=== PATIENT | female | born 1960 | race Caucasian/White ===

== ENCOUNTER 2016-04-10 07:15 | Day surgery (SDC) | payer MEDICARE, OTHER ==
[2016-04-05 15:45] VITALS: BMI 38.0
[~2016-04-10 07:15] MED LIST: LACTATED RINGERS 1,000 ML IV SCH; LIDOCAINE 1% 20 ML VIAL (10MG/ML) FOR IV START INTRADERMA PRN
[2016-04-10 07:53] VITALS: TEMP 98
[2016-04-10 08:00] LABS: Glucose,Whole Blood 153 mg/dL (75-99)
[2016-04-10] MEDS ORDERED: PROPOFOL 10 MG/ML 20 ML VIAL IV ONE (08:00)
--- NOTE | 2016-04-10 08:26 | P.PCN ---
Date of Procedure: 04/10/16 Procedure(s) Performed: BRIEF HISTORY: Patient is a 55-year-old pleasant white female, scheduled for an elective colonoscopy as a part of evaluation of iron deficiency anemia. She denies any GI symptoms. PROCEDURE PERFORMED: Colonoscopy. PREOPERATIVE DIAGNOSIS: Iron deficiency anemia. IV sedation per Anesthesia. PROCEDURE: After informed consent was obtained, the patient, was brought into the endoscopy unit. IV conscious sedation was administered by Anesthesia under continuous monitoring. Digital rectal examination was normal. Initially the Olympus CF-160 flexible video colonoscope was then inserted in the rectum, gradually advanced into the cecum without any difficulty. Careful examination was performed as the scope was gradually being withdrawn. Ileocecal valve and the appendiceal orifice were visualized and appeared normal. Prep was excellent. Mucosa of the cecum, ascending colon, transverse colon, descending colon, sigmoid colon, and rectum appeared normal. Retroflexion was performed in the rectum and no lesions were seen. The patient tolerated the procedure well. IMPRESSION: Normal-appearing colon from rectum to cecum with no evidence of colorectal neoplasia. RECOMMENDATIONS: Findings of this examination were discussed with the patient as well as her family. She was advised to have a repeat screening colonoscopy in 10 years.
[2016-04-10 08:34] VITALS: RESP 18
[2016-04-10 08:46] VITALS: BP 107/59; PULSE 79
[2016-04-10] MEDS ORDERED: fentaNYL (PF) 50 MCG/ML 2 ML AMP ONE (09:14)
[2016-04-10] MEDS ORDERED: MIDAZOLAM 2 MG/2 ML VIAL ONE (09:14)
== END 2016-04-10 08:58 | disposition home or self-care (01) ==
LOC: ORWHC2ENDO 07:15
PROVIDERS: ATTEND Internal Medicine Gastroenterology
DX: D50.9 Iron deficiency anemia, unspecified (principal); G47.33 Obstructive sleep apnea (adult) (pediatric); Z99.81 Dependence on supplemental oxygen; J44.9 Chronic obstructive pulmonary disease, unspecified; K21.9 Gastro-esophageal reflux disease without esophagitis; Z88.1 Allergy status to other antibiotic agents; Z88.0 Allergy status to penicillin; Z88.2 Allergy status to sulfonamides; Z79.84 Long term (current) use of oral hypoglycemic drugs; Z79.899 Other long term (current) drug therapy
CPT/HCPCS: 45378; J2704; 99153

== ENCOUNTER 2016-12-12 15:49 | Emergency (ER) | payer MEDICARE, OTHER ==
[2016-12-12] MEDS ORDERED: HYDROmorphone 0.5 MG/0.5 ML SYRINGE IVP STA (16:31)
[2016-12-12] MEDS ORDERED: ONDANSETRON 4 MG/2 ML VIAL IVP STA (16:31)
--- NOTE | 2016-12-12 17:22 | ED ---
Female Urogenital HPI - General Chief complaint: Vaginal Bleeding Stated complaint: vaginal blood clots Time Seen by Provider: 12/12/16 16:12 Source: patient, RN notes reviewed Mode of arrival: ambulatory Limitations: no limitations - History of Present Illness Initial comments: This a 56-year-old female presents emergency department tingling vaginal bleeding. Patient states she had sexual intercourse for the first time in 15 years 3 hours prior arrival states that she started having bleeding. Patient states that she has bled through 2 depends. Patient states that she has had a history of cervical cancer and currently sees Dr. Rasmussen. Patient states she try to go there prior to coming here but states that the doctor was not in. Patient states she felt lightheaded. Denies chest pain, shortness breath. She states she has had some abdominal cramping. - Related Data Home Medications Medication Instructions Recorded Confirmed Atorvastatin [Lipitor] 40 mg PO DAILY 01/02/15 12/12/16 Beclomethasone Dipropionate [Qvar 1 - 2 puff INHALATION RT-BID PRN 01/02/1502/16 40 mcg/puff] Carbidopa-Levodopa 25-250 mg 1 tab PO TID 01/02/15 12/12/16 [Sinemet 25-250] Ezetimibe [Zetia] 10 mg PO DAILY 01/02/15 12/12/16 Ipratropium Flushing [Atrovent Hfa] 1 puff INHALATION RT-QID PRN 01/02/15 Levalbuterol Hfa Inhaler [Xopenex 1 puff INHALATION RT-TID PRN 01/02/15 12/12/16 Hfa Inhaler] Metoprolol Tartrate [Lopressor] 25 mg PO BID 01/02/15 12/12/16 Nitroglycerin Sl Tabs [Nitrostat] 0.4 mg SUBLINGUAL Q5M PRN 01/02/15 12/12/16 Pramipexole [Mirapex] 1 mg PO TID 01/02/15 12/12/16 Ranitidine HCl [Zantac] 150 mg PO BID 01/02/15 12/12/16 metFORMIN HCL [Glucophage] 1,000 mg PO BID 01/02/15 12/12/16 Multivitamins, Thera [Multivitamin] 1 tab PO DAILY 04/05/16 12/12/16 Aspirin 325 mg PO DAILY 12/12/16 12/12/16 Vortioxetine Hydrobromide 10 mg PO DAILY 12/12/16 12/12/16 [Trintellix] levETIRAcetam [Keppra] 250 mg PO DAILY 12/12/16 12/12/16 Allergies Allergy/AdvReac Type Severity Reaction Status Date / Time amoxicillin Allergy SOB- RED Verified 12/12/16 16:54 BLOTCHY SKIN capsaicin Allergy SOB- RED Verified 12/12/16 16:54 BLOTCHY SKIN cephalexin monohydrate Allergy SOB- RED Verified 12/12/16 16:54 [From Keflex] BLOTCHY SKIN Cephalosporins Allergy SOB-RED Verified 12/12/16 16:54 BLOTCHY SKIN clindamycin Allergy SOB-RED Verified 12/12/16 16:54 BLOTCHY SKIN fluticasone propionate Allergy SOB- RED Verified 12/12/16 16:54 [From Flonase] BLOTCHY SKIN Penicillins Allergy SOB- RED Verified 12/12/16 16:54 BLOTCHY SKIN Sulfa (Sulfonamide Allergy SOB- RED Verified 12/12/16 16:54 Antibiotics) BLOTCHY SKIN BROWN DYES Allergy SOB- RED Uncoded 12/12/16 16:03 BLOTCHY SKIN Review of Systems ROS Statement: Those systems with pertinent positive or pertinent negative responses have been documented in the HPI. ROS Other: All systems not noted in ROS Statement are negative. Past Medical History Past Medical History: Coronary Artery Disease (CAD), Cancer, COPD, Diabetes Mellitus, Eye Disorder, Fibromyalgia, GERD/Reflux, Hyperlipidemia, Myocardial Infarction ([place]), Osteoarthritis (OA), Sleep Apnea/CPAP/BIPAP Additional Past Medical History / Comment(s): HX OF ACUTE MYELOID LEUKEMIA, [place] X2, INCISIONAL HERNIA, OSTEOPOROSIS IN HER BACK, NEUROPATHY GURDEEP LEGS, ANEMIA, VULVAR CANCER, ANEMIA, RLS,DIVERTICULITIS,WEAKENING IN ABDOMINAL WALL, HX RAPID HEART RATE, HX SHINGLES X2 Last Myocardial Infarction Date:: 2000 History of Any Multi-Drug Resistant Organisms: MRSA Date of last positivie culture/infection: 2001 MDRO Source:: PORT IN CHEST Past Surgical History: Bowel Resection, Section, Heart Catheterization With Stent, Hernia Repair, Orthopedic Surgery Additional Past Surgical History / Comment(s): LEFT OVARY REMOVED, DEVIATED SEPTUM REPAIR, LEFT EAR SURGERY, RIGHT WRIST PLATE AND PINS, RIGHT FOREHEAD CYST REMOVED Past Anesthesia/Blood Transfusion Reactions: Blood Transfusion Reaction Additional Past Anesthesia/Blood Transfusion Reaction / Comment(s): 2001 Date of Last Stent Placement:: 2000 Past Psychological History: Depression Smoking Status: Current every day smoker Past Alcohol Use History: None Reported Past Drug Use History: None Reported - Past Family History Mother Additional Family Medical History / Comment(s): @ AGE 53 WITH ANEURYSM Father Family Medical History: Myocardial Infarction ([place]) Additional Family Medical History / Comment(s): HAD CABG- COMMITTED SUICIDE A YEAR AFTER - PT'S GRANDFATHER(P) ALSO COMMITED SUICIDE Brother(s) Additional Family Medical History / Comment(s): COMMITTED SUICIDE General Exam Limitations: no limitations General appearance: alert, in no apparent distress Head exam: Present: atraumatic, normocephalic, normal inspection Respiratory exam: Present: normal lung sounds bilaterally. Absent: respiratory distress, wheezes, rales, rhonchi, stridor Cardiovascular Exam: Present: regular rate, normal rhythm, normal heart sounds. Absent: systolic murmur, diastolic murmur, rubs, gallop, clicks GI/Abdominal exam: Present: soft, normal bowel sounds. Absent: distended, tenderness, guarding, rebound, rigid External exam: Present: normal external exam, other (Exam performed with Ana María RN) Speculum exam: Present: vaginal bleeding (Multiple clots noted), laceration ( There is a laceration inferior and to the right of the cervix with no active bleeding) Course Vital Signs 12/12/16 12/12/16 16:00 17:11 Temperature 98.8 F Pulse Rate 103 H 85 Respiratory 16 18 Rate Blood Pressure 121/75 96/50 O2 Sat by Pulse 99 95 Oximetry Medical Decision Making - Medical Decision Making 56-year-old female presented emergency department for vaginal bleeding after intercourse. Patient does have a vaginal laceration with no active bleeding. Dr. Mariscal discuss case with Dr. Bains on-call LINUX SYSTEM ENGINEER who recommends no treatment with no active bleeding. Patient was monitored for over an hour no recurrence of bleeding. Patient be discharged return parameters were discussed. Disposition Clinical Impression: Vaginal laceration Disposition: HOME SELF-CARE Condition: Stable Additional Instructions: Please return to the Emergency Department if symptoms worsen or any other concerns. Referrals: Aron Jeffrey Jr, [Primary Care Provider] - 1-2 days Time of Disposition: 17:23
[2016-12-12 17:31] LABS: Basophils % (A) 0 %; CH 33.1; CHCM 31.8; Eosinophils # (A) 0.1 k/uL (0-0.7); Eosinophils % (A) 1 %; HCT 40.6 % (34.0-46.0); HDW 2.86; HGB 14.1 gm/dL (11.4-16.0); Hypochromasia Slight; Luc # (Auto) 0.14; Luc % (Auto) 2; Lymphocytes # (A) 2.1 k/uL (1.0-4.8); Lymphocytes % (A) 22 %; MCH 36.2 pg (25.0-35.0); MCHC 34.7 g/dL (31.0-37.0); MCV 104.5 fL (80.0-100.0); Macrocytosis Slight; Mean Platelet Volume 7.8; Monocytes # (A) 0.4 k/uL (0-1.0); Monocytes % (A) 4 %; Neutrophils # (A) 6.8 k/uL (1.3-7.7); Neutrophils % (A) 71 %; RBC 3.88 m/uL (3.80-5.40); RDW 14.3 % (11.5-15.5); WBC 9.5 k/uL (3.8-10.6); WBC (Perox) 9.25
[2016-12-12 17:33] LABS: Anion Gap 11 mmol/L; Blood Urea Nitrogen 17 mg/dL (7-17); Calcium 9.3 mg/dL (8.4-10.2); Carbon Dioxide 27 mmol/L (22-30); Chloride 101 mmol/L (98-107); Glucose 77 mg/dL (74-99); Non-African American GFR(MDRD) >60 (>60 ml/min/1.73 sqM); Potassium 4.3 mmol/L (3.5-5.1); Sodium 139 mmol/L (137-145)
[2016-12-12 18:23] VITALS: BP 109/55; PULSE 76; RESP 15; TEMP 98.1
== END 2016-12-12 18:28 | disposition home or self-care (01) ==
LOC: EC 15:49
DX: S31.41XA Laceration without foreign body of vagina and vulva, initial encounter (principal); I25.10 Atherosclerotic heart disease of native coronary artery without angina pectoris; E11.9 Type 2 diabetes mellitus without complications; E78.5 Hyperlipidemia, unspecified; I25.2 Old myocardial infarction; G47.30 Sleep apnea, unspecified; Z99.89 Dependence on other enabling machines and devices; F32.9 Major depressive disorder, single episode, unspecified; Z85.41 Personal history of malignant neoplasm of cervix uteri; Z86.14 Personal history of Methicillin resistant Staphylococcus aureus infection; Z95.5 Presence of coronary angioplasty implant and graft; Z98.890 Other specified postprocedural states; Z90.721 Acquired absence of ovaries, unilateral; Z79.84 Long term (current) use of oral hypoglycemic drugs; Z79.82 Long term (current) use of aspirin; Z79.899 Other long term (current) drug therapy; Z88.0 Allergy status to penicillin; Z88.1 Allergy status to other antibiotic agents; Z88.2 Allergy status to sulfonamides; Z91.018 Allergy to other foods; Z91.048 Other nonmedicinal substance allergy status
CPT/HCPCS: 99284 ×2; 96374 ×2; 96375 ×2; 36415; 86900; 86901; 80048; 85025; 86850; J2405; J1170

== ENCOUNTER 2017-04-17 07:33 | Day surgery (SDC) | payer MEDICARE, OTHER ==
[2017-04-15 11:24] VITALS: BMI 37.2
[~2017-04-17 07:33] MED LIST changes: +DEXAMETHASONE SOD PHOSPHATE 10 MG/ML 1 ML VIAL IV ONE; +DEXAMETHASONE SOD PHOSPHATE 4 MG/ML 1 ML VIAL IV ONE; +HYDROmorphone 0.5 MG/0.5 ML SYRINGE IVP PRN; -LACTATED RINGERS 1,000 ML IV SCH; +MIDAZOLAM 2 MG/2 ML VIAL IV PRN; +ONDANSETRON 4 MG/2 ML VIAL IVP ONE; +SCOPOLAMINE 1.5MG/72HR PATCH TRANSDERM ONE
[2017-04-17 08:09] LABS: Glucose,Whole Blood 131 mg/dL (75-99)
[2017-04-17] MEDS: LACTATED RINGERS 1,000 ML IV SCH ×2 (08:12→09:22)
[2017-04-17] MEDS ORDERED: FAMOTIDINE 20 MG/2 ML VIAL IVP ONE (08:13)
[2017-04-17] MEDS ORDERED: SUCCINYLCHOLINE CHLORIDE VIAL 200 MG/10 ML VIAL IV ONE (09:24)
[2017-04-17] MEDS ORDERED: LIDOCAINE 1% INJ 10MG/ML (20 ML MDV) ONE (09:24)
[2017-04-17] MEDS ORDERED: MIDAZOLAM 2 MG/2 ML VIAL ONE (09:24)
[2017-04-17] MEDS ORDERED: PROPOFOL 10 MG/ML 20 ML VIAL IV ONE (09:24)
[2017-04-17] MEDS ORDERED: fentaNYL (PF) 50 MCG/ML 2 ML AMP ONE (09:24)
[2017-04-17] MEDS ORDERED: OFLOXACIN 0.3% OPHTH DROPS 5 ML BOTTLE BOTH EARS ONE (09:43)
[2017-04-17] MEDS ORDERED: OXYMETAZOLINE 0.05% NASL SPRAY 1 SPRAY BOTTLE MISCELLANE ONE (09:43)
[2017-04-17] MEDS ORDERED: GELATIN SPONGE,ABSORB (SMALL) 1 EACH SPONGE MISCELLANE ONE (09:44)
[2017-04-17 10:19] VITALS: TEMP 96.9
--- NOTE | 2017-04-17 10:19 | P.OP ---
Date of Procedure: 04/17/17 Preoperative Diagnosis: Eustachian tube dysfunction Chronic otitis media with effusion bilaterally with conductive hearing loss Retained right tympanostomy tube Right tympanic membrane perforation post tube removal, right Postoperative Diagnosis: same Procedure(s) Performed: Right tympanostomy with removal of retained tube and drumhead cholesteatoma Right tympanoplasty with lysis of middle ear adhesions Bilateral direct microscopic tympanostomy tube placement Anesthesia: ASHWINIA Surgeon: Slava Acevdeo Estimated Blood Loss (ml): 10 Pathology: none sent Condition: stable Disposition: PACU Indications for Procedure: This patient is a 56-year-old white female who presented to the office today with her pain pressure bloody otorrhea from the right side hearing loss etc. patient has had a persistent and long-standing problem with her ears. She had a tube placed 10 years ago which has been retained. 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 The left ear suffered from eustachian tube dysfunction and a middle ear effusion and she had a conductive hearing loss bilaterally. After long discussion she wished to proceed forward with removal of that long-standing right tympanostomy tube with repair of that right eardrum removal of the drumhead cholesteatoma and tympanostomy tube placement for ventilation. All risks, benefits, and alternative therapies were discussed. Risks of bleeding, infection, hearing loss, change in taste, facial paralysis etc. etc. was discussed. Consent was obtained and all questions were answered. Operative Findings: Patient had a drumhead cholesteatoma with erosion of the eardrum around the retained tubes that was present for 10 years. Patient had bilateral mucosal disease bilaterally with right middle ear adhesions. Description of Procedure: Patient was taken to the operative room and placed in the supine position. A general inhalation anesthetic was administered to the patient by mask and subsequently intubated with a cuffed endotracheal tube by the department of anesthesia with a functioning IV line in place. Patient was monitored throughout the entire case by the department of anesthesia. The right ear was visualized with a Zeiss microscope with a variable focal length and magnification. We identified a retained tube and remove that tube with a house pick and alligator forceps. There was a drumhead cholesteatoma that was removed with a house pick and an alligator forceps and there was a resultant tympanic membrane perforation present. Went to see a large amount of adhesions in the middle ear space along with mucosal disease on the right side. The drumhead was prepped with a house pick and freshened. We utilized Afrin nasal spray for control of hemostasis. A tympanomeatal flap was developed in the 12 and 6 oclock position with a round knife and gemic. Multiple middle ear adhesions were lysed with use of a house pack. The flap was elevated, gelfoam was placed into the middle ear and a biodesign graft was placed as an underlay graft and the flap was placed back in position. A tympanostomy incision was made inferiorly and a tube was placed utilizing an ultraseal tube. The eardrum was in position the graft was placed as an underlay graft. Tube was in place and the ear canal was filled with Gelfoam dipped in ofloxacin. A Shaka pack was placed. To summarize, the right tube was removed the middle ear was explored and adhesions were lysed. Tube was placed we utilized a bio design graft for the tympanoplasty. Gelfoam was placed in a Shaka pack was placed to secure the packing on the right side. Attention was paid to the left ear which was also visualized with a high- powered microscope. Tympanostomy incision was made inferiorly and fluid was suctioned. An ultraseal tube was placed and the patient tolerated this well. Follow-up will be in the office in 1 week. Patient is to contact me if any problems should arise.
[2017-04-17 10:51] LABS: Glucose,Whole Blood 105 mg/dL (75-99)
[2017-04-17 11:26] VITALS: BP 130/70; PULSE 84; RESP 20
[2017-04-17] MEDS ORDERED: IBUPROFEN 200 MG TAB PO ONE (11:46)
== END 2017-04-17 12:03 | disposition home or self-care (01) ==
LOC: OR 07:33
PROVIDERS: ATTEND Otolaryngology
DX: H65.493 Other chronic nonsuppurative otitis media, bilateral (principal); H72.91 Unspecified perforation of tympanic membrane, right ear; H90.0 Conductive hearing loss, bilateral; H71.91 Unspecified cholesteatoma, right ear; H69.82 Other specified disorders of Eustachian tube, left ear; H71.11 Cholesteatoma of tympanum, right ear; M19.90 Unspecified osteoarthritis, unspecified site; E11.40 Type 2 diabetes mellitus with diabetic neuropathy, unspecified; I10 Essential (primary) hypertension; I25.2 Old myocardial infarction; F17.200 Nicotine dependence, unspecified, uncomplicated; G40.909 Epilepsy, unspecified, not intractable, without status epilepticus; F32.9 Major depressive disorder, single episode, unspecified; K21.9 Gastro-esophageal reflux disease without esophagitis; J44.9 Chronic obstructive pulmonary disease, unspecified; M79.7 Fibromyalgia; F41.9 Anxiety disorder, unspecified; G20 Parkinson's disease; Z79.82 Long term (current) use of aspirin; Z79.899 Other long term (current) drug therapy; Z88.0 Allergy status to penicillin; Z88.1 Allergy status to other antibiotic agents; Z88.2 Allergy status to sulfonamides; Z88.8 Allergy status to other drugs, medicaments and biological substances; Z91.09 Other allergy status, other than to drugs and biological substances; Z90.49 Acquired absence of other specified parts of digestive tract; Z79.4 Long term (current) use of insulin; Z95.5 Presence of coronary angioplasty implant and graft; Z85.6 Personal history of leukemia; Z79.51 Long term (current) use of inhaled steroids; Z82.49 Family history of ischemic heart disease and other diseases of the circulatory system
CPT/HCPCS: 69631; 69436; C1763; J2250; J0330; J2405; J2001; J3010; J2704; J1170

== ENCOUNTER → 2017-04-28 | Outpatient (CLI) | payer MEDICARE, OTHER ==
--- NOTE | 2017-04-28 15:47 | MR ---
EXAMINATION TYPE: MR brain wo/w con DATE OF EXAM: 04/28/2017 COMPARISON: Correlation CT head 02/10/2015 HISTORY: 56-year-old female myoclonic jerking. TECHNIQUE: Multiplanar, multisequence images of the brain and brainstem were acquired before and aft er administration of 11 mL IV Gadavist. Diffusion weighted imaging is performed. FINDINGS: No evidence for acute infarction, hemorrhage, mass, mass effect, midline shift, herniation, effacemen t of basal cisterns, or extra-axial fluid collection. The ventricles and sulci are age-appropriate. Major intracranial flow voids are intact. 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 T2/FLAIR weighted sequences show mild scattered white matter change in the subcortical and deep white matter of both cerebral hemispheres, numbering approximately 10 on each side. There is more confluen t moderate patchy increased signal in the paramedian becca. No tried and appearance to this increased signal and no enhancement identified. Midline structures demonstrate normal morphology. The craniocervical junction is normal. Post contrast images demonstrate no evidence of pathologic enhancement. Dural venous sinuses are pat ent. Mild mucosal thickening ethmoid air cells. Previous scleral banding right globe. IMPRESSION: 1. No acute intracranial abnormality seen. 2. Mild burden of T2 bright white matter change in the cerebral hemispheres. This is nonspecific but likely relates to changes of chronic small vessel ischemic disease. 3. More moderate patchy white matter signal changes in the becca. Suspect chronic white matter infarct s relating to the basilar perforators. Other causes of demyelination including MS and previous episod e of osmotic demyelination are also possible but considered less likely. Clinically correlate. 4. 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 Recommend MRA [place] t o further evaluate.
== END | disposition home or self-care (01) ==
LOC: RADMRIMAIN 13:37
PROVIDERS: ATTEND Psychiatry & Neurology Neurology
DX: R90.82 White matter disease, unspecified (principal); G25.3 Myoclonus; Z13.89 Encounter for screening for other disorder
CPT/HCPCS: 82565; 70553; 36415; A9581

== ENCOUNTER → 2017-05-01 | Outpatient (CLI) | payer MEDICARE, OTHER ==
--- NOTE | 2017-05-04 08:10 | MR ---
EXAMINATION TYPE: MR angio head wo con DATE OF EXAM: 05/01/2017 COMPARISON: 04/22/1617 HISTORY: F/U to [facility] MRI 04-28-17 EXAMINATION TYPE: MR angio head wo con DATE OF EXAM: 05/01/2017 COMPARISON: 04/28/2017 HISTORY: F/U to [facility] MRI 04-28-17 TECHNIQUE: Time of flight images focusing on the [place] were performed without contrast.. 2-D and 3-D postprocessing imaging is performed. 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 T here is no evidence of focal stenosis of the visualized intracranial vasculature. No other abnormal o utpouchings are seen to suggest a second intracranial aneurysm. No abnormal arterial malformations ar e appreciated. 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
== END | disposition home or self-care (01) ==
LOC: RADMRIMAIN 16:06
PROVIDERS: ATTEND Psychiatry & Neurology Neurology
DX: I67.1 Cerebral aneurysm, nonruptured (principal)
CPT/HCPCS: 70544

== ENCOUNTER 2017-07-06 23:52 | Emergency (ER) | payer MEDICARE, OTHER ==
[2017-07-06 23:56] VITALS: TEMP 98
[2017-07-07] MEDS ORDERED: KETOROLAC 30 MG/ML 1 ML VIAL IVP STA (00:37)
[2017-07-07 00:39] LABS: Basophils % (A) 0 %; Eosinophils # (A) 0.1 k/uL (0-0.7); Eosinophils % (A) 2 %; HCT 39.5 % (34.0-46.0); HGB 12.3 gm/dL (11.4-16.0); Hypochromasia Moderate; Lymphocytes # (A) 2.2 k/uL (1.0-4.8); Lymphocytes % (A) 32 %; MCH 30.3 pg (25.0-35.0); MCHC 31.1 g/dL (31.0-37.0); MCV 97.6 fL (80.0-100.0); Mean Platelet Volume 9.5; Monocytes # (A) 0.3 k/uL (0-1.0); Monocytes % (A) 4 %; Neutrophils % (A) 60 %; Platelet Count 165 k/uL (150-450); RBC 4.05 m/uL (3.80-5.40); RDW 15.5 % (11.5-15.5); WBC 6.7 k/uL (3.8-10.6)
--- NOTE | 2017-07-07 00:39 | ED ---
General Adult HPI - General Chief complaint: Chest Pain Stated complaint: Chest Pain, leg swelling Time Seen by Provider: 07/07/17 00:02 Source: patient Mode of arrival: ambulatory Limitations: no limitations - History of Present Illness Initial comments: This patient is a 57-year-old woman who presents to be evaluated for a constellation of symptoms. She states that she has noted over the past 3 days that she seems to be retaining fluid. She started with swelling of the feet and ankles bilaterally which progressed up her legs and also affecting her lower abdomen. Again this is been getting progressively worse over the past 3 days. She also has been having a cough which she states is chronic though seems to be more pronounced over the past few days. Additionally patient has been having some mild shortness of breath and chest tightness across her chest for the past day to 2. Onset/Timin -: days(s) Location: chest, back, left, right, lower extremity Radiation: non-radiation Quality: burning Consistency: constant Improves with: none Worsens with: none Associated Symptoms: cough - Related Data Home Medications Medication Instructions Recorded Confirmed Atorvastatin [Lipitor] 40 mg PO DAILY 01/02/15 04/17/17 Carbidopa-Levodopa 25-250 mg 1 tab PO TID 01/02/15 04/17/17 [Sinemet 25-250] Ezetimibe [Zetia] 10 mg PO DAILY 01/02/15 04/17/17 Ipratropium [place] [Atrovent Hfa] 1 puff INHALATION RT-QID PRN 01/02/15 Nitroglycerin Sl Tabs [Nitrostat] 0.4 mg SUBLINGUAL Q5M PRN 01/02/15 04/17/17 Pramipexole [Mirapex] 1 mg PO TID 01/02/15 04/17/17 Ranitidine HCl [Zantac] 150 mg PO BID 01/02/15 04/17/17 metFORMIN HCL [Glucophage] 1,000 mg PO BID 01/02/15 04/17/17 Aspirin 325 mg PO DAILY 12/12/16 04/17/17 Vortioxetine Hydrobromide 10 mg PO DAILY 12/12/16 04/17/17 [Trintellix] levETIRAcetam [Keppra] 250 mg PO DAILY 12/12/16 04/17/17 Furosemide [Lasix] 20 mg PO BID 04/15/17 04/17/17 Previous Rx's Medication Instructions Recorded Azithromycin [Zithromax Z-pack] 0 mg PO DIRECTED #6 tab 04/17/17 Ibuprofen [Motrin] 600 mg PO Q6HR PRN #30 tab 04/17/17 Ibuprofen [Motrin] 600 mg PO Q6HR PRN #60 tab 04/17/17 Ofloxacin 0.3% Ophth Soln [Ocuflox 5 - 7 drops BOTH EARS BID #10 04/17/17 Ophth Soln] bottle Allergies Allergy/AdvReac Type Severity Reaction Status Date / Time amoxicillin Allergy SOB- RED Verified 07/06/17 23:56 BLOTCHY SKIN capsaicin Allergy SOB- RED Verified 07/06/17 23:56 [place]OT[place]Y SK[place] cephalexin monohydrate Allergy SOB- RED Verified 07/06/17 23:56 [From Keflex] BLOTCHY SKIN Cephalosporins Allergy SOB-RED Verified 07/06/17 23:56 BLOT[place]Y SKIN ciprofloxacin Allergy Unknown Verified 07/06/17 23:56 clindamycin Allergy SOB-RED Verified 07/06/17 23:56 BLOT[place] SK[place] fluticasone propionate Allergy SOB- RED Verified 07/06/17 23:56 [From Flonase] BLOTCHY SKIN Penicillins Allergy SOB- RED Verified 07/06/17 23:56 BLOTCHY SKIN Sulfa (Sulfonamide Allergy SOB- RED Verified 07/06/17 23:56 Antibiotics) BLOTCHY SKIN BROWN DYES Allergy SOB- RED Uncoded 07/06/17 23:56 BLOTCHY SKIN Review of Systems ROS Statement: Those systems with pertinent positive or pertinent negative responses have been documented in the HPI. ROS Other: All systems not noted in ROS Statement are negative. Constitutional: Denies: fever, chills, weakness Respiratory: Reports: cough. Denies: wheezes, hemoptysis Cardiovascular: Reports: chest pain, dyspnea on exertion, orthopnea, edema. Denies: palpitations, syncope Gastrointestinal: Denies: abdominal pain, nausea, vomiting, diarrhea, constipation Genitourinary: Denies: dysuria, hematuria Musculoskeletal: Denies: back pain Skin: Denies: rash Neurological: Denies: headache, weakness, numbness Past Medical History Past Medical History: Coronary Artery Disease (CAD), Cancer, COPD, Diabetes Mellitus, Eye Disorder, Fibromyalgia, GERD/Reflux, Hearing Disorder / Deafness, Hyperlipidemia, [place] Inf[place]ction ([place]), Neurologic Disorder, Osteoarthritis (OA), Sleep Apnea/CPAP/BIPAP Additional Past Medical History / Comment(s): HX OF ACUTE MYELOID LE[place]EMIA[place]2, LARGE ABDOMINAL HERNIA, OSTEOPOROSIS, NEUROPATHY GURDEEP LEGS, ANEMIA, VULVAR CANCER, RLS, HX RAPID HEART RATE, HX SHINGLES X2, hx. detached retina, spinal curvature-can't lay flat on back, tremors, uses BIPAP & O2 @2l @[facility] Last Myocardial Infarction Date:: 2000 History of Any Multi-Drug Resistant Organisms: MRSA Date of last positivie culture/infection: 2001 MDRO Source:: PORT IN CHEST Past Surgical History: Bowel Resection, Section, Heart Catheterization With Stent, Hernia Repair, Orthopedic Surgery Additional Past Surgical History / Comment(s): LEFT OVARY REMOVED, DEVIATED SEPTUM REPAIR, LEFT EAR SURGERY, RIGHT WRIST PLATE AND PINS, RIGHT FOREHEAD CYST REMOVED Past Anesthesia/Blood Transfusion Reactions: Blood Transfusion Reaction, Motion Sickness, Postoperative Nausea & Vomiting (PONV) Additional Past Anesthesia/Blood Transfusion Reaction / Comment(s): 2001-had some kind of transfusion reaction Date of Last Stent Placement:: 2000 Past Psychological History: Depression Smoking Status: Current every day smoker - Past Family History Mother Additional Family Medical History / Comment(s): @ AGE 53 WITH ANEURYSM Father Family Medical History: [place]ocardial Infarction ([place]) Additional Family Medical History / Comment(s): HAD CABG- COMMITTED SUICIDE A YEAR AFTER - PT'S GRANDFATHER(P) ALSO COMMITED SUICIDE Brother(s) Additional Family Medical History / Comment(s): COMMITTED SUICIDE General Exam Limitations: no limitations General appearance: alert, in no apparent distress Head exam: Present: atraumatic, normocephalic Eye exam: Present: normal appearance. Absent: scleral icterus, conjunctival injection ENT exam: Present: normal oropharynx Neck exam: Present: normal inspection Respiratory exam: Present: wheezes. Absent: respiratory distress, rales, rhonchi, stridor, chest wall tenderness, accessory muscle use, decreased breath sounds Cardiovascular Exam: Present: regular rate, normal rhythm, normal heart sounds. Absent: systolic murmur, diastolic murmur, rubs, gallop GI/Abdominal exam: Present: soft, hernia (Patient has large left lower quadrant incisional hernia. This is reducible and is nontender.). Absent: distended, tenderness, guarding, rebound, rigid, mass Extremities exam: Present: normal inspection, normal capillary refill, pedal edema. Absent: calf tenderness Back exam: Present: normal inspection. Absent: CVA tenderness (R), CVA tenderness (L) Neurological exam: Present: alert Skin exam: Present: warm, dry, intact, normal color. Absent: rash Course Vital Signs 07/06/17 07/07/17 07/07/17 23:54 01:19 02:23 Temperature 98.0 F Pulse Rate 103 H 84 84 Respiratory 18 24 22 Rate Blood Pressure 163/62 99/75 125/83 O2 Sat by Pulse 96 96 97 Oximetry EKG Findings - EKG Results: EKG: interpreted by JOANN, sinus rhythm (Rate proximally 97 bpm), normal axis, normal QRS (QRS duration 148 ms, consistent with right bundle-branch block) - Blocks, [place], Hypertrophy, ST Abn: AV and intraventricular conduction: right bundle branch block (fixed/ intermittent, complete/incomplete) Repolarization changes or abnormalities: ST or T wave suggestive of ischemia ( Lateral T inversion) Medical Decision Making - Lab Data Result diagrams: 07/07/17 00:20 07/07/17 00:20 Lab Results 07/07/17 07/07/17 07/07/17 Range/Units 00:20 00:20 00:20 WBC 6.7 (3.8-10.6) k/uL RBC 4.05 (3.80-5.40) m/uL Hgb 12.3 (11.4-16.0) gm/dL Hct 39.5 (34.0-46.0) % MCV 97.6 (80.0-100.0) fL MCH 30.3 (25.0-35.0) pg MCHC 31.1 (31.0-37.0) g/dL RDW 15.5 (11.5-15.5) % Plt Count 165 (150-450) k/uL Neutrophils % 60 % Lymphocytes % 32 % Monocytes % 4 % Eosinophils % 2 % Basophils % 0 % Neutrophils # 4.0 (1.3-7.7) k/uL Lymphocytes # 2.2 (1.0-4.8) k/uL Monocytes # 0.3 (0-1.0) k/uL Eosinophils # 0.1 (0-0.7) k/uL Basophils # 0.0 (0-0.2) k/uL Hypochromasia Moderate PT (9.0-12.0) sec INR (<1.2) APTT (22.0-30.0) sec D-Dimer (<0.60) mg/L FEU Sodium 142 (137-145) mmol/L Potassium 3.8 (3.5-5.1) mmol/L Chloride 102 (98-107) mmol/L Carbon Dioxide 27 (22-30) mmol/L Anion Gap 13 mmol/L BUN 16 (7-17) mg/dL Creatinine 0.80 (0.52-1.04) mg/dL Est GFR (CKD-EPI)AfAm >90 (>60 ml/min/1.73 sqM) Est GFR (CKD-EPI)NonAf 82 (>60 ml/min/1.73 sqM) Glucose 145 H (74-99) mg/dL Calcium 9.0 (8.4-10.2) mg/dL Magnesium 1.9 (1.6-2.3) mg/dL Total Bilirubin 0.4 (0.2-1.3) mg/dL AST 19 (14-36) U/L ALT 21 (9-52) U/L Alkaline Phosphatase 110 (38-126) U/L Total Creatine Kinase 99 (30-135) U/L CK-MB (CK-2) 1.5 (0.0-2.4) ng/mL CK-MB (CK-2) Rel Index 1.5 Troponin I <0.012 (0.000-0.034) ng/mL NT-Pro-B Natriuret Pep pg/mL Total Protein 5.9 L (6.3-8.2) g/dL Albumin 3.7 (3.5-5.0) g/dL 07/07/17 07/07/17 Range/Units 00:40 02:21 WBC (3.8-10.6) k/uL RBC (3.80-5.40) m/uL Hgb (11.4-16.0) gm/dL Hct (34.0-46.0) % MCV (80.0-100.0) fL MCH (25.0-35.0) pg MCHC (31.0-37.0) g/dL RDW (11.5-15.5) % Plt Count (150-450) k/uL Neutrophils % % Lymphocytes % % Monocytes % % Eosinophils % % Basophils % % Neutrophils # (1.3-7.7) k/uL Lymphocytes # (1.0-4.8) k/uL Monocytes # (0-1.0) k/uL Eosinophils # (0-0.7) k/uL Basophils # (0-0.2) k/uL Hypochromasia PT 10.1 (9.0-12.0) sec INR 1.0 (<1.2) APTT 24.8 (22.0-30.0) sec D-Dimer 0.57 (<0.60) mg/L FEU Sodium (137-145) mmol/L Potassium (3.5-5.1) mmol/L Chloride (98-107) mmol/L Carbon Dioxide (22-30) mmol/L Anion Gap mmol/L BUN (7-17) mg/dL Creatinine (0.52-1.04) mg/dL Est GFR (CKD-EPI)AfAm (>60 ml/min/1.73 sqM) Est GFR (CKD-EPI)NonAf (>60 ml/min/1.73 sqM) Glucose (74-99) mg/dL Calcium (8.4-10.2) mg/dL Magnesium (1.6-2.3) mg/dL Total Bilirubin (0.2-1.3) mg/dL AST (14-36) U/L ALT (9-52) U/L Alkaline Phosphatase (38-126) U/L Total Creatine Kinase (30-135) U/L CK-MB (CK-2) (0.0-2.4) ng/mL CK-MB (CK-2) Rel Index Troponin I (0.000-0.034) ng/mL NT-Pro-B Natriuret Pep 2050 pg/mL Total Protein (6.3-8.2) g/dL Albumin (3.5-5.0) g/dL Disposition Clinical Impression: Acute exacerbation of CHF (congestive heart failure) Disposition: HOME SELF-CARE Condition: Fair Instructions: Heart Failure (ED), Leg Edema (ED) Is patient prescribed a controlled substance at d/c from ED?: No Referrals: Britton Liriano MD [Primary Care Provider] - 1-2 days
[2017-07-07 00:47] LABS: ALT 21 U/L (9-52); AST 19 U/L (14-36); Albumin 3.7 g/dL (3.5-5.0); Alkaline Phosphatase 110 U/L (38-126); Anion Gap 13 mmol/L; Blood Urea Nitrogen 16 mg/dL (7-17); Carbon Dioxide 27 mmol/L (22-30); Chloride 102 mmol/L (98-107); Glucose 145 mg/dL (74-99); Magnesium 1.9 mg/dL (1.6-2.3); Potassium 3.8 mmol/L (3.5-5.1); Sodium 142 mmol/L (137-145); Total Bilirubin 0.4 mg/dL (0.2-1.3); Total Protein 5.9 g/dL (6.3-8.2)
--- NOTE | 2017-07-07 00:49 | XR ---
EXAMINATION TYPE: XR chest 1V portable DATE OF EXAM: 07/07/2017 COMPARISON: 02/13/2016 HISTORY: Chest pain TECHNIQUE: Single frontal view of the chest is obtained. FINDINGS: There is no heart failure nor confluent pneumonic infiltrate. Costophrenic angles are myles r. There are chest leads. Bony thorax appears intact. IMPRESSION: No active cardiopulmonary disease. No change.
[2017-07-07 01:17] LABS: Creatine Kinase 99 U/L (30-135)
[2017-07-07 01:27] LABS: D-Dimer 0.57 mg/L FEU (<0.60); Partial Thromboplastin Time 24.8 sec (22.0-30.0); Prothrombin Time 10.1 sec (9.0-12.0)
[2017-07-07 01:29] LABS: Creatine Kinase MB 1.5 ng/mL (0.0-2.4); Troponin I <0.012 ng/mL (0.000-0.034)
[2017-07-07] MEDS ORDERED: FUROSEMIDE 10 MG/ML 4 ML VIAL IV STA (03:27)
[2017-07-07 03:52] VITALS: BP 126/70; PULSE 74; RESP 20
== END 2017-07-07 03:56 | disposition home or self-care (01) ==
LOC: EC 23:52
DX: I50.9 Heart failure, unspecified (principal); I45.10 Unspecified right bundle-branch block; I25.10 Atherosclerotic heart disease of native coronary artery without angina pectoris; M79.7 Fibromyalgia; K21.9 Gastro-esophageal reflux disease without esophagitis; E78.5 Hyperlipidemia, unspecified; E11.40 Type 2 diabetes mellitus with diabetic neuropathy, unspecified; F32.9 Major depressive disorder, single episode, unspecified; F17.200 Nicotine dependence, unspecified, uncomplicated; Z86.14 Personal history of Methicillin resistant Staphylococcus aureus infection; Z95.5 Presence of coronary angioplasty implant and graft; Z88.0 Allergy status to penicillin; Z88.2 Allergy status to sulfonamides; Z88.1 Allergy status to other antibiotic agents; Z88.8 Allergy status to other drugs, medicaments and biological substances; Z91.018 Allergy to other foods; Z91.048 Other nonmedicinal substance allergy status; Z79.82 Long term (current) use of aspirin; Z79.84 Long term (current) use of oral hypoglycemic drugs; Z79.899 Other long term (current) drug therapy
CPT/HCPCS: 99285; 96374; 96375; 36415; 93005; 85379; 83880; 80053; 82550; 82553; 83735; 84484; 85025; 85610; 85730; 71045; J1940; J1885

== ENCOUNTER 2017-07-07 06:55 | Inpatient (IN) | payer MEDICARE, OTHER ==
[2017-07-07] MEDS ORDERED: NITROGLYCERIN OINT 1 INCH/GM PACKET TOPICAL STA (07:29)
[2017-07-07] MEDS ORDERED: ASPIRIN 81 MG PO STA (07:29)
--- NOTE | 2017-07-07 07:37 | ED ---
General Adult HPI - General Chief complaint: Chest Pain Stated complaint: chest tightness Time Seen by Provider: 07/07/17 07:00 Source: patient, RN notes reviewed Mode of arrival: wheelchair Limitations: no limitations - History of Present Illness Initial comments: This is a 57-year-old female with past medical history significant for coronary artery disease with 2 stent placements in the past. Patient also complains of COPD. Patient is a smoker. Patient also states she's had some edema to bilateral legs. She states she short of breath and having some left-sided chest pain that goes to the back and shoulder. Patient states she was here earlier today but left AMA in the middle the night because she thought she could make it to the morning. Patient states when she got home the chest pain got worse so she decided come the emergency department. Patient denies any headache patient denies numbness weakness patient denies lightheadedness dizziness or near syncopal episode. - Related Data Home Medications Medication Instructions Recorded Confirmed Atorvastatin [Lipitor] 40 mg PO DAILY 01/02/15 07/07/17 Carbidopa-Levodopa 25-250 mg 1 tab PO TID 01/02/15 07/07/17 [Sinemet 25-250] Ezetimibe [Zetia] 10 mg PO DAILY 01/02/15 07/07/17 Ipratropium [place] [Atrovent Hfa] 1 puff INHALATION RT-QID PRN 01/02/15 Nitroglycerin Sl Tabs [Nitrostat] 0.4 mg SUBLINGUAL Q5M PRN 01/02/15 07/07/17 Pramipexole [Mirapex] 1 mg PO TID 01/02/15 07/07/17 Ranitidine HCl [Zantac] 150 mg PO BID 01/02/15 07/07/17 metFORMIN HCL [Glucophage] 1,000 mg PO BID 01/02/15 07/07/17 Aspirin 325 mg PO DAILY 12/12/16 07/07/17 Vortioxetine Hydrobromide 10 mg PO DAILY 12/12/16 07/07/17 [Trintellix] levETIRAcetam [Keppra] 250 mg PO DAILY 12/12/16 07/07/17 Furosemide [Lasix] 20 mg PO BID 04/15/17 07/07/17 Acetaminophen Tab [Tylenol Tab] 1,000 mg PO Q6HR PRN 07/07/17 07/07/17 Previous Rx's Medication Instructions Recorded Ibuprofen [Motrin] 600 mg PO Q6HR PRN #30 tab 04/17/17 Allergies Allergy/AdvReac Type Severity Reaction Status Date / Time amoxicillin Allergy SOB- RED Verified 07/07/17 07:27 [place]OT[place]Y SK[place] capsaicin Allergy SOB- RED Verified 07/07/17 07:27 [place]OT[place] SK[place] cephalexin monohydrate Allergy SOB- RED Verified 07/07/17 07:27 [From Keflex] BLOTCHY SK[place] Cephalosporins Allergy SOB-RED Verified 07/07/17 07:27 BLOT[place]Y SK[place] ciprofloxacin Allergy Unknown Verified 07/07/17 07:27 clindamycin Allergy SOB-RED Verified 07/07/17 07:27 BLOT[place] fluticasone propionate Allergy SOB- RED Verified 07/07/17 07:27 [From Flonase] BLOTCHY SK[place] Penicillins Allergy SOB- RED Verified 07/07/17 07:27 BLOT[place] SK[place] Sulfa (Sulfonamide Allergy SOB- RED Verified 07/07/17 07:27 Antibiotics) BLOTCHY SKIN BROWN DYES Allergy SOB- RED Uncoded 07/06/17 23:56 BLOTCHY SKIN Review of Systems ROS Statement: Those systems with pertinent positive or pertinent negative responses have been documented in the HPI. ROS Other: All systems not noted in ROS Statement are negative. Past Medical History Past Medical History: Coronary Artery Disease (CAD), Cancer, COPD, Diabetes Mellitus, Eye Disorder, Fibromyalgia, GERD/Reflux, Hearing Disorder / Deafness, Hyperlipidemia, Myocardial Infarction ([place]), Neurologic Disorder, Osteoarthritis (OA), Sleep Apnea/CPAP/BIPAP Additional Past Medical History / Comment(s): HX OF ACUTE MYELOID LEUKEMIA, [place] X2, LARGE ABDOMINAL HERNIA, OSTEOPOROSIS, NEUROPATHY GURDEEP LEGS, ANEMIA, VULVAR CANCER, RLS, HX RAPID HEART RATE, HX SHINGLES X2, hx. detached retina, spinal curvature-can't lay flat on back, tremors, uses BIPAP & O2 @2l @[facility] Last Myocardial Infarction Date:: 2000 History of Any Multi-Drug Resistant Organisms: MRSA Date of last positivie culture/infection: 2001 MDRO Source:: PORT IN CHEST Past Surgical History: Bowel Resection, Section, Heart Catheterization With Stent, Hernia Repair, Orthopedic Surgery Additional Past Surgical History / Comment(s): LEFT OVARY REMOVED, DEVIATED SEPTUM REPAIR, LEFT EAR SURGERY, RIGHT WRIST PLATE AND PINS, RIGHT FOREHEAD CYST REMOVED Past Anesthesia/Blood Transfusion Reactions: Blood Transfusion Reaction, Motion Sickness, Postoperative Nausea & Vomiting (PONV) Additional Past Anesthesia/Blood Transfusion Reaction / Comment(s): 2001-had some kind of transfusion reaction Date of Last Stent Placement:: 2000 Past Psychological History: Depression Smoking Status: Current every day smoker - Past Family History Mother Additional Family Medical History / Comment(s): @ AGE 53 WITH ANEURYSM Father Family Medical History: Myocardial Infarction ([place]) Additional Family Medical History / Comment(s): HAD CABG- COMMITTED SUICIDE A YEAR AFTER - PT'S GRANDFATHER(P) ALSO COMMITED SUICIDE Brother(s) Additional Family Medical History / Comment(s): COMMITTED SUICIDE General Exam - General Exam Comments Initial Comments: GENERAL: Patient is well-developed and well-nourished. Patient is nontoxic and well- hydrated and is in mild distress. ENT: Neck is soft and supple. No significant lymphadenopathy is noted. Oropharynx is clear. Moist mucous membranes. Neck has full range of motion without eliciting any pain. EYES: The sclera were anicteric and conjunctiva were pink and moist. Extraocular movements were intact and pupils were equal round and reactive to light. Eyelids were unremarkable. PULMONARY: Unlabored respirations. Good breath sounds bilaterally. No audible rales rhonchi or wheezing was noted. CARDIOVASCULAR: There is a regular rate and rhythm without any murmurs gallops or rubs. ABDOMEN: Soft and nontender with normal bowel sounds. No palpable organomegaly was noted. There is no palpable pulsatile mass. SKIN: Skin is clear with no lesions or rashes and otherwise unremarkable. NEUROLOGIC: Patient is alert and oriented x3. Cranial nerves II through XII are grossly intact. Motor and sensory are also intact. Normal speech, volume and content. Symmetrical smile. MUSCULOSKELETAL: Normal extremities with adequate strength and full range of motion. Bilateral edema LYMPHATICS: No significant lymphadenopathy is noted PSYCHIATRIC: Normal psychiatric evaluation. Normal interpersonal interactions appears functionally intact in deals appropriately with others. No signs of depression. Limitations: no limitations Course Vital Signs 07/07/17 07/07/17 07:02 08:05 Temperature 97.4 F L Pulse Rate 95 79 Respiratory 18 22 Rate Blood Pressure 105/55 112/56 O2 Sat by Pulse 90 L 95 Oximetry Medical Decision Making - Medical Decision Making EKG shows sinus rhythm with occasional PVC at 89 bpm TX interval 1:30 QRS on a 52 QT interval 420 QTC is 511. Patient's EKG shows no ST segment elevation or depression patient does have a right bundle nahomi block which is seen on 2 previous EKGs. Reviewed the chest x-ray from earlier today it did not show any acute abnormality. I spoke with Dr. fang he agreed to admit the patient admitted the patient wrote admitting orders. - Lab Data Result diagrams: 07/07/17 07:34 07/07/17 07:34 Lab Results 07/07/17 07/07/17 07/07/17 Range/Units 07:34 07:34 07:34 WBC 5.1 (3.8-10.6) k/uL RBC 3.84 (3.80-5.40) m/uL Hgb 11.7 (11.4-16.0) gm/dL Hct 37.6 (34.0-46.0) % MCV 97.7 (80.0-100.0) fL MCH 30.4 (25.0-35.0) pg MCHC 31.1 (31.0-37.0) g/dL RDW 15.5 (11.5-15.5) % Plt Count 144 L (150-450) k/uL Neutrophils % 59 % Lymphocytes % 33 % Monocytes % 5 % Eosinophils % 2 % Basophils % 0 % Neutrophils # 3.0 (1.3-7.7) k/uL Lymphocytes # 1.7 (1.0-4.8) k/uL Monocytes # 0.2 (0-1.0) k/uL Eosinophils # 0.1 (0-0.7) k/uL Basophils # 0.0 (0-0.2) k/uL Hypochromasia Moderate PT (9.0-12.0) sec INR (<1.2) APTT (22.0-30.0) sec Sodium 142 (137-145) mmol/L Potassium 3.7 (3.5-5.1) mmol/L Chloride 102 (98-107) mmol/L Carbon Dioxide 29 (22-30) mmol/L Anion Gap 11 mmol/L BUN 18 H (7-17) mg/dL Creatinine 0.78 (0.52-1.04) mg/dL Est GFR (CKD-EPI)AfAm >90 (>60 ml/min/1.73 sqM) Est GFR (CKD-EPI)NonAf 84 (>60 ml/min/1.73 sqM) Glucose 177 H (74-99) mg/dL Calcium 8.7 (8.4-10.2) mg/dL Magnesium 1.8 (1.6-2.3) mg/dL Total Bilirubin 0.4 (0.2-1.3) mg/dL AST 22 (14-36) U/L ALT 13 (9-52) U/L Alkaline Phosphatase 93 (38-126) U/L Total Creatine Kinase 90 (30-135) U/L CK-MB (CK-2) 1.7 (0.0-2.4) ng/mL CK-MB (CK-2) Rel Index 1.9 Troponin I <0.012 (0.000-0.034) ng/mL NT-Pro-B Natriuret Pep pg/mL Total Protein 5.6 L (6.3-8.2) g/dL Albumin 3.4 L (3.5-5.0) g/dL 07/07/17 07/07/17 Range/Units 07:34 07:34 WBC (3.8-10.6) k/uL RBC (3.80-5.40) m/uL Hgb (11.4-16.0) gm/dL Hct (34.0-46.0) % MCV (80.0-100.0) fL MCH (25.0-35.0) pg MCHC (31.0-37.0) g/dL RDW (11.5-15.5) % Plt Count (150-450) k/uL Neutrophils % % Lymphocytes % % Monocytes % % Eosinophils % % Basophils % % Neutrophils # (1.3-7.7) k/uL Lymphocytes # (1.0-4.8) k/uL Monocytes # (0-1.0) k/uL Eosinophils # (0-0.7) k/uL Basophils # (0-0.2) k/uL Hypochromasia PT 10.3 (9.0-12.0) sec INR 1.0 (<1.2) APTT 24.7 (22.0-30.0) sec Sodium (137-145) mmol/L Potassium (3.5-5.1) mmol/L Chloride (98-107) mmol/L Carbon Dioxide (22-30) mmol/L Anion Gap mmol/L BUN (7-17) mg/dL Creatinine (0.52-1.04) mg/dL Est GFR (CKD-EPI)AfAm (>60 ml/min/1.73 sqM) Est GFR (CKD-EPI)NonAf (>60 ml/min/1.73 sqM) Glucose (74-99) mg/dL Calcium (8.4-10.2) mg/dL Magnesium (1.6-2.3) mg/dL Total Bilirubin (0.2-1.3) mg/dL AST (14-36) U/L ALT (9-52) U/L Alkaline Phosphatase (38-126) U/L Total Creatine Kinase (30-135) U/L CK-MB (CK-2) (0.0-2.4) ng/mL CK-MB (CK-2) Rel Index Troponin I (0.000-0.034) ng/mL NT-Pro-B Natriuret Pep 1830 pg/mL Total Protein (6.3-8.2) g/dL Albumin (3.5-5.0) g/dL Disposition Clinical Impression: Chest pain, Pedal edema Disposition: ADMITTED IP TO THIS HOSP Referrals: Britton Fang MD [Primary Care Provider] - 1-2 days Time of Disposition: 09:07
[2017-07-07 07:47] LABS: Basophils % (A) 0 %; Eosinophils # (A) 0.1 k/uL (0-0.7); Eosinophils % (A) 2 %; HCT 37.6 % (34.0-46.0); HGB 11.7 gm/dL (11.4-16.0); Hypochromasia Moderate; Lymphocytes # (A) 1.7 k/uL (1.0-4.8); Lymphocytes % (A) 33 %; MCH 30.4 pg (25.0-35.0); MCHC 31.1 g/dL (31.0-37.0); MCV 97.7 fL (80.0-100.0); Mean Platelet Volume 9.9; Monocytes # (A) 0.2 k/uL (0-1.0); Monocytes % (A) 5 %; Neutrophils % (A) 59 %; Platelet Count 144 k/uL (150-450); RBC 3.84 m/uL (3.80-5.40); RDW 15.5 % (11.5-15.5); WBC 5.1 k/uL (3.8-10.6)
[2017-07-07 07:59] LABS: ALT 13 U/L (9-52); AST 22 U/L (14-36); Albumin 3.4 g/dL (3.5-5.0); Alkaline Phosphatase 93 U/L (38-126); Anion Gap 11 mmol/L; Blood Urea Nitrogen 18 mg/dL (7-17); Calcium 8.7 mg/dL (8.4-10.2); Carbon Dioxide 29 mmol/L (22-30); Chloride 102 mmol/L (98-107); Glucose 177 mg/dL (74-99); Magnesium 1.8 mg/dL (1.6-2.3); Potassium 3.7 mmol/L (3.5-5.1); Sodium 142 mmol/L (137-145); Total Bilirubin 0.4 mg/dL (0.2-1.3); Total Protein 5.6 g/dL (6.3-8.2)
[2017-07-07 08:08] LABS: Creatine Kinase 90 U/L (30-135); Partial Thromboplastin Time 24.7 sec (22.0-30.0); Prothrombin Time 10.3 sec (9.0-12.0)
[2017-07-07 08:20] LABS: Creatine Kinase MB 1.7 ng/mL (0.0-2.4); Troponin I <0.012 ng/mL (0.000-0.034)
[2017-07-07] MEDS ORDERED: NITROGLYCERIN SL TABS 0.4 MG TAB SUBLINGUAL PRN ×2 (09:08→10:22)
[2017-07-07] MEDS ORDERED: IPRATROPIUM 0.5 MG/2.5 ML NEBU INHALATION PRN (10:22)
[2017-07-07] MEDS ORDERED: FUROSEMIDE 20 MG TAB PO SCH (10:30)
[2017-07-07] MEDS: ATORVASTATIN 40 MG TAB PO SCH (11:30)
[2017-07-07] MEDS: EZETIMIBE 10 MG TAB PO SCH (11:30)
[2017-07-07] MEDS: FAMOTIDINE 20 MG TAB PO SCH ×2 (11:30→21:22)
[2017-07-07] MEDS: CARBIDOPA-LEVODOPA 25-250 MG 1 EACH TAB PO SCH ×3 (11:30→21:21)
[2017-07-07] MEDS: NITROGLYCERIN OINT 1 INCH/GM PACKET TOPICAL SCH ×2 (11:31→18:31)
[2017-07-07] MEDS: levETIRAcetam 250 MG TAB PO SCH (11:31)
[2017-07-07] MEDS: PRAMIPEXOLE 1 MG TAB PO SCH ×3 (11:31→21:22)
[2017-07-07] MEDS: NON-FORMULARY DRUG (Vortioxetine Hydrobromide [Trintellix] 10 MG) PO SCH (11:31)
[2017-07-07] MEDS: INSULIN ASPART 100 UNIT/ML 1 ML 10 ML VIAL SQ SCH ×3 (12:15→21:15)
[2017-07-07 12:18] LABS: Glucose,Whole Blood 89 mg/dL (75-99)
--- NOTE | 2017-07-07 12:35 | ECHOF ---
Referral Reason:eval LV function, LE edema MEASUREMENTS -------- HEIGHT: 170.2 cm WEIGHT: 122.5 kg BP: RVIDd: 5.1 cm (< 3.3) IVSd: 1.3 cm (0.6 - 1.1) LVIDd: 5.1 cm (3.9 - 5.3) LVPWd: 1.5 cm (0.6 - 1.1) IVSs: 1.4 cm LVIDs: 4.6 cm LVPWs: 1.2 cm LA Diam: 4.3 cm (2.7 - 3.8) Ao Diam: 3.4 cm (2.0 - 3.7) AV Cusp: 2.3 cm (1.5 - 2.6) LA Diam: 5.4 cm (2.7 - 3.8) MV EXCURSION: 19.089 mm (> 18.000) MV EF SLOPE: 92 mm/s (70 - 150) EPSS: 0.4 cm MV E Kevan: 0.57 m/s MV DecT: 189 ms MV A Kevan: 0.67 m/s MV E/A Ratio: 0.86 RAP: 20.00 mmHg RVSP: 73.60 mmHg FINDINGS -------- Sinus rhythm. Morbid Obesity This was a techncally difficult study with suboptimal views, , Lumason utilized for enhancement of images. The left ventricular size is normal. Left ventricular wall thickness is normal. Overall left vent ricular systolic function is mild-moderately impaired with, an EF between 40 - 45 %. Inferior Hypok inesis The right ventricle is severely enlarged. The right ventricular septal wall is flattened in diastol e and systole which is consistent with right ventricular volume and pressure overload. The left atrium is moderately dilated. LA is severely dilated >40 ml/m2 The right atrium is mildly enlarged. 5.0mg OF Lumason UTLIZED: 2 OR MORE WALL SEGMENTS NOT VISUALIZED. The aortic valve is trileaflet, and appears structurally normal. No aortic stenosis or regurgitation. Mild mitral annular calcification present. Mild mitral regurgitation is present. Severe tricuspid regurgitation present. There is severe pulmonary hypertension. The right ventric ular systolic pressure, as measured by Doppler, is 73.60mmHg. There is no pulmonic regurgitation present. The aortic root size is normal. There is no pericardial effusion. CONCLUSIONS -------- 1. Morbid Obesity 2. This was a techncally difficult study with suboptimal views, , Lumason utilized for enhancement of images. 3. The left ventricular size is normal. 4. Left ventricular wall thickness is normal. 5. Overall left ventricular systolic function is mild-moderately impaired with, an EF between 40 - 45 %. 6. Inferior Hypokinesis 7. The right ventricle is severely enlarged. 8. The right ventricular septal wall is flattened in diastole and systole which is consistent with r ight ventricular volume and pressure overload. 9. The left atrium is moderately dilated. 10. LA is severely dilated >40 ml/m2 11. The right atrium is mildly enlarged. 12. 5.0mg OF Lumason UTLIZED: 2 OR MORE WALL SEGMENTS NOT VISUALIZED. 13. The aortic valve is trileaflet, and appears structurally normal. No aortic stenosis or regurgitat ion. 14. Mild mitral annular calcification present. 15. Mild mitral regurgitation is present. 16. Severe tricuspid regurgitation present. 17. There is severe pulmonary hypertension. 18. The right ventricular systolic pressure, as measured by Doppler, is 73.60mmHg. 19. There is no pulmonic regurgitation present. 20. The aortic root size is normal. 21. There is no pericardial effusion. FORENSIC CHEMIST: Barbie Cormier RDCS
[2017-07-07] MEDS ORDERED: ALBUTEROL NEBULIZED 2.5 MG/3 ML INHALATION PRN (13:28)
--- NOTE | 2017-07-07 13:36 | P.CRDCN ---
History of Present Illness Consult date: 07/07/17 History of present illness: Mrs. Cunningham is a pleasant 57-year-old female past medical history significant for coronary artery disease, COPD, diabetes mellitus, gastroesophageal reflux disease, dyslipidemia, obstructive sleep apnea and, history of leukemia, chronic tobacco abuse and morbid obesity. She follows with Dr. Barrios in the office. We have been asked to see her in consultation for chest pain and shortness of breath. She states over the past 3 days she has noticed increased swelling in the lower extremities and exertional shortness of breath. She states she does have intermittent shortness of breath chronically secondary to COPD, but this is different. She is unable to ambulate around her house without getting short of breath. She also starting yesterday has noticed a pain in the chest described as tightness that radiates into her left shoulder. The pain seems to be worse with exertion as well as the breathing. EKG reveals right bundle branch block with T-wave inversions in precordial leads. When compared to EKG from 2015 this was consistent at that time as well. Chest xray from last night negative for an acute cardiopulmonary process. Laboratory data reviewed, hgb 11.7, plt 144, d-dimer 0.57, sodium 142, potassium 3.7, creatinine 0.78, pro-BNP 1830. Current cardiac medications include aspirin 325 mg daily, zeita 10 mg daily, lasix 40 mg BID, atorvastatin 40 mg daily. Most recent echocardiogram performed in the office 2014 reveals decreased systolic function with ejection fraction 40%, hypokinesia of the inferior wall, slightly dilated left atrium, mild MR and moderate TR with a peak of 7 mmHg. Most recent Lexiscan stress test reveals fixed defect in inferolateral and apical segment with evidence of apical hypokinesia suggestive of old CO. Review of Systems At the time of my exam: CONSTITUTIONAL: Denies fever. Denies chills. EYES: Denies blurred vision. Denies vision changes. Denies eye pain. EARS, NOSE, MOUTH & THROAT: Denies headache. Denies sore throat. Denies ear pain. CARDIOVASCULAR: Complains of chest pain. Complains of shortness of breath. Complains of orthopnea. Denies PND. Denies palpitations. RESPIRATORY: Denies cough. GASTROINTESTINAL: Denies abdominal pain. Denies diarrhea. Denies constipation. Denies nausea. Denies vomiting. MUSCULOSKELETAL: Denies myalgias. INTEGUMENTARY: Denies pruitis. Denies rash. NEUROLOGIC: Denies numbness. Denies tingling. Denies weakness. PSYCHIATRIC: Denies anxiety. Denies depression. ENDOCRINE: Denies fatigue. Denies weight change. Denies polydipsia. Denies polyurina. GENITOURINARY: Denies burning, hematuria or urgency with micturation. HEMATOLOGIC: Denies history of anemia. Denies bleeding. 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 Last Myocardial Infarction Date:: 2001 History of Any Multi-Drug Resistant Organisms: MRSA Date of last positivie culture/infection: 2001 MDRO Source:: PORT IN CHEST Past Surgical History: Bowel Resection, Section, Heart Catheterization With Stent, Hernia Repair, Orthopedic Surgery Additional Past Surgical History / Comment(s): 04/2017 Removal R ear tube/ tympanoplasty and bilateral tubes placed, prior ear surgeries, umbilical hernia repair with bowel paris/bowel resections then done along with L ovary removed, PICC lines/now out, mediport-now out (MRSA infection), PCI/stents, R eye surgeries/lens implant/lasered for retinal detachment, EGD, colonoscopies, L breast benign biopsy, D&C, R vulva excision, R wrist ORIF with plate/pins, deviated septal surgery. Past Anesthesia/Blood Transfusion Reactions: Blood Transfusion Reaction, Motion Sickness, Postoperative Nausea & Vomiting (PONV) Additional Past Anesthesia/Blood Transfusion Reaction / Comment(s): 2001-had some kind of transfusion reaction Date of Last Stent Placement:: 2001 Smoking Status: Current every day smoker - Past Family History Mother Additional Family Medical History / Comment(s): @ AGE 53 WITH ANEURYSM Father Family Medical History: Myocardial Infarction ([place]) Additional Family Medical History / Comment(s): HAD CABG- COMMITTED SUICIDE A YEAR AFTER - PT'S GRANDFATHER(P) ALSO COMMITED SUICIDE Brother(s) Family Medical History: Coronary Artery Disease (CAD) Additional Family Medical History / Comment(s): COMMITTED SUICIDE Medications and Allergies Home Medications Medication Instructions Recorded Confirmed Type Atorvastatin [Lipitor] 40 mg PO DAILY 01/02/15 07/07/17 History Carbidopa-Levodopa 25-250 mg 1 tab PO TID 01/02/15 07/07/17 History [Sinemet 25-250 mg] Ezetimibe [Zetia] 10 mg PO DAILY 01/02/15 07/07/17 History Ipratropium [place] [Atrovent Hfa] 1 puff INHALATION RT-QID PRN 01/02/15 History Nitroglycerin Sl Tabs [Nitrostat] 0.4 mg SUBLINGUAL Q5M PRN 01/02/15 07/07/17 History Pramipexole [Mirapex] 1 mg PO TID 01/02/15 07/07/17 History Ranitidine HCl [Zantac] 150 mg PO BID 01/02/15 07/07/17 History metFORMIN HCL [Glucophage] 1,000 mg PO BID 01/02/15 07/07/17 History Aspirin 325 mg PO DAILY 12/12/16 07/07/17 History Vortioxetine Hydrobromide 10 mg PO DAILY 12/12/16 07/07/17 History [Trintellix] levETIRAcetam [Keppra] 250 mg PO DAILY 12/12/16 07/07/17 History Furosemide [Lasix] 20 mg PO BID 04/15/17 07/07/17 History Ibuprofen [Motrin] 600 mg PO Q6HR PRN #30 tab 04/17/17 07/07/17 Rx Acetaminophen Tab [Tylenol] 1,000 mg PO Q6HR PRN 07/07/17 07/07/17 History Nicotine 21Mg/24Hr Patch [Habitrol] 1 patch TRANSDERM DAILY #7 patch 07/08/17 Rx predniSONE See Taper PO DIRECTED #30 tab 07/08/17 Rx Allergies Allergy/AdvReac Type Severity Reaction Status Date / Time amoxicillin Allergy SOB- RED Verified 07/07/17 07:27 BLOTCHY SKIN capsaicin Allergy SOB- RED Verified 07/07/17 07:27 BLOTCHY SKIN cephalexin monohydrate Allergy SOB- RED Verified 07/07/17 07:27 [From Keflex] BLOTCHY SKIN Cephalosporins Allergy SOB-RED Verified 07/07/17 07:27 BLOTCHY SKIN ciprofloxacin Allergy Unknown Verified 07/07/17 07:27 clindamycin Allergy SOB-RED Verified 07/07/17 07:27 BLOT[place]Y SKIN fluticasone propionate Allergy SOB- RED Verified 07/07/17 07:27 [From Flonase] BLOTCHY SKIN Penicillins Allergy SOB- RED Verified 07/07/17 07:27 BLOTCHY SKIN Sulfa (Sulfonamide Allergy SOB- RED Verified 07/07/17 07:27 Antibiotics) BLOTCHY SKIN BROWN DYES Allergy SOB- RED Uncoded 07/06/17 23:56 BLOTCHY SKIN Physical Exam Vitals: Vital Signs Temp Pulse Pulse Resp BP BP Pulse Ox 07/07/17 10:25 97.7 F 88 18 119/65 92 L 07/07/17 09:26 86 18 167/66 96 07/07/17 09:19 85 16 192/99 94 L 07/07/17 08:05 79 22 112/56 95 07/07/17 07:02 97.4 F L 95 18 105/55 90 L Intake and Output 07/06/17 07/07/17 07/07/17 22:59 06:59 14:59 Other: Weight 125.9 kg Blood pressure 119/65 heart rate 88 afebrile maintaining oxygen saturation on room air GENERAL: This is a 57-year-old female in no apparent distress at the time of my examination. HEENT: Head is atraumatic, normocephalic. Pupils are equal, round. Sclerae anicteric. Conjunctivae are clear. Mucous membranes of the mouth are moist. Neck is supple. There is no jugular venous distention. No carotid bruit is heard. LUNGS: Bibasilar rales and expiratory wheezes throughout. No rhonchi. No chest wall tenderness is noted on palpation or with deep breathing. HEART: Regular rate and rhythm with holosystolic murmur, no rubs or gallops. S1 and S2 heard distantly. ABDOMEN: Soft, nontender. Bowel sounds are heard. No organomegaly noted. EXTREMITIES: 2+ pitting bilateral lower extremity ededma. No calf tenderness noted. VASCULAR: Radial and dorsalis pedis pulses palpated, no evidence of clubbing. NEUROLOGIC: Patient is awake, alert and oriented x3. Results 07/07/17 07:34 07/08/17 06:24 Cardiac Enzymes 07/07/17 07/07/17 Range/Units 07:34 07:34 AST 22 (14-36) U/L CK-MB (CK-2) 1.7 (0.0-2.4) ng/mL Troponin I <0.012 (0.000-0.034) ng/mL Coagulation 07/07/17 Range/Units 07:34 PT 10.3 (9.0-12.0) sec APTT 24.7 (22.0-30.0) sec CBC 07/07/17 Range/Units 07:34 WBC 5.1 (3.8-10.6) k/uL RBC 3.84 (3.80-5.40) m/uL Hgb 11.7 (11.4-16.0) gm/dL Hct 37.6 (34.0-46.0) % Plt Count 144 L (150-450) k/uL Comprehensive Metabolic Panel 07/07/17 Range/Units 07:34 Sodium 142 (137-145) mmol/L Potassium 3.7 (3.5-5.1) mmol/L Chloride 102 (98-107) mmol/L Carbon Dioxide 29 (22-30) mmol/L BUN 18 H (7-17) mg/dL Creatinine 0.78 (0.52-1.04) mg/dL Glucose 177 H (74-99) mg/dL Calcium 8.7 (8.4-10.2) mg/dL AST 22 (14-36) U/L ALT 13 (9-52) U/L Alkaline Phosphatase 93 (38-126) U/L Total Protein 5.6 L (6.3-8.2) g/dL Albumin 3.4 L (3.5-5.0) g/dL Current Medications Generic Name Dose Route Start Last Admin Trade Name Freq PRN Reason Stop Dose Admin Acetaminophen 1,000 mg 07/07/17 10:22 Tylenol Tab PO Q6HR PRN Mild Pain Aspirin 325 mg 07/08/17 09:00 Aspirin PO DAILY [facility] Atorvastatin Calcium 40 mg 07/07/17 10:30 07/07/17 11:30 Lipitor PO Not Given DAILY [facility] Carbidopa/Levodopa 1 each 07/07/17 10:30 07/07/17 11:30 Sinemet 25-250 PO Not Given TID [facility] Ezetimibe 10 mg 07/07/17 10:30 07/07/17 11:30 Zetia PO Not Given DAILY [facility] Famotidine 20 mg 07/07/17 10:30 07/07/17 11:30 Pepcid PO Not Given BID [facility] Furosemide 20 mg 07/07/17 10:30 07/07/17 11:30 Lasix PO Not Given BID [facility] Furosemide 40 mg 07/07/17 12:00 Lasix IV Q12HR [facility] Insulin Aspart 0 unit 07/07/17 12:30 Novolog SQ ACHS [facility] Protocol Ipratropium [place] 0.5 mg 07/07/17 10:22 Atrovent Nebulized INHALATION RT-QID PRN Shortness Of Breath Levetiracetam 250 mg 07/07/17 10:30 07/07/17 11:31 Keppra PO Not Given DAILY [facility] Nitroglycerin 1 inch 07/07/17 12:00 07/07/17 11:31 Nitro-Bid Oint TOPICAL Not Given Q6HR [facility] Nitroglycerin 0.4 mg 07/07/17 10:22 Nitrostat SUBLINGUAL Q5M PRN Chest Pain Non-Formulary Medication 10 mg 07/07/17 10:30 07/07/17 11:31 Vortioxetine Hydrobromide [Trintellix] PO Not Given DAILY [facility] Pramipexole Dihydrochloride 1 mg 07/07/17 10:30 07/07/17 11:31 Mirapex PO Not Given TID [facility] Intake and Output 07/06/17 07/07/17 07/07/17 22:59 06:59 14:59 Other: Weight 125.9 kg Patient Weight 07/08/17 06:59 Weight 125.9 kg 07/07/17 07:34 07/07/17 07:34 Assessment and Plan Assessment: ASSESSMENT 1. Acute on chronic systolic heart failure with decreased EF 2. Tricuspid regurgitation 3. History of coronary artery disease, stenting of mid LAD 1998. Most recent catheterization 1999 reveals patent LAD stent and no significant obstructive disease of LAD or circumflex artery. 4. COPD 5. Diabetes mellitus 6. Dyslipidemia 7. Obstructive sleep apnea, uses C-pap at night. 8. Chronic tobacco use 9. Morbid obesity PLAN Add small dose of beta block, lopressor 12.5 mg BID, aldactone 25 mg daily, lisinopril 5 mg daily and change lasix to IV 40 mg BID. Strict intake and output to accurately measure diuresis. Daily weights at the same time daily using the same scale. Follow kidney function and electrolytes in the morning. Continue with aspirin, atorvastatin and zeita. Further recommendations to follow based on clinical course. Thank you kindly for this consultation. Nurse Practitioner note has been reviewed, I agree with a documented findings and plan of care. Patient was seen and examined.
[2017-07-07] MEDS: METOPROLOL TARTRATE 12.5 MG TAB PO SCH ×2 (13:42→21:22)
[2017-07-07] MEDS: LISINOPRIL 5 MG TAB PO SCH (13:42)
[2017-07-07] MEDS: ACETAMINOPHEN TAB 500 MG TAB PO PRN (13:42)
[2017-07-07] MEDS: SPIRONOLACTONE 25 MG TAB PO SCH (13:43)
[2017-07-07] MEDS: methylPREDNISolone SOD SUCCI 125 MG/2 ML VIAL IV SCH ×2 (13:43→18:28)
[2017-07-07] MEDS: NICOTINE 21MG/24HR PATCH TRANSDERM SCH (13:43)
[2017-07-07] MEDS ORDERED: methylPREDNISolone SOD SUCCI 125 MG/2 ML VIAL IV SCH (14:00)
[2017-07-07] MEDS: FUROSEMIDE 10 MG/ML 4 ML VIAL IV SCH ×2 (14:41→21:24)
--- NOTE | 2017-07-07 14:44 | P.HPIM ---
History of Present Illness H&P Date: 07/07/17 Chief Complaint: Chest pain, increased edema to LE 57-year-old female who presented to the emergency room with a chief complaint of chest pain. Patient was in the emergency room last night for increased bilateral lower extremity edema but she left AMA. She presented back to the hospital with left sided chest pain that radiates to the back and the shoulder. She also reports increased edema to her bilateral lower extremities over the past week. She also reports shortness of breath with exertion. The patient has a history of coronary artery disease with previous stent placement x 2, COPD, diabetes, hyperlipidemia, GERD, fibromyalgia, osteoarthritis, and sleep apnea. She wears a CPAP at night. Chest x-ray: Negative for acute process. No heart failure visualized. EKG: Sinus rhythm with PVCs. Rate 89. Laboratory data: WBC 5.1. Hemoglobin 11.7. Platelet count 144. Sodium 142. Potassium 3.7. BUN 18. Creatinine 0.78. Glucose 177. Magnesium 1.8. Troponin negative 1. BNP 1830. The patient was admitted to the hospital under the care of Dr. Jeffrey to the observation unit. Consultations were placed to cardiology. Review of Systems Those systems with pertinent positive or pertinent negative responses have been documented in the HPI Past Medical History Past Medical History: Coronary Artery Disease (CAD), Cancer, COPD, Diabetes Mellitus, Eye Disorder, Fibromyalgia, GERD/Reflux, Hearing Disorder / Deafness, Hyperlipidemia, Myocardial Infarction ([place]), Osteoarthritis (OA), Sleep Apnea/ CPAP/BIPAP Additional Past Medical History / Comment(s): Recent diagnosis of brain aneurysm -sent 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 Last Myocardial Infarction Date:: 2001 History of Any Multi-Drug Resistant Organisms: MRSA Date of last positivie culture/infection: 2001 MDRO Source:: PORT IN CHEST Past Surgical History: Bowel Resection, Section, Heart Catheterization With Stent, Hernia Repair, Orthopedic Surgery Additional Past Surgical History / Comment(s): 04/2017 Removal R ear tube/ tympanoplasty and bilateral tubes placed, prior ear surgeries, umbilical hernia repair with bowel paris/bowel resections then done along with L ovary removed, PICC lines/now out, mediport-now out (MRSA infection), PCI/stents, R eye surgeries/lens implant/lasered for retinal detachment, EGD, colonoscopies, L breast benign biopsy, D&C, R vulva excision, R wrist ORIF with plate/pins, deviated septal surgery. Past Anesthesia/Blood Transfusion Reactions: Blood Transfusion Reaction, Motion Sickness, Postoperative Nausea & Vomiting (PONV) Additional Past Anesthesia/Blood Transfusion Reaction / Comment(s): 2001-had some kind of transfusion reaction Date of Last Stent Placement:: 2001 Smoking Status: Current every day smoker - Past Family History Mother Additional Family Medical History / Comment(s): @ AGE 53 WITH ANEURYSM Father Family Medical History: Myocardial Infarction ([place]) Additional Family Medical History / Comment(s): HAD CABG- COMMITTED SUICIDE A YEAR AFTER - PT'S GRANDFATHER(P) ALSO COMMITED SUICIDE Brother(s) Family Medical History: Coronary Artery Disease (CAD) Additional Family Medical History / Comment(s): COMMITTED SUICIDE Medications and Allergies Home Medications Medication Instructions Recorded Confirmed Type Atorvastatin [Lipitor] 40 mg PO DAILY 01/02/15 07/07/17 History Carbidopa-Levodopa 25-250 mg 1 tab PO TID 01/02/15 07/07/17 History [Sinemet 25-250] Ezetimibe [Zetia] 10 mg PO DAILY 01/02/15 07/07/17 History Ipratropium [place] [Atrovent Hfa] 1 puff INHALATION RT-QID PRN 01/02/15 History Nitroglycerin Sl Tabs [Nitrostat] 0.4 mg SUBLINGUAL Q5M PRN 01/02/15 07/07/17 History Pramipexole [Mirapex] 1 mg PO TID 01/02/15 07/07/17 History Ranitidine HCl [Zantac] 150 mg PO BID 01/02/15 07/07/17 History metFORMIN HCL [Glucophage] 1,000 mg PO BID 01/02/15 07/07/17 History Aspirin 325 mg PO DAILY 12/12/16 07/07/17 History Vortioxetine Hydrobromide 10 mg PO DAILY 12/12/16 07/07/17 History [Trintellix] levETIRAcetam [Keppra] 250 mg PO DAILY 12/12/16 07/07/17 History Furosemide [Lasix] 20 mg PO BID 04/15/17 07/07/17 History Ibuprofen [Motrin] 600 mg PO Q6HR PRN #30 tab 04/17/17 07/07/17 Rx Acetaminophen Tab [Tylenol Tab] 1,000 mg PO Q6HR PRN 07/07/17 07/07/17 History Allergies Allergy/AdvReac Type Severity Reaction Status Date / Time amoxicillin Allergy SOB- RED Verified 07/07/17 07:27 BLOTCHY SKIN capsaicin Allergy SOB- RED Verified 07/07/17 07:27 BLOTCHY SKIN cephalexin monohydrate Allergy SOB- RED Verified 07/07/17 07:27 [From Keflex] BLOTCHY SKIN Cephalosporins Allergy SOB-RED Verified 07/07/17 07:27 BLOTCHY SKIN ciprofloxacin Allergy Unknown Verified 07/07/17 07:27 clindamycin Allergy SOB-RED Verified 07/07/17 07:27 BLOTCHY SKIN fluticasone propionate Allergy SOB- RED Verified 07/07/17 07:27 [From Flonase] BLOTCHY SKIN Penicillins Allergy SOB- RED Verified 07/07/17 07:27 BLOTCHY SKIN Sulfa (Sulfonamide Allergy SOB- RED Verified 07/07/17 07:27 Antibiotics) BLOTCHY SKIN BROWN DYES Allergy SOB- RED Uncoded 07/06/17 23:56 BLOTCHY SKIN Physical Exam Vitals: Vital Signs Temp Pulse Pulse Resp BP BP Pulse Ox 07/07/17 10:25 97.7 F 88 18 119/65 92 L 07/07/17 09:26 86 18 167/66 96 07/07/17 09:19 85 16 192/99 94 L 07/07/17 08:05 79 22 112/56 95 07/07/17 07:02 97.4 F L 95 18 105/55 90 L Intake and Output 07/06/17 07/07/17 07/07/17 22:59 06:59 14:59 Other: Weight 125.9 kg GENERAL: This is a 57-year-old female in no apparent distress at the time of examination. Pleasant and cooperative. HEENT: Head is atraumatic, normocephalic. Pupils are equal, round, and reactive to light. Sclerae anicteric. Conjunctivae are clear. Mucus membranes of the mouth are moist. Neck is supple. RESPIRATORY: Expiratory wheezing noted throughout. No use of accessory muscles. Patient maintaining oxygen saturation greater than 92%. No chest wall tenderness is noted on palpation or with deep breathing. CARDIOVASCULAR: Regular rate and rhythm. S1 and S2 noted. No JVD noted. No S3 or S4 noted. GASTROINTESTINAL: No distention noted. Abdomen soft and round. Normal active bowel sounds auscultated x 4 quadrants. No pain or tenderness noted upon palpation. INTEGUMENTARY: No cyanosis. No jaundice. No rashes noted. No cellulitis noted. EXTREMITIES: 2+ peripheral pulses. 2+ bilateral lower extremity edema. No calf tenderness noted. NEUROLOGIC: Cranial nerves II-XII intact. PSYCHIATRIC: Awake, alert, and oriented X 3. Appropriate affect. Intact judgement and insight. Results CBC & Chem 7: 07/07/17 07:34 07/07/17 07:34 Labs: Abnormal Lab Results - Last 24 Hours (Table) 07/07/17 07/07/17 Range/Units 07:34 07:34 Plt Count 144 L (150-450) k/uL BUN 18 H (7-17) mg/dL Glucose 177 H (74-99) mg/dL Total Protein 5.6 L (6.3-8.2) g/dL Albumin 3.4 L (3.5-5.0) g/dL Thrombosis Risk Factor Assmnt - Choose All That Apply Any of the Below Risk Factors Present?: Yes Each Factor Represents 1 point: Abnormal pulmonary function (COPD), Age 41-60 years, Obesity (BMI >25), Swollen legs (current) Other Risk Factors: Yes Each Risk Factor Represents 2 Points: Malignancy Other congenital or acquired thrombophilia - If yes, enter type in comment: No Thrombosis Risk Factor Assessment Total Risk Factor Score: 6 Thrombosis Risk Factor Assessment Level: High Risk Assessment and Plan Plan: ASSESSMENT: Acute exacerbation of chronic obstructive pulmonary disease Acute exacerbation of systolic congestive heart failure, EF 40-45% Coronary artery disease with previous stent placement 2 Diabetes mellitus, type II with diabetic peripheral neuropathy Hyperlipidemia Severe tricuspid regurgitation Severe pulmonary hypertension Obstructive sleep apnea Fibromyalgia Depression, unspecified Morbid obesity: BMI 43.5 Nicotine dependence, patient is a current cigarette smoker PLAN: Change placement type to inpatient. Admit to general medical floor with telemetry Cardiology on consult. Await further recommendations and input Continue aspirin, lipitor, lisinopril, metoprolol, and aldactone L[place]YD hose to bilateral LE and elevate legs on pillows Change lasix to PO tomorrow morning per Dr. Jeffrey Daily weights/accurate I/O Solumedral 60mg Q6 hours Albuterol neubulizer treatments QID scheduled and PRN Novolog sliding scale ACHS Obtain hemoglobin A1C Encourage smoking cessation Nicotine patch 21mg daily Home meds as appropriate Monitor labs GI prophylaxis: Pepcid 20 mg by mouth twice a day DVT prophylaxis: LLOYD hose to bilateral lower extremities Monitor vital signs and address as appropriate Further recommendations pending patient's course Nurse practitioner note has been reviewed by physician. Signing provider agrees with the documented findings, assessment, and plan of care.
[2017-07-07 15:08] LABS: Creatine Kinase 96 U/L (30-135)
[2017-07-07] MEDS: ALBUTEROL NEBULIZED 2.5 MG/3 ML INHALATION SCH ×2 (15:16→19:04)
[2017-07-07 15:22] LABS: Creatine Kinase MB 1.7 ng/mL (0.0-2.4); Troponin I <0.012 ng/mL (0.000-0.034)
[2017-07-07 17:00] LABS: Hemoglobin A1C 8.2 % (4.0-6.0)
[2017-07-07 17:30] LABS: Glucose,Whole Blood 187 mg/dL (75-99)
[2017-07-07 20:33] LABS: Creatine Kinase 89 U/L (30-135)
[2017-07-07 20:44] LABS: Creatine Kinase MB 1.5 ng/mL (0.0-2.4); Troponin I <0.012 ng/mL (0.000-0.034)
[2017-07-07 20:54] LABS: Glucose,Whole Blood 277 mg/dL (75-99)
[2017-07-08] MEDS: NITROGLYCERIN OINT 1 INCH/GM PACKET TOPICAL SCH ×3 (06:29→13:06)
[2017-07-08] MEDS: methylPREDNISolone SOD SUCCI 125 MG/2 ML VIAL IV SCH ×2 (06:30)
[2017-07-08 07:01] LABS: Glucose,Whole Blood 215 mg/dL (75-99)
[2017-07-08 08:04] LABS: Anion Gap 12 mmol/L; Blood Urea Nitrogen 16 mg/dL (7-17); Carbon Dioxide 31 mmol/L (22-30); Chloride 99 mmol/L (98-107); Cholesterol 89 mg/dL (<200); Glucose 217 mg/dL (74-99); HDL Cholesterol 32 mg/dL (40-60); LDL Cholesterol,Calculated 40 mg/dL (0-99); Potassium 4.2 mmol/L (3.5-5.1); Sodium 142 mmol/L (137-145); Triglycerides 85 mg/dL (<150)
[2017-07-08] MEDS ORDERED: methylPREDNISolone SOD SUCCI 40 MG/ML 1 ML VIAL IV SCH (08:30)
[2017-07-08] MEDS: levETIRAcetam 250 MG TAB PO SCH (08:41)
[2017-07-08] MEDS: CARBIDOPA-LEVODOPA 25-250 MG 1 EACH TAB PO SCH (08:41)
[2017-07-08] MEDS: EZETIMIBE 10 MG TAB PO SCH (08:41)
[2017-07-08] MEDS: METOPROLOL TARTRATE 12.5 MG TAB PO SCH (08:41)
[2017-07-08] MEDS: SPIRONOLACTONE 25 MG TAB PO SCH (08:41)
[2017-07-08] MEDS: ATORVASTATIN 40 MG TAB PO SCH (08:42)
[2017-07-08] MEDS: NICOTINE 21MG/24HR PATCH TRANSDERM SCH (08:42)
[2017-07-08] MEDS: LISINOPRIL 5 MG TAB PO SCH (08:42)
[2017-07-08] MEDS: PRAMIPEXOLE 1 MG TAB PO SCH (08:42)
[2017-07-08] MEDS: FAMOTIDINE 20 MG TAB PO SCH (08:42)
[2017-07-08] MEDS: INSULIN ASPART 100 UNIT/ML 1 ML 10 ML VIAL SQ SCH ×2 (08:43→13:00)
--- NOTE | 2017-07-08 08:54 | P.PN ---
Subjective Progress Note Date: 07/08/17 57-year-old female who presented to the emergency room with a chief complaint of chest pain. Patient was in the emergency room last night for increased bilateral lower extremity edema but she left AMA. She presented back to the hospital with left sided chest pain that radiates to the back and the shoulder. She also reports increased edema to her bilateral lower extremities over the past week. She also reports shortness of breath with exertion. The patient has a history of coronary artery disease with previous stent placement x 2, COPD, diabetes, hyperlipidemia, GERD, fibromyalgia, osteoarthritis, and sleep apnea. She wears a CPAP at night. Chest x-ray: Negative for acute process. No heart failure visualized. EKG: Sinus rhythm with PVCs. Rate 89. Laboratory data: WBC 5.1. Hemoglobin 11.7. Platelet count 144. Sodium 142. Potassium 3.7. BUN 18. Creatinine 0.78. Glucose 177. Magnesium 1.8. Troponin negative 1. BNP 1830. The patient was admitted to the hospital under the care of Dr. Jeffrey to the observation unit. Consultations were placed to cardiology. 07/08/2017 Patient seen and examined at the bedside. Patient states she is feeling much better this morning. She is requesting to be discharged home today. She has been cleared from a cardiology standpoint. Explained to patient she is still on a high dose of IV steroids (60mg Q 6 hours), which we will decrease this morning and re-evaluate her this afternoon. She denies chest pain or pressure. Denies shortness of breath. Denies pain or discomfort. Blood pressure this morning is 115/71. Heart rate 70-90s. She is afebrile. Patient is on room air with oxygen saturations greater than 92%. Objective - Vital Signs Vital signs: Vital Signs Temp 98.0 F 07/08/17 07:20 Pulse 91 07/08/17 07:20 Resp 18 07/08/17 07:20 BP 115/71 07/08/17 07:20 Pulse Ox 92 L 07/08/17 07:20 Intake & Output 07/07/17 07/08/17 07/08/17 18:59 06:59 18:59 Intake Total 350 480 Output Total 1050 1300 Balance -700 -820 Weight 124.908 kg 122.7 kg Intake: Oral 350 480 Output: Urine 1050 1300 Other: # Voids 1 - Exam GENERAL: This is a 57-year-old female in no apparent distress at the time of examination. Pleasant and cooperative. HEENT: Head is atraumatic, normocephalic. Pupils are equal, round, and reactive to light. Sclerae anicteric. Conjunctivae are clear. Mucus membranes of the mouth are moist. Neck is supple. RESPIRATORY: Diminished throughout. No wheezing or rales auscultated. No use of accessory muscles. Patient maintaining oxygen saturation greater than 92%. No chest wall tenderness is noted on palpation or with deep breathing. CARDIOVASCULAR: Regular rate and rhythm. S1 and S2 noted. No JVD noted. No S3 or S4 noted. GASTROINTESTINAL: No distention noted. Abdomen soft and round. Normal active bowel sounds auscultated x 4 quadrants. No pain or tenderness noted upon palpation. INTEGUMENTARY: No cyanosis. No jaundice. No rashes noted. No cellulitis noted. EXTREMITIES: 2+ peripheral pulses. 1+ bilateral lower extremity edema. No calf tenderness noted. NEUROLOGIC: Cranial nerves II-XII intact. PSYCHIATRIC: Awake, alert, and oriented X 3. Appropriate affect. Intact judgement and insight. - Labs CBC & Chem 7: 07/07/17 07:34 07/08/17 06:24 Labs: Abnormal Lab Results - Last 24 Hours (Table) 07/07/17 07/07/17 07/07/17 Range/Units 07:34 17:24 20:48 Carbon Dioxide (22-30) mmol/L Glucose (74-99) mg/dL POC Glucose (mg/dL) 187 H 277 H (75-99) mg/dL Hemoglobin A1c 8.2 H (4.0-6.0) % HDL Cholesterol (40-60) mg/dL 07/08/17 07/08/17 Range/Units 06:24 06:59 Carbon Dioxide 31 H (22-30) mmol/L Glucose 217 H (74-99) mg/dL POC Glucose (mg/dL) 215 H (75-99) mg/dL Hemoglobin A1c (4.0-6.0) % HDL Cholesterol 32 L (40-60) mg/dL Assessment and Plan Plan: ASSESSMENT: Acute exacerbation of chronic obstructive pulmonary disease Acute exacerbation of systolic congestive heart failure, EF 40-45% Coronary artery disease with previous stent placement 2 Diabetes mellitus, type II with diabetic peripheral neuropathy Hyperlipidemia Severe tricuspid regurgitation Severe pulmonary hypertension Obstructive sleep apnea Fibromyalgia Depression, unspecified Morbid obesity: BMI 43.5 Nicotine dependence, patient is a current cigarette smoker PLAN: Decrease Solumedral to 40mg Q8 hours IV. Continue breathing treatments. Patient is extremely anxious to be discharged home. Patient has been cleared for discharge from cardiology standpoint. Will re-evaluate patient this afternoon for possible discharge home this afternoon or tomorrow. Nurse practitioner note has been reviewed by physician. Signing provider agrees with the documented findings, assessment, and plan of care.
[2017-07-08] MEDS ORDERED: FUROSEMIDE 40 MG TAB PO SCH (09:00)
[2017-07-08] MEDS ORDERED: ASPIRIN 325 MG TAB PO SCH (09:00)
[2017-07-08] MEDS: ALBUTEROL NEBULIZED 2.5 MG/3 ML INHALATION SCH ×2 (09:14→12:10)
--- NOTE | 2017-07-08 09:35 | P.PN ---
Subjective Progress Note Date: 07/08/17 Mrs. Cunningham is a pleasant 57-year-old female past medical history significant for coronary artery disease, COPD, diabetes mellitus, gastroesophageal reflux disease, dyslipidemia, obstructive sleep apnea and, history of leukemia, chronic tobacco abuse and morbid obesity. She follows with Dr. Barrios in the office. We have been asked to see her in consultation for chest pain and shortness of breath. She states over the past 3 days she has noticed increased swelling in the lower extremities and exertional shortness of breath. She states she does have intermittent shortness of breath chronically secondary to COPD, but this is different. She is unable to ambulate around her house without getting short of breath. She also starting yesterday has noticed a pain in the chest described as tightness that radiates into her left shoulder. The pain seems to be worse with exertion as well as the breathing. EKG reveals right bundle branch block with T-wave inversions in precordial leads. When compared to EKG from 2014 this was consistent at that time as well. Chest xray from last night negative for an acute cardiopulmonary process. Laboratory data reviewed, hgb 11.7, plt 144, d-dimer 0.57, sodium 142, potassium 3.7, creatinine 0.78, pro-BNP 1830. Current cardiac medications include aspirin 325 mg daily, zeita 10 mg daily, lasix 40 mg BID, atorvastatin 40 mg daily. Most recent echocardiogram performed in the office 2014 reveals decreased systolic function with ejection fraction 40%, hypokinesia of the inferior wall, slightly dilated left atrium, mild MR and moderate TR with a peak of 7 mmHg. Most recent Lexiscan stress test reveals fixed defect in inferolateral and apical segment with evidence of apical hypokinesia suggestive of old MO. 07/08/2017 Mrs. Cunningham is seen and examined today on observation unit. She is diuresing well with 1520 cc negative fluid balance in the previous 24 hours. Weight is down 2 kg. Sodium 142, potassium 4.2, creatinine 0.68. Blood pressure 115/71 heart rate 91, maintaining oxygen saturation on room air. She has been transitioned to oral diuretics per primary. She feels as if her breathing is improving. She denies symptoms of chest pain, palpitations, dizziness, nausea, vomiting or diaphoresis. Bilateral lower extremity edema is improving but still evident. Objective - Vital Signs Vital signs: Vital Signs Temp 98.0 F 07/08/17 07:20 Pulse 92 07/08/17 09:14 Resp 18 07/08/17 07:20 BP 115/71 07/08/17 07:20 Pulse Ox 92 L 07/08/17 07:20 Intake & Output 07/07/17 07/08/17 07/08/17 18:59 06:59 18:59 Intake Total 350 480 Output Total 1050 1300 600 Balance -700 -820 -600 Weight 124.908 kg 122.7 kg Intake: Oral 350 480 Output: Urine 1050 1300 600 Other: Voiding Method Toilet # Voids 1 - Exam Blood pressure 150/71 heart rate 91 afebrile beginning oxygen saturation on room air GENERAL: Well-appearing, well-nourished and in no acute distress. Morbidly obese. NECK: Supple without JVD or thyromegaly. LUNGS: Breath sounds clear to auscultation bilaterally. Respiration equal and unlabored. No wheezes, rales or rhonchi. Diminished bilaterally. HEART: Regular rate and rhythm with holosystolic murmur, no rubs or gallops. S1 and S2 heard distantly. EXTREMITIES: Normal range of motion, 1+ pitting b/l lower extremity edema. No clubbing or cyanosis. Peripheral pulses intact. - Labs CBC & Chem 7: 07/07/17 07:34 07/08/17 06:24 Labs: Abnormal Lab Results - Last 24 Hours (Table) 07/07/17 07/07/17 07/07/17 Range/Units 07:34 17:24 20:48 Carbon Dioxide (22-30) mmol/L Glucose (74-99) mg/dL POC Glucose (mg/dL) 187 H 277 H (75-99) mg/dL Hemoglobin A1c 8.2 H (4.0-6.0) % HDL Cholesterol (40-60) mg/dL 07/08/17 07/08/17 Range/Units 06:24 06:59 Carbon Dioxide 31 H (22-30) mmol/L Glucose 217 H (74-99) mg/dL POC Glucose (mg/dL) 215 H (75-99) mg/dL Hemoglobin A1c (4.0-6.0) % HDL Cholesterol 32 L (40-60) mg/dL Assessment and Plan Assessment: ASSESSMENT 1. Acute on chronic systolic heart failure with decreased EF 2. Tricuspid regurgitation 3. History of coronary artery disease, stenting of mid LAD 1998. Most recent catheterization 1999 reveals patent LAD stent and no significant obstructive disease of LAD or circumflex artery. 4. COPD 5. Diabetes mellitus 6. Dyslipidemia 7. Obstructive sleep apnea, uses C-pap at night. 8. Chronic tobacco use 9. Morbid obesity PLAN Agree with transition to oral diuretics. Continue with lopressor, aldactone, lisinopril, aspirin, atorvastatin and zetia as was previously ordered. Follow up with Dr. Barrios in 2-3 weeks. Nurse Practitioner note has been reviewed, I agree with a documented findings and plan of care. Patient was seen and examined.
[2017-07-08] MEDS: metFORMIN 500 MG TAB PO SCH (10:08)
[2017-07-08 10:54] VITALS: BP 124/71; RESP 20; TEMP 97.7
[2017-07-08 12:12] LABS: Glucose,Whole Blood 325 mg/dL (75-99)
[2017-07-08 12:22] VITALS: PULSE 92
[2017-07-08] MEDS: ACETAMINOPHEN TAB 500 MG TAB PO PRN (12:33)
[2017-07-08] MEDS ORDERED: INSULIN ASPART 100 UNIT/ML 1 ML 10 ML VIAL SQ ONE (12:34)
--- NOTE | 2017-07-08 14:03 | P.DS ---
Providers Date of admission: 07/07/17 12:28 Expected date of discharge: 07/08/17 Attending physician: Britton Liriano Consults: 07/07/17 09:08 Consult Physician Urgent Consulting Provider: [facility] Reason/Comments: Chest pain, pedal edema Do you want consulting provider notified?: Yes Primary care physician: Britton [facility] Course: 57-year-old female who presented to the emergency room with a chief complaint of chest pain. Patient was in the emergency room last night for increased bilateral lower extremity edema but she left AMA. She presented back to the hospital with left sided chest pain that radiates to the back and the shoulder. She also reports increased edema to her bilateral lower extremities over the past week. She also reports shortness of breath with exertion. The patient has a history of coronary artery disease with previous stent placement x 2, COPD, diabetes, hyperlipidemia, GERD, fibromyalgia, osteoarthritis, and sleep apnea. She wears a CPAP at night. Chest x-ray: Negative for acute process. No heart failure visualized. EKG: Sinus rhythm with PVCs. Rate 89. Laboratory data: WBC 5.1. Hemoglobin 11.7. Platelet count 144. Sodium 142. Potassium 3.7. BUN 18. Creatinine 0.78. Glucose 177. Magnesium 1.8. Troponin negative 1. BNP 1830. The patient was admitted to the hospital under the care of Dr. Jeffrey to the observation unit. Consultations were placed to cardiology. Echocardiogram: EF 40-45%, right ventricle was severely enlarged, right ventricular septal wall is flattened in diastole and systole which is consistent with right ventricular volume and pressure overload, left atrium is moderately dilated, LA is severely dilated, mild mitral regurgitation, severe tricuspid regurgitation, severe pulmonary hypertension with RVSP measuring 73.60mmHg. The patient was placed on IV lasix per cardiology, which was transitioned to oral. She was also started on IV steroids and albuterol neubulizer treatments QID scheduled, which was weaned as patient tolerated. She had significant improvement in her lower extremity edema. Her respiratory status improved greatly and is back to her baseline. She was started on lisinopril, aldactone, and metoprolol per cardiology. Her lasix was increased to 40mg PO BID. She was deemed stable for discharge. She is to follow up on an outpatient basis. DISCHARGE DIAGNOSIS: Acute exacerbation of chronic obstructive pulmonary disease, improved at the time of discharge Acute exacerbation of systolic congestive heart failure, EF 40-45%, improved at the time of discharge Coronary artery disease with previous stent placement 2 Diabetes mellitus, type II with diabetic peripheral neuropathy Hyperlipidemia Severe tricuspid regurgitation Severe pulmonary hypertension Obstructive sleep apnea Fibromyalgia Depression, unspecified Morbid obesity: BMI 43.5 Nicotine dependence, patient is a current cigarette smoker Nurse practitioner note has been reviewed by physician. Signing provider agrees with the documented findings, assessment, and plan of care. Patient Condition at Discharge: Stable Plan - Discharge Summary Discharge Rx Participant: No New Discharge Prescriptions: New Nicotine 21Mg/24Hr Patch [Habitrol] 1 patch TRANSDERM DAILY #7 patch predniSONE See Taper PO DIRECTED #30 tab Lisinopril [Zestril] 5 mg PO DAILY #30 tab Metoprolol Tartrate [Lopressor] 12.5 mg PO BID #30 tab Spironolactone [Aldactone] 25 mg PO DAILY #30 tab Furosemide [Lasix] 40 mg PO BID@0900,1600 #60 tab Continue Nitroglycerin Sl Tabs [Nitrostat] 0.4 mg SUBLINGUAL Q5M PRN PRN Reason: Chest Pain Ipratropium [place] [Atrovent Hfa] 1 puff INHALATION RT-QID PRN PRN Reason: Shortness Of Breath metFORMIN HCL [Glucophage] 1,000 mg PO BID Atorvastatin [Lipitor] 40 mg PO DAILY Ranitidine HCl [Zantac] 150 mg PO BID Ezetimibe [Zetia] 10 mg PO DAILY Carbidopa-Levodopa 25-250 mg [Sinemet 25-250 mg] 1 tab PO TID Pramipexole [Mirapex] 1 mg PO TID Aspirin 325 mg PO DAILY Vortioxetine Hydrobromide [Trintellix] 10 mg PO DAILY levETIRAcetam [Keppra] 250 mg PO DAILY Ibuprofen [Motrin] 600 mg PO Q6HR PRN #30 tab PRN Reason: Pain Acetaminophen Tab [Tylenol] 1,000 mg PO Q6HR PRN PRN Reason: Pain Discontinued Furosemide [Lasix] 20 mg PO BID Discharge Medication List Atorvastatin [Lipitor] 40 mg PO DAILY 01/02/15 [History] Carbidopa-Levodopa 25-250 mg [Sinemet 25-250 mg] 1 tab PO TID 01/02/15 [History] Ezetimibe [Zetia] 10 mg PO DAILY 01/02/15 [History] Ipratropium [place] [Atrovent Hfa] 1 puff INHALATION RT-QID PRN 01/02/15 [ History] Nitroglycerin Sl Tabs [Nitrostat] 0.4 mg SUBLINGUAL Q5M PRN 01/02/15 [History] Pramipexole [Mirapex] 1 mg PO TID 01/02/15 [History] Ranitidine HCl [Zantac] 150 mg PO BID 01/02/15 [History] metFORMIN HCL [Glucophage] 1,000 mg PO BID 01/02/15 [History] Aspirin 325 mg PO DAILY 12/12/16 [History] Vortioxetine Hydrobromide [Trintellix] 10 mg PO DAILY 12/12/16 [History] levETIRAcetam [Keppra] 250 mg PO DAILY 12/12/16 [History] Ibuprofen [Motrin] 600 mg PO Q6HR PRN #30 tab 04/17/17 [Rx] Acetaminophen Tab [Tylenol] 1,000 mg PO Q6HR PRN 07/07/17 [History] Furosemide [Lasix] 40 mg PO BID@0900,1600 #60 tab 07/08/17 [Rx] Lisinopril [Zestril] 5 mg PO DAILY #30 tab 07/08/17 [Rx] Metoprolol Tartrate [Lopressor] 12.5 mg PO BID #30 tab 07/08/17 [Rx] Nicotine 21Mg/24Hr Patch [Habitrol] 1 patch TRANSDERM DAILY #7 patch 07/08/17 [ Rx] Spironolactone [Aldactone] 25 mg PO DAILY #30 tab 07/08/17 [Rx] predniSONE See Taper PO DIRECTED #30 tab 07/08/17 [Rx] Follow up Appointment(s)/Referral(s): Andres Montemayor MD [STAFF PHYSICIAN] - 1 Week [facility], [NON-STAFF] - Britton Liriano MD [Primary Care Provider] - 1-2 days Patient Instructions/Handouts: Heart Failure (DC) Activity/Diet/Wound Care/Special Instructions: Cardiac, diabetic diet. NO smoking, cessation information provided. Discharge Disposition: HOME WITH HOME HEALTH SERVICES
[2017-07-08] MEDS: NON-FORMULARY DRUG (Vortioxetine Hydrobromide [Trintellix] 10 MG) PO SCH (14:36)
== END 2017-07-08 15:30 | disposition home health service (06) | DRG 190 ==
LOC: EC 06:55 → 3OBS 09:16 → OBSVTOIN 12:28 → 4MS4W 07-08 09:00
PROVIDERS: ADMIT Family Medicine; ATTEND Family Medicine
DX: J44.1 Chronic obstructive pulmonary disease with (acute) exacerbation (principal); I50.23 Acute on chronic systolic (congestive) heart failure; Z68.41 Body mass index [BMI] 40.0-44.9, adult; E11.42 Type 2 diabetes mellitus with diabetic polyneuropathy; E66.01 Morbid (severe) obesity due to excess calories; E78.5 Hyperlipidemia, unspecified; F17.210 Nicotine dependence, cigarettes, uncomplicated; F32.9 Major depressive disorder, single episode, unspecified; G25.81 Restless legs syndrome; G47.33 Obstructive sleep apnea (adult) (pediatric); H91.90 Unspecified hearing loss, unspecified ear; I07.1 Rheumatic tricuspid insufficiency; I25.10 Atherosclerotic heart disease of native coronary artery without angina pectoris; I25.2 Old myocardial infarction; I27.20 Pulmonary hypertension, unspecified; I45.10 Unspecified right bundle-branch block; K21.9 Gastro-esophageal reflux disease without esophagitis; M79.7 Fibromyalgia; M81.0 Age-related osteoporosis without current pathological fracture; M19.90 Unspecified osteoarthritis, unspecified site; M43.9 Deforming dorsopathy, unspecified; Z79.82 Long term (current) use of aspirin; Z79.899 Other long term (current) drug therapy; Z79.84 Long term (current) use of oral hypoglycemic drugs; Z95.5 Presence of coronary angioplasty implant and graft; Z90.721 Acquired absence of ovaries, unilateral; Z86.14 Personal history of Methicillin resistant Staphylococcus aureus infection; Z85.44 Personal history of malignant neoplasm of other female genital organs; Z85.6 Personal history of leukemia; Z88.1 Allergy status to other antibiotic agents; Z88.0 Allergy status to penicillin; Z88.2 Allergy status to sulfonamides; Z88.8 Allergy status to other drugs, medicaments and biological substances; Z82.49 Family history of ischemic heart disease and other diseases of the circulatory system
CPT/HCPCS: 36415; 71045; 80048; 80053; 80061; 82550; 82553; 83036; 83735; 83880; 84484; 85025; 85379; 85610; 85730; 93005; 93306; 94640; 94760; 96374; 96375; 99285

== ENCOUNTER 2017-08-18 04:46 | Emergency (ER) | payer MEDICARE, OTHER ==
--- NOTE | 2017-08-18 04:57 | ED ---
General Adult HPI - General Stated complaint: Chest Pain Time Seen by Provider: 08/18/17 04:46 Source: RN notes reviewed - History of Present Illness Initial comments: This is a 57-year-old female who presents to the emergency department with a past medical history for congestive heart failure. Patient comes in stating she noticed a bruise on the right side of her chest and she wants to know why all of a sudden she is bruising. Patient states she does remember hitting anything or vomiting anything. Patient states the area is tender to palpation. Patient states she thinks she might be Plavix but she's not sure. Patient denies any actual chest pain or difficulty breathing or shortness of breath. Patient denies any diaphoresis patient denies abdominal pain patient denies nausea vomiting or diarrhea. Patient's concern and she doesn't understand why she has a bruise on her right breast - Related Data Home Medications Medication Instructions Recorded Confirmed Atorvastatin [Lipitor] 40 mg PO DAILY 01/02/15 07/07/17 Carbidopa-Levodopa 25-250 mg 1 tab PO TID 01/02/15 07/07/17 [Sinemet 25-250 mg] Ezetimibe [Zetia] 10 mg PO DAILY 01/02/15 07/07/17 Ipratropium Caroline [Atrovent Hfa] 1 puff INHALATION RT-QID PRN 01/02/15 Nitroglycerin Sl Tabs [Nitrostat] 0.4 mg SUBLINGUAL Q5M PRN 01/02/15 07/07/17 Pramipexole [Mirapex] 1 mg PO TID 01/02/15 07/07/17 Ranitidine HCl [Zantac] 150 mg PO BID 01/02/15 07/07/17 metFORMIN HCL [Glucophage] 1,000 mg PO BID 01/02/15 07/07/17 Aspirin 325 mg PO DAILY 12/12/16 07/07/17 Vortioxetine Hydrobromide 10 mg PO DAILY 12/12/16 07/07/17 [Trintellix] levETIRAcetam [Keppra] 250 mg PO DAILY 12/12/16 07/07/17 Acetaminophen Tab [Tylenol] 1,000 mg PO Q6HR PRN 07/07/17 07/07/17 Previous Rx's Medication Instructions Recorded Ibuprofen [Motrin] 600 mg PO Q6HR PRN #30 tab 04/17/17 Furosemide [Lasix] 40 mg PO BID@0900,1600 #60 tab 07/08/17 Lisinopril [Zestril] 5 mg PO DAILY #30 tab 07/08/17 Metoprolol Tartrate [Lopressor] 12.5 mg PO BID #30 tab 07/08/17 Nicotine 21Mg/24Hr Patch [Habitrol] 1 patch TRANSDERM DAILY #7 patch 07/08/17 Spironolactone [Aldactone] 25 mg PO DAILY #30 tab 07/08/17 predniSONE See Taper PO DIRECTED #30 tab 07/08/17 Allergies Allergy/AdvReac Type Severity Reaction Status Date / Time amoxicillin Allergy SOB- RED Verified 07/07/17 07:27 BLOTCHY SKIN capsaicin Allergy SOB- RED Verified 07/07/17 07:27 BLOTCHY SKIN cephalexin monohydrate Allergy SOB- RED Verified 07/07/17 07:27 [From Keflex] BLOTCHY SKIN Cephalosporins Allergy SOB-RED Verified 07/07/17 07:27 BLOTCHY SKIN ciprofloxacin Allergy Unknown Verified 07/07/17 07:27 clindamycin Allergy SOB-RED Verified 07/07/17 07:27 BLOTCHY SKIN fluticasone propionate Allergy SOB- RED Verified 07/07/17 07:27 [From Flonase] BLOTCHY SKIN Penicillins Allergy SOB- RED Verified 07/07/17 07:27 BLOTCHY SKIN Sulfa (Sulfonamide Allergy SOB- RED Verified 07/07/17 07:27 Antibiotics) BLOTCHY SKIN BROWN DYES Allergy SOB- RED Uncoded 07/06/17 23:56 BLOTCHY SKIN Review of Systems ROS Statement: Those systems with pertinent positive or pertinent negative responses have been documented in the HPI. ROS Other: All systems not noted in ROS Statement are negative. 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 bilaterally, LOVE wit bipap and O2 4L at HS, osteoporosis, and curvature of the spine. Last Myocardial Infarction Date:: 2001 History of Any Multi-Drug Resistant Organisms: MRSA Date of last positivie culture/infection: 2001 MDRO Source:: PORT IN CHEST Past Surgical History: Bowel Resection, Section, Heart Catheterization With Stent, Hernia Repair, Orthopedic Surgery Additional Past Surgical History / Comment(s): 04/2017 Removal R ear tube/ tympanoplasty and bilateral tubes placed, prior ear surgeries, umbilical hernia repair with bowel paris/bowel resections then done along with L ovary removed, PICC lines/now out, mediport-now out (MRSA infection), PCI/stents, R eye surgeries/lens implant/lasered for retinal detachment, EGD, colonoscopies, L breast benign biopsy, D&C, R vulva excision, R wrist ORIF with plate/pins, deviated septal surgery. Past Anesthesia/Blood Transfusion Reactions: Blood Transfusion Reaction, Motion Sickness, Postoperative Nausea & Vomiting (PONV) Additional Past Anesthesia/Blood Transfusion Reaction / Comment(s): 2001-had some kind of transfusion reaction Date of Last Stent Placement:: 2001 Smoking Status: Current every day smoker - Past Family History Mother Additional Family Medical History / Comment(s): @ AGE 53 WITH ANEURYSM Father Family Medical History: Myocardial Infarction ([place]) Additional Family Medical History / Comment(s): HAD CABG- COMMITTED SUICIDE A YEAR AFTER - PT'S GRANDFATHER(P) ALSO COMMITED SUICIDE Brother(s) Family Medical History: Coronary Artery Disease (CAD) Additional Family Medical History / Comment(s): COMMITTED SUICIDE General Exam - General Exam Comments Initial Comments: GENERAL: Patient is well-developed and well-nourished. Patient is nontoxic and well- hydrated and is in mild distress. ENT: Neck is soft and supple. No significant lymphadenopathy is noted. Oropharynx is clear. Moist mucous membranes. Neck has full range of motion without eliciting any pain. EYES: The sclera were anicteric and conjunctiva were pink and moist. Extraocular movements were intact and pupils were equal round and reactive to light. Eyelids were unremarkable. PULMONARY: Unlabored respirations. Good breath sounds bilaterally. No audible rales rhonchi or wheezing was noted. CARDIOVASCULAR: There is a regular rate and rhythm without any murmurs gallops or rubs. Patient has a 4 cm in diameter ecchymotic area on her right breast and is tender to palpation ABDOMEN: Soft and nontender with normal bowel sounds. No palpable organomegaly was noted. There is no palpable pulsatile mass. SKIN: Skin is clear with no lesions or rashes and otherwise unremarkable. NEUROLOGIC: Patient is alert and oriented x3. Cranial nerves II through XII are grossly intact. Motor and sensory are also intact. Normal speech, volume and content. Symmetrical smile. MUSCULOSKELETAL: Normal extremities with adequate strength and full range of motion. LYMPHATICS: No significant lymphadenopathy is noted PSYCHIATRIC: Normal psychiatric evaluation. Course Vital Signs 08/18/17 08/18/17 08/18/17 04:47 05:17 05:22 Temperature 98.2 F Pulse Rate 104 H 92 90 Respiratory 18 18 18 Rate Blood Pressure 93/55 86/53 94/53 O2 Sat by Pulse 96 95 94 L Oximetry 08/18/17 08/18/17 05:49 06:04 Temperature Pulse Rate Respiratory Rate Blood Pressure 115/58 O2 Sat by Pulse 96 Oximetry Medical Decision Making - Medical Decision Making EKG shows normal sinus rhythm at 89 bpm WV interval is 136 QRS 156 QT intervals 48 QTC is 496 patient has a right bundle branch block. I compared this EKG to an old EKG there are no acute changes. Chest x-ray was read as possible infiltrate versus possible CHF. I spoke with the patient she's having no difficulty breathing no cough no fever no sputum production. Patient states her edema in her legs sexually less than normal. Patient's lung sounds were normal. - Lab Data Result diagrams: 08/18/17 05:00 08/18/17 05:00 Lab Results 08/18/17 08/18/17 08/18/17 Range/Units 05:00 05:00 05:00 WBC 6.0 (3.8-10.6) k/uL RBC 3.51 L (3.80-5.40) m/uL Hgb 11.4 (11.4-16.0) gm/dL Hct 35.4 (34.0-46.0) % MCV 100.9 H (80.0-100.0) fL MCH 32.4 (25.0-35.0) pg MCHC 32.2 (31.0-37.0) g/dL RDW 18.2 H (11.5-15.5) % Plt Count 125 L (150-450) k/uL Neutrophils % 59 % Lymphocytes % 32 % Monocytes % 5 % Eosinophils % 1 % Basophils % 0 % Neutrophils # 3.6 (1.3-7.7) k/uL Lymphocytes # 1.9 (1.0-4.8) k/uL Monocytes # 0.3 (0-1.0) k/uL Eosinophils # 0.1 (0-0.7) k/uL Basophils # 0.0 (0-0.2) k/uL Hypochromasia Slight Anisocytosis Slight Macrocytosis Moderate PT 9.9 (9.0-12.0) sec INR 1.0 (<1.2) APTT 24.3 (22.0-30.0) sec Sodium 142 (137-145) mmol/L Potassium 3.7 (3.5-5.1) mmol/L Chloride 105 (98-107) mmol/L Carbon Dioxide 27 (22-30) mmol/L Anion Gap 10 mmol/L BUN 19 H (7-17) mg/dL Creatinine 0.82 (0.52-1.04) mg/dL Est GFR (CKD-EPI)AfAm >90 (>60 ml/min/1.73 sqM) Est GFR (CKD-EPI)NonAf 79 (>60 ml/min/1.73 sqM) Glucose 235 H (74-99) mg/dL Calcium 8.8 (8.4-10.2) mg/dL Total Bilirubin 0.4 (0.2-1.3) mg/dL AST 19 (14-36) U/L ALT 28 (9-52) U/L Alkaline Phosphatase 109 (38-126) U/L Troponin I (0.000-0.034) ng/mL Total Protein 5.6 L (6.3-8.2) g/dL Albumin 3.5 (3.5-5.0) g/dL 08/18/17 Range/Units 05:00 WBC (3.8-10.6) k/uL RBC (3.80-5.40) m/uL Hgb (11.4-16.0) gm/dL Hct (34.0-46.0) % MCV (80.0-100.0) fL MCH (25.0-35.0) pg MCHC (31.0-37.0) g/dL RDW (11.5-15.5) % Plt Count (150-450) k/uL Neutrophils % % Lymphocytes % % Monocytes % % Eosinophils % % Basophils % % Neutrophils # (1.3-7.7) k/uL Lymphocytes # (1.0-4.8) k/uL Monocytes # (0-1.0) k/uL Eosinophils # (0-0.7) k/uL Basophils # (0-0.2) k/uL Hypochromasia Anisocytosis Macrocytosis PT (9.0-12.0) sec INR (<1.2) APTT (22.0-30.0) sec Sodium (137-145) mmol/L Potassium (3.5-5.1) mmol/L Chloride (98-107) mmol/L Carbon Dioxide (22-30) mmol/L Anion Gap mmol/L BUN (7-17) mg/dL Creatinine (0.52-1.04) mg/dL Est GFR (CKD-EPI)AfAm (>60 ml/min/1.73 sqM) Est GFR (CKD-EPI)NonAf (>60 ml/min/1.73 sqM) Glucose (74-99) mg/dL Calcium (8.4-10.2) mg/dL Total Bilirubin (0.2-1.3) mg/dL AST (14-36) U/L ALT (9-52) U/L Alkaline Phosphatase (38-126) U/L Troponin I <0.012 (0.000-0.034) ng/mL Total Protein (6.3-8.2) g/dL Albumin (3.5-5.0) g/dL Disposition Clinical Impression: Bruise of breast Disposition: HOME SELF-CARE Instructions: Contusion in Adults (ED) Is patient prescribed a controlled substance at d/c from ED?: No Referrals: Aron Jeffrey Jr, [Primary Care Provider] - 1-2 days Time of Disposition: 06:27
[2017-08-18 05:00] VITALS: RESP 18; TEMP 98.2
[2017-08-18 05:16] LABS: Anisocytosis Slight; Basophils % (A) 0 %; Eosinophils # (A) 0.1 k/uL (0-0.7); Eosinophils % (A) 1 %; HCT 35.4 % (34.0-46.0); HGB 11.4 gm/dL (11.4-16.0); Hypochromasia Slight; Lymphocytes # (A) 1.9 k/uL (1.0-4.8); Lymphocytes % (A) 32 %; MCH 32.4 pg (25.0-35.0); MCHC 32.2 g/dL (31.0-37.0); MCV 100.9 fL (80.0-100.0); Macrocytosis Moderate; Mean Platelet Volume 9.1; Monocytes # (A) 0.3 k/uL (0-1.0); Monocytes % (A) 5 %; Neutrophils # (A) 3.6 k/uL (1.3-7.7); Neutrophils % (A) 59 %; Platelet Count 125 k/uL (150-450); RBC 3.51 m/uL (3.80-5.40); RDW 18.2 % (11.5-15.5)
[2017-08-18 05:17] LABS: Partial Thromboplastin Time 24.3 sec (22.0-30.0); Prothrombin Time 9.9 sec (9.0-12.0)
[2017-08-18 05:40] LABS: ALT 28 U/L (9-52); AST 19 U/L (14-36); Albumin 3.5 g/dL (3.5-5.0); Alkaline Phosphatase 109 U/L (38-126); Anion Gap 10 mmol/L; Blood Urea Nitrogen 19 mg/dL (7-17); Calcium 8.8 mg/dL (8.4-10.2); Carbon Dioxide 27 mmol/L (22-30); Chloride 105 mmol/L (98-107); Glucose 235 mg/dL (74-99); Potassium 3.7 mmol/L (3.5-5.1); Sodium 142 mmol/L (137-145); Total Bilirubin 0.4 mg/dL (0.2-1.3); Total Protein 5.6 g/dL (6.3-8.2)
[2017-08-18 05:43] VITALS: PULSE 90
--- NOTE | 2017-08-18 06:03 | XR ---
EXAM: XR Chest, 2 Views CLINICAL HISTORY: Difficulty breathing TECHNIQUE: Frontal and lateral views of the chest. COMPARISON: No relevant prior studies available. FINDINGS: Lungs: Diffuse airspace opacities which may represent pulmonary vascular congestion versus infectious processes. Pleural space: Unremarkable. No pneumothorax. Heart: Unremarkable. No cardiomegaly. Mediastinum: Unremarkable. Bones/joints: Unremarkable. IMPRESSION: Diffuse airspace opacities which may represent pulmonary vascular congestion versus infectious processes.
[2017-08-18 06:04] VITALS: BP 115/58
== END 2017-08-18 07:18 | disposition home or self-care (01) ==
LOC: EC 04:46
DX: S20.01XA Contusion of right breast, initial encounter (principal); I25.10 Atherosclerotic heart disease of native coronary artery without angina pectoris; J44.9 Chronic obstructive pulmonary disease, unspecified; K21.9 Gastro-esophageal reflux disease without esophagitis; E78.5 Hyperlipidemia, unspecified; I25.2 Old myocardial infarction; E11.40 Type 2 diabetes mellitus with diabetic neuropathy, unspecified; G25.81 Restless legs syndrome; F17.200 Nicotine dependence, unspecified, uncomplicated; G47.33 Obstructive sleep apnea (adult) (pediatric); Z99.89 Dependence on other enabling machines and devices; Z85.44 Personal history of malignant neoplasm of other female genital organs; Z85.6 Personal history of leukemia; Z86.14 Personal history of Methicillin resistant Staphylococcus aureus infection; Z95.5 Presence of coronary angioplasty implant and graft; Z79.82 Long term (current) use of aspirin; Z79.84 Long term (current) use of oral hypoglycemic drugs; Z79.899 Other long term (current) drug therapy; Z88.0 Allergy status to penicillin; Z91.018 Allergy to other foods; Z88.1 Allergy status to other antibiotic agents; Z88.8 Allergy status to other drugs, medicaments and biological substances; Z88.2 Allergy status to sulfonamides; Z91.048 Other nonmedicinal substance allergy status
CPT/HCPCS: 36415; 71046; 80053; 84484; 85025; 85610; 85730; 93005; 99285

== ENCOUNTER → 2017-10-24 | Outpatient (CLI) | payer MEDICARE, OTHER ==
[2017-10-24 13:07] LABS: Anisocytosis Slight; HCT 46.1 % (34.0-46.0); HGB 14.3 gm/dL (11.4-16.0); Hypochromasia Marked; MCH 34.4 pg (25.0-35.0); MCHC 30.9 g/dL (31.0-37.0); MCV 111.1 fL (80.0-100.0); Macrocytosis Marked; Mean Platelet Volume 10.3; Platelet Count 135 k/uL (150-450); RBC 4.15 m/uL (3.80-5.40); RDW 16.4 % (11.5-15.5); WBC 6.7 k/uL (3.8-10.6)
[2017-10-24 13:14] LABS: Calcium 9.7 mg/dL (8.4-10.2); Potassium 5.1 mmol/L (3.5-5.1)
== END | disposition home or self-care (01) ==
LOC: LABWHC1 12:27
PROVIDERS: ATTEND Internal Medicine
DX: J44.1 Chronic obstructive pulmonary disease with (acute) exacerbation (principal)
CPT/HCPCS: 36415; 80048; 85027

== ENCOUNTER → 2017-12-15 | Outpatient (CLI) | payer MEDICARE, OTHER ==
[2017-12-15 14:02] LABS: Anisocytosis Slight; HCT 40.4 % (34.0-46.0); Hypochromasia Slight; MCH 36.1 pg (25.0-35.0); MCHC 32.2 g/dL (31.0-37.0); MCV 112.1 fL (80.0-100.0); Macrocytosis Marked; Mean Platelet Volume 10.1; Platelet Count 149 k/uL (150-450); RDW 17.3 % (11.5-15.5); WBC 6.8 k/uL (3.8-10.6)
[2017-12-15 14:20] LABS: Appearance,Urine Cloudy (Clear); Bacteria,Urine Moderate /hpf; Bilirubin,Urine Negative (Negative); Blood,Urine Negative (Negative); Color,Urine Yellow; Glucose,Urine (UA) Negative (Negative); Ketones,Urine Trace (Negative); Leukocyte Esterase,Urine Trace (Negative); Mucus,Urine Rare /hpf; Nitrite,Urine Positive (Negative); PH, Urine 6.5 (5.0-8.0); Protein,Urine 2+ (Negative); RBC,Urine 1 /hpf (0-5); Specific Gravity,Urine 1.019 (1.001-1.035); Squamous Epithelial Cell,Urine <1 /hpf (0-4); Urobilinogen,Urine <2.0 mg/dL (<2.0); WBC,Urine 8 /hpf (0-5)
[2017-12-15 14:21] LABS: ALT 30 U/L (9-52); AST 19 U/L (14-36); Albumin 3.7 g/dL (3.5-5.0); Alkaline Phosphatase 98 U/L (38-126); Anion Gap 8 mmol/L; Blood Urea Nitrogen 18 mg/dL (7-17); Calcium 8.7 mg/dL (8.4-10.2); Carbon Dioxide 27 mmol/L (22-30); Chloride 107 mmol/L (98-107); Glucose 166 mg/dL (74-99); Phosphorus 3.1 mg/dL (2.5-4.5); Potassium 4.6 mmol/L (3.5-5.1); Sodium 142 mmol/L (137-145); Total Bilirubin 0.6 mg/dL (0.2-1.3); Total Protein 6.2 g/dL (6.3-8.2)
[2017-12-15 14:37] LABS: T4, Free (Free Thyroxine) 1.37 ng/dL (0.78-2.19)
== END | disposition home or self-care (01) ==
LOC: LABWHC1 13:36
PROVIDERS: ATTEND Internal Medicine Nephrology
DX: N39.0 Urinary tract infection, site not specified (principal); D64.9 Anemia, unspecified; E83.39 Other disorders of phosphorus metabolism; I50.9 Heart failure, unspecified; R63.5 Abnormal weight gain
CPT/HCPCS: 36415; 80053; 81001; 83880; 84100; 84439; 84481; 85027

== ENCOUNTER 2017-12-17 12:11 | Emergency (ER) | payer MEDICARE, OTHER ==
--- NOTE | 2017-12-17 13:09 | ED ---
General Adult HPI - General Chief complaint: Shortness of Breath Stated complaint: blood clot in lung Source: patient Mode of arrival: wheelchair Limitations: no limitations - History of Present Illness Initial comments: Dictation was produced using [employer] dictation software. please excuse any grammatical, word or spelling errors. Chief Complaint: 57-year-old female with multiple comorbidities including acute myelogenous leukemia, chronic kidney disease, CHF and COPD presents with shortness of breath it's been progressive for the last 3 days. History of Present Illness: Patient is a 57-year-old female she was at her primary care physician's office when she was told to come to the emergency department. Her initial complaint to the primary care physician's office was difficulty in breathing. Patient states that her symptoms been progressive. She does have history of CHF with 35% ejection fraction. Patient states she's been having 1020 pound weight gain over the last several weeks. Patient does have an established ap operator. Patient has known kidney disease however is not on dialysis. Patient denies any blood clots patient denies any asymmetrical lower extremity swelling or pain. Patient denies any chest pain. The ROS documented in this emergency department record has been reviewed and confirmed by me. Those systems with pertinent positive or negative responses have been documented in the HPI. All other systems are other negative and/or noncontributory. - Related Data Home Medications Medication Instructions Recorded Confirmed Atorvastatin [Lipitor] 40 mg PO DAILY 01/02/15 12/17/17 Nitroglycerin Sl Tabs [Nitrostat] 0.4 mg SUBLINGUAL Q5M PRN 01/02/15 12/17/17 Ranitidine HCl [Zantac] 150 mg PO BID 01/02/15 12/17/17 metFORMIN HCL [Glucophage] 1,000 mg PO BID 01/02/15 12/17/17 Aspirin 325 mg PO DAILY 12/12/16 12/17/17 Vortioxetine Hydrobromide 10 mg PO DAILY 12/12/16 12/17/17 [Trintellix] Budesonide [Pulmicort Flexhaler] 2 puff INHALATION RT-DAILY 12/17/17 12/17/17 Ferrous Sulfate [Feosol] 325 mg PO DAILY 12/17/17 12/17/17 Metoprolol Tartrate [Lopressor] 12.5 mg PO BID 12/17/17 12/17/17 Potassium Chloride [K-Tab ER] 10 meq PO DAILY 12/17/17 12/17/17 Spironolactone [Aldactone] 25 mg PO BID 12/17/17 12/17/17 Tamsulosin [Flomax] 0.4 mg PO BID 12/17/17 12/17/17 sitaGLIPtin [Januvia] 100 mg PO DAILY 12/17/17 12/17/17 Previous Rx's Medication Instructions Recorded Furosemide [Lasix] 40 mg PO BID@0900,1600 #60 tab 07/08/17 Allergies Allergy/AdvReac Type Severity Reaction Status Date / Time amoxicillin Allergy SOB- RED Verified 12/17/17 13:23 BLOTCHY SKIN capsaicin Allergy SOB- RED Verified 12/17/17 13:23 [place]OT[place] cephalexin monohydrate Allergy SOB- RED Verified 12/17/17 13:23 [From Keflex] BLOTCHY SKIN Cephalosporins Allergy SOB-RED Verified 12/17/17 13:23 [place]OT[place] ciprofloxacin Allergy Unknown Verified 12/17/17 13:23 clindamycin Allergy SOB-RED Verified 12/17/17 12:39 BLOT[place] SK[place] fluticasone propionate Allergy SOB- RED Verified 12/17/17 13:23 [From Flonase] BLOTCHY SKIN Penicillins Allergy SOB- RED Verified 12/17/17 13:23 [place]OT[place] SK[place] Sulfa (Sulfonamide Allergy SOB- RED Verified 12/17/17 13:23 Antibiotics) BLOTCHY SKIN BROWN DYES Allergy SOB- RED Uncoded 07/06/17 23:56 BLOTCHY SKIN Review of Systems ROS Statement: Those systems with pertinent positive or pertinent negative responses have been documented in the HPI. ROS Other: All systems not noted in ROS Statement are negative. Past Medical History Past Medical History: Coronary Artery Disease (CAD), Cancer, COPD, Diabetes Mellitus, Eye Disorder, Fibromyalgia, GERD/Reflux, Hearing Disorder / Deafness, Hyperlipidemia, Myocardial Infarction ([place]), Osteoarthritis (OA), Sleep Apnea/ CPAP/BIPAP Additional Past Medical History / Comment(s): Recent diagnosis of brain aneurysm -sent [facility] and will follow up in 6 months, rapid heart rate, 2001 acute myeloid leukemia with chemotherapy, vulvar cancer with surgery, NIDDM type II, neuropathy bilateral legs/feet, RLS, arthritis multiple joints and especially in her feet, large abdominal hernia, anemia, R eye detached retina with surgery , RAMPART bilaterally, LOVE wit bipap and O2 4L at HS, osteoporosis, and curvature of the spine. Last Myocardial Infarction Date:: 2001 History of Any Multi-Drug Resistant Organisms: MRSA Date of last positivie culture/infection: 2001 MDRO Source:: PORT IN CHEST Past Surgical History: Bowel Resection, Section, Heart Catheterization With Stent, Hernia Repair, Orthopedic Surgery Additional Past Surgical History / Comment(s): 04/2017 Removal R ear tube/ tympanoplasty and bilateral tubes placed, prior ear surgeries, umbilical hernia repair with bowel paris/bowel resections then done along with L ovary removed, PICC lines/now out, mediport-now out (MRSA infection), PCI/stents, R eye surgeries/lens implant/lasered for retinal detachment, EGD, colonoscopies, L breast benign biopsy, D&C, R vulva excision, R wrist ORIF with plate/pins, deviated septal surgery. Past Anesthesia/Blood Transfusion Reactions: Blood Transfusion Reaction, Motion Sickness, Postoperative Nausea & Vomiting (PONV) Additional Past Anesthesia/Blood Transfusion Reaction / Comment(s): 2001-had some kind of transfusion reaction Date of Last Stent Placement:: 2001 Past Psychological History: Depression Smoking Status: Current every day smoker - Past Family History Mother Additional Family Medical History / Comment(s): @ AGE 53 WITH ANEURYSM Father Family Medical History: Myocardial Infarction ([place]) Additional Family Medical History / Comment(s): HAD CABG- COMMITTED SUICIDE A YEAR AFTER - PT'S GRANDFATHER(P) ALSO COMMITED SUICIDE Brother(s) Family Medical History: Coronary Artery Disease (CAD) Additional Family Medical History / Comment(s): COMMITTED SUICIDE General Exam - General Exam Comments Initial Comments: PHYSICAL EXAM: General Impression: Alert and oriented x3, not in acute distress HEENT: Normocephalic atraumatic, extra-ocular movements intact, pupils equal and reactive to light bilaterally, mucous membranes moist. Cardiovascular: Heart regular rate and rhythm, S1&S2 audible, no murmurs, rubs or gallops Chest: Bilateral lung wheezing Abdomen: Bowel sounds present, abdomen soft, non-tender, non-distended, no organomegaly Musculoskeletal: Pulses present and equal in all extremities, no peripheral edema Motor: Power 5/5 bilaterally, no focal deficits noted Neurological: CN II-XII grossly intact, no focal motor or sensory deficits noted Skin: Intact with no visualized rashes Psych: Normal affect and mood Limitations: no limitations Course Vital Signs 12/17/17 12/17/17 12/17/17 12:35 12:48 13:30 Temperature 97.9 F Pulse Rate 108 H 96 Respiratory 20 20 21 Rate Blood Pressure 111/57 114/61 O2 Sat by Pulse 90 L 94 L Oximetry 12/17/17 12/17/17 12/17/17 13:50 14:00 14:10 Temperature Pulse Rate 102 H 96 100 Respiratory 33 H 27 H 28 H Rate Blood Pressure 114/61 114/61 114/63 O2 Sat by Pulse 96 93 L 93 L Oximetry 12/17/17 12/17/17 12/17/17 14:20 14:30 14:40 Temperature Pulse Rate 98 102 H 103 H Respiratory 24 27 H 26 H Rate Blood Pressure 114/63 114/63 114/63 O2 Sat by Pulse 94 L 87 L 92 L Oximetry Medical Decision Making - Medical Decision Making ED course: 57-year-old female presents with chief complaint of shortness of breath. Patient has multiple comorbidities and has several reasons to be short of breath. Patient has no pain complaints at this time. She is well-appearing. No signs of respiratory distress. Vital signs upon arrival shows heart rate of 108, oxygen 90%. Rest of vital signs within normal limits.Laboratory evaluation obtained. CBC is unremarkable. There is mild macrocytosis. Rest of CBC is unremarkable. Coag panel is unremarkable. D- dimer 0.59. Blood gas shows 7.41 pH with pCO2 of 56 and bicarb of 35. This likely represents chronic hypercarbia with metabolic compensation. Metabolic panel obtained showing findings within acceptable limits. Prematurity peptide is 3100. This appears to be higher than patient's normal level. Urinalysis obtained showing no acute processes. X-ray shows no acute findings. Given patient elevated d-dimer is there was clinical suspicion that patient does have pulmonary emboli. No PE noted. There is COPD with emphysematous changes. Patient's clinical presentation consistent with CHF exacerbation. Patient given Lasix. She will be admitted to observation for gentle diuresis. Cardiology on consult. EKG Interpretation: A 12 lead EKG was obtained. It was interpreted by myself and attending physician. There is a P wave before every QRS complex. Rate is 95. Rhythm is sinus rhythm,. Interval 1:30, care is 150, QTc 525. QT is prolonged compared to previous EKG from 08/18/2017. Patient's QRS is stable. No phthisis suggest ischemia. - Lab Data Result diagrams: 12/17/17 12:52 12/17/17 12:52 Lab Results 12/17/17 12/17/17 12/17/17 Range/Units 12:52 12:52 12:52 WBC 7.0 (3.8-10.6) k/uL RBC 4.09 (3.80-5.40) m/uL Hgb 14.5 (11.4-16.0) gm/dL Hct 47.2 H (34.0-46.0) % MCV 115.5 H (80.0-100.0) fL MCH 35.4 H (25.0-35.0) pg MCHC 30.6 L (31.0-37.0) g/dL RDW 17.2 H (11.5-15.5) % Plt Count 175 (150-450) k/uL Neutrophils % 59 % Lymphocytes % 32 % Monocytes % 5 % Eosinophils % 1 % Basophils % 1 % Neutrophils # 4.1 (1.3-7.7) k/uL Lymphocytes # 2.2 (1.0-4.8) k/uL Monocytes # 0.3 (0-1.0) k/uL Eosinophils # 0.1 (0-0.7) k/uL Basophils # 0.0 (0-0.2) k/uL Manual Slide Review Performed Large Platelets Present Hypochromasia Moderate Anisocytosis Slight Macrocytosis Marked PT (9.0-12.0) sec INR (<1.2) APTT (22.0-30.0) sec D-Dimer (<0.60) mg/L FEU VBG pH (7.31-7.41) VBG pCO2 (37-51) mmHg VBG HCO3 (24-28) mmol/L Sodium 139 (137-145) mmol/L Potassium 3.9 (3.5-5.1) mmol/L Chloride 95 L (98-107) mmol/L Carbon Dioxide 32 H (22-30) mmol/L Anion Gap 12 mmol/L BUN 28 H (7-17) mg/dL Creatinine 0.83 (0.52-1.04) mg/dL Est GFR (CKD-EPI)AfAm >90 (>60 ml/min/1.73 sqM) Est GFR (CKD-EPI)NonAf 78 (>60 ml/min/1.73 sqM) Glucose 197 H (74-99) mg/dL Calcium 9.6 (8.4-10.2) mg/dL Magnesium 1.8 (1.6-2.3) mg/dL Total Bilirubin 0.6 (0.2-1.3) mg/dL AST 21 (14-36) U/L ALT 24 (9-52) U/L Alkaline Phosphatase 83 (38-126) U/L Total Creatine Kinase 70 (30-135) U/L CK-MB (CK-2) 1.4 (0.0-2.4) ng/mL CK-MB (CK-2) Rel Index 2.0 Troponin I <0.012 (0.000-0.034) ng/mL NT-Pro-B Natriuret Pep pg/mL Total Protein 6.7 (6.3-8.2) g/dL Albumin 4.1 (3.5-5.0) g/dL Urine Color Urine Appearance (Clear) Urine pH (5.0-8.0) Ur Specific [place] (1.001-1.035) Urine Protein (Negative) Urine Glucose (UA) (Negative) Urine Ketones (Negative) Urine Blood (Negative) Urine Nitrite (Negative) Urine Bilirubin (Negative) Urine Urobilinogen (<2.0) mg/dL Ur Leukocyte Esterase (Negative) Urine RBC (0-5) /hpf Urine WBC (0-5) /hpf Ur Squamous Epith Cells (0-4) /hpf Urine Bacteria (None) /hpf Urine Mucus (None) /hpf Urine Yeast (Budding) (None) /hpf 12/17/17 12/17/17 12/17/17 Range/Units 12:52 12:52 13:41 WBC (3.8-10.6) k/uL RBC (3.80-5.40) m/uL Hgb (11.4-16.0) gm/dL Hct (34.0-46.0) % MCV (80.0-100.0) fL MCH (25.0-35.0) pg MCHC (31.0-37.0) g/dL RDW (11.5-15.5) % Plt Count (150-450) k/uL Neutrophils % % Lymphocytes % % Monocytes % % Eosinophils % % Basophils % % Neutrophils # (1.3-7.7) k/uL Lymphocytes # (1.0-4.8) k/uL Monocytes # (0-1.0) k/uL Eosinophils # (0-0.7) k/uL Basophils # (0-0.2) k/uL Manual Slide Review Large Platelets Hypochromasia Anisocytosis Macrocytosis PT 9.7 (9.0-12.0) sec INR 1.0 (<1.2) APTT 23.9 (22.0-30.0) sec D-Dimer 0.59 (<0.60) mg/L FEU VBG pH 7.41 (7.31-7.41) VBG pCO2 56 H (37-51) mmHg VBG HCO3 35 H (24-28) mmol/L Sodium (137-145) mmol/L Potassium (3.5-5.1) mmol/L Chloride (98-107) mmol/L Carbon Dioxide (22-30) mmol/L Anion Gap mmol/L BUN (7-17) mg/dL Creatinine (0.52-1.04) mg/dL Est GFR (CKD-EPI)AfAm (>60 ml/min/1.73 sqM) Est GFR (CKD-EPI)NonAf (>60 ml/min/1.73 sqM) Glucose (74-99) mg/dL Calcium (8.4-10.2) mg/dL Magnesium (1.6-2.3) mg/dL Total Bilirubin (0.2-1.3) mg/dL AST (14-36) U/L ALT (9-52) U/L Alkaline Phosphatase (38-126) U/L Total Creatine Kinase (30-135) U/L CK-MB (CK-2) (0.0-2.4) ng/mL CK-MB (CK-2) Rel Index Troponin I (0.000-0.034) ng/mL NT-Pro-B Natriuret Pep 3100 pg/mL Total Protein (6.3-8.2) g/dL Albumin (3.5-5.0) g/dL Urine Color Urine Appearance (Clear) Urine pH (5.0-8.0) Ur Specific [place] (1.001-1.035) Urine Protein (Negative) Urine Glucose (UA) (Negative) Urine Ketones (Negative) Urine Blood (Negative) Urine Nitrite (Negative) Urine Bilirubin (Negative) Urine Urobilinogen (<2.0) mg/dL Ur Leukocyte Esterase (Negative) Urine RBC (0-5) /hpf Urine WBC (0-5) /hpf Ur Squamous Epith Cells (0-4) /hpf Urine Bacteria (None) /hpf Urine Mucus (None) /hpf Urine Yeast (Budding) (None) /hpf 12/17/17 Range/Units 16:01 WBC (3.8-10.6) k/uL RBC (3.80-5.40) m/uL Hgb (11.4-16.0) gm/dL Hct (34.0-46.0) % MCV (80.0-100.0) fL MCH (25.0-35.0) pg MCHC (31.0-37.0) g/dL RDW (11.5-15.5) % Plt Count (150-450) k/uL Neutrophils % % Lymphocytes % % Monocytes % % Eosinophils % % Basophils % % Neutrophils # (1.3-7.7) k/uL Lymphocytes # (1.0-4.8) k/uL Monocytes # (0-1.0) k/uL Eosinophils # (0-0.7) k/uL Basophils # (0-0.2) k/uL Manual Slide Review Large Platelets Hypochromasia Anisocytosis Macrocytosis PT (9.0-12.0) sec INR (<1.2) APTT (22.0-30.0) sec D-Dimer (<0.60) mg/L FEU VBG pH (7.31-7.41) VBG pCO2 (37-51) mmHg VBG HCO3 (24-28) mmol/L Sodium (137-145) mmol/L Potassium (3.5-5.1) mmol/L Chloride (98-107) mmol/L Carbon Dioxide (22-30) mmol/L Anion Gap mmol/L BUN (7-17) mg/dL Creatinine (0.52-1.04) mg/dL Est GFR (CKD-EPI)AfAm (>60 ml/min/1.73 sqM) Est GFR (CKD-EPI)NonAf (>60 ml/min/1.73 sqM) Glucose (74-99) mg/dL Calcium (8.4-10.2) mg/dL Magnesium (1.6-2.3) mg/dL Total Bilirubin (0.2-1.3) mg/dL AST (14-36) U/L ALT (9-52) U/L Alkaline Phosphatase (38-126) U/L Total Creatine Kinase (30-135) U/L CK-MB (CK-2) (0.0-2.4) ng/mL CK-MB (CK-2) Rel Index Troponin I (0.000-0.034) ng/mL NT-Pro-B Natriuret Pep pg/mL Total Protein (6.3-8.2) g/dL Albumin (3.5-5.0) g/dL Urine Color Yellow Urine Appearance Cloudy H (Clear) Urine pH 6.5 (5.0-8.0) Ur Specific [place] 1.014 (1.001-1.035) Urine Protein Negative (Negative) Urine Glucose (UA) Negative (Negative) Urine Ketones Negative (Negative) Urine Blood Negative (Negative) Urine Nitrite Positive H (Negative) Urine Bilirubin Negative (Negative) Urine Urobilinogen <2.0 (<2.0) mg/dL Ur Leukocyte Esterase Small H (Negative) Urine RBC 2 (0-5) /hpf Urine WBC 4 (0-5) /hpf Ur Squamous Epith Cells 1 (0-4) /hpf Urine Bacteria Occasional H (None) /hpf Urine Mucus Rare H (None) /hpf Urine Yeast (Budding) Occasional H (None) /hpf Disposition Clinical Impression: Congestive heart failure Disposition: ADMITTED IP TO THIS HOSP Condition: Fair Referrals: Jennifer Kessler DO [Primary Care Provider] - 1-2 days Decision Time: 17:12
--- NOTE | 2017-12-17 13:35 | XR ---
EXAMINATION TYPE: XR chest 2V DATE OF EXAM: 12/17/2017 COMPARISON: Chest x-ray August 18, 2017 HISTORY: COPD with difficulty in breathing. TECHNIQUE: Frontal and lateral views of the chest are obtained. FINDINGS: There is suggestion of left-sided PICC line on current study. There is background reticula r interstitial prominence bilaterally without suspicious new focal air space opacity, pleural effusio n, or pneumothorax seen. The cardiac silhouette size is stable and mildly enlarged. Degenerative marry nge bilateral acromioclavicular joints is present. IMPRESSION: Cardiomegaly with bilateral interstitial prominence favoring chronic parenchymal change. No new suspicious focal infiltrate.
[2017-12-17 13:44] LABS: Anisocytosis Slight; Basophils % (A) 1 %; Eosinophils # (A) 0.1 k/uL (0-0.7); Eosinophils % (A) 1 %; HCT 47.2 % (34.0-46.0); HGB 14.5 gm/dL (11.4-16.0); Hypochromasia Moderate; Lymphocytes # (A) 2.2 k/uL (1.0-4.8); Lymphocytes % (A) 32 %; MCH 35.4 pg (25.0-35.0); MCHC 30.6 g/dL (31.0-37.0); MCV 115.5 fL (80.0-100.0); Macrocytosis Marked; Mean Platelet Volume 9.4; Monocytes # (A) 0.3 k/uL (0-1.0); Monocytes % (A) 5 %; Neutrophils # (A) 4.1 k/uL (1.3-7.7); Neutrophils % (A) 59 %; Platelet Count 175 k/uL (150-450); RBC 4.09 m/uL (3.80-5.40); RDW 17.2 % (11.5-15.5)
[2017-12-17] MEDS: MAGNESIUM SULFATE-D5W PMX 1 GM in DEXTROSE/WATER 1 100ML.BAG IVPB SCH ×2 (13:44→16:21)
[2017-12-17 13:46] LABS: ALT 24 U/L (9-52); AST 21 U/L (14-36); Albumin 4.1 g/dL (3.5-5.0); Alkaline Phosphatase 83 U/L (38-126); Anion Gap 12 mmol/L; Blood Urea Nitrogen 28 mg/dL (7-17); Calcium 9.6 mg/dL (8.4-10.2); Carbon Dioxide 32 mmol/L (22-30); Chloride 95 mmol/L (98-107); Glucose 197 mg/dL (74-99); Magnesium 1.8 mg/dL (1.6-2.3); Potassium 3.9 mmol/L (3.5-5.1); Sodium 139 mmol/L (137-145); Total Bilirubin 0.6 mg/dL (0.2-1.3); Total Protein 6.7 g/dL (6.3-8.2)
[2017-12-17 13:53] LABS: D-Dimer 0.59 mg/L FEU (<0.60); Partial Thromboplastin Time 23.9 sec (22.0-30.0); Prothrombin Time 9.7 sec (9.0-12.0)
[2017-12-17 14:05] LABS: VBG PH 7.41 (7.31-7.41)
[2017-12-17 14:08] LABS: Creatine Kinase 70 U/L (30-135)
[2017-12-17 14:14] LABS: Large Platelets Present
[2017-12-17 14:22] LABS: Creatine Kinase MB 1.4 ng/mL (0.0-2.4); Troponin I <0.012 ng/mL (0.000-0.034)
[2017-12-17] MEDS ORDERED: FUROSEMIDE 10 MG/ML 4 ML VIAL IV STA (14:44)
--- NOTE | 2017-12-17 16:32 | CT ---
EXAMINATION TYPE: CT angio chest DATE OF EXAM: 12/17/2017 COMPARISON: 08/23/2009 HISTORY: 57-year-old female with pain, Shortness of breath. TECHNIQUE: Contiguous axial scanning of the chest performed with IV Contrast, patient injected with 1 00 mL of Isovue 370. Coronal/sagittal MIP reconstructions performed. CT DLP: 767.8 mGycm Automated exposure control for dose reduction was used. FINDINGS: Heart normal size without pericardial effusion. Coronary vessel calcifications are present. Aorta normal caliber with conventional arch vessel branching anatomy. Stable prominent but nonenlarged 9 mm pretracheal lymph node. Some prominent lymph nodes in the right hilum measure up to 1.4 cm. Satisfactory opacification of pulmonary arterial system with mildly enlarged caliber to the main righ t and left pulmonary arteries are 2.7 cm each. Respiratory motion artifacts are present. No evidence for pulmonary embolus to the proximal segmental level. More distal arterial branches are limited in a ssessment due to motion artifacts. Mild diffuse bronchial wall thickening with moderate centrilobular emphysema. No consolidation or ple ural effusion. Some mild patchy atelectasis at the inferior lingula. Visualized upper abdomen shows calcified granulomas in the liver and probable cyst in the kidneys jazmine suring up to 2.8 cm. Spondylotic change throughout the mid to lower thoracic spine. Accentuated lower thoracic kyphosis. IMPRESSION: 1. RESPIRATORY MOTION ARTIFACTS. NO EVIDENCE FOR PULMONARY EMBOLUS TO THE PROXIMAL SEGMENTAL LEVEL. M any of the more distal arterial branches are nondiagnostic due to breathing motion and emboli in thes e locations cannot be excluded on the basis of this exam. 2. Some prominent soft tissue at the right hilum measuring up to 1.4 cm could represent some reactive lymph nodes. 3 month follow-up exam recommended to ensure stability/resolution and exclude an early neoplasm. 3. COPD with moderate emphysema. Pulmonary arterial hypertension.
[2017-12-17 16:34] LABS: Appearance,Urine Cloudy (Clear); Bacteria,Urine Occasional /hpf; Bilirubin,Urine Negative (Negative); Blood,Urine Negative (Negative); Budding Yeast,Urine Occasional /hpf; Color,Urine Yellow; Glucose,Urine (UA) Negative (Negative); Ketones,Urine Negative (Negative); Leukocyte Esterase,Urine Small (Negative); Mucus,Urine Rare /hpf; Nitrite,Urine Positive (Negative); PH, Urine 6.5 (5.0-8.0); Protein,Urine Negative (Negative); RBC,Urine 2 /hpf (0-5); Specific Gravity,Urine 1.014 (1.001-1.035); Squamous Epithelial Cell,Urine 1 /hpf (0-4); Urobilinogen,Urine <2.0 mg/dL (<2.0); WBC,Urine 4 /hpf (0-5)
[2017-12-17] MEDS ORDERED: NALOXONE 0.4 MG/ML 1 ML VIAL IV PRN (17:06)
[2017-12-17] MEDS ORDERED: FUROSEMIDE 10 MG/ML 4 ML VIAL IV SCH (17:15)
[2017-12-17 19:00] VITALS: BP 107/54; PULSE 94; RESP 24; TEMP 97.5
== END 2017-12-17 18:50 | disposition other institution (70) ==
LOC: EC 12:11 → UNDOADMOB 17:06 → 3SCARD 17:06 → EC 18:50
DX: I50.9 Heart failure, unspecified (principal); D75.89 Other specified diseases of blood and blood-forming organs; J43.9 Emphysema, unspecified; E78.5 Hyperlipidemia, unspecified; R63.5 Abnormal weight gain; I25.10 Atherosclerotic heart disease of native coronary artery without angina pectoris; H91.93 Unspecified hearing loss, bilateral; I25.2 Old myocardial infarction; E11.42 Type 2 diabetes mellitus with diabetic polyneuropathy; K21.9 Gastro-esophageal reflux disease without esophagitis; M19.071 Primary osteoarthritis, right ankle and foot; M19.072 Primary osteoarthritis, left ankle and foot; G47.33 Obstructive sleep apnea (adult) (pediatric); D64.9 Anemia, unspecified; F17.200 Nicotine dependence, unspecified, uncomplicated; Z88.0 Allergy status to penicillin; Z88.1 Allergy status to other antibiotic agents; Z88.2 Allergy status to sulfonamides; Z88.8 Allergy status to other drugs, medicaments and biological substances; Z91.048 Other nonmedicinal substance allergy status; Z86.14 Personal history of Methicillin resistant Staphylococcus aureus infection; Z79.84 Long term (current) use of oral hypoglycemic drugs; Z79.82 Long term (current) use of aspirin; Z79.899 Other long term (current) drug therapy; Z99.89 Dependence on other enabling machines and devices; Z79.51 Long term (current) use of inhaled steroids; Z85.44 Personal history of malignant neoplasm of other female genital organs; Z85.6 Personal history of leukemia; Z92.21 Personal history of antineoplastic chemotherapy; Z95.5 Presence of coronary angioplasty implant and graft; Z90.79 Acquired absence of other genital organ(s); Z82.49 Family history of ischemic heart disease and other diseases of the circulatory system; Z53.8 Procedure and treatment not carried out for other reasons
CPT/HCPCS: 99285; 96365; 96366 ×3; 96375; 36415; 93005; 85379; 83880; 80053; 82550; 82553; 82803; 83735; 84484; 85025; 85610; 85730; 81001; 87086; 71046; 71275; J1940; J3475; Q9967

== ENCOUNTER 2018-02-08 09:54 | Inpatient (IN) | payer MEDICARE, OTHER ==
[2018-02-08] MEDS ORDERED: MORPHINE SULFATE 4 MG/ML SYRINGE IV STA ×2 (10:34→12:35)
[2018-02-08] MEDS ORDERED: IPRATROPIUM-ALBUTEROL 3 ML NEB INHALATION STA (10:46)
[2018-02-08] MEDS ORDERED: SODIUM CHLORIDE 0.9% 1,000 ML IV STA (10:47)
[2018-02-08 10:56] LABS: Basophils % (A) 0 %; Eosinophils # (A) 0.1 k/uL (0-0.7); Eosinophils % (A) 3 %; HCT 36.6 % (34.0-46.0); Hypochromasia Moderate; Lymphocytes # (A) 1.2 k/uL (1.0-4.8); Lymphocytes % (A) 27 %; MCH 35.6 pg (25.0-35.0); MCHC 30.7 g/dL (31.0-37.0); Macrocytosis Marked; Mean Platelet Volume 11.2; Monocytes # (A) 0.2 k/uL (0-1.0); Monocytes % (A) 6 %; Neutrophils # (A) 2.7 k/uL (1.3-7.7); Neutrophils % (A) 62 %; RBC 3.16 m/uL (3.80-5.40); WBC 4.3 k/uL (3.8-10.6)
[2018-02-08 11:06] LABS: INR 0.9 (<1.2); Partial Thromboplastin Time 23.8 sec (22.0-30.0); Prothrombin Time 9.7 sec (9.0-12.0)
[2018-02-08 11:10] LABS: ALT 51 U/L (9-52); AST 25 U/L (14-36); Albumin 3.1 g/dL (3.5-5.0); Alkaline Phosphatase 47 U/L (38-126); Amylase 38 U/L (30-110); Anion Gap 3 mmol/L; Blood Urea Nitrogen 25 mg/dL (7-17); Calcium 8.4 mg/dL (8.4-10.2); Carbon Dioxide 34 mmol/L (22-30); Chloride 105 mmol/L (98-107); Glucose 124 mg/dL (74-99); Lipase 118 U/L (23-300); Magnesium 2.2 mg/dL (1.6-2.3); Potassium 4.4 mmol/L (3.5-5.1); Sodium 142 mmol/L (137-145); Total Protein 5.3 g/dL (6.3-8.2)
[2018-02-08 11:14] LABS: HGB 11.2 gm/dL (11.4-16.0)
--- NOTE | 2018-02-08 11:21 | ED ---
General Adult HPI <Yash Thompson - Last Filed: 02/08/18 14:19> - General Source: patient, RN notes reviewed Mode of arrival: EMS Limitations: no limitations <Bentley Davis - Last Filed: 02/08/18 14:37> - General Chief complaint: Syncope Stated complaint: Nausea Time Seen by Provider: 02/08/18 10:06 - History of Present Illness Initial comments: Patient is a 57-year-old female presented to the emergency room today by EMS, with multiple complaints. Patient does admit that she is had 3 syncopal episodes recently. States last one was this morning approximately 8 AM. Patient states that she was walking to the bathroom when she fell down. She is states that she has felt dizzy. She states that she landed on her abdomen. Denies any head injury or loss consciousness. Patient states that she has had increased abdominal pain. She states that she was seen at [facility] a week ago and admitted. States that she saw her surgeon Dr. Nuñez for a abdominal wall hernia but states that she does not feel that she was stable for a surgery. Patient also admits that she has chronic back pain with some slipped disc in saw the orthopedic surgeon who also felt that he could not perform surgery. Patient states that she is having increased cough congestion. Has had sputum production that been brown in color. Also experiencing increased abdominal pain today. Patient was having a fever here she denies any other complaints symptoms. Patient denies any recent chills, chest pain, back pain, dysuria or hematuria, constipation or diarrhea, headaches or visual changes, or any other complaints. (Bentley Davis) - Related Data Home Medications Medication Instructions Recorded Confirmed Atorvastatin [Lipitor] 40 mg PO DAILY 01/02/15 02/08/18 Nitroglycerin Sl Tabs [Nitrostat] 0.4 mg SUBLINGUAL Q5M PRN 01/02/15 12/17/17 Ranitidine HCl [Zantac] 150 mg PO BID 01/02/15 02/08/18 metFORMIN HCL [Glucophage] 1,000 mg PO BID 01/02/15 02/08/18 Vortioxetine Hydrobromide 10 mg PO DAILY 12/12/16 02/08/18 [Trintellix] Budesonide [Pulmicort Flexhaler] 1 puff INHALATION RT-BID 12/17/17 02/08/18 Ferrous Sulfate [Feosol] 325 mg PO DAILY 12/17/17 02/08/18 Metoprolol Tartrate [Lopressor] 12.5 mg PO BID 12/17/17 02/08/18 Spironolactone [Aldactone] 25 mg PO DAILY 12/17/17 02/08/18 Tamsulosin [Flomax] 0.4 mg PO DAILY 12/17/17 02/08/18 sitaGLIPtin [Januvia] 100 mg PO DAILY 12/17/17 02/08/18 Aspirin EC [Ecotrin Low Dose] 81 mg PO DAILY 02/08/18 02/08/18 Baclofen [Lioresal] 10 mg PO HS 02/08/18 02/08/18 Gabapentin [Neurontin] 800 mg PO TID 02/08/18 02/08/18 HYDROcodone/APAP 7.5-325MG [Melissa 1 tab PO Q6H PRN 02/08/18 02/08/18 7.5-325] Insulin Aspart [NovoLOG 30 unit SQ ACHS 02/08/18 02/08/18 (formulary)] Ipratropium-Albuterol Nebulize 3 ml INHALATION RT-QID 02/08/18 02/08/18 [Duoneb 0.5 mg-3 mg/3 ml Soln] Nicotine 21Mg/24Hr Patch [Habitrol 1 patch TRANSDERM DAILY 02/08/18 02/08/18 21Mg/24Hr Patch] Repaglinide [Prandin] 1 mg PO AC-TID 02/08/18 02/08/18 levETIRAcetam [Keppra] 250 mg PO Q12HR 02/08/18 02/08/18 Previous Rx's Medication Instructions Recorded Furosemide [Lasix] 40 mg PO BID@0900,1600 #60 tab 07/08/17 Allergies Allergy/AdvReac Type Severity Reaction Status Date / Time amoxicillin Allergy SOB- RED Verified 02/08/18 12:35 BLOTCHY SKIN capsaicin Allergy SOB- RED Verified 02/08/18 12:35 [place] cephalexin monohydrate Allergy SOB- RED Verified 02/08/18 12:35 [From Keflex] BLOTCHY SKIN Cephalosporins Allergy SOB-RED Verified 02/08/18 12:35 [place]OT[place] SK[place] ciprofloxacin Allergy Unknown Verified 02/08/18 12:35 clindamycin Allergy SOB-RED Verified 02/08/18 12:35 [place]OT[place] fluticasone propionate Allergy SOB- RED Verified 02/08/18 12:35 [From Flonase] BLOTCHY SKIN Penicillins Allergy SOB- RED Verified 02/08/18 12:35 BLOT[place]Y SK[place] Sulfa (Sulfonamide Allergy SOB- RED Verified 02/08/18 12:35 Antibiotics) BLOTCHY SKIN BROWN DYES Allergy SOB- RED Uncoded 07/06/17 23:56 BLOTCHY SKIN Review of Systems ROS Other: All systems not noted in ROS Statement are negative. <Yash Thompson - Last Filed: 02/08/18 14:19> ROS Other: All systems not noted in ROS Statement are negative. <Bentley Davis - Last Filed: 02/08/18 14:37> ROS Statement: Those systems with pertinent positive or pertinent negative responses have been documented in the HPI. 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 Last Myocardial Infarction Date:: 2001 History of Any Multi-Drug Resistant Organisms: MRSA Date of last positivie culture/infection: 2001 MDRO Source:: PORT IN CHEST Past Surgical History: Bowel Resection, Section, Heart Catheterization With Stent, Hernia Repair, Orthopedic Surgery Additional Past Surgical History / Comment(s): 04/2017 Removal R ear tube/ tympanoplasty and bilateral tubes placed, prior ear surgeries, umbilical hernia repair with bowel paris/bowel resections then done along with L ovary removed, PICC lines/now out, mediport-now out (MRSA infection), PCI/stents, R eye surgeries/lens implant/lasered for retinal detachment, EGD, colonoscopies, L breast benign biopsy, D&C, R vulva excision, R wrist ORIF with plate/pins, deviated septal surgery. Past Anesthesia/Blood Transfusion Reactions: Blood Transfusion Reaction, Motion Sickness, Postoperative Nausea & Vomiting (PONV) Additional Past Anesthesia/Blood Transfusion Reaction / Comment(s): 2001-had some kind of transfusion reaction Date of Last Stent Placement:: 2001 Past Psychological History: Depression Smoking Status: Current every day smoker - Past Family History Mother Additional Family Medical History / Comment(s): @ AGE 53 WITH ANEURYSM Father Family Medical History: Myocardial Infarction (CO) Additional Family Medical History / Comment(s): HAD CABG- COMMITTED SUICIDE A YEAR AFTER - PT'S GRANDFATHER(P) ALSO COMMITED SUICIDE Brother(s) Family Medical History: Coronary Artery Disease (CAD) Additional Family Medical History / Comment(s): COMMITTED SUICIDE <Bentley Davis - Last Filed: 02/08/18 14:37> General Exam <Yash Thompson - Last Filed: 02/08/18 14:19> Limitations: no limitations <DavisBentley - Last Filed: 02/08/18 14:37> - General Exam Comments Initial Comments: General: The patient is awake and alert, in no distress, and does not appear acutely ill. Eye: Pupils are equal, round and reactive to light, extra-ocular movements are intact. No nystagmus. There is normal conjunctiva bilaterally. No signs of icterus. Ears, nose, mouth and throat: There are moist mucous membranes and no oral lesions. Neck: The neck is supple, there is no tenderness or JVD. Cardiovascular: There is a regular rate and rhythm. No murmur, rub or gallop is appreciated. Respiratory: Decreased breath sounds bilaterally with expiratory wheeze. respirations are non-labored, breath sounds are equal. No stridor, rales. Gastrointestinal: Patient does have a large abdominal wall hernia. There is tenderness locally. She does have bruising both left and right sides of the abdomen. Musculoskeletal: Normal ROM, no tenderness. Strength 5/5. Sensation intact. Pulses equal bilaterally 2+. Neurological: A&O x 3. CN II-XII intact, There are no obvious motor or sensory deficits. Coordination appears grossly intact. Speech is normal. Skin: Skin is warm and dry and no rashes or lesions are noted. Psychiatric: Cooperative, appropriate mood & affect, normal judgment. (Bentley Davis) Course <Yash Thompson - Last Filed: 02/08/18 14:19> <Bentley Davis - Last Filed: 02/08/18 14:37> Vital Signs 02/08/18 02/08/18 02/08/18 10:02 10:04 10:50 Temperature 100.4 F H Pulse Rate 89 87 82 Respiratory 18 22 Rate Blood Pressure 109/64 O2 Sat by Pulse 98 Oximetry 02/08/18 02/08/18 02/08/18 11:00 12:00 13:00 Temperature Pulse Rate 90 99 Respiratory 20 15 Rate Blood Pressure 109/64 109/64 109/64 O2 Sat by Pulse 97 97 Oximetry - Reevaluation(s) Reevaluation #1: 02/08/18 14:19 The supervision: Did personally evaluate this patient's case and perform the evaluation patient does have evidence of anemia she does have evidence of a syncopal episode shortness of breath secondary to her COPD. Was just discharged from [facility]. Patient does demonstrate evidence of anemia. She will be admitted for evaluation of syncope I did discuss case Dr. Grove. (Yash Thompson) Medical Decision Making - Lab Data Result diagrams: 02/08/18 10:22 02/08/18 10:22 <aYsh Thompson - Last Filed: 02/08/18 14:19> - Lab Data Result diagrams: 02/08/18 10:22 02/08/18 10:22 <Bentley Davis - Last Filed: 02/08/18 14:37> - Medical Decision Making Patient reexamined at this time shows no signs of distress she is resting comfortably in this chair at bedside. Admit that she's had some cough congestion. CT of the chest show no evidence of PE. No evidence of pneumonia. Patient better after breathing treatment. Does use oxygen at home. Patient' s labs reviewed does show hemoglobin of 11. This is a drop from most recent labs to compare to on our system. Patient guaiac was negative. She denies any dark stools or signs of blood. Patient has had syncopal episodes and has felt dizzy and lightheaded. Case was discussed with attending physician Dr. Thompson did discuss the case with admitting physician Dr. grove ([facility]) - Lab Data Lab Results 02/08/18 02/08/18 02/08/18 Range/Units 10:22 10:22 10:22 WBC 4.3 (3.8-10.6) k/uL RBC 3.16 L (3.80-5.40) m/uL Hgb 11.2 L D (11.4-16.0) gm/dL Hct 36.6 (34.0-46.0) % MCV 116.0 H (80.0-100.0) fL MCH 35.6 H (25.0-35.0) pg MCHC 30.7 L (31.0-37.0) g/dL RDW 16.0 H (11.5-15.5) % Plt Count 79 L D (150-450) k/uL Neutrophils % 62 % Lymphocytes % 27 % Monocytes % 6 % Eosinophils % 3 % Basophils % 0 % Neutrophils # 2.7 (1.3-7.7) k/uL Lymphocytes # 1.2 (1.0-4.8) k/uL Monocytes # 0.2 (0-1.0) k/uL Eosinophils # 0.1 (0-0.7) k/uL Basophils # 0.0 (0-0.2) k/uL Manual Slide Review Performed Hypochromasia Moderate Macrocytosis Marked PT (9.0-12.0) sec INR (<1.2) APTT (22.0-30.0) sec Sodium 142 (137-145) mmol/L Potassium 4.4 (3.5-5.1) mmol/L Chloride 105 (98-107) mmol/L Carbon Dioxide 34 H (22-30) mmol/L Anion Gap 3 mmol/L BUN 25 H (7-17) mg/dL Creatinine 0.57 (0.52-1.04) mg/dL Est GFR (CKD-EPI)AfAm >90 (>60 ml/min/1.73 sqM) Est GFR (CKD-EPI)NonAf >90 (>60 ml/min/1.73 sqM) Glucose 124 H (74-99) mg/dL Plasma Lactic Acid Javier (0.7-2.0) mmol/L Calcium 8.4 (8.4-10.2) mg/dL Magnesium 2.2 (1.6-2.3) mg/dL Total Bilirubin 1.0 (0.2-1.3) mg/dL AST 25 (14-36) U/L ALT 51 (9-52) U/L Alkaline Phosphatase 47 (38-126) U/L Total Creatine Kinase 23 L (30-135) U/L CK-MB (CK-2) 1.3 (0.0-2.4) ng/mL CK-MB (CK-2) Rel Index 5.7 Troponin I 0.020 (0.000-0.034) ng/mL Total Protein 5.3 L (6.3-8.2) g/dL Albumin 3.1 L (3.5-5.0) g/dL Amylase 38 (30-110) U/L Lipase 118 (23-300) U/L Stool Occult Blood (Negative) 02/08/18 02/08/18 02/08/18 Range/Units 10:22 10:22 13:35 WBC (3.8-10.6) k/uL RBC (3.80-5.40) m/uL Hgb (11.4-16.0) gm/dL Hct (34.0-46.0) % MCV (80.0-100.0) fL MCH (25.0-35.0) pg MCHC (31.0-37.0) g/dL RDW (11.5-15.5) % Plt Count (150-450) k/uL Neutrophils % % Lymphocytes % % Monocytes % % Eosinophils % % Basophils % % Neutrophils # (1.3-7.7) k/uL Lymphocytes # (1.0-4.8) k/uL Monocytes # (0-1.0) k/uL Eosinophils # (0-0.7) k/uL Basophils # (0-0.2) k/uL Manual Slide Review Hypochromasia Macrocytosis PT 9.7 (9.0-12.0) sec INR 0.9 (<1.2) APTT 23.8 (22.0-30.0) sec Sodium (137-145) mmol/L Potassium (3.5-5.1) mmol/L Chloride (98-107) mmol/L Carbon Dioxide (22-30) mmol/L Anion Gap mmol/L BUN (7-17) mg/dL Creatinine (0.52-1.04) mg/dL Est GFR (CKD-EPI)AfAm (>60 ml/min/1.73 sqM) Est GFR (CKD-EPI)NonAf (>60 ml/min/1.73 sqM) Glucose (74-99) mg/dL Plasma Lactic Acid Javier 0.9 (0.7-2.0) mmol/L Calcium (8.4-10.2) mg/dL Magnesium (1.6-2.3) mg/dL Total Bilirubin (0.2-1.3) mg/dL AST (14-36) U/L ALT (9-52) U/L Alkaline Phosphatase (38-126) U/L Total Creatine Kinase (30-135) U/L CK-MB (CK-2) (0.0-2.4) ng/mL CK-MB (CK-2) Rel Index Troponin I (0.000-0.034) ng/mL Total Protein (6.3-8.2) g/dL Albumin (3.5-5.0) g/dL Amylase (30-110) U/L Lipase (23-300) U/L Stool Occult Blood Negative (Negative) Disposition <Yash Thompson - Last Filed: 02/08/18 14:19> Is patient prescribed a controlled substance at d/c from ED?: No Time of Disposition: 14:17 <Bentley Davis - Last Filed: 02/08/18 14:37> Clinical Impression: Syncope, COPD (chronic obstructive pulmonary disease), Abdominal pain, Chronic back pain Disposition: ADMITTED IP TO THIS HOSP Condition: Stable Referrals: Jennifer Kessler DO [Primary Care Provider] - 1-2 days
[2018-02-08 11:46] LABS: Creatine Kinase MB 1.3 ng/mL (0.0-2.4); Troponin I 0.02 ng/mL (0.000-0.034)
[2018-02-08 11:50] LABS: Platelet Count 79 k/uL (150-450)
--- NOTE | 2018-02-08 11:52 | XR ---
EXAMINATION TYPE: XR chest 2V DATE OF EXAM: 02/08/2018 HISTORY: Chest Pain. REFERENCE: Previous study dated 12/17/2017. FINDINGS: Heart size upper limits of normal. The lungs are clear. Pleural spaces are clear. IMPRESSION: BORDERLINE CARDIOMEGALY.
--- NOTE | 2018-02-08 13:01 | CT ---
EXAMINATION TYPE: CT angio chest DATE OF EXAM: 02/08/2018 12:17 PM COMPARISON: Previous study dated 12/17/2017. HISTORY: Chest and Abdominal pain, Nausea CT DLP: 2913.4 mGycm Automated exposure control for dose reduction was used. CONTRAST: CTA scan of the thorax is performed without and with IV Contrast, patient injected with 100 ml mL of Isovue 370, pulmonary embolism protocol. . FINDINGS: There are emphysematous changes throughout the lungs. There is a mild groundglass opacity d iffusely throughout the lungs which may reflect ongoing alveolitis. There is no significant axillary or internal mammary lymph nodes. There is some shotty mediastinal ly mph nodes. There are some stable right hilar lymph nodes. There is no evidence of pulmonary embolus. The aorta is normal in caliber without evidence of dissection. There is no pleural or pericardial flu id. The heart is not enlarged. There is evidence of old granulomatous disease within the liver. Visualized portions of the upper abd omen are otherwise unremarkable. There is hypertrophic spondylosis within the spine. IMPRESSION: 1. THIS EXAMINATION IS NEGATIVE FOR PULMONARY EMBOLUS. 2. EMPHYSEMATOUS CHANGE WITH ONGOING ALVEOLITIS. 3. EVIDENCE OF OLD GRANULOMATOUS CHANGE WITHIN THE LIVER. 4. DEGENERATIVE CHANGES WITHIN THE SPINE.
--- NOTE | 2018-02-08 13:10 | CT ---
EXAMINATION TYPE: CT abdomen pelvis w con DATE OF EXAM: 02/08/2018 REFERENCE: Previous study dated 06/26/2009 HISTORY: Pain HISTORY: Nausea, chest and abdominal pain REFERENCE: NONE CT DLP: 2913.4 mGy Automated exposure control for dose reduction was used. TECHNIQUE: Helical acquisition through the abdomen and pelvis was obtained following the oral ingesti on of without Oral Contrast and following intravenous administration of 100 ml mL of Isovue 370. The data was reformatted in axial, coronal and sagittal projections. FINDINGS: There are emphysematous changes within the lungs. There is no pleural or pericardial fluid . The heart is not enlarged. Within the abdomen, there is evidence of cholelithiasis. There is evidence of old granulomatous disea se within the liver. The liver is normal in size. The spleen is unremarkable. Both adrenal glands are normal. There is a new, 2.9 cm, simple appearing cyst involving the lower pole of the right kidney. There is a smaller, 1.7 cm, simple appearing cyst involving the lower pole of the left kidney. The kidneys are otherwise unremarkable. The pancreas appears unremarkable. There is mild atheromatous calcification of the visualized arterial tree. There is no significant retroperitoneal, iliac or inguinal adenopathy. The bladder is not distended. The uterus and ovaries are not visualized. There is been a previous sigmoid resection. There is no significant diverticular change and there is no radiographic evidence of diverticulitis. The appendix is not visualized with certainty. Small bowel loops are unremarkable. There is no free fluid and no free air. There is a large ventral hernia in place without evidence of incarceration. The mouth measures 8.5 cm . There is mild, generalized anasarca more on the left than the right. There is degenerative disc disease, hypertrophic spondylosis and facet arthropathy involving the spin e. IMPRESSION: 1. EMPHYSEMATOUS CHANGE. 2. CHOLELITHIASIS. 3. EVIDENCE OF OLD GRANULOMATOUS DISEASE INVOLVING THE LIVER. 4. CYSTIC DISEASE OF THE KIDNEYS. 5. LARGE VENTRAL HERNIA CONTAINING BOTH LARGE AND SMALL BOWEL WITHOUT EVIDENCE OF INCARCERATION WITH A MOUTH MEASURING 8.5 CM. 6. DEGENERATIVE CHANGES WITHIN THE SPINE.
--- NOTE | 2018-02-08 13:11 | US ---
EXAMINATION TYPE: US venous doppler duplex LE RT DATE OF EXAM: 02/08/2018 12:32 PM COMPARISON: NONE CLINICAL HISTORY: Pain. SIDE PERFORMED: Right TECHNIQUE: The lower extremity deep venous system is examined utilizing real time linear array sonog fabi with graded compression, doppler sonography and color-flow sonography. VESSELS IMAGED: External Iliac Vein (EIV) Common Femoral Vein Deep Femoral Vein Greater Saphenous Vein * Femoral Vein Popliteal Vein Small Saphenous Vein * Proximal Calf Veins (* superficial vessels) Patient of large body habitus with severe SOB. Right Leg: Negative for DVT No popliteal fossa lesion is seen. IMPRESSION: THIS EXAMINATION IS NEGATIVE FOR DVT WITHIN THE RIGHT LEG.
[2018-02-08] MEDS ORDERED: SODIUM CHLORIDE 0.9% 1,000 ML IV ONE (14:37)
[2018-02-08] MEDS ORDERED: ONDANSETRON 4 MG/2 ML VIAL IVP PRN (14:37)
[2018-02-08] MEDS ORDERED: NALOXONE 0.4 MG/ML 1 ML VIAL IV PRN (14:37)
[2018-02-08] MEDS ORDERED: NITROGLYCERIN SL TABS 0.4 MG TAB SUBLINGUAL PRN (14:39)
[2018-02-08 15:15] LABS: Amorphous Sediment,Urine Rare /hpf; Appearance,Urine Clear (Clear); Bacteria,Urine Few /hpf; Bilirubin,Urine Negative (Negative); Blood,Urine Negative (Negative); Color,Urine Yellow; Glucose,Urine (UA) Negative (Negative); Ketones,Urine Negative (Negative); Leukocyte Esterase,Urine Small (Negative); Nitrite,Urine Negative (Negative); PH, Urine 8.5 (5.0-8.0); Protein,Urine Trace (Negative); RBC,Urine 1 /hpf (0-5); Specific Gravity,Urine 1.045 (1.001-1.035); Squamous Epithelial Cell,Urine 2 /hpf (0-4); Urobilinogen,Urine <2.0 mg/dL (<2.0)
[2018-02-08] MEDS: MORPHINE SULFATE 4 MG/ML SYRINGE IV PRN ×3 (15:20→21:37)
[2018-02-08 17:26] VITALS: BMI 41.8
[2018-02-08 18:12] LABS: Creatine Kinase MB 1.5 ng/mL (0.0-2.4); Troponin I 0.015 ng/mL (0.000-0.034)
[2018-02-08 20:32] LABS: Glucose,Whole Blood 86 mg/dL (75-99)
[2018-02-08] MEDS ORDERED: IPRATROPIUM-ALBUTEROL 3 ML NEB INHALATION PRN (20:46)
[2018-02-08] MEDS: GABAPENTIN 400 MG CAP PO SCH (21:32)
[2018-02-08] MEDS: METOPROLOL TARTRATE 12.5 MG TAB PO SCH (21:32)
[2018-02-08] MEDS: NICOTINE 21MG/24HR PATCH TRANSDERM SCH (21:32)
[2018-02-08] MEDS: metFORMIN 500 MG TAB PO SCH (21:32)
[2018-02-08] MEDS: FAMOTIDINE 20 MG TAB PO SCH (21:32)
[2018-02-08] MEDS: levETIRAcetam 250 MG TAB PO SCH (21:33)
[2018-02-08] MEDS: INSULIN ASPART 100 UNIT/ML 1 ML 10 ML VIAL SQ SCH (21:33)
[2018-02-08 22:36] LABS: Creatine Kinase 24 U/L (30-135)
[2018-02-08 22:49] LABS: Creatine Kinase MB 1.4 ng/mL (0.0-2.4); Troponin I <0.012 ng/mL (0.000-0.034)
[2018-02-09] MEDS: MORPHINE SULFATE 4 MG/ML SYRINGE IV PRN ×5 (01:52→20:18)
[2018-02-09 07:07] LABS: Glucose,Whole Blood 146 mg/dL (75-99)
[2018-02-09] MEDS: IPRATROPIUM-ALBUTEROL 3 ML NEB INHALATION SCH ×4 (07:33→20:57)
[2018-02-09] MEDS: BUDESONIDE 0.5 MG/2 ML NEBU INHALATION SCH ×2 (07:33→20:57)
[2018-02-09] MEDS: INSULIN ASPART 100 UNIT/ML 1 ML 10 ML VIAL SQ SCH ×4 (09:04→20:59)
[2018-02-09] MEDS: REPAGLINIDE 1 MG TAB PO SCH ×2 (09:05→12:57)
[2018-02-09] MEDS: ASPIRIN 81 MG PO SCH (09:05)
[2018-02-09] MEDS: ATORVASTATIN 40 MG TAB PO SCH (09:05)
[2018-02-09] MEDS: FAMOTIDINE 20 MG TAB PO SCH ×2 (09:05→20:18)
[2018-02-09] MEDS: FUROSEMIDE 40 MG TAB PO SCH ×2 (09:06→15:57)
[2018-02-09] MEDS: GABAPENTIN 400 MG CAP PO SCH ×3 (09:06→20:18)
[2018-02-09] MEDS: levETIRAcetam 250 MG TAB PO SCH ×2 (09:06→20:17)
[2018-02-09] MEDS: metFORMIN 500 MG TAB PO SCH (09:07)
[2018-02-09] MEDS: NICOTINE 21MG/24HR PATCH TRANSDERM SCH (09:08)
[2018-02-09] MEDS: SPIRONOLACTONE 25 MG TAB PO SCH (09:08)
[2018-02-09] MEDS: METOPROLOL TARTRATE 12.5 MG TAB PO SCH ×2 (09:08→20:17)
[2018-02-09] MEDS: VORTIOXETINE HYDROBROMIDE 10 MG TABLET PO SCH (09:09)
[2018-02-09 09:43] LABS: Cholesterol 118 mg/dL (<200); HDL Cholesterol 41 mg/dL (40-60); LDL Cholesterol,Calculated 59 mg/dL (0-99); Triglycerides 88 mg/dL (<150)
[2018-02-09 10:59] LABS: Glucose,Whole Blood 99 mg/dL (75-99)
--- NOTE | 2018-02-09 11:56 | CONS ---
CONSULTATION Mrs. Cunningham is a 57-year-old female with known history of coronary artery disease, history of chronic tobacco use, history of chronic back pain with degenerative disc disease, who presented with a syncopal episode, abdominal pain and back pain. She was recently discharged from [facility]. According to her, she was in bed, got up, going to the bathroom when she fell and lost consciousness for a few seconds, then came to. She did not have any palpitations. She has some chest discomfort on and off. She has a large incisional hernia, was seen by Dr. Nuñez, and was felt to be high risk for any surgical intervention at this time. Her cardiac history is remarkable for prior percutaneous revascularization that was performed in the past at that time. She has underwent stenting of the mid LAD. Her cardiac catheterization most recently done in 1999 showed patent stent and no significant obstructive disease in the other vessels. She has a known history of mild to moderate cardiomyopathy. Patient is not very active physically. Unfortunately, she smokes on a regular basis. She has history of chronic obstructive lung disease, history of peripheral edema. She denies any palpitations. Her coronary risk factors are remarkable for the history of smoking, she is diabetic, hypertensive and hyperlipidemic. MEDICATIONS: Include aspirin, Lipitor 4 mg daily, baclofen, Pulmicort, Lasix 40 mg twice a day, Neurontin, [place], insulin, DuoNeb, Lopressor 12.5 mg twice a day, Zantac, Prandin, Aldactone 25 mg daily, Flomax 0.4 mg daily, Trental X, Keppra, Glucophage 1 g twice a day, and Januvia. REVIEW OF SYSTEMS: RESPIRATORY SYSTEM: She has dyspnea on exertion, history of chronic obstructive lung disease. GI SYSTEM: She has the abdominal pain and the incisional hernia. She has no recent GI bleeding. SYSTEM: No dysuria or hematuria. PHYSICAL EXAMINATION: She is a 57-year-old female, alert, obese, in no apparent distress. Blood pressure 138/68 with a heart in the 80s. HEAD: Normocephalic. EYES: Sclerae nonicteric. NECK: No bruit. LUNGS: With decreased air exchange. No wheezes. Back with ecchymosis noted. HEART: Regular rate and rhythm. S1, S2. No S3 with systolic murmur, no diastolic murmur with chest wall tenderness. ABDOMEN: Soft, obese with a large incisional hernia. EXTREMITIES: +1 to 2 edema, more on the right side. LAB DATA: Revealed BUN and creatinine of 25 and 0.57. Potassium 4.4. Troponin of 0.02 and 0.015, potassium 4.4. EKG revealed a sinus mechanism with a right bundle branch block and T-wave inversion unchanged. CT angiogram of the chest showed no evidence of pulmonary embolism. Duplex scan of the lower extremity shows no evidence of DVT. IMPRESSION: 1. Syncopal episode, most likely orthostatic hypotension. No evidence to suggest ischemia or malignant arrhythmia. 2. History of coronary artery disease with a history of percutaneous revascularization. 3. History of mild to moderate ischemic cardiomyopathy. 4. Chronic obstructive lung disease with chronic tobacco use. 5. Hypertension. 6. Hyperlipidemia. 7. Large abdominal incisional hernia. 8. Severe back discomfort. RECOMMENDATION: From the cardiac standpoint, I do not see any evidence to suggest active ischemic event at this time. I will continue her present medical therapy. Will repeat her echocardiogram and depending on her progress, further recommendation will be made. Will continue monitoring as present. Thank you for this consult. Will follow with you. MMODL / IJN: [id number] /
[2018-02-09 12:13] LABS: Glucose,Whole Blood 48 mg/dL (75-99)
[2018-02-09 12:28] LABS: Glucose,Whole Blood 88 mg/dL (75-99)
[2018-02-09] MEDS: FERROUS SULFATE 325 MG TAB PO SCH (13:01)
[2018-02-09 14:22] LABS: Hemoglobin A1C 8.5 % (4.0-6.0)
--- NOTE | 2018-02-09 14:54 | P.HPIM ---
History of Present Illness This is a pleasant 57 years old female with past medical history of coronary artery disease, COPD, diabetes mellitus, fibromyalgia, GERD, osteoarthritis, sleep apnea, recent diagnosis of brain aneurysm at [facility] diabetic neuropathy. She presents because of syncope. I patient states over the last 4 days she passed out about 3 times for example when she was trying gets out of bed, to the restroom she feels sweaty and warmth in her chest and then she passed out. Patient denies seizure-like activity or tongue biting. No urine or bowel incontinence. Patient denies chest pain or dyspnea. No abdominal pain no change in urine or bowel habits or nausea vomiting. However patient complains from back in the left lower back around close to the pelvic area. And there is a bruise in the mid dorsal of the thoracic part about 5 cm in width and 10-15 cm in length. Also she complained from right leg swelling which she says she was checked before about couple months ago that was negative for DVT Today during morning patient's felt and well and asked to check her sugar and was on the low side 48. Patient ate breakfast and her sugar went up again. We will hold Prandin and continue with metformin. Of note the patient states that the only 3 times she passed out was in the administration intern when she woke up. And over the last weeks she notices that her tracking of sugar daily the ranges between 80 and 130 which is in usual for her because usually she feels better as when the ranges 130 to 150. However patient denies any recent change in her diabetes medication. Review of Systems CONSTITUTIONAL: No fever, no malaise, no fatigue. HEENT: No recent visual problems or hearing problems. Denied any sore throat. CARDIOVASCULAR: No orthopnea, PND, no palpitations, no syncope. PULMONARY: No shortness of breath, no cough, no hemoptysis. GASTROINTESTINAL: No diarrhea, no nausea, no vomiting, no abdominal pain. Normoactive bowel sounds. NEUROLOGICAL: No headaches, no weakness, no numbness. HEMATOLOGICAL: Denies any bleeding or petechiae. GENITOURINARY: Denies any burning micturition, frequency, or urgency. MUSCULOSKELETAL/RHEUMATOLOGICAL: Denies any joint pain, swelling, or any muscle pain. ENDOCRINE: Denies any polyuria or polydipsia. 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 Last Myocardial Infarction Date:: 2001 History of Any Multi-Drug Resistant Organisms: MRSA Date of last positivie culture/infection: 2001 MDRO Source:: PORT IN CHEST Past Surgical History: Bowel Resection, Section, Heart Catheterization With Stent, Hernia Repair, Orthopedic Surgery Additional Past Surgical History / Comment(s): 04/2017 Removal R ear tube/ tympanoplasty and bilateral tubes placed, prior ear surgeries, umbilical hernia repair with bowel paris/bowel resections then done along with L ovary removed, PICC lines/now out, mediport-now out (MRSA infection), PCI/stents, R eye surgeries/lens implant/lasered for retinal detachment, EGD, colonoscopies, L breast benign biopsy, D&C, R vulva excision, R wrist ORIF with plate/pins, deviated septal surgery. Past Anesthesia/Blood Transfusion Reactions: Blood Transfusion Reaction, Motion Sickness, Postoperative Nausea & Vomiting (PONV) Additional Past Anesthesia/Blood Transfusion Reaction / Comment(s): 2001-had some kind of transfusion reaction Date of Last Stent Placement:: 2001 Smoking Status: Current every day smoker - Past Family History Mother Additional Family Medical History / Comment(s): @ AGE 53 WITH ANEURYSM Father Family Medical History: Myocardial Infarction (AR) Additional Family Medical History / Comment(s): HAD CABG- COMMITTED SUICIDE A YEAR AFTER - PT'S GRANDFATHER(P) ALSO COMMITED SUICIDE Brother(s) Family Medical History: Coronary Artery Disease (CAD) Additional Family Medical History / Comment(s): COMMITTED SUICIDE Medications and Allergies Home Medications Medication Instructions Recorded Confirmed Type Atorvastatin [Lipitor] 40 mg PO DAILY 01/02/15 02/08/18 History Nitroglycerin Sl Tabs [Nitrostat] 0.4 mg SUBLINGUAL Q5M PRN 01/02/15 12/17/17 History Ranitidine HCl [Zantac] 150 mg PO BID 01/02/15 02/08/18 History metFORMIN HCL [Glucophage] 1,000 mg PO BID 01/02/15 02/08/18 History Vortioxetine Hydrobromide 10 mg PO DAILY 12/12/16 02/08/18 History [Trintellix] Furosemide [Lasix] 40 mg PO BID@0900,1600 #60 tab 07/08/17 02/08/18 Rx Budesonide [Pulmicort Flexhaler] 1 puff INHALATION RT-BID 12/17/17 02/08/18 History Ferrous Sulfate [Feosol] 325 mg PO DAILY 12/17/17 02/08/18 History Metoprolol Tartrate [Lopressor] 12.5 mg PO BID 12/17/17 02/08/18 History Spironolactone [Aldactone] 25 mg PO DAILY 12/17/17 02/08/18 History Tamsulosin [Flomax] 0.4 mg PO DAILY 12/17/17 02/08/18 History sitaGLIPtin [Januvia] 100 mg PO DAILY 12/17/17 02/08/18 History Aspirin EC [Ecotrin Low Dose] 81 mg PO DAILY 02/08/18 02/08/18 History Baclofen [Lioresal] 10 mg PO HS 02/08/18 02/08/18 History Gabapentin [Neurontin] 800 mg PO TID 02/08/18 02/08/18 History HYDROcodone/APAP 7.5-325MG [Hoyt 1 tab PO Q6H PRN 02/08/18 02/08/18 History 7.5-325] Insulin Aspart [NovoLOG 30 unit SQ ACHS 02/08/18 02/08/18 History (formulary)] Ipratropium-Albuterol Nebulize 3 ml INHALATION RT-QID 02/08/18 02/08/18 History [Duoneb 0.5 mg-3 mg/3 ml Soln] Nicotine 21Mg/24Hr Patch [Habitrol 1 patch TRANSDERM DAILY 02/08/18 02/08/18 History 21Mg/24Hr Patch] Repaglinide [Prandin] 1 mg PO AC-TID 02/08/18 02/08/18 History levETIRAcetam [Keppra] 250 mg PO Q12HR 02/08/18 02/08/18 History Allergies Allergy/AdvReac Type Severity Reaction Status Date / Time amoxicillin Allergy SOB- RED Verified 02/08/18 12:35 [place] capsaicin Allergy SOB- RED Verified 02/08/18 12:35 [place] cephalexin monohydrate Allergy SOB- RED Verified 02/08/18 12:35 [From Keflex] [place]OT[place] Cephalosporins Allergy SOB-RED Verified 02/08/18 12:35 [place] ciprofloxacin Allergy Unknown Verified 02/08/18 12:35 clindamycin Allergy SOB-RED Verified 02/08/18 12:35 [place] fluticasone propionate Allergy SOB- RED Verified 02/08/18 12:35 [From Flonase] BLOT[place]Y [place] Penicillins Allergy SOB- RED Verified 02/08/18 12:35 [place]OT[place] Sulfa (Sulfonamide Allergy SOB- RED Verified 02/08/18 12:35 Antibiotics) BLOTCHY SKIN BROWN DYES Allergy SOB- RED Uncoded 07/06/17 23:56 BLOTCHY SKIN Physical Exam Vitals: Vital Signs Temp Pulse Pulse Resp BP BP Pulse Ox 02/09/18 11:33 80 02/09/18 11:23 98 F 80 93 20 138/68 94 L 02/09/18 07:49 80 02/09/18 07:33 80 02/09/18 05:00 98.3 F 60 16 131/65 98 02/08/18 22:21 85 02/08/18 22:11 83 02/08/18 21:25 97.9 F 89 17 117/68 97 02/08/18 15:15 98.9 F 93 16 109/64 99 02/08/18 15:00 98.3 F 103 H 18 122/68 94 L 02/08/18 14:39 98 Intake and Output 02/08/18 02/09/18 02/09/18 22:59 06:59 14:59 Intake Total 920 480 Balance 920 480 Intake: Intake, IV Titration 200 Amount Sodium Chloride 0.9% 1, 200 000 ml @ 50 mls/hr IV . Q20H ONE Rx#:[id number] Oral 720 480 Other: # Voids 2 1 1 Weight 121.109 kg 121.109 kg GENERAL: The patient is alert and oriented x3, not in any acute distress. Well developed, well nourished. HEENT: Pupils are round and equally reacting to light. EOMI. No scleral icterus. No conjunctival pallor. Normocephalic, atraumatic. No pharyngeal erythema. No thyromegaly. CARDIOVASCULAR: S1 and S2 present. No murmurs, rubs, or gallops. PULMONARY: Chest is clear to auscultation, no wheezing or crackles. ABDOMEN: Soft, nontender, nondistended, normoactive bowel sounds. No palpable organomegaly. MUSCULOSKELETAL: No joint swelling or deformity. EXTREMITIES: No cyanosis, clubbing, or pedal edema. NEUROLOGICAL: Gross neurological examination did not reveal any focal deficits. SKIN: No rashes. Results CBC & Chem 7: 02/08/18 10:22 02/08/18 10:22 Labs: Abnormal Lab Results - Last 24 Hours (Table) 02/08/18 02/08/18 02/08/18 Range/Units 15:00 16:59 21:16 POC Glucose (mg/dL) (75-99) mg/dL Total Creatine Kinase 26 L 24 L (30-135) U/L Urine pH 8.5 H (5.0-8.0) Ur Specific [place] 1.045 H (1.001-1.035) Urine Protein Trace H (Negative) Ur Leukocyte Esterase Small H (Negative) Urine WBC 12 H (0-5) /hpf Amorphous Sediment Rare H (None) /hpf Urine Bacteria Few H (None) /hpf 02/09/18 02/09/18 Range/Units 07:06 12:12 POC Glucose (mg/dL) 146 H 48 L (75-99) mg/dL Total Creatine Kinase (30-135) U/L Urine pH (5.0-8.0) Ur Specific [place] (1.001-1.035) Urine Protein (Negative) Ur Leukocyte Esterase (Negative) Urine WBC (0-5) /hpf Amorphous Sediment (None) /hpf Urine Bacteria (None) /hpf Microbiology - Last 24 Hours (Table) 02/08/18 10:22 Blood Culture - Preliminary Blood No Growth after 24 hours 02/08/18 15:00 Urine Culture - Preliminary Urine,Voided Thrombosis Risk Factor Assmnt - Choose All That Apply Any of the Below Risk Factors Present?: Yes Each Factor Represents 1 point: Age 41-60 years, Obesity (BMI >25), Swollen legs (current) Other Risk Factors: No Other congenital or acquired thrombophilia - If yes, enter type in comment: No Thrombosis Risk Factor Assessment Total Risk Factor Score: 3 Thrombosis Risk Factor Assessment Level: Moderate Risk Assessment and Plan Assessment: Syncope, most likely related to hypoglycemia. However cardiac evaluation is important as patient has risk factors. Episode of hypoglycemia area to hold Ji. Continue with metformin. Check hemoglobin A1c Back pain with bruise. History of coronary artery disease COPD in no exacerbation Type 2 diabetes mellitus Diabetic neuropathy GERD Osteoarthritis History of sleep apnea History of brain aneurysm Plan: This is a pleasant 57 years old female who presents with syncope. We'll call cardiology consult. We'll do imaging for her back pain. Hold Prandin and continue with metformin with insulin sliding scale and monitor sugar. Patient is informed with the [place] law that prohibits driving for 6 month in case of syncope or seizure. Labs and medication were reviewed.. Continue same treatment. Continue with symptomatic treatment. Resume home medication. Monitor lytes and vitals. DVT and GI prophylaxis. Further recommendations of the clinical course of the patient DVT prophylaxis: Subcutaneous heparin GI Prophylaxis: Pepcid PT/OT: Pending Prognosis is guarded
--- NOTE | 2018-02-09 16:16 | XR ---
EXAMINATION TYPE: XR Hip LT and AP Pelvis DATE OF EXAM: 02/09/2018 COMPARISON: None HISTORY: Fall 3 days prior TECHNIQUE: AP pelvis with 2 views left hip FINDINGS: No acute fractures are evident. The femoral heads articulate with the acetabulum. Joint spa jaz preserved. Normal bowel gas is present. IMPRESSION: 1. Normal left hip and AP pelvis.
[2018-02-09 17:11] LABS: Glucose,Whole Blood 75 mg/dL (75-99)
[2018-02-09] MEDS: HEPARIN SODIUM,PORCINE 5,000 UNIT/ML 1 ML VIAL SQ SCH (20:22)
[2018-02-09 20:40] LABS: Glucose,Whole Blood 120 mg/dL (75-99)
[2018-02-10] MEDS: MORPHINE SULFATE 4 MG/ML SYRINGE IV PRN ×5 (02:05→21:50)
[2018-02-10 02:22] LABS: Glucose,Whole Blood 123 mg/dL (75-99)
--- NOTE | 2018-02-10 06:49 | ECHOF ---
Referral Reason:cp MEASUREMENTS -------- HEIGHT: 170.2 cm WEIGHT: 120.7 kg BP: 138/68 RVIDd: 5.6 cm (< 3.3) IVSd: 1.2 cm (0.6 - 1.1) LVIDd: 5.6 cm (3.9 - 5.3) LVPWd: 1.2 cm (0.6 - 1.1) IVSs: 1.5 cm LVIDs: 3.7 cm LVPWs: 1.4 cm LAESV Index (A-L): 20.65 ml/m Ao Diam: 3.6 cm (2.0 - 3.7) AV Cusp: 2.0 cm (1.5 - 2.6) LA Diam: 3.5 cm (2.7 - 3.8) EPSS: 0.6 cm MV E Kevan: 0.97 m/s MV DecT: 285 ms MV A Kevan: 0.91 m/s MV E/A Ratio: 1.06 RAP: 15.00 mmHg RVSP: 108.93 mmHg MV EF SLOPE: 89.95 mm/s (70 - 150) MV EXCURSION: 1.47 cm (> 18.000) FINDINGS -------- Sinus rhythm. This was a technically adequate study. The left ventricular size is normal. There is mild concentric left ventricular hypertrophy. Overa ll left ventricular systolic function is normal with, an EF between 55 - 60 %. The right ventricle is severely enlarged. Normal LA size by volume 22+/-6 ml/m2. The right atrium is markedly enlarged. The aortic valve was not well visualized. The mitral valve leaflets are mildly thickened. Mild mitral regurgitation is present. Severe tricuspid regurgitation present. There is severe pulmonary hypertension. The right ventric ular systolic pressure, as measured by Doppler, is 108.93mmHg. The pulmonic valve was not well visualized. There is no pulmonic regurgitation present. The aortic root size is normal. The inferior vena cava is dilated with no significant inspiratory collapse which is consistent estima lilliam right atrial pressure of >20 mmHg. There is no pericardial effusion. CONCLUSIONS -------- 1. Sinus rhythm. 2. This was a technically adequate study. 3. The left ventricular size is normal. 4. There is mild concentric left ventricular hypertrophy. 5. Overall left ventricular systolic function is normal with, an EF between 55 - 60 %. 6. The right ventricle is severely enlarged. 7. Normal LA size by volume 22+/-6 ml/m2. 8. The right atrium is markedly enlarged. 9. The aortic valve was not well visualized. 10. The mitral valve leaflets are mildly thickened. 11. Mild mitral regurgitation is present. 12. Severe tricuspid regurgitation present. 13. There is severe pulmonary hypertension. 14. The pulmonic valve was not well visualized. 15. There is no pulmonic regurgitation present. 16. The aortic root size is normal. 17. The inferior vena cava is dilated with no significant inspiratory collapse which is consistent es timated right atrial pressure of >20 mmHg. 18. There is no pericardial effusion. OPERATOR TECHNICIAN: Jose Saul RDCS
[2018-02-10 07:41] LABS: Glucose,Whole Blood 137 mg/dL (75-99)
[2018-02-10] MEDS: IPRATROPIUM-ALBUTEROL 3 ML NEB INHALATION SCH ×4 (08:14→20:42)
[2018-02-10] MEDS: BUDESONIDE 0.5 MG/2 ML NEBU INHALATION SCH ×2 (08:14→20:42)
[2018-02-10] MEDS: INSULIN ASPART 100 UNIT/ML 1 ML 10 ML VIAL SQ SCH ×4 (08:46→22:42)
[2018-02-10] MEDS: HEPARIN SODIUM,PORCINE 5,000 UNIT/ML 1 ML VIAL SQ SCH ×2 (08:55→22:37)
[2018-02-10] MEDS: NICOTINE 21MG/24HR PATCH TRANSDERM SCH (08:56)
[2018-02-10] MEDS: VORTIOXETINE HYDROBROMIDE 10 MG TABLET PO SCH (08:56)
[2018-02-10] MEDS: METOPROLOL TARTRATE 12.5 MG TAB PO SCH ×2 (08:56→22:38)
[2018-02-10] MEDS: ATORVASTATIN 40 MG TAB PO SCH (08:56)
[2018-02-10] MEDS: HYDROcodone/APAP 7.5-325MG 1 EACH TAB PO PRN ×2 (08:56→17:03)
[2018-02-10] MEDS: ASPIRIN 81 MG PO SCH (08:56)
[2018-02-10] MEDS: GABAPENTIN 400 MG CAP PO SCH ×3 (08:56→22:38)
[2018-02-10] MEDS: SPIRONOLACTONE 25 MG TAB PO SCH (08:57)
[2018-02-10] MEDS: FAMOTIDINE 20 MG TAB PO SCH ×2 (08:57→22:37)
[2018-02-10] MEDS: FUROSEMIDE 40 MG TAB PO SCH ×2 (08:57→15:05)
[2018-02-10] MEDS: levETIRAcetam 250 MG TAB PO SCH ×2 (08:57→22:42)
[2018-02-10] MEDS ORDERED: metFORMIN 500 MG TAB PO SCH (09:30)
[2018-02-10 09:59] LABS: Anisocytosis Slight; Basophils % (A) 0 %; Eosinophils # (A) 0.1 k/uL (0-0.7); Eosinophils % (A) 3 %; HCT 32.9 % (34.0-46.0); HGB 10.1 gm/dL (11.4-16.0); Hypochromasia Marked; Lymphocytes # (A) 1.1 k/uL (1.0-4.8); Lymphocytes % (A) 30 %; MCH 36.2 pg (25.0-35.0); MCHC 30.8 g/dL (31.0-37.0); MCV 117.8 fL (80.0-100.0); Macrocytosis Marked; Monocytes # (A) 0.2 k/uL (0-1.0); Monocytes % (A) 4 %; Neutrophils # (A) 2.3 k/uL (1.3-7.7); Neutrophils % (A) 61 %; RDW 16.3 % (11.5-15.5); WBC 3.7 k/uL (3.8-10.6)
[2018-02-10 10:12] LABS: Anion Gap 4 mmol/L; Blood Urea Nitrogen 15 mg/dL (7-17); Calcium 8.2 mg/dL (8.4-10.2); Carbon Dioxide 36 mmol/L (22-30); Chloride 100 mmol/L (98-107); Glucose 161 mg/dL (74-99); Potassium 3.7 mmol/L (3.5-5.1); Sodium 140 mmol/L (137-145)
--- NOTE | 2018-02-10 10:17 | P.PN ---
Subjective This is a pleasant 57 years old female with past medical history of coronary artery disease, COPD, diabetes mellitus, fibromyalgia, GERD, osteoarthritis, sleep apnea, recent diagnosis of brain aneurysm at [facility] diabetic neuropathy. She presents because of syncope. I patient states over the last 4 days she passed out about 3 times for example when she was trying gets out of bed, to the restroom she feels sweaty and warmth in her chest and then she passed out. Patient denies seizure-like activity or tongue biting. No urine or bowel incontinence. Patient denies chest pain or dyspnea. No abdominal pain no change in urine or bowel habits or nausea vomiting. However patient complains from back in the left lower back around close to the pelvic area. And there is a bruise in the mid dorsal of the thoracic part about 5 cm in width and 10-15 cm in length. Also she complained from right leg swelling which she says she was checked before about couple months ago that was negative for DVT Today during morning patient's felt and well and asked to check her sugar and was on the low side 48. Patient ate breakfast and her sugar went up again. We will hold Prandin and continue with metformin. 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 And over the last weeks she notices that her tracking of sugar daily the ranges between 80 and 130 which is in usual for her because usually she feels better as when the ranges 130 to 150. However patient denies any recent change in her diabetes medication. 02/10/2018 Patient still having back pain. However she more awake today's with no episodes of hypoglycemia area with starts metformin at a lower dose 500 daily. Previously patient was telling me she was taking metformin 1003 times a day which is a total of 3000 daily.. Also patient was noticed to have worsening thrombocytopenia from 115 to 79. She has history of leukemia. call and hematology consults. Objective - Vital Signs Vital signs: Vital Signs Temp 97.7 F 02/10/18 04:29 Pulse 88 02/10/18 08:36 Resp 16 02/10/18 04:29 BP 94/63 02/10/18 04:29 Pulse Ox 92 L 02/10/18 04:29 Intake & Output 02/09/18 02/10/18 02/10/18 18:59 06:59 18:59 Intake Total 1080 Balance 1080 Weight 121.109 kg Intake: Oral 1080 Other: # Voids 1 1 # Bowel Movements 0 0 - Exam GENERAL: The patient is alert and oriented x3, not in any acute distress. Well developed, well nourished. HEENT: Pupils are round and equally reacting to light. EOMI. No scleral icterus. No conjunctival pallor. Normocephalic, atraumatic. No pharyngeal erythema. No thyromegaly. CARDIOVASCULAR: S1 and S2 present. No murmurs, rubs, or gallops. PULMONARY: Chest is clear to auscultation, no wheezing or crackles. ABDOMEN: Soft, nontender, nondistended, normoactive bowel sounds. No palpable organomegaly. MUSCULOSKELETAL: No joint swelling or deformity. EXTREMITIES: No cyanosis, clubbing, or pedal edema. NEUROLOGICAL: Gross neurological examination did not reveal any focal deficits. SKIN: No rashes. - Labs CBC & Chem 7: 02/08/18 10:22 02/08/18 10:22 Labs: Abnormal Lab Results - Last 24 Hours (Table) 02/08/18 02/09/18 02/09/18 Range/Units 21:16 12:12 20:38 POC Glucose (mg/dL) 48 L 120 H (75-99) mg/dL Hemoglobin A1c 8.5 H (4.0-6.0) % 02/10/18 02/10/18 Range/Units 02:20 07:39 POC Glucose (mg/dL) 123 H 137 H (75-99) mg/dL Hemoglobin A1c (4.0-6.0) % Microbiology - Last 24 Hours (Table) 02/08/18 15:00 Urine Culture - Final Urine,Voided 02/08/18 10:22 Blood Culture - Preliminary Blood No Growth after 24 hours Assessment and Plan Assessment: Syncope, most likely related to hypoglycemia. However cardiac evaluation is important as patient has risk factors. Episode of hypoglycemia area to hold Ji. Continue with metformin. Check hemoglobin A1c Back pain with bruise. History of coronary artery disease COPD in no exacerbation Type 2 diabetes mellitus Diabetic neuropathy GERD Osteoarthritis History of sleep apnea History of brain aneurysm Plan: This is a pleasant 57 years old female who presents with syncope. We'll call cardiology consult. We'll do imaging for her back pain. Hold Prandin and continue with metformin with insulin sliding scale and monitor sugar. Patient is informed with the [place] law that prohibits driving for 6 month in case of syncope or seizure. Labs and medication were reviewed.. Continue same treatment. Continue with symptomatic treatment. Resume home medication. Monitor lytes and vitals. DVT and GI prophylaxis. Further recommendations of the clinical course of the patient DVT prophylaxis: Subcutaneous heparin GI Prophylaxis: Pepcid PT/OT: Pending Prognosis is guarded
[2018-02-10 10:18] LABS: Platelet Count 76 k/uL (150-450)
[2018-02-10 10:33] LABS: Poikilocytosis (M) Present
[2018-02-10 11:09] LABS: Glucose,Whole Blood 85 mg/dL (75-99)
[2018-02-10] MEDS: FERROUS SULFATE 325 MG TAB PO SCH (11:48)
--- NOTE | 2018-02-10 13:01 | P.PN ---
Subjective This is a pleasant 57-year-old female past medical history significant for coronary artery disease, hypertension, dyslipidemia, COPD and chronic nicotine dependence. She follows with Dr. Barrios in the office. She has seen and examined sitting up in the chair in no acute distress. She denies symptoms of chest pain, shortness of breath, dizziness or palpitations. Echocardiogram obtained reveals preserved left ventricular systolic function with ejection fraction 55-60% with severe tricuspid regurgitation and severe pulmonary hypertension RVSP 108 mmHg. Laboratory data reviewed, WBC 3.7, hemoglobin 10.1, platelets 76, sodium 140, potassium 3.7, creatinine 0.67. Blood pressure 94/63 heart rate 65 afebrile maintaining oxygen saturation on room air. She is currently maintained on aspirin 81 mg daily, atorvastatin 40 mg daily, Lasix 40 mg by mouth twice a day, metoprolol 12.5 mg twice a day and Aldactone 25 mg daily. GENERAL: Well-appearing, well-nourished and in no acute distress. Obese. NECK: Supple without JVD or thyromegaly. LUNGS: Faint expiratory wheezes noted, no rales or rhonchi. Respiration equal and unlabored. HEART: Regular rate and rhythm with systolic murmur at the left sternal border, no rubs or gallops. S1 and S2 heard. EXTREMITIES: Normal range of motion, 2+ bilateral lower extremity edema. No clubbing or cyanosis. Peripheral pulses intact. ASSESSMENT Syncopal episode most likely orthostatic hypotension. No evidence to suggest ischemia or an acute arrhythmia. History of coronary artery disease status post stenting 1998 mid LAD History of mild to moderate ischemic cardiomyopathy Pulmonary hypertension, severe RVSP 108 mmHg Tricuspid regurgitation, severe COPD Hypertension Dyslipidemia Chronic nicotine dependence PLAN No evidence of acute arrhythmia and an acute coronary event has been ruled out. Ongoing medical management. Recommend follow up with pulmonary regarding pulmonary hypertension. She sees Dr. Christine as an outpatient. Smoking cessation recommended. Follow up with Dr. Barrios in 2-3 weeks. Nurse Practitioner note has been reviewed, I agree with a documented findings and plan of care. Patient was seen and examined. Objective - Vital Signs Vital signs: Vital Signs Temp 97.7 F 02/10/18 04:29 Pulse 88 02/10/18 08:36 Resp 16 02/10/18 04:29 BP 94/63 02/10/18 04:29 Pulse Ox 92 L 02/10/18 04:29 Intake & Output 02/09/18 02/10/18 02/10/18 18:59 06:59 18:59 Intake Total 1080 Balance 1080 Weight 121.109 kg Intake: Oral 1080 Other: # Voids 1 1 # Bowel Movements 0 0 - Labs CBC & Chem 7: 02/10/18 09:32 02/10/18 09:32 Labs: Abnormal Lab Results - Last 24 Hours (Table) 02/08/18 02/09/18 02/09/18 Range/Units 21:16 12:12 20:38 WBC (3.8-10.6) k/uL RBC (3.80-5.40) m/uL Hgb (11.4-16.0) gm/dL Hct (34.0-46.0) % MCV (80.0-100.0) fL MCH (25.0-35.0) pg MCHC (31.0-37.0) g/dL RDW (11.5-15.5) % Plt Count (150-450) k/uL Carbon Dioxide (22-30) mmol/L Glucose (74-99) mg/dL POC Glucose (mg/dL) 48 L 120 H (75-99) mg/dL Hemoglobin A1c 8.5 H (4.0-6.0) % Calcium (8.4-10.2) mg/dL 02/10/18 02/10/18 02/10/18 Range/Units 02:20 07:39 09:32 WBC 3.7 L (3.8-10.6) k/uL RBC 2.80 L (3.80-5.40) m/uL Hgb 10.1 L (11.4-16.0) gm/dL Hct 32.9 L (34.0-46.0) % MCV 117.8 H (80.0-100.0) fL MCH 36.2 H (25.0-35.0) pg MCHC 30.8 L (31.0-37.0) g/dL RDW 16.3 H (11.5-15.5) % Plt Count 76 L (150-450) k/uL Carbon Dioxide (22-30) mmol/L Glucose (74-99) mg/dL POC Glucose (mg/dL) 123 H 137 H (75-99) mg/dL Hemoglobin A1c (4.0-6.0) % Calcium (8.4-10.2) mg/dL 02/10/18 Range/Units 09:32 WBC (3.8-10.6) k/uL RBC (3.80-5.40) m/uL Hgb (11.4-16.0) gm/dL Hct (34.0-46.0) % MCV (80.0-100.0) fL MCH (25.0-35.0) pg MCHC (31.0-37.0) g/dL RDW (11.5-15.5) % Plt Count (150-450) k/uL Carbon Dioxide 36 H (22-30) mmol/L Glucose 161 H (74-99) mg/dL POC Glucose (mg/dL) (75-99) mg/dL Hemoglobin A1c (4.0-6.0) % Calcium 8.2 L (8.4-10.2) mg/dL Microbiology - Last 24 Hours (Table) 02/08/18 15:00 Urine Culture - Final Urine,Voided 02/08/18 10:22 Blood Culture - Preliminary Blood No Growth after 24 hours
--- NOTE | 2018-02-10 14:30 | P.CONS ---
History of Present Illness - Reason for Consult Consult date: 02/10/18 thrombocytopenia, Hx of AML Requesting physician: Wil E Sheet - Chief Complaint syncopy at home - History of Present Illness Pt initially seen by Dr. 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 She had a stroke in Jan 2015 and diagnosed with iron deficient anemia on 2016, colonoscopy was normal, treated with oral iron. Also has Hx of COPD and CHF. Pt is admitted after syncopy at home. I saw pt at [facility] last week when she had syncopy at home, which occurred after she further ruptured her ventral hernia lifting something. She has just recovered in the previous 2 weeks from pneumonia and shingles. US liver and spleen showed an enlarged liver with normal sized spleen, platelets were check in a citrated tube, as clumping was noted on peripheral smear, this put the count in the 90,000 range. Her Hgb and WBC/diff were normal, some studies were pending her at her discharge, her 6mo f/ u with Dr. Ferrer was moved to [place]. Pt presents with syncopy and fall, her CBC is now revealing a pancytopenic state , pt denied fevers, sweats, lymph node swellings, she does c/o a sore neck, posterior, about 1 mo now, it is similar to the discomfort she had when she was diagnosed with leukemia many years ago, moderate fatigue and mild loss of appetite. No dysphagia, nausea, vomiting, diarrhea or constipation. Her hernia is stable, the bruising is stable, denies any bleeding, the swelling and redness in her legs is actually better. 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 Last Myocardial Infarction Date:: 2001 History of Any Multi-Drug Resistant Organisms: MRSA Year Discovered:: 2001 MDRO Source:: PORT IN CHEST Past Surgical History: Bowel Resection, Section, Heart Catheterization With Stent, Hernia Repair, Orthopedic Surgery Additional Past Surgical History / Comment(s): 04/2017 Removal R ear tube/ tympanoplasty and bilateral tubes placed, prior ear surgeries, umbilical hernia repair with bowel paris/bowel resections then done along with L ovary removed, PICC lines/now out, mediport-now out (MRSA infection), PCI/stents, R eye surgeries/lens implant/lasered for retinal detachment, EGD, colonoscopies, L breast benign biopsy, D&C, R vulva excision, R wrist ORIF with plate/pins, deviated septal surgery. Past Anesthesia/Blood Transfusion Reactions: Blood Transfusion Reaction, Motion Sickness, Postoperative Nausea & Vomiting (PONV) Additional Past Anesthesia/Blood Transfusion Reaction / Comm: 2001-had some kind of transfusion reaction Date of Last Stent Placement:: 2001 Smoking Status: Current every day smoker - Past Family History Mother Additional Family Medical History / Comment(s): @ AGE 53 WITH ANEURYSM Father Family Medical History: Myocardial Infarction ([place]) Additional Family Medical History / Comment(s): HAD CABG- COMMITTED SUICIDE A YEAR AFTER - PT'S GRANDFATHER(P) ALSO COMMITED SUICIDE Brother(s) Family Medical History: Coronary Artery Disease (CAD) Additional Family Medical History / Comment(s): COMMITTED SUICIDE Medications and Allergies Home Medications Medication Instructions Recorded Confirmed Type Atorvastatin [Lipitor] 40 mg PO DAILY 01/02/15 02/08/18 History Nitroglycerin Sl Tabs [Nitrostat] 0.4 mg SUBLINGUAL Q5M PRN 01/02/15 12/17/17 History Ranitidine HCl [Zantac] 150 mg PO BID 01/02/15 02/08/18 History metFORMIN HCL [Glucophage] 1,000 mg PO BID 01/02/15 02/08/18 History Vortioxetine Hydrobromide 10 mg PO DAILY 12/12/16 02/08/18 History [Trintellix] Furosemide [Lasix] 40 mg PO BID@0900,1600 #60 tab 07/08/17 02/08/18 Rx Budesonide [Pulmicort Flexhaler] 1 puff INHALATION RT-BID 12/17/17 02/08/18 History Ferrous Sulfate [Feosol] 325 mg PO DAILY 12/17/17 02/08/18 History Metoprolol Tartrate [Lopressor] 12.5 mg PO BID 12/17/17 02/08/18 History Spironolactone [Aldactone] 25 mg PO DAILY 12/17/17 02/08/18 History Tamsulosin [Flomax] 0.4 mg PO DAILY 12/17/17 02/08/18 History sitaGLIPtin [Januvia] 100 mg PO DAILY 12/17/17 02/08/18 History Aspirin EC [Ecotrin Low Dose] 81 mg PO DAILY 02/08/18 02/08/18 History Baclofen [Lioresal] 10 mg PO HS 02/08/18 02/08/18 History Gabapentin [Neurontin] 800 mg PO TID 02/08/18 02/08/18 History HYDROcodone/APAP 7.5-325MG [[place] 1 tab PO Q6H PRN 02/08/18 02/08/18 History 7.5-325] Insulin Aspart [NovoLOG 30 unit SQ ACHS 02/08/18 02/08/18 History (formulary)] Ipratropium-Albuterol Nebulize 3 ml INHALATION RT-QID 02/08/18 02/08/18 History [Duoneb 0.5 mg-3 mg/3 ml Soln] Nicotine 21Mg/24Hr Patch [Habitrol 1 patch TRANSDERM DAILY 02/08/18 02/08/18 History 21Mg/24Hr Patch] Repaglinide [Prandin] 1 mg PO AC-TID 02/08/18 02/08/18 History levETIRAcetam [Keppra] 250 mg PO Q12HR 02/08/18 02/08/18 History Allergies Allergy/AdvReac Type Severity Reaction Status Date / Time amoxicillin Allergy SOB- RED Verified 02/08/18 12:35 [place]OT[place]Y SK[place] capsaicin Allergy SOB- RED Verified 02/08/18 12:35 [place]OT[place]Y SK[place] cephalexin monohydrate Allergy SOB- RED Verified 02/08/18 12:35 [From Keflex] BLOTCHY SKIN Cephalosporins Allergy SOB-RED Verified 02/08/18 12:35 BLOTCHY SKIN ciprofloxacin Allergy Unknown Verified 02/08/18 12:35 clindamycin Allergy SOB-RED Verified 02/08/18 12:35 BLOT[place]Y SK[place] fluticasone propionate Allergy SOB- RED Verified 02/08/18 12:35 [From Flonase] BLOTCHY SKIN Penicillins Allergy SOB- RED Verified 02/08/18 12:35 BLOTCHY SKIN Sulfa (Sulfonamide Allergy SOB- RED Verified 02/08/18 12:35 Antibiotics) BLOTCHY SKIN BROWN DYES Allergy SOB- RED Uncoded 07/06/17 23:56 BLOTCHY SKIN Physical Exam Vitals: Vital Signs Temp Pulse Pulse Resp BP Pulse Ox 02/10/18 11:15 98.3 F 56 L 16 116/52 97 02/10/18 08:36 88 02/10/18 08:18 84 02/10/18 04:29 97.7 F 65 16 94/63 92 L 02/10/18 00:05 18 02/09/18 21:13 80 18 02/09/18 20:58 78 18 02/09/18 20:57 97.6 F 88 16 129/78 92 L Intake and Output 02/09/18 02/10/18 02/10/18 22:59 06:59 14:59 Intake Total 960 120 Balance 960 120 Intake: Oral 960 120 Other: # Voids 1 1 # Bowel Movements 0 Weight 121.109 kg - Constitutional General appearance: cooperative, morbidly obese, no acute distress - EENT Eyes: anicteric sclerae, EOMI ENT: hearing grossly normal, normal oropharynx - Neck tenderness at posterior neck Neck: no lymphadenopathy - Respiratory Respiratory: bilateral: CTA, diminished - Cardiovascular Rhythm: regular Heart sounds: normal: S1, S2 Abnormal Heart Sounds: no systolic murmur, no diastolic murmur, no rub, no S3 Gallop, no S4 Gallop, no click, no other leg Peripheral Edema: bilateral: 1+ - Gastrointestinal General gastrointestinal: no absent bowel sounds, no decreased bowel sounds, no distended, no hepatomegaly, no hyperactive bowel sounds, normal bowel sounds, no organomegaly, no rigid, no scaphoid, soft, no splenomegaly, tenderness, no umbilical hernia, ventral hernia (massive) - Integumentary bruising around hernia - Neurologic Neurologic: CNII-XII intact - Musculoskeletal Musculoskeletal: strength equal bilaterally - Psychiatric Psychiatric: A&O x's 3, appropriate affect, intact judgment & insight Results CBC & Chem 7: 18 09:32 12 09:32 Labs: Abnormal Lab Results - Last 24 Hours (Table) 02/09/18 02/10/18 02/10/18 Range/Units 20:38 02:20 07:39 WBC (3.8-10.6) k/uL RBC (3.80-5.40) m/uL Hgb (11.4-16.0) gm/dL Hct (34.0-46.0) % MCV (80.0-100.0) fL MCH (25.0-35.0) pg MCHC (31.0-37.0) g/dL RDW (11.5-15.5) % Plt Count (150-450) k/uL Carbon Dioxide (22-30) mmol/L Glucose (74-99) mg/dL POC Glucose (mg/dL) 120 H 123 H 137 H (75-99) mg/dL Calcium (8.4-10.2) mg/dL 18 02/10/18 Range/Units 09:32 09:32 WBC 3.7 L (3.8-10.6) k/uL RBC 2.80 L (3.80-5.40) m/uL Hgb 10.1 L (11.4-16.0) gm/dL Hct 32.9 L (34.0-46.0) % MCV 117.8 H (80.0-100.0) fL MCH 36.2 H (25.0-35.0) pg MCHC 30.8 L (31.0-37.0) g/dL RDW 16.3 H (11.5-15.5) % Plt Count 76 L (150-450) k/uL Carbon Dioxide 36 H (22-30) mmol/L Glucose 161 H (74-99) mg/dL POC Glucose (mg/dL) (75-99) mg/dL Calcium 8.2 L (8.4-10.2) mg/dL Microbiology - Last 24 Hours (Table) 02/08/18 10:22 Blood Culture - Preliminary Blood No Growth after 48 hours 02/08/18 15:00 Urine Culture - Final Urine,Voided Comments: x ray reports reviewed CT scan - chest: report reviewed Venous US: report reviewed Assessment and Plan (1) Pancytopenia Narrative/Plan: This has progressed from last week. Will discuss with the case with her [facility] Oncologist Dr. Ferrer. Will get the results from all of the work up last week and see if anything additional needs to be ordered No transfusions or GCSF needed at this time. Cont to monitor CBC Current Visit: Yes Status: Acute Priority: High Code(s): D61.818 - OTHER PANCYTOPENIA SNOMED Code(s): 114051509 (2) AML (acute myeloid leukemia) in remission Current Visit: No Status: Chronic Priority: Low Code(s): C92.01 - ACUTE MYELOBLASTIC LEUKEMIA, IN REMISSION SNOMED Code(s): 37786917
[2018-02-10 17:04] LABS: Glucose,Whole Blood 158 mg/dL (75-99)
--- NOTE | 2018-02-10 17:43 | NM ---
EXAMINATION TYPE: NM pul vent and perfuse DATE OF EXAM: 02/10/2018 COMPARISON: Chest radiographs 02/08/2018 at 11:40 AM HISTORY: Pain, dyspnea, coughing and wheezing; low platelets. TECHNIQUE: Utilizing inhalation of 70 mCi Tc 99m DTPA aerosol and intravenous injection of 5.42 mCi of Tc 99m MAA, ventilation and perfusion images are acquired post injection in multiple projections. FINDINGS: The overlying soft tissues prominently attenuated the scintigraphic images in both the lung perfusion and lung ventilation components of this examination. There is prominent heterogeneity of the distribution of the radiotracer on both the lung perfusion im ages in the lung ventilation images. However, there is no definite evidence of mismatched defects. IMPRESSION: Low probability for the diagnosis of pulmonary embolism.
--- NOTE | 2018-02-10 19:13 | P.CNPUL ---
History of Present Illness Consult date: 02/10/18 Reason for consult: dyspnea, COPD, hypoxemia, pulmonary hypertension, obstructive sleep apnea Chief complaint: Near syncope History of present illness: 57-year-old morbidly obese female seen evaluated examined as per request of Dr. figueredo on this patient is well-known to me for end-stage lung disease secondary due to severe sleep apnea obesity hypoventilation and COPD patient has a history of pulmonary hypertension, recent echo revealed very high. Pressures, patient has been admitted into the hospital with syncopal episode and dizziness , patient has a large and tiny anterior abdominal wall hernia which been evaluated by surgical services as well, patient has been evaluated at [facility] for pulmonary hypertension it appears that patient does have a temporal right and left heart cath but couldn't be performed, I have discussed with the patient at length she would like to pursue and further evaluation of pulmonary hypertension at [facility] currently patient is asymptomatic denies any chest pain or radiation of pain denies any respiratory symptoms her COPD has been a stable, patient does need a new CPAP machine she has been recently provided with new nebulizer machine as well patient is due for BiPAP re -titration study, chronic thromboembolism is also an issue would recommend to obtain a VQ scan and CT angiogram cannot be Performed due to her chronic renal failure we'll do a duplex ultrasound of the lower extremity as well Review of Systems All systems: negative Past Medical History Past Medical History: Coronary Artery Disease (CAD), Cancer, COPD, Diabetes Mellitus, Eye Disorder, Fibromyalgia, GERD/Reflux, Hearing Disorder / Deafness, Hyperlipidemia, Myocardial Infarction ([place]), Osteoarthritis (OA), Renal Disease, Sleep Apnea/CPAP/BIPAP Additional Past Medical History / Comment(s): Recent diagnosis of brain aneurysm -sent [facility] and will follow up in 6 months, rapid heart rate, 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 Last Myocardial Infarction Date:: 2001 History of Any Multi-Drug Resistant Organisms: MRSA Date of last positivie culture/infection: 2001 MDRO Source:: PORT IN CHEST Past Surgical History: Bowel Resection, Section, Heart Catheterization With Stent, Hernia Repair, Orthopedic Surgery Additional Past Surgical History / Comment(s): 04/2017 Removal R ear tube/ tympanoplasty and bilateral tubes placed, prior ear surgeries, umbilical hernia repair with bowel paris/bowel resections then done along with L ovary removed, PICC lines/now out, mediport-now out (MRSA infection), PCI/stents, R eye surgeries/lens implant/lasered for retinal detachment, EGD, colonoscopies, L breast benign biopsy, D&C, R vulva excision, R wrist ORIF with plate/pins, deviated septal surgery. Past Anesthesia/Blood Transfusion Reactions: Blood Transfusion Reaction, Motion Sickness, Postoperative Nausea & Vomiting (PONV) Additional Past Anesthesia/Blood Transfusion Reaction / Comment(s): 2001-had some kind of transfusion reaction Date of Last Stent Placement:: 2001 Smoking Status: Current every day smoker - Past Family History Mother Additional Family Medical History / Comment(s): @ AGE 53 WITH ANEURYSM Father Family Medical History: Myocardial Infarction ([place]) Additional Family Medical History / Comment(s): HAD CABG- COMMITTED SUICIDE A YEAR AFTER - PT'S GRANDFATHER(P) ALSO COMMITED SUICIDE Brother(s) Family Medical History: Coronary Artery Disease (CAD) Additional Family Medical History / Comment(s): COMMITTED SUICIDE Medications and Allergies Home Medications Medication Instructions Recorded Confirmed Type Atorvastatin [Lipitor] 40 mg PO DAILY 01/02/15 02/08/18 History Nitroglycerin Sl Tabs [Nitrostat] 0.4 mg SUBLINGUAL Q5M PRN 01/02/15 12/17/17 History Ranitidine HCl [Zantac] 150 mg PO BID 01/02/15 02/08/18 History metFORMIN HCL [Glucophage] 1,000 mg PO BID 01/02/15 02/08/18 History Vortioxetine Hydrobromide 10 mg PO DAILY 12/12/16 02/08/18 History [Trintellix] Furosemide [Lasix] 40 mg PO BID@0900,1600 #60 tab 07/08/17 02/08/18 Rx Budesonide [Pulmicort Flexhaler] 1 puff INHALATION RT-BID 12/17/17 02/08/18 History Ferrous Sulfate [Feosol] 325 mg PO DAILY 12/17/17 02/08/18 History Metoprolol Tartrate [Lopressor] 12.5 mg PO BID 12/17/17 02/08/18 History Spironolactone [Aldactone] 25 mg PO DAILY 12/17/17 02/08/18 History Tamsulosin [Flomax] 0.4 mg PO DAILY 12/17/17 02/08/18 History sitaGLIPtin [Januvia] 100 mg PO DAILY 12/17/17 02/08/18 History Aspirin EC [Ecotrin Low Dose] 81 mg PO DAILY 02/08/18 02/08/18 History Baclofen [Lioresal] 10 mg PO HS 02/08/18 02/08/18 History Gabapentin [Neurontin] 800 mg PO TID 02/08/18 02/08/18 History HYDROcodone/APAP 7.5-325MG [[place] 1 tab PO Q6H PRN 02/08/18 02/08/18 History 7.5-325] Insulin Aspart [NovoLOG 30 unit SQ ACHS 02/08/18 02/08/18 History (formulary)] Ipratropium-Albuterol Nebulize 3 ml INHALATION RT-QID 02/08/18 02/08/18 History [Duoneb 0.5 mg-3 mg/3 ml Soln] Nicotine 21Mg/24Hr Patch [Habitrol 1 patch TRANSDERM DAILY 02/08/18 02/08/18 History 21Mg/24Hr Patch] Repaglinide [Prandin] 1 mg PO AC-TID 02/08/18 02/08/18 History levETIRAcetam [Keppra] 250 mg PO Q12HR 02/08/18 02/08/18 History Allergies Allergy/AdvReac Type Severity Reaction Status Date / Time amoxicillin Allergy SOB- RED Verified 02/08/18 12:35 [place] SK[place] capsaicin Allergy SOB- RED Verified 02/08/18 12:35 [place] cephalexin monohydrate Allergy SOB- RED Verified 02/08/18 12:35 [From Keflex] BLOT[place]Y SK[place] Cephalosporins Allergy SOB-RED Verified 02/08/18 12:35 [place] ciprofloxacin Allergy Unknown Verified 02/08/18 12:35 clindamycin Allergy SOB-RED Verified 02/08/18 12:35 [place] fluticasone propionate Allergy SOB- RED Verified 02/08/18 12:35 [From Flonase] BLOT[place]Y SK[place] Penicillins Allergy SOB- RED Verified 02/08/18 12:35 [place] Sulfa (Sulfonamide Allergy SOB- RED Verified 02/08/18 12:35 Antibiotics) BLOTCHY SKIN BROWN DYES Allergy SOB- RED Uncoded 07/06/17 23:56 BLOTCHY SK[place] Physical Exam Vitals: Vital Signs Temp Pulse Pulse Resp BP Pulse Ox 02/10/18 11:15 98.3 F 56 L 16 116/52 97 02/10/18 08:36 88 02/10/18 08:18 84 02/10/18 04:29 97.7 F 65 16 94/63 92 L 02/10/18 00:05 18 02/09/18 21:13 80 18 02/09/18 20:58 78 18 02/09/18 20:57 97.6 F 88 16 129/78 92 L Intake and Output 02/10/18 02/10/18 02/10/18 06:59 14:59 22:59 Intake Total 120 Balance 120 Intake: Oral 120 Other: # Voids 1 # Bowel Movements 0 Weight 121.109 kg General: The patient is awake and alert, in no distress, and does not appear acutely ill. Eye: Pupils are equal, round and reactive to light, extra-ocular movements are intact. No nystagmus. There is normal conjunctiva bilaterally. No signs of icterus. Ears, nose, mouth and throat: There are moist mucous membranes and no oral lesions. Neck: The neck is supple, there is no tenderness or JVD. Cardiovascular: There is a regular rate and rhythm. No murmur, rub or gallop is appreciated. Respiratory: Decreased breath sounds bilaterally with expiratory wheeze. respirations are non-labored, breath sounds are equal. No stridor, rales. Gastrointestinal: Patient does have a large abdominal wall hernia. There is tenderness locally. She does have bruising both left and right sides of the abdomen. Musculoskeletal: Normal ROM, no tenderness. Strength 5/5. Sensation intact. Pulses equal bilaterally 2+. Neurological: A&O x 3. CN II-XII intact, There are no obvious motor or sensory deficits. Coordination appears grossly intact. Speech is normal. Skin: Skin is warm and dry and no rashes or lesions are noted. Psychiatric: Cooperative, appropriate mood & affect, normal judgment. Results - Laboratory Findings CBC and BMP: 02/10/18 09:32 02/10/18 09:32 PT/INR, D-dimer PT 9.7 sec (9.0-12.0) 02/08/18 10:22 INR 0.9 (<1.2) 02/08/18 10:22 Abnormal lab findings: Abnormal Labs 02/08/18 02/08/18 02/08/18 10:22 10:22 10:22 WBC RBC 3.16 L Hgb 11.2 L D Hct MCV 116.0 H MCH 35.6 H MCHC 30.7 L RDW 16.0 H Plt Count 79 L D Carbon Dioxide 34 H BUN 25 H Glucose 124 H POC Glucose (mg/dL) Hemoglobin A1c Calcium Total Creatine Kinase 23 L Total Protein 5.3 L Albumin 3.1 L Urine pH Ur Specific [place]ora Urine Protein Ur Leukocyte Esterase Urine WBC Amorphous Sediment Urine Bacteria 02/08/18 02/08/18 02/08/18 15:00 16:59 21:16 WBC RBC Hgb Hct MCV MCH MCHC RDW Plt Count Carbon Dioxide BUN Glucose POC Glucose (mg/dL) Hemoglobin A1c Calcium Total Creatine Kinase 26 L 24 L Total Protein Albumin Urine pH 8.5 H Ur Specific [place]ora 1.045 H Urine Protein Trace H Ur Leukocyte Esterase Small H Urine WBC 12 H Amorphous Sediment Rare H Urine Bacteria Few H 02/08/18 02/09/18 02/09/18 21:16 07:06 12:12 WBC RBC Hgb Hct MCV MCH MCHC RDW Plt Count Carbon Dioxide BUN Glucose POC Glucose (mg/dL) 146 H 48 L Hemoglobin A1c 8.5 H Calcium Total Creatine Kinase Total Protein Albumin Urine pH Ur Specific Nora Urine Protein Ur Leukocyte Esterase Urine WBC Amorphous Sediment Urine Bacteria 02/09/18 02/10/18 02/10/18 20:38 02:20 07:39 WBC RBC Hgb Hct MCV MCH MCHC RDW Plt Count Carbon Dioxide BUN Glucose POC Glucose (mg/dL) 120 H 123 H 137 H Hemoglobin A1c Calcium Total Creatine Kinase Total Protein Albumin Urine pH Ur Specific [place]ora Urine Protein Ur Leukocyte Esterase Urine WBC Amorphous Sediment Urine Bacteria 02/10/18 02/10/18 02/10/18 09:32 09:32 17:02 WBC 3.7 L RBC 2.80 L Hgb 10.1 L Hct 32.9 L MCV 117.8 H MCH 36.2 H MCHC 30.8 L RDW 16.3 H Plt Count 76 L Carbon Dioxide 36 H BUN Glucose 161 H POC Glucose (mg/dL) 158 H Hemoglobin A1c Calcium 8.2 L Total Creatine Kinase Total Protein Albumin Urine pH Ur Specific [place]ora Urine Protein Ur Leukocyte Esterase Urine WBC Amorphous Sediment Urine Bacteria - Diagnostic Findings Chest x-ray: report reviewed, image reviewed Assessment and Plan Assessment: Chronic hypoxic respiratory failure Severe pulmonary hypertension multifactorial Severe degree of sleep disorder breathing and sleep apnea Diastolic heart failure acute on chronic Recurrent intermittent near syncope and dizziness Large ventral hernia Plan: Continue BiPAP machine each night and when necessary during the day Continue supplemental oxygen V/Q scan of the chest has been performed no probably for pulmonary embolism we' ll get duplex ultrasound the lower extremity as well to look into chronic thromboembolism however pretest properties low Further evaluation of pulmonary hypertension a computed history of [facility] as outpatient setting History of coronary artery disease Acute on chronic diastolic heart failure Further recommendations pending plan of further evaluation as outpatient setting Time with Patient: Greater than 30
[2018-02-10 20:35] LABS: Glucose,Whole Blood 65 mg/dL (75-99)
[2018-02-10 20:54] LABS: Glucose,Whole Blood 58 mg/dL (75-99)
[2018-02-10 21:11] LABS: Glucose,Whole Blood 69 mg/dL (75-99)
[2018-02-10 21:42] LABS: Glucose,Whole Blood 71 mg/dL (75-99)
[2018-02-10] MEDS ORDERED: DEXTROSE 5%-0.45% NACL 1,000 ML IV SCH (22:00)
[2018-02-10 22:09] LABS: Glucose,Whole Blood 83 mg/dL (75-99)
--- NOTE | 2018-02-10 22:29 | US ---
EXAMINATION TYPE: US venous doppler duplex LE BI DATE OF EXAM: 02/10/2018 8:38 PM COMPARISON: NONE CLINICAL HISTORY: dvt. Chronic PE SIDE PERFORMED: Bilateral TECHNIQUE: The lower extremity deep venous system is examined utilizing real time linear array sonog fabi with graded compression, doppler sonography and color-flow sonography. VESSELS IMAGED: External Iliac Vein (EIV) Common Femoral Vein Deep Femoral Vein Greater Saphenous Vein * Femoral Vein Popliteal Vein Small Saphenous Vein * Proximal Calf Veins (* superficial vessels) Right Leg: Negative for DVT Left Leg: Negative for DVT IMPRESSION: Normal bilateral leg duplex venous sonogram.
--- NOTE | 2018-02-10 22:30 | US ---
EXAMINATION TYPE: US venous doppler duplex UE BI DATE OF EXAM: 02/10/2018 COMPARISON: NONE CLINICAL HISTORY: dvt. Chronic PE SIDE PERFORMED: Bilateral Right Arm: Negative for DVT Left Arm: Negative for DVT IMPRESSION: Normal bilateral arm duplex venous sonogram.
[2018-02-11 01:55] LABS: Glucose,Whole Blood 264 mg/dL (75-99)
[2018-02-11] MEDS: MORPHINE SULFATE 4 MG/ML SYRINGE IV PRN ×3 (02:02→11:06)
[2018-02-11 07:04] LABS: Glucose,Whole Blood 202 mg/dL (75-99)
[2018-02-11] MEDS: IPRATROPIUM-ALBUTEROL 3 ML NEB INHALATION SCH ×2 (08:03→11:54)
[2018-02-11] MEDS: BUDESONIDE 0.5 MG/2 ML NEBU INHALATION SCH (08:03)
[2018-02-11] MEDS: INSULIN ASPART 100 UNIT/ML 1 ML 10 ML VIAL SQ SCH ×2 (08:38→12:31)
[2018-02-11] MEDS: HYDROcodone/APAP 7.5-325MG 1 EACH TAB PO PRN (08:41)
[2018-02-11] MEDS: METOPROLOL TARTRATE 12.5 MG TAB PO SCH (08:59)
[2018-02-11] MEDS: NICOTINE 21MG/24HR PATCH TRANSDERM SCH (08:59)
[2018-02-11] MEDS: FUROSEMIDE 40 MG TAB PO SCH (08:59)
[2018-02-11] MEDS: ATORVASTATIN 40 MG TAB PO SCH (08:59)
[2018-02-11] MEDS: GABAPENTIN 400 MG CAP PO SCH (09:00)
[2018-02-11] MEDS: FAMOTIDINE 20 MG TAB PO SCH (09:00)
[2018-02-11] MEDS: SPIRONOLACTONE 25 MG TAB PO SCH (09:01)
[2018-02-11] MEDS: HEPARIN SODIUM,PORCINE 5,000 UNIT/ML 1 ML VIAL SQ SCH (09:01)
[2018-02-11] MEDS: ASPIRIN 81 MG PO SCH (09:01)
[2018-02-11] MEDS: VORTIOXETINE HYDROBROMIDE 10 MG TABLET PO SCH (09:07)
[2018-02-11] MEDS: levETIRAcetam 250 MG TAB PO SCH (09:07)
[2018-02-11] MEDS ORDERED: LIDOCAINE 5% PATCH TOPICAL SCH (09:45)
--- NOTE | 2018-02-11 10:14 | P.PN ---
Subjective This is a pleasant 57 years old female with past medical history of coronary artery disease, COPD, diabetes mellitus, fibromyalgia, GERD, osteoarthritis, sleep apnea, recent diagnosis of brain aneurysm at [facility] diabetic neuropathy. She presents because of syncope. I patient states over the last 4 days she passed out about 3 times for example when she was trying gets out of bed, to the restroom she feels sweaty and warmth in her chest and then she passed out. Patient denies seizure-like activity or tongue biting. No urine or bowel incontinence. Patient denies chest pain or dyspnea. No abdominal pain no change in urine or bowel habits or nausea vomiting. However patient complains from back in the left lower back around close to the pelvic area. And there is a bruise in the mid dorsal of the thoracic part about 5 cm in width and 10-15 cm in length. Also she complained from right leg swelling which she says she was checked before about couple months ago that was negative for DVT Today during morning patient's felt and well and asked to check her sugar and was on the low side 48. Patient ate breakfast and her sugar went up again. We will hold Prandin and continue with metformin. 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 And over the last weeks she notices that her tracking of sugar daily the ranges between 80 and 130 which is in usual for her because usually she feels better as when the ranges 130 to 150. However patient denies any recent change in her diabetes medication. 02/10/2018 Patient still having back pain. However she more awake today's with no episodes of hypoglycemia area with starts metformin at a lower dose 500 daily. Previously patient was telling me she was taking metformin 1003 times a day which is a total of 3000 daily.. Also patient was noticed to have worsening thrombocytopenia from 115 to 79. She has history of leukemia. call and hematology consults. 02/11/2018 Patient states that her back pain and pain feels better. The mesh was noticed some blood in the stool. She has upper abdominal pain since 2001 however 5 days ago once she fell she developed lower abdominal pain but is improving slowly for example a 7/10 yesterday, down to 60/10 today, feels like achy and decreased by lying down and improved by sitting in the chair associated with mild lpwer abd tenderness. Patient states at home she was us 4 L of oxygen. We 'll check the blood in his stool, RN study, and call GI consult. CONSTITUTIONAL: No fever, no malaise, no fatigue. HEENT: No recent visual problems or hearing problems. Denied any sore throat. CARDIOVASCULAR: No orthopnea, PND, no palpitations, no syncope. PULMONARY: , no hemoptysis. GASTROINTESTINAL: N Normoactive bowel sounds. NEUROLOGICAL: No headaches, no weakness, no numbness. HEMATOLOGICAL: Denies any bleeding or petechiae. GENITOURINARY: Denies any burning micturition, frequency, or urgency. MUSCULOSKELETAL/RHEUMATOLOGICAL: Denies any joint pain, swelling, or any muscle pain. ENDOCRINE: Denies any polyuria or polydipsia. Medications reviewed to include albuterol, aspirin, Lipitor, Pulmicort, Pepcid, ferrous sulfate, Lasix, Neurontin, heparin, no follow-up ensuing, Keppra, [place] , Lopressor, morphine, Narcan, Nitrostat, Zofran, Aldactone, vertioxetine, Objective - Vital Signs Vital signs: Vital Signs Temp 97.9 F 02/11/18 05:00 Pulse 72 02/11/18 08:22 Resp 18 02/11/18 08:03 BP 101/55 02/11/18 05:00 Pulse Ox 92 L 02/11/18 05:00 Intake & Output 02/10/18 02/11/18 02/11/18 18:59 06:59 18:59 Intake Total 1480 Balance 1480 Intake: Intake, IV Titration 400 Amount Dextrose 5%-0.45% NaCl 1, 400 000 ml @ 50 mls/hr IV . Q20H [facility] Rx#:[id number] Oral 1080 Other: # Voids 2 # Bowel Movements 1 - Exam GENERAL: The patient is alert and oriented x3, not in any acute distress. Well developed, well nourished. HEENT: Pupils are round and equally reacting to light. EOMI. No scleral icterus. No conjunctival pallor. Normocephalic, atraumatic. No pharyngeal erythema. No thyromegaly. CARDIOVASCULAR: S1 and S2 present. No murmurs, rubs, or gallops. PULMONARY: Chest is clear to auscultation, no wheezing or crackles. ABDOMEN: Soft, nontender, nondistended, normoactive bowel sounds. No palpable organomegaly. MUSCULOSKELETAL: No joint swelling or deformity. EXTREMITIES: No cyanosis, clubbing, or pedal edema. NEUROLOGICAL: Gross neurological examination did not reveal any focal deficits. SKIN: No rashes. - Labs CBC & Chem 7: 02/10/18 09:32 02/10/18 09:32 Labs: Abnormal Lab Results - Last 24 Hours (Table) 02/10/18 02/10/18 02/10/18 Range/Units 09:32 09:32 17:02 WBC 3.7 L (3.8-10.6) k/uL RBC 2.80 L (3.80-5.40) m/uL Hgb 10.1 L (11.4-16.0) gm/dL Hct 32.9 L (34.0-46.0) % MCV 117.8 H (80.0-100.0) fL MCH 36.2 H (25.0-35.0) pg MCHC 30.8 L (31.0-37.0) g/dL RDW 16.3 H (11.5-15.5) % Plt Count 76 L (150-450) k/uL Carbon Dioxide 36 H (22-30) mmol/L Glucose 161 H (74-99) mg/dL POC Glucose (mg/dL) 158 H (75-99) mg/dL Calcium 8.2 L (8.4-10.2) mg/dL 02/10/18 02/10/18 02/10/18 Range/Units 20:34 20:51 21:09 WBC (3.8-10.6) k/uL RBC (3.80-5.40) m/uL Hgb (11.4-16.0) gm/dL Hct (34.0-46.0) % MCV (80.0-100.0) fL MCH (25.0-35.0) pg MCHC (31.0-37.0) g/dL RDW (11.5-15.5) % Plt Count (150-450) k/uL Carbon Dioxide (22-30) mmol/L Glucose (74-99) mg/dL POC Glucose (mg/dL) 65 L 58 L 69 L (75-99) mg/dL Calcium (8.4-10.2) mg/dL 02/10/18 02/11/18 02/11/18 Range/Units 21:41 01:53 07:03 WBC (3.8-10.6) k/uL RBC (3.80-5.40) m/uL Hgb (11.4-16.0) gm/dL Hct (34.0-46.0) % MCV (80.0-100.0) fL MCH (25.0-35.0) pg MCHC (31.0-37.0) g/dL RDW (11.5-15.5) % Plt Count (150-450) k/uL Carbon Dioxide (22-30) mmol/L Glucose (74-99) mg/dL POC Glucose (mg/dL) 71 L 264 H 202 H (75-99) mg/dL Calcium (8.4-10.2) mg/dL Microbiology - Last 24 Hours (Table) 02/08/18 10:22 Blood Culture - Preliminary Blood No Growth after 48 hours Assessment and Plan Assessment: Syncope, most likely related to hypoglycemia. However cardiac evaluation is important as patient has risk factors. Episode of hypoglycemia area to hold Ji. Continue with metformin. Check hemoglobin A1c Back pain with bruise. Possible GI bleed History of coronary artery disease COPD in no exacerbation Type 2 diabetes mellitus Diabetic neuropathy GERD Osteoarthritis History of sleep apnea History of brain aneurysm Plan: This is a pleasant 57 years old female who presents with syncope. We'll call cardiology consult. We'll do imaging for her back pain. Hold Prandin and continue with metformin with insulin sliding scale and monitor sugar. Patient is informed with the [place] law that prohibits driving for 6 month in case of syncope or seizure. Labs and medication were reviewed.. Continue same treatment. Continue with symptomatic treatment. Resume home medication. Monitor lytes and vitals. DVT and GI prophylaxis. Further recommendations of the clinical course of the patient DVT prophylaxis: Subcutaneous heparin GI Prophylaxis: Pepcid PT/OT: Pending Prognosis is guarded
--- NOTE | 2018-02-11 10:26 | P.CONS ---
History of Present Illness - Reason for Consult Consult date: 02/11/18 Blood in stools Requesting physician: Wil E Sheet - Chief Complaint Dyspnea near syncope - History of Present Illness 57-year-old female admitted with dyspnea and near syncope with a past medical history morbid obesity, bowel resection, chronic abdominal hernia, iron deficiency anemia, acute myeloid leukemia in remission, diabetes, fibromyalgia, LA, renal disease, CAD, and pulmonary hypertension. Consult requested for blood in bowel movements. Patient reported the other day when she uses the bathroom she was passing hard large brown bowel movements but soft blood on tissue when wiping. No history GI bleed. Her memory last colonoscopy maybe 3 years [address] Thorne unremarkable. No recent EGD. Hemoglobin 10.1-11.2. MCV 117. Platelets 76,000. FOBT negative. BUN 15. Creatinine 0.7. LFTs within normal limits. Lipase 118. Denies acute abdominal pain but has chronic abdominal pain. Denies gross hematemesis hematochezia or melena. CT abdomen and pelvis cholelithiasis. Granulomatosis disease involving the liver. Cystic kidney disease. Large ventral hernia without incarceration. Review of Systems Constitutional: Denies fever, chills, sweats, weight gain, or loss. HEENT: Negative for migraines, blurred vision or loss, earaches, drainage, tinnitus, oral mucosal lesions, dysphagia, or odynophagia. CARDIAC: Negative for chest pain, arrhythmias, or palpitation. RESPIRATORY: Admitted with dyspnea denies, hemoptysis, cough, or sputum production. GI: See HPI for pertinent findings. : Negative for hematuria, urgency, frequency, polyuria, or dysuria. GYNc: Negative vaginal discharge. MUSCULOSKELETAL: Negative for muscle aches, swelling, arthritis, and arthralgias. NEUROLOGIC: Negative for stroke or TIA. ENDOCRINE: Negative for thyroid problems. SKIN: Negative for rash or itching. PSYCHIATRIC: Negative history for depression and anxiety Past Medical History Past Medical History: Coronary Artery Disease (CAD), Cancer, COPD, Diabetes Mellitus, Eye Disorder, Fibromyalgia, GERD/Reflux, Hearing Disorder / Deafness, Hyperlipidemia, Myocardial Infarction (LA), Osteoarthritis (OA), Renal Disease, Sleep Apnea/CPAP/BIPAP Additional Past Medical History / Comment(s): Recent diagnosis of brain aneurysm -sent [facility] and will follow up in 6 months, rapid heart rate, 2001 acute myeloid leukemia with chemotherapy, vulvar cancer with surgery, NIDDM type II, neuropathy bilateral legs/feet, RLS, arthritis multiple joints and especially in her feet, large abdominal hernia, anemia, R eye detached retina with surgery , SELDOVIA bilaterally, LOVE wit bipap and O2 4L at HS, osteoporosis, and curvature of the spine. Last Myocardial Infarction Date:: 2001 History of Any Multi-Drug Resistant Organisms: MRSA Year Discovered:: 2001 MDRO Source:: PORT IN CHEST Past Surgical History: Bowel Resection, Section, Heart Catheterization With Stent, Hernia Repair, Orthopedic Surgery Additional Past Surgical History / Comment(s): 04/2017 Removal R ear tube/ tympanoplasty and bilateral tubes placed, prior ear surgeries, umbilical hernia repair with bowel paris/bowel resections then done along with L ovary removed, PICC lines/now out, mediport-now out (MRSA infection), PCI/stents, R eye surgeries/lens implant/lasered for retinal detachment, EGD, colonoscopies, L breast benign biopsy, D&C, R vulva excision, R wrist ORIF with plate/pins, deviated septal surgery. Past Anesthesia/Blood Transfusion Reactions: Blood Transfusion Reaction, Motion Sickness, Postoperative Nausea & Vomiting (PONV) Additional Past Anesthesia/Blood Transfusion Reaction / Comm: 2001-had some kind of transfusion reaction Date of Last Stent Placement:: 2001 Smoking Status: Current every day smoker - Past Family History Mother Additional Family Medical History / Comment(s): @ AGE 53 WITH ANEURYSM Father Family Medical History: Myocardial Infarction (LA) Additional Family Medical History / Comment(s): HAD CABG- COMMITTED SUICIDE A YEAR AFTER - PT'S GRANDFATHER(P) ALSO COMMITED SUICIDE Brother(s) Family Medical History: Coronary Artery Disease (CAD) Additional Family Medical History / Comment(s): COMMITTED SUICIDE Medications and Allergies Home Medications Medication Instructions Recorded Confirmed Type Atorvastatin [Lipitor] 40 mg PO DAILY 01/02/15 02/08/18 History Nitroglycerin Sl Tabs [Nitrostat] 0.4 mg SUBLINGUAL Q5M PRN 01/02/15 12/17/17 History Ranitidine HCl [Zantac] 150 mg PO BID 01/02/15 02/08/18 History metFORMIN HCL [Glucophage] 1,000 mg PO BID 01/02/15 02/08/18 History Vortioxetine Hydrobromide 10 mg PO DAILY 12/12/16 02/08/18 History [Trintellix] Furosemide [Lasix] 40 mg PO BID@0900,1600 #60 tab 07/08/17 02/08/18 Rx Budesonide [Pulmicort Flexhaler] 1 puff INHALATION RT-BID 12/17/17 02/08/18 History Ferrous Sulfate [Feosol] 325 mg PO DAILY 12/17/17 02/08/18 History Metoprolol Tartrate [Lopressor] 12.5 mg PO BID 12/17/17 02/08/18 History Spironolactone [Aldactone] 25 mg PO DAILY 12/17/17 02/08/18 History Tamsulosin [Flomax] 0.4 mg PO DAILY 12/17/17 02/08/18 History sitaGLIPtin [Januvia] 100 mg PO DAILY 12/17/17 02/08/18 History Aspirin EC [Ecotrin Low Dose] 81 mg PO DAILY 02/08/18 02/08/18 History Baclofen [Lioresal] 10 mg PO HS 02/08/18 02/08/18 History Gabapentin [Neurontin] 800 mg PO TID 02/08/18 02/08/18 History HYDROcodone/APAP 7.5-325MG [[place] 1 tab PO Q6H PRN 02/08/18 02/08/18 History 7.5-325] Insulin Aspart [NovoLOG 30 unit SQ ACHS 02/08/18 02/08/18 History (formulary)] Ipratropium-Albuterol Nebulize 3 ml INHALATION RT-QID 02/08/18 02/08/18 History [Duoneb 0.5 mg-3 mg/3 ml Soln] Nicotine 21Mg/24Hr Patch [Habitrol 1 patch TRANSDERM DAILY 02/08/18 02/08/18 History 21Mg/24Hr Patch] Repaglinide [Prandin] 1 mg PO AC-TID 02/08/18 02/08/18 History levETIRAcetam [Keppra] 250 mg PO Q12HR 02/08/18 02/08/18 History Allergies Allergy/AdvReac Type Severity Reaction Status Date / Time amoxicillin Allergy SOB- RED Verified 02/08/18 12:35 BLOTCHY SKIN capsaicin Allergy SOB- RED Verified 02/08/18 12:35 BLOTCHY SKIN cephalexin monohydrate Allergy SOB- RED Verified 02/08/18 12:35 [From Keflex] BLOTCHY SKIN Cephalosporins Allergy SOB-RED Verified 02/08/18 12:35 BLOTCHY SKIN ciprofloxacin Allergy Unknown Verified 02/08/18 12:35 clindamycin Allergy SOB-RED Verified 02/08/18 12:35 BLOT[place]Y SK[place] fluticasone propionate Allergy SOB- RED Verified 02/08/18 12:35 [From Flonase] BLOTCHY SKIN Penicillins Allergy SOB- RED Verified 02/08/18 12:35 BLOTCHY SKIN Sulfa (Sulfonamide Allergy SOB- RED Verified 02/08/18 12:35 Antibiotics) BLOTCHY SKIN BROWN DYES Allergy SOB- RED Uncoded 07/06/17 23:56 BLOTCHY SKIN Physical Exam Vitals: Vital Signs Temp Pulse Pulse Resp BP Pulse Ox 02/11/18 08:22 72 02/11/18 08:03 68 18 02/11/18 05:00 97.9 F 94 18 101/55 92 L 02/11/18 00:00 79 18 02/10/18 21:00 97.7 F 79 18 106/57 96 02/10/18 11:15 98.3 F 56 L 16 116/52 97 Intake and Output 02/10/18 02/11/18 02/11/18 22:59 06:59 14:59 Intake Total 1040 440 Balance 1040 440 Intake: Intake, IV Titration 200 200 Amount Dextrose 5%-0.45% NaCl 1, 200 200 000 ml @ 50 mls/hr IV . Q20H [facility] Rx#:[id number] Oral 840 240 Other: # Voids 2 2 # Bowel Movements 1 General appearance: The patient is alert, oriented, in no acute distress. HET: Head is normocephalic and atraumatic. Pupils are equal and reactive. Oropharynx is clear without lesions. Neck: Supple without lymphadenopathy. Trachea midline. Heart: S1 S2. Regular rate and rhythm. Lungs: No crackles or wheezes are heard. Abdomen: Soft, large reducible ventral hernia nontender, nondistended with bowel sounds. No peritoneal signs. No palpable organomegaly or masses. Extremities: Normal skin color and turgor. No cyanosis, rash, ulceration, clubbing, or edema. Radial and pedal pulses are 2/4 bilaterally. Neurological: No focal deficits. Strength and sensation are grossly intact. Rectal: No blood on finger no palpable masses. Small internal hemorrhoid 6 o' clock position felt. Results CBC & Chem 7: 02/10/18 09:32 02/10/18 09:32 Labs: Abnormal Lab Results - Last 24 Hours (Table) 02/10/18 02/10/18 02/10/18 Range/Units 09:32 17:02 20:34 WBC 3.7 L (3.8-10.6) k/uL RBC 2.80 L (3.80-5.40) m/uL Hgb 10.1 L (11.4-16.0) gm/dL Hct 32.9 L (34.0-46.0) % MCV 117.8 H (80.0-100.0) fL MCH 36.2 H (25.0-35.0) pg MCHC 30.8 L (31.0-37.0) g/dL RDW 16.3 H (11.5-15.5) % Plt Count 76 L (150-450) k/uL POC Glucose (mg/dL) 158 H 65 L (75-99) mg/dL 02/10/18 02/10/18 02/10/18 Range/Units 20:51 21:09 21:41 WBC (3.8-10.6) k/uL RBC (3.80-5.40) m/uL Hgb (11.4-16.0) gm/dL Hct (34.0-46.0) % MCV (80.0-100.0) fL MCH (25.0-35.0) pg MCHC (31.0-37.0) g/dL RDW (11.5-15.5) % Plt Count (150-450) k/uL POC Glucose (mg/dL) 58 L 69 L 71 L (75-99) mg/dL 02/11/18 02/11/18 Range/Units 01:53 07:03 WBC (3.8-10.6) k/uL RBC (3.80-5.40) m/uL Hgb (11.4-16.0) gm/dL Hct (34.0-46.0) % MCV (80.0-100.0) fL MCH (25.0-35.0) pg MCHC (31.0-37.0) g/dL RDW (11.5-15.5) % Plt Count (150-450) k/uL POC Glucose (mg/dL) 264 H 202 H (75-99) mg/dL Microbiology - Last 24 Hours (Table) 02/08/18 10:22 Blood Culture - Preliminary Blood No Growth after [address] scan - abdomen: report reviewed (Dr. Puentes) Assessment and Plan (1) Perirectal inflammation Narrative/Plan: 57-year-old female with a history multiple medical comorbidities including acute myeloid leukemia pancytopenia admitted with dyspnea and near syncope with reports of blood in bowel movements when wiping. Rectal exam unremarkable no palpable masses. Patient is passing large firm bowel movements suspect blood seen on tissue is from perirectal inflammation from difficult passage of bowel movements exacerbated by thrombocytopenia. Current Visit: Yes Status: Acute Code(s): K62.89 - OTHER SPECIFIED DISEASES OF ANUS AND RECTUM SNOMED Code(s): 057358281 Plan: 1. Agreeable for discharge. Stool softeners daily. Patient was advised to follow up in GI office in 3-4 weeks for reevaluation. Discussion of outpatient endoscopy secondary to her history of iron deficiency anemia. She has not had a recent EGD or capsule study performed in the past her workup of her iron deficiency. We'll also review previous colonoscopy report and decide if outpatient colonoscopy needs to be repeated. Follow up with hematology as advised. Thank you for this kind referral and the opportunity to participate in the care of your patient. This consultation was discussed with Dr. Puentes. The impression and plan of care have been directed as dictated.
[2018-02-11] MEDS ORDERED: SENNOSIDES-DOCUSATE SODIUM 1 EACH TAB PO SCH (11:30)
[2018-02-11 11:40] LABS: Glucose,Whole Blood 231 mg/dL (75-99)
[2018-02-11 11:57] VITALS: RESP 16
[2018-02-11 12:30] VITALS: BP 103/57; PULSE 68; TEMP 98.1
[2018-02-11] MEDS: FERROUS SULFATE 325 MG TAB PO SCH (12:31)
[2018-02-11] MEDS ORDERED: metFORMIN 500 MG TAB PO STA (13:30)
[2018-02-11] MEDS ORDERED: metFORMIN 500 MG TAB PO SCH (17:30)
--- NOTE | 2018-02-11 18:53 | P.PN ---
Subjective Progress Note Date: 02/11/18 Principal diagnosis: Pancytopenia Pt seen today in f/u, she c/o stiff neck, suprapubic nodule (scar tissue area), no syncopy, fever, vomiting, bleeding, her breathing is stable Objective - Vital Signs Vital signs: Vital Signs Temp 98.1 F 02/11/18 12:29 Pulse 68 02/11/18 12:29 Resp 16 02/11/18 12:29 BP 103/57 02/11/18 12:29 Pulse Ox 96 02/11/18 13:23 Intake & Output 02/10/18 02/11/18 02/11/18 18:59 06:59 18:59 Intake Total 1480 360 Balance 1480 360 Intake: Intake, IV Titration 400 Amount Dextrose 5%-0.45% NaCl 1, 400 000 ml @ 50 mls/hr IV . Q20H [facility] Rx#:[id number] Oral 1080 360 Other: # Voids 2 3 # Bowel Movements 1 - Constitutional General appearance: Present: cooperative, morbidly obese, no acute distress - EENT Eyes: Present: anicteric sclerae, EOMI - Respiratory Respiratory: bilateral: diminished - Cardiovascular Heart sounds: normal: S1, S2 - Peripheral edema leg Peripheral Edema: bilateral: 1+ - Gastrointestinal Gastrointestinal Comment(s): pea sized skin thickening palpated in scar inferior to naval General gastrointestinal: Present: soft, ventral hernia - Integumentary Integumentary: Present: normal - Neurologic Neurologic: Present: CNII-XII intact - Musculoskeletal Musculoskeletal: Present: strength equal bilaterally - Psychiatric Psychiatric: Present: A&O x's 3, appropriate affect, intact judgment & insight - Labs CBC & Chem 7: 02/10/18 09:32 02/10/18 09:32 Labs: Abnormal Lab Results - Last 24 Hours (Table) 02/10/18 02/10/18 02/10/18 Range/Units 20:34 20:51 21:09 POC Glucose (mg/dL) 65 L 58 L 69 L (75-99) mg/dL 02/10/18 02/11/18 02/11/18 Range/Units 21:41 01:53 07:03 POC Glucose (mg/dL) 71 L 264 H 202 H (75-99) mg/dL 02/11/18 Range/Units 11:38 POC Glucose (mg/dL) 231 H (75-99) mg/dL Microbiology - Last 24 Hours (Table) 02/08/18 10:22 Blood Culture - Preliminary Blood No Growth after 72 hours Assessment and Plan (1) Pancytopenia Narrative/Plan: Pancytopenia was worked up last week at [facility]. Pt has no paraproteinema, positive for hepatomegaly, suspect fatty liver that in turn is causing low platelets. Pt has had pneumonia and shingles in the last 3 weeks so, marrow suppression from illness if also contributing to low counts. IgG was found to be low but, this can be rechecked in the outpatient setting. Discussed with Dr. Ferrer and Dr. Fiore, no plans for bone marrow at this time. Will recheck all labs in Mar. Few additional labs were ordered, pending Status: Acute Priority: High Code(s): D61.818 - OTHER PANCYTOPENIA SNOMED Code(s): 078422517 (2) AML (acute myeloid leukemia) in remission Narrative/Plan: Not suspected relapse Status: Chronic Priority: Low Code(s): C92.01 - ACUTE MYELOBLASTIC LEUKEMIA , IN REMISSION SNOMED Code(s): 36924780
[2018-02-13 14:24] LABS: Methylmalonic Acid 0.38 umol/L (<0.40)
== END 2018-02-11 14:35 | disposition home or self-care (01) | DRG 312 ==
LOC: EC 09:54 → 3NMEDONC 14:13 → OBSVTOIN 02-10 14:58
PROVIDERS: ADMIT Internal Medicine; ATTEND Internal Medicine
DX: I95.1 Orthostatic hypotension (principal); I50.33 Acute on chronic diastolic (congestive) heart failure; E66.2 Morbid (severe) obesity with alveolar hypoventilation; Z68.41 Body mass index [BMI] 40.0-44.9, adult; D61.818 Other pancytopenia; J96.11 Chronic respiratory failure with hypoxia; Q61.9 Cystic kidney disease, unspecified; C92.01 Acute myeloblastic leukemia, in remission; K92.1 Melena; E11.649 Type 2 diabetes mellitus with hypoglycemia without coma; I07.1 Rheumatic tricuspid insufficiency; D69.59 Other secondary thrombocytopenia; E11.40 Type 2 diabetes mellitus with diabetic neuropathy, unspecified; I27.20 Pulmonary hypertension, unspecified; I11.0 Hypertensive heart disease with heart failure; K80.20 Calculus of gallbladder without cholecystitis without obstruction; I25.5 Ischemic cardiomyopathy; K43.2 Incisional hernia without obstruction or gangrene; J44.9 Chronic obstructive pulmonary disease, unspecified; I25.10 Atherosclerotic heart disease of native coronary artery without angina pectoris; K46.9 Unspecified abdominal hernia without obstruction or gangrene; K21.9 Gastro-esophageal reflux disease without esophagitis; D50.9 Iron deficiency anemia, unspecified; E78.5 Hyperlipidemia, unspecified; M79.7 Fibromyalgia; G25.81 Restless legs syndrome; G47.33 Obstructive sleep apnea (adult) (pediatric); M54.9 Dorsalgia, unspecified; M81.0 Age-related osteoporosis without current pathological fracture; G89.29 Other chronic pain; M19.90 Unspecified osteoarthritis, unspecified site; M43.6 Torticollis; I25.2 Old myocardial infarction; H91.90 Unspecified hearing loss, unspecified ear; R16.0 Hepatomegaly, not elsewhere classified; F17.200 Nicotine dependence, unspecified, uncomplicated; Z71.6 Tobacco abuse counseling; Z99.81 Dependence on supplemental oxygen; Z79.82 Long term (current) use of aspirin; Z79.51 Long term (current) use of inhaled steroids; Z79.4 Long term (current) use of insulin; Z79.899 Other long term (current) drug therapy; Z99.89 Dependence on other enabling machines and devices; Z86.19 Personal history of other infectious and parasitic diseases; Z86.79 Personal history of other diseases of the circulatory system; Z86.14 Personal history of Methicillin resistant Staphylococcus aureus infection; Z92.21 Personal history of antineoplastic chemotherapy; Z85.44 Personal history of malignant neoplasm of other female genital organs; Z95.5 Presence of coronary angioplasty implant and graft; Z90.721 Acquired absence of ovaries, unilateral; Z98.891 History of uterine scar from previous surgery; Z87.81 Personal history of (healed) traumatic fracture; Z86.73 Personal history of transient ischemic attack (TIA), and cerebral infarction without residual deficits; Z87.01 Personal history of pneumonia (recurrent); Z86.59 Personal history of other mental and behavioral disorders; Z98.42 Cataract extraction status, left eye; Z98.41 Cataract extraction status, right eye; Z96.1 Presence of intraocular lens; Z88.1 Allergy status to other antibiotic agents; Z88.0 Allergy status to penicillin; Z88.2 Allergy status to sulfonamides; Z88.8 Allergy status to other drugs, medicaments and biological substances; W19.XXXA Unspecified fall, initial encounter; Z82.49 Family history of ischemic heart disease and other diseases of the circulatory system; Z81.8 Family history of other mental and behavioral disorders
CPT/HCPCS: 36415; 71046; 71275; 73502; 74177; 78582; 80048; 80053; 80061; 81001; 82150; 82272; 82550; 82553; 82607; 82747; 83036; 83605; 83690; 83735; 83921; 84484; 85025; 85610; 85730; 87040; 87086; 93005; 93306; 93970; 94640; 96361; 96374; 96376; 99285

== ENCOUNTER → 2018-03-23 | Outpatient (CLI) | payer MEDICARE, OTHER ==
[2018-03-23 15:06] LABS: Anisocytosis Slight; HCT 38.4 % (34.0-46.0); HGB 11.7 gm/dL (11.4-16.0); Hypochromasia Marked; MCHC 30.4 g/dL (31.0-37.0); MCV 118.4 fL (80.0-100.0); Macrocytosis Marked; Mean Platelet Volume 10.7; RBC 3.24 m/uL (3.80-5.40); RDW 17.2 % (11.5-15.5); WBC 4.4 k/uL (3.8-10.6)
[2018-03-23 15:11] LABS: Anion Gap 3 mmol/L; Blood Urea Nitrogen 12 mg/dL (7-17); Carbon Dioxide 35 mmol/L (22-30); Chloride 103 mmol/L (98-107); Potassium 4.6 mmol/L (3.5-5.1); Sodium 141 mmol/L (137-145)
[2018-03-23 15:18] LABS: Platelet Count 104 k/uL (150-450)
== END | disposition home or self-care (01) ==
LOC: LABPAT 13:22
PROVIDERS: ATTEND Internal Medicine Cardiovascular Disease
DX: Z01.812 Encounter for preprocedural laboratory examination (principal); I11.0 Hypertensive heart disease with heart failure; I50.9 Heart failure, unspecified; I27.20 Pulmonary hypertension, unspecified
CPT/HCPCS: 80051; 82565; 84520; 85027

== ENCOUNTER 2018-04-01 10:08 | Day surgery (SDC) | payer MEDICARE, OTHER ==
[2018-03-30 14:54] VITALS: BMI 39.9
[~2018-04-01 10:08] MED LIST changes: +ALPRAZolam 0.25 MG TAB PO PRN; +ASPIRIN 325 MG TAB PO ONE; -DEXAMETHASONE SOD PHOSPHATE 10 MG/ML 1 ML VIAL IV ONE; -DEXAMETHASONE SOD PHOSPHATE 4 MG/ML 1 ML VIAL IV ONE; -HYDROmorphone 0.5 MG/0.5 ML SYRINGE IVP PRN; -LIDOCAINE 1% 20 ML VIAL (10MG/ML) FOR IV START INTRADERMA PRN; -MIDAZOLAM 2 MG/2 ML VIAL IV PRN; -ONDANSETRON 4 MG/2 ML VIAL IVP ONE; -SCOPOLAMINE 1.5MG/72HR PATCH TRANSDERM ONE; +SODIUM CHLORIDE 0.9% 1,000 ML in EMPTY BAG 1 BAG IV ONE
[2018-04-01 11:03] LABS: Glucose,Whole Blood 135 mg/dL (75-99)
[2018-04-01 11:28] VITALS: TEMP 98.8
[2018-04-01] MEDS ORDERED: SODIUM CHLORIDE 0.9% 1,000 ML IV ONE (12:25)
[2018-04-01] MEDS ORDERED: LIDOCAINE 1% INJ 10MG/ML (20 ML MDV) SQ ONE (12:26)
[2018-04-01] MEDS: fentaNYL (PF) 50 MCG/ML 2 ML AMP IV ONE ×2 (12:26→12:48)
[2018-04-01] MEDS ORDERED: MIDAZOLAM 2 MG/2 ML VIAL IV ONE (12:26)
[2018-04-01] MEDS: LIDOCAINE 1% INJ 10MG/ML (20 ML MDV) SQ ONE ×2 (12:28→13:00)
[2018-04-01] MEDS: VERAPAMIL SYRINGE (5 MG/10 ML) INTRAARTER ONE ×2 (13:03→13:17)
[2018-04-01] MEDS ORDERED: IOPAMIDOL-370 125ML BTL INJ ONE (13:17)
[2018-04-01] MEDS ORDERED: RX INFO: IV CONTRAST WAS GIVEN 1 EACH MISC MISCELLANE PRN (13:18)
[2018-04-01 13:20] LABS: O2 Sat Blood Gas 87.1 %
[2018-04-01 13:20] LABS: O2 Sat Blood Gas 72.9 %
[2018-04-01 13:27] LABS: O2 Sat Blood Gas 91.2 %
[2018-04-01] MEDS ORDERED: PROTAMINE SULFATE 10 MG/ML 5 ML VIAL IV ONE ×2 (13:27→13:30)
[2018-04-01] MEDS ORDERED: SODIUM CHLORIDE 0.9% 1,000 ML IV SCH (13:30)
--- NOTE | 2018-04-01 14:19 | CC ---
CARDIAC CATHETERIZATION REPORT RIGHT HEART CATHETERIZATION REPORT: PREOPERATIVE DIAGNOSIS: Pulmonary hypertension. POSTOPERATIVE DIAGNOSIS: Pulmonary hypertension. The right side of the neck was prepped and draped in the usual manner and the right internal jugular vein was entered under the ultrasound-guided technique and subsequently using micropuncture needle and [place] sheath was placed in and the right heart catheterization was performed without any complications. The catheter was subsequently removed. Sheath was removed and good hemostasis was achieved. HEMODYNAMICS: The right atrial pressure is 8-10 mmHg. The right ventricular systolic pressure is 65 mmHg and diastolic pressure is about 10 mmHg. Pulmonary artery systolic pressure is 60- 65 mmHg and end-diastolic pressure is 28-30 mmHg. Pulmonary capillary wedge pressure is in the range of 12-15 mmHg. The gradient across the mean pulmonary artery pressure and pulmonary capillary wedge pressure is 15-18 mmHg and the gradient between pulmonary artery end-diastolic pressure and the main pulmonary capillary wedge pressure is about 15 mmHg suggestive of a component of the pulmonary artery hypertension. Patient's cardiac output by thermodilution was 7.7 L. The oxygen saturations are being awaited. MMODL / IJN: [id number] /
[2018-04-01 14:23] VITALS: RESP 18
--- NOTE | 2018-04-01 14:25 | CC ---
CARDIAC CATHETERIZATION REPORT DATE OF SERVICE: 04/01/2018 PERFORMING PHYSICIAN: Andres Montemayor MD, [employer]. PROCEDURE PERFORMED: 1. Selective right and left coronary angiogram. 2. Left heart catheterization. INDICATION: This is a pleasant 57-year-old female patient who sees Dr. Barrios in the office as an outpatient with known history of coronary artery disease and prior stenting of the mid LAD as well as multiple comorbid conditions, including pulmonary hypertension, was experiencing shortness of breath with exertion. She was scheduled today to undergo a right heart catheterization by Dr. Barrios and left heart catheterization from right radial approach by myself. APPROACH: Right radial artery. Graft completed. COMPLICATION: None. LEVEL OF SEDATION: Moderate with sedation length of 20 minutes. PROCEDURE DESCRIPTION: Please refer to the diagnostic to right heart catheterization was performed from the right IJ by Dr. Barrios. The right radial artery was cannulated using micropuncture technique and a micropuncture wire passed easily, then I placed a 5-Cameroonian sheath in the right radial artery. After that, I gave the patient 2 mg of verapamil IA and units of heparin IV. Subsequently, selective right and left coronary angiogram was performed using JR4 and JL3.5 catheters. Left heart catheterization was performed using 5-Cameroonian pigtail catheter. The procedure was completed without any complication. SELECTIVE CORONARY ANGIOGRAM: 1. The left main has mild disease only, it bifurcates into the left circumflex and left anterior descending artery. 2. The left circumflex is a large caliber vessel. It is a nondominant vessel and seems to be angiographically normal. 3. The LAD: The LAD is a large caliber vessel. The proximal LAD appeared to be normal. It gives rise into first diagonal branch which appeared to be angiographically normal. The mid LAD is stented and the stent is patent. The mid LAD gives rise into second diagonal branch which seems to be normal. The LAD distally appeared to be normal. 4. The right coronary artery is a large caliber vessel. It is angiographically normal. It bifurcates distally into PDA and PLV branches, both are angiographically normal. HEMODYNAMICS: The left ventricular end-diastolic pressure was what was 14 atmospheres and no gradient was identified across the aortic valve. CONCLUSION: 1. Patent stent in the mid LAD. 2. Mildly elevated left ventricular end-diastolic pressure. POSTPROCEDURE MANAGEMENT: 1. Medical treatment. 2. Follow up with Dr. Barrios. MMODL / KEVIN: [id number] /
[2018-04-01 16:43] LABS: Glucose,Whole Blood 145 mg/dL (75-99)
[2018-04-01 18:41] VITALS: BP 112/70; PULSE 80
== END 2018-04-01 18:35 | disposition home or self-care (01) ==
LOC: CATHCVL 10:08
PROVIDERS: ATTEND Internal Medicine Cardiovascular Disease
DX: I25.10 Atherosclerotic heart disease of native coronary artery without angina pectoris (principal); I11.0 Hypertensive heart disease with heart failure; I50.9 Heart failure, unspecified; Z87.891 Personal history of nicotine dependence; E78.5 Hyperlipidemia, unspecified; Z95.5 Presence of coronary angioplasty implant and graft; E11.9 Type 2 diabetes mellitus without complications; I25.2 Old myocardial infarction; Z79.84 Long term (current) use of oral hypoglycemic drugs; Z79.82 Long term (current) use of aspirin; Z79.899 Other long term (current) drug therapy; Z88.1 Allergy status to other antibiotic agents; Z88.0 Allergy status to penicillin; Z88.2 Allergy status to sulfonamides
CPT/HCPCS: 93460; 85018; 82810; C1894 ×2; C1769 ×2; J2250; J2720; J2001; J3010; J1644; Q9967

== ENCOUNTER 2018-04-15 10:16 | Inpatient (IN) | payer MEDICARE, OTHER ==
[2018-04-15] MEDS ORDERED: methylPREDNISolone SOD SUCCI 125 MG/2 ML VIAL IV STA (10:32)
[2018-04-15] MEDS ORDERED: MAGNESIUM SULFATE-D5W PMX 1 GM in DEXTROSE/WATER 1 100ML.BAG IVPB STA (10:32)
--- NOTE | 2018-04-15 10:35 | ED ---
SOB HPI - General Chief Complaint: Shortness of Breath Stated Complaint: JAYDON Time Seen by Provider: 04/15/18 10:25 Source: EMS Mode of arrival: EMS Limitations: no limitations - History of Present Illness Initial Comments: Patient presents with difficulty breathing. She states that she has a productive cough. She has a history of CVA. She has no nausea or vomiting. She has no new belly or back pain. She has no focal weakness. She has no swelling in the legs. She states that she has not had any sick contacts or recent travel. Nothing makes her symptoms better or worse. Her home medications have not helped her at all. She denies any lightheadedness or dizziness. - Related Data Home Medications Medication Instructions Recorded Confirmed Atorvastatin [Lipitor] 40 mg PO DAILY 01/02/15 04/15/18 Nitroglycerin Sl Tabs [Nitrostat] 0.4 mg SUBLINGUAL Q5M PRN 01/02/15 04/15/18 Ranitidine HCl [Zantac] 150 mg PO BID 01/02/15 04/15/18 Vortioxetine Hydrobromide 10 mg PO DAILY 12/12/16 04/15/18 [Trintellix] Budesonide [Pulmicort Flexhaler] 1 puff INHALATION RT-BID 12/17/17 04/15/18 Ferrous Sulfate [Iron (65 MG 325 mg PO DAILY 12/17/17 04/15/18 Elemental)] Metoprolol Tartrate [Lopressor] 12.5 mg PO BID 12/17/17 04/15/18 Spironolactone [Aldactone] 25 mg PO DAILY 12/17/17 04/15/18 Tamsulosin [Flomax] 0.4 mg PO DAILY 12/17/17 04/15/18 Aspirin EC [Ecotrin Low Dose] 81 mg PO DAILY 02/08/18 04/15/18 Furosemide [Lasix] 80 mg PO BID@0900,1600 03/30/18 04/15/18 Albuterol Nebulized (Conc) 2.5 mg INHALATION RT-QID 04/15/18 04/15/18 [Ventolin Nebulized (Conc)] Baclofen [Lioresal] 20 mg PO BID 04/15/18 04/15/18 Budesonide [Pulmicort] 1 mg INHALATION RT-BID 04/15/18 04/15/18 Divalproex [Depakote] 250 mg PO TID 04/15/18 04/15/18 Gabapentin [Neurontin] 600 mg PO TID 04/15/18 04/15/18 HYDROcodone/APAP 7.5-325MG [[place] 1 tab PO TID 04/15/18 04/15/18 7.5-325] Ipratropium Nebulized [Atrovent 0.5 mcg INHALATION BID 04/15/18 04/15/18 Nebulized 0.2 MG/ML] Ipratropium Nebulized [Atrovent 0.5 mg INHALATION RT-QID 04/15/18 04/15/18 Nebulized 0.2 MG/ML] Mirtazapine [Remeron] 30 mg PO HS 04/15/18 04/15/18 Potassium Chloride ER [K-Dur 10] 10 meq PO DAILY 04/15/18 04/15/18 sitaGLIPtin [Januvia] 100 mg PO DAILY 04/15/18 04/15/18 Previous Rx's Medication Instructions Recorded Sennosides-Docusate Sodium 2 each PO BID #30 tab 02/11/18 [Senokot-S] metFORMIN HCL [Glucophage] 500 mg PO BID-W/MEALS #60 tab 02/11/18 Allergies Allergy/AdvReac Type Severity Reaction Status Date / Time amoxicillin Allergy SOB- RED Verified 04/15/18 11:11 [place] capsaicin Allergy SOB- RED Verified 04/15/18 11:11 [place] cephalexin monohydrate Allergy SOB- RED Verified 04/15/18 11:11 [From Keflex] [place]OT[place] Cephalosporins Allergy SOB-RED Verified 04/15/18 11:11 [place] ciprofloxacin Allergy Unknown Verified 04/15/18 11:11 clindamycin Allergy SOB-RED Verified 04/15/18 11:11 [place] fluticasone propionate Allergy SOB- RED Verified 04/15/18 11:11 [From Flonase] [place] Penicillins Allergy SOB- RED Verified 04/15/18 11:11 [place] Sulfa (Sulfonamide Allergy SOB- RED Verified 04/15/18 11:11 Antibiotics) BLOTCHY SKIN BROWN DYES Allergy SOB- RED Uncoded 03/30/18 14:42 [place]OT[place] SK[place] Review of Systems ROS Statement: Those systems with pertinent positive or pertinent negative responses have been documented in the HPI. ROS Other: All systems not noted in ROS Statement are negative. 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 Last Myocardial Infarction Date:: 1998 History of Any Multi-Drug Resistant Organisms: MRSA Date of last positivie culture/infection: 2001 MDRO Source:: PORT IN CHEST Past Surgical History: Bowel Resection, Section, Heart Catheterization With Stent, Hernia Repair, Orthopedic Surgery Additional Past Surgical History / Comment(s): 04/2017 Removal R ear tube/ tympanoplasty and bilateral tubes placed, prior ear surgeries, umbilical hernia repair with bowel paris/bowel resections then done along with L ovary removed, PICC lines/now out, mediport-now out (MRSA infection), PCI/stents, R eye surgeries/lens implant/lasered for retinal detachment, EGD, colonoscopies, L breast benign biopsy, D&C, R vulva excision, R wrist ORIF with plate/pins, deviated septal surgery. Past Anesthesia/Blood Transfusion Reactions: Blood Transfusion Reaction Additional Past Anesthesia/Blood Transfusion Reaction / Comment(s): 2001-had some kind of transfusion reaction Date of Last Stent Placement:: 2001 Past Psychological History: Depression Smoking Status: Current every day smoker - Past Family History Mother Additional Family Medical History / Comment(s): @ AGE 53 WITH ANEURYSM Father Family Medical History: Myocardial Infarction ([place]) Additional Family Medical History / Comment(s): HAD CABG- COMMITTED SUICIDE A YEAR AFTER - PT'S GRANDFATHER(P) ALSO COMMITED SUICIDE Brother(s) Family Medical History: Coronary Artery Disease (CAD) Additional Family Medical History / Comment(s): COMMITTED SUICIDE General Exam Limitations: no limitations General appearance: alert, in no apparent distress Head exam: Present: atraumatic, normocephalic, normal inspection Eye exam: Present: normal appearance, PERRL, EOMI. Absent: scleral icterus, conjunctival injection, periorbital swelling ENT exam: Present: normal exam, mucous membranes moist Neck exam: Present: normal inspection. Absent: tenderness, meningismus, lymphadenopathy Respiratory exam: Present: respiratory distress, wheezes. Absent: rales, rhonchi, stridor Cardiovascular Exam: Present: regular rate, normal rhythm, normal heart sounds. Absent: systolic murmur, diastolic murmur, rubs, gallop, clicks GI/Abdominal exam: Present: soft, normal bowel sounds. Absent: distended, tenderness, guarding, rebound, rigid Extremities exam: Present: normal inspection, full ROM, normal capillary refill. Absent: tenderness, pedal edema, joint swelling, calf tenderness Back exam: Present: normal inspection Neurological exam: Present: alert, oriented X3, CN II-XII intact Psychiatric exam: Present: normal affect, normal mood Skin exam: Present: warm, dry, intact, normal color. Absent: rash Course Vital Signs 04/15/18 10:18 Temperature 98.2 F Pulse Rate 89 Respiratory 22 Rate Blood Pressure 109/98 O2 Sat by Pulse 90 L Oximetry Medical Decision Making - Medical Decision Making Patient presented with shortness of breath. She is not improving much even after IV magnesium and steroids. She will be admitted to the hospital. I spoke with Dr. Grove who accepted the patient. - Lab Data Result diagrams: 04/15/18 10:30 04/15/18 10:30 Lab Results 04/15/18 04/15/18 04/15/18 Range/Units 10:30 10:30 10:30 WBC 4.0 (3.8-10.6) k/uL RBC 3.43 L (3.80-5.40) m/uL Hgb 12.3 (11.4-16.0) gm/dL Hct 39.1 (34.0-46.0) % MCV 114.1 H (80.0-100.0) fL MCH 36.0 H (25.0-35.0) pg MCHC 31.6 (31.0-37.0) g/dL RDW 15.6 H (11.5-15.5) % Plt Count 89 L (150-450) k/uL Neutrophils % (Manual) 60 % Band Neutrophils % 11 % Lymphocytes % (Manual) 18 % Monocytes % (Manual) 9 % Eosinophils % (Manual) 2 % Metamyelocytes % 1 % Blast Cells % 1 H* % Neutrophils # (Manual) 2.80 (1.3-7.7) k/uL Lymphocytes # (Manual) 0.72 L (1.0-4.8) k/uL Monocytes # (Manual) 0.36 (0-1.0) k/uL Eosinophils # (Manual) 0.08 (0-0.7) k/uL Metamyelocytes # (Man) 0.04 H (0) k/uL Blast Cells # (Man) 0.04 H (0) k/uL Nucleated RBCs 0 (0-0) /100 WBC Toxic Granulation Present Hypochromasia Slight Poikilocytosis (manual Present Anisocytosis (manual) Present Macrocytosis Marked Spherocytes Present PT (9.0-12.0) sec INR (<1.2) APTT (22.0-30.0) sec Sodium 139 (137-145) mmol/L Potassium 4.3 (3.5-5.1) mmol/L Chloride 103 (98-107) mmol/L Carbon Dioxide 30 (22-30) mmol/L Anion Gap 6 mmol/L BUN 15 (7-17) mg/dL Creatinine 0.65 (0.52-1.04) mg/dL Est GFR (CKD-EPI)AfAm >90 (>60 ml/min/1.73 sqM) Est GFR (CKD-EPI)NonAf >90 (>60 ml/min/1.73 sqM) Glucose 121 H (74-99) mg/dL Plasma Lactic Acid Javier 1.3 (0.7-2.0) mmol/L Calcium 8.7 (8.4-10.2) mg/dL Magnesium 1.7 (1.6-2.3) mg/dL Total Bilirubin 0.7 (0.2-1.3) mg/dL AST 21 (14-36) U/L ALT 35 (9-52) U/L Alkaline Phosphatase 57 (38-126) U/L Troponin I (0.000-0.034) ng/mL NT-Pro-B Natriuret Pep pg/mL Total Protein 6.0 L (6.3-8.2) g/dL Albumin 3.7 (3.5-5.0) g/dL 04/15/18 04/15/18 04/15/18 Range/Units 10:30 10:30 10:30 WBC (3.8-10.6) k/uL RBC (3.80-5.40) m/uL Hgb (11.4-16.0) gm/dL Hct (34.0-46.0) % MCV (80.0-100.0) fL MCH (25.0-35.0) pg MCHC (31.0-37.0) g/dL RDW (11.5-15.5) % Plt Count (150-450) k/uL Neutrophils % (Manual) % Band Neutrophils % % Lymphocytes % (Manual) % Monocytes % (Manual) % Eosinophils % (Manual) % Metamyelocytes % % Blast Cells % % Neutrophils # (Manual) (1.3-7.7) k/uL Lymphocytes # (Manual) (1.0-4.8) k/uL Monocytes # (Manual) (0-1.0) k/uL Eosinophils # (Manual) (0-0.7) k/uL Metamyelocytes # (Man) (0) k/uL Blast Cells # (Man) (0) k/uL Nucleated RBCs (0-0) /100 WBC Toxic Granulation Hypochromasia Poikilocytosis (manual Anisocytosis (manual) Macrocytosis Spherocytes PT 9.5 (9.0-12.0) sec INR 0.9 (<1.2) APTT 25.6 (22.0-30.0) sec Sodium (137-145) mmol/L Potassium (3.5-5.1) mmol/L Chloride (98-107) mmol/L Carbon Dioxide (22-30) mmol/L Anion Gap mmol/L BUN (7-17) mg/dL Creatinine (0.52-1.04) mg/dL Est GFR (CKD-EPI)AfAm (>60 ml/min/1.73 sqM) Est GFR (CKD-EPI)NonAf (>60 ml/min/1.73 sqM) Glucose (74-99) mg/dL Plasma Lactic Acid Javier (0.7-2.0) mmol/L Calcium (8.4-10.2) mg/dL Magnesium (1.6-2.3) mg/dL Total Bilirubin (0.2-1.3) mg/dL AST (14-36) U/L ALT (9-52) U/L Alkaline Phosphatase (38-126) U/L Troponin I <0.012 (0.000-0.034) ng/mL NT-Pro-B Natriuret Pep 1960 pg/mL Total Protein (6.3-8.2) g/dL Albumin (3.5-5.0) g/dL Critical Care Time Critical Care Time: Yes (inititiation of IV magnesium) Total Critical Care Time: 35 Disposition Clinical Impression: COPD (chronic obstructive pulmonary disease) [facility] Condition: Serious Referrals: Jennifer Kessler DO [Primary Care Provider] - 1-2 days
--- NOTE | 2018-04-15 10:47 | XR ---
EXAMINATION TYPE: XR chest 2V DATE OF EXAM: 04/15/2018 COMPARISON: 02/08/2018 HISTORY: Shortness of breath TECHNIQUE: Frontal and lateral views of the chest are obtained. FINDINGS: Scattered senescent parenchymal changes noted. Hyperinflation compatible with COPD. No evidence for infiltrate. No evidence for atelectasis. Heart size is stable. Mediastinal structures are stable and grossly unremarkable. No evidence for hilar prominence. Degenerative changes dorsal spine. IMPRESSION: 1. No evidence for acute pulmonary disease.
[2018-04-15 10:58] LABS: INR 0.9 (<1.2); Partial Thromboplastin Time 25.6 sec (22.0-30.0); Prothrombin Time 9.5 sec (9.0-12.0)
[2018-04-15 11:01] LABS: ALT 35 U/L (9-52); AST 21 U/L (14-36); Albumin 3.7 g/dL (3.5-5.0); Alkaline Phosphatase 57 U/L (38-126); Anion Gap 6 mmol/L; Blood Urea Nitrogen 15 mg/dL (7-17); Calcium 8.7 mg/dL (8.4-10.2); Carbon Dioxide 30 mmol/L (22-30); Chloride 103 mmol/L (98-107); Glucose 121 mg/dL (74-99); Magnesium 1.7 mg/dL (1.6-2.3); Potassium 4.3 mmol/L (3.5-5.1); Sodium 139 mmol/L (137-145); Total Bilirubin 0.7 mg/dL (0.2-1.3)
[2018-04-15 11:02] LABS: HCT 39.1 % (34.0-46.0); HGB 12.3 gm/dL (11.4-16.0); Hypochromasia Slight; MCHC 31.6 g/dL (31.0-37.0); MCV 114.1 fL (80.0-100.0); Macrocytosis Marked; Mean Platelet Volume 9.5; RBC 3.43 m/uL (3.80-5.40); RDW 15.6 % (11.5-15.5)
[2018-04-15 11:41] LABS: Band Neutrophils % 11 %; Eosinophils # (M) 0.08 k/uL (0-0.7); Lymphocytes # (M) 0.72 k/uL (1.0-4.8); Metamyelocytes # (M) 0.04 k/uL (0); Metamyelocytes % 1 %; Monocytes # (M) 0.36 k/uL (0-1.0); Neutrophils % (M) 60 %; Nucleated Red Blood Cells 0 /100 WBC (0-0); Total Cells Counted 200
[2018-04-15 11:46] LABS: ABG Base Excess 5.7 mmol/L; ABG HCO3 31 mmol/L (21-25); ABG Oxygen Saturation 87.4 % (94-97); ABG PCO2 56 mmHg (35-45); ABG PH 7.35 (7.35-7.45); ABG TCO2 33 mmol/L (19-24)
[2018-04-15 11:48] LABS: Blast Cells # (M) 0.04 k/uL (0)
[2018-04-15 11:49] LABS: Toxic Granulation Present
[2018-04-15 11:50] LABS: Anisocytosis (M) Present; Poikilocytosis (M) Present
[2018-04-15 11:51] LABS: Platelet Count 89 k/uL (150-450); Spherocytes Present
[2018-04-15] MEDS ORDERED: NALOXONE 0.4 MG/ML 1 ML VIAL IV PRN (12:00)
[2018-04-15] MEDS ORDERED: NITROGLYCERIN SL TABS 0.4 MG TAB SUBLINGUAL PRN (12:02)
[2018-04-15] MEDS: GABAPENTIN 300 MG CAP PO SCH ×2 (13:16→21:38)
[2018-04-15] MEDS: DIVALPROEX 250 MG TABLET.DR PO SCH ×2 (13:16→21:39)
[2018-04-15] MEDS: HYDROcodone/APAP 7.5-325MG 1 EACH TAB PO SCH ×2 (13:16→21:39)
[2018-04-15] MEDS: FUROSEMIDE 40 MG TAB PO SCH (13:16)
--- NOTE | 2018-04-15 15:00 | P.HPIM ---
History of Present Illness H&P Date: 04/15/18 This is a 57-year-old female patient of Dr. Kessler. Patient presented to the ER with complaints of shortness of breath. Patient has a known past history of COPD in which she wears 4 L of home O2. Patient reports she's been requiring 5 L over the past 2 days. Patient's additional medical history includes brain aneurysm in which she follows with [facility] and has a follow-up appointment in 6 months, CVA, CAD, diabetes mellitus, fibromyalgia, GERD, AML with previous chemo, heart failure, hypertension, deafness, myocardial infarction, renal disease, osteoarthritis, sleep apnea. Patient recently underwent heart On 04/01 which showed patent stent in the mid LAD and mildly elevated left ventricular end-diastolic pressure patient was to be medically managed per cardiology. EKG completed showing normal sinus rhythm with sinus arrhythmia right bundle branch block with T-wave abnormality, consider lateral ischemia. Chest x-ray completed showing no evidence for acute pulmonary disease. Patient also reports that she is a current every day smoker. Patient states she has cut down to 5 cigarettes per day. Patient also reports he follows with Dr. Christine for pulmonary services. Patient also complaining of urinary burning. Will order urinary analysis with urine culture at this time. At this time patient is complaining of some chest discomfort related to breathing. Patient denies nausea vomiting or diarrhea. Patient is complaining of urinary burning with frequency. 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 Last Myocardial Infarction Date:: 1998 History of Any Multi-Drug Resistant Organisms: MRSA Date of last positivie culture/infection: 2001 MDRO Source:: PORT IN CHEST Past Surgical History: Bowel Resection, Section, Heart Catheterization With Stent, Hernia Repair, Orthopedic Surgery Additional Past Surgical History / Comment(s): 04/01/18 Cardiac cath, 04/2017 Removal R ear tube/tympanoplasty and bilateral tubes placed, prior ear surgeries , umbilical hernia repair with bowel paris/bowel resections then done along with L ovary removed, PICC lines/now out, mediport-now out (MRSA infection), PCI/ stents, R eye surgeries/lens implant/lasered for retinal detachment, EGD, colonoscopies, L breast benign biopsy, D&C, R vulva excision, R wrist ORIF with plate/pins, deviated septal surgery. Past Anesthesia/Blood Transfusion Reactions: Blood Transfusion Reaction Additional Past Anesthesia/Blood Transfusion Reaction / Comment(s): 2001-had some kind of transfusion reaction Date of Last Stent Placement:: 2001 Smoking Status: Current every day smoker - Past Family History Mother Additional Family Medical History / Comment(s): @ AGE 53 WITH ANEURYSM Father Family Medical History: Myocardial Infarction ([place]) Additional Family Medical History / Comment(s): HAD CABG- COMMITTED SUICIDE A YEAR AFTER - PT'S GRANDFATHER(P) ALSO COMMITED SUICIDE Brother(s) Family Medical History: Coronary Artery Disease (CAD) Additional Family Medical History / Comment(s): COMMITTED SUICIDE Medications and Allergies Home Medications Medication Instructions Recorded Confirmed Type Atorvastatin [Lipitor] 40 mg PO DAILY 01/02/15 04/15/18 History Nitroglycerin Sl Tabs [Nitrostat] 0.4 mg SUBLINGUAL Q5M PRN 01/02/15 04/15/18 History Ranitidine HCl [Zantac] 150 mg PO BID 01/02/15 04/15/18 History Vortioxetine Hydrobromide 10 mg PO DAILY 12/12/16 04/15/18 History [Trintellix] Budesonide [Pulmicort Flexhaler] 1 puff INHALATION RT-BID 12/17/17 04/15/18 History Ferrous Sulfate [Iron (65 MG 325 mg PO DAILY 12/17/17 04/15/18 History Elemental)] Metoprolol Tartrate [Lopressor] 12.5 mg PO BID 12/17/17 04/15/18 History Spironolactone [Aldactone] 25 mg PO DAILY 12/17/17 04/15/18 History Tamsulosin [Flomax] 0.4 mg PO DAILY 12/17/17 04/15/18 History Aspirin EC [Ecotrin Low Dose] 81 mg PO DAILY 02/08/18 04/15/18 History Sennosides-Docusate Sodium 2 each PO BID #30 tab 02/11/18 04/15/18 Rx [Senokot-S] metFORMIN HCL [Glucophage] 500 mg PO BID-W/MEALS #60 tab 02/11/18 04/15/18 Rx Furosemide [Lasix] 80 mg PO BID@0900,1600 03/30/18 04/15/18 History Albuterol Nebulized (Conc) 2.5 mg INHALATION RT-QID 04/15/18 04/15/18 History [Ventolin Nebulized (Conc)] Baclofen [Lioresal] 20 mg PO BID 04/15/18 04/15/18 History Budesonide [Pulmicort] 1 mg INHALATION RT-BID 04/15/18 04/15/18 History Divalproex [Depakote] 250 mg PO TID 04/15/18 04/15/18 History Gabapentin [Neurontin] 600 mg PO TID 04/15/18 04/15/18 History HYDROcodone/APAP 7.5-325MG [[place] 1 tab PO TID 04/15/18 04/15/18 History 7.5-325] Ipratropium Nebulized [Atrovent 0.5 mcg INHALATION BID 04/15/18 04/15/18 History Nebulized 0.2 MG/ML] Ipratropium Nebulized [Atrovent 0.5 mg INHALATION RT-QID 04/15/18 04/15/18 History Nebulized 0.2 MG/ML] Mirtazapine [Remeron] 30 mg PO HS 04/15/18 04/15/18 History Potassium Chloride ER [K-Dur 10] 10 meq PO DAILY 04/15/18 04/15/18 History sitaGLIPtin [Januvia] 100 mg PO DAILY 04/15/18 04/15/18 History Allergies Allergy/AdvReac Type Severity Reaction Status Date / Time amoxicillin Allergy SOB- RED Verified 04/15/18 11:11 [place] capsaicin Allergy SOB- RED Verified 04/15/18 11:11 [place] cephalexin monohydrate Allergy SOB- RED Verified 04/15/18 11:11 [From Keflex] [place] Cephalosporins Allergy SOB-RED Verified 04/15/18 11:11 [place] ciprofloxacin Allergy Unknown Verified 04/15/18 11:11 clindamycin Allergy SOB-RED Verified 04/15/18 11:11 [place] fluticasone propionate Allergy SOB- RED Verified 04/15/18 11:11 [From Flonase] [place] Penicillins Allergy SOB- RED Verified 04/15/18 11:11 [place] Sulfa (Sulfonamide Allergy SOB- RED Verified 04/15/18 11:11 Antibiotics) BLOTCHY SK[place] BROWN DYES Allergy SOB- RED Uncoded 03/30/18 14:42 BLOT[place]Y SK[place] Physical Exam Vitals: Vital Signs Temp Pulse Pulse Resp BP BP Pulse Ox 04/15/18 13:00 97.3 F L 98 26 H 123/76 91 L 04/15/18 12:00 84 21 123/92 91 L 04/15/18 11:50 82 21 109/98 95 04/15/18 10:18 98.2 F 89 22 109/98 90 L Intake and Output 04/14/18 04/15/18 04/15/18 22:59 06:59 14:59 Other: Weight 133.81 kg Head normocephalic Neck supple Lungs diminished with expiratory wheezing throughout Heart regular rate and rhythm S1-S2, no rub or gallop Abdomen is soft nontender nondistended positive bowel sounds no hepatosplenomegaly Extremities no edema Neuro alert and orientated to 3 Results CBC & Chem 7: 04/15/18 10:30 04/15/18 10:30 Labs: Abnormal Lab Results - Last 24 Hours (Table) 04/15/18 04/15/18 04/15/18 Range/Units 10:30 10:30 11:38 RBC 3.43 L (3.80-5.40) m/uL MCV 114.1 H (80.0-100.0) fL MCH 36.0 H (25.0-35.0) pg RDW 15.6 H (11.5-15.5) % Plt Count 89 L (150-450) k/uL Blast Cells % 1 H* % Lymphocytes # (Manual) 0.72 L (1.0-4.8) k/uL Metamyelocytes # (Man) 0.04 H (0) k/uL Blast Cells # (Man) 0.04 H (0) k/uL ABG pCO2 56 H (35-45) mmHg ABG pO2 54 L* (83-108) mmHg ABG HCO3 31 H (21-25) mmol/L ABG Total CO2 33 H (19-24) mmol/L ABG O2 Saturation 87.4 L (94-97) % Glucose 121 H (74-99) mg/dL Total Protein 6.0 L (6.3-8.2) g/dL Thrombosis Risk Factor Assmnt - Choose All That Apply Any of the Below Risk Factors Present?: Yes Each Factor Represents 1 point: Abnormal pulmonary function (COPD), Age 41-60 years, Obesity (BMI >25) Other Risk Factors: Yes Each Risk Factor Represents 2 Points: Malignancy Other congenital or acquired thrombophilia - If yes, enter type in comment: No Thrombosis Risk Factor Assessment Total Risk Factor Score: 5 Thrombosis Risk Factor Assessment Level: High Risk Assessment and Plan Assessment: 1. Shortness of breath related to COPD exacerbation. Patient started on IV Solu-Medrol. chest x-ray completed showing no acute pulmonary process. Dr. Christine consulted for pulmonary services. 2. Chest discomfort likely related to COPD exacerbation. EKG completed normal sinus rhythm with sinus arrhythmia right bundle branch block. Troponin negative. 3. Chronic hypoxic respiratory failure. Patient is maintained on 4 L nasal cannula at home 4. Sleep apnea. Patient's home CPAP machine at bedside 5. History of Pulmonary hypertension 6. Chronic diastolic heart failure. Patient maintained on Lasix 7. Pancytopenia. Per oncology service is suspecting fatty liver that in terms continue platelets Patient previously seen by Dr. Fiore and follows outpatient outpatient 8. History of acute leukemia currently in remission. Patient does follow with oncology services 9. Diabetes mellitus. Home medications resumed. Hemoglobin A1c ordered 10. History of brain aneurysm patient reports she follows with [facility] every 6 months 11. Nicotine dependence. Patient educated greater than 3 minutes on smoking cessation 12. History of GERD 13. History of fibromyalgia 14. History of osteoarthritis 15. History of coronary artery disease with previous myocardial infarction. Patient recently underwent cardiac cath which was found to have patent stent patient was to be medically managed 16. Complaints of urinary burning and frequency. Urinary analysis has been ordered DVT prophylaxis SCDs due to low platelets. GI prophylaxis Protonix Time with Patient: Greater than 30 (Greater than 60% of the total time spent in counseling and coordination of care. I performed an examination of the patient and discussed their management with the Nurse Practitioner. I have reviewed the Nurse Practitioner's notes and agree with the documented findings and plan of care)
[2018-04-15] MEDS: IPRATROPIUM-ALBUTEROL 3 ML NEB INHALATION SCH ×2 (15:13→20:56)
[2018-04-15] MEDS ORDERED: IPRATROPIUM 0.5 MG/2.5 ML NEBU INHALATION SCH ×2 (16:00→21:00)
[2018-04-15 17:07] LABS: Glucose,Whole Blood 241 mg/dL (75-99)
[2018-04-15] MEDS: INSULIN ASPART (NovoLOG) 100 UNIT/ML VIAL SQ SCH ×2 (18:03→21:40)
[2018-04-15 18:04] LABS: Creatine Kinase MB 0.8 ng/mL (0.0-2.4)
[2018-04-15] MEDS: methylPREDNISolone SOD SUCCI 125 MG/2 ML VIAL IV SCH (18:04)
[2018-04-15] MEDS: metFORMIN 500 MG TAB PO SCH (18:05)
[2018-04-15] MEDS ORDERED: NON-FORMULARY DRUG (Budesonide [Pulmicort Flexhaler] 1 PUFF) INHALATION SCH (20:00)
[2018-04-15 20:37] LABS: Glucose,Whole Blood 242 mg/dL (75-99)
[2018-04-15 20:42] LABS: Appearance,Urine Clear (Clear); Bilirubin,Urine Negative (Negative); Blood,Urine Negative (Negative); Color,Urine Yellow; Glucose,Urine (UA) Negative (Negative); Ketones,Urine Trace (Negative); Leukocyte Esterase,Urine Negative (Negative); Nitrite,Urine Negative (Negative); PH, Urine 5.5 (5.0-8.0); Protein,Urine Trace (Negative); Specific Gravity,Urine 1.015 (1.001-1.035); Urobilinogen,Urine <2.0 mg/dL (<2.0)
[2018-04-15] MEDS: BUDESONIDE 1 MG/2 ML NEBU INHALATION SCH (20:57)
[2018-04-15] MEDS ORDERED: MIRTAZAPINE 15 MG TAB PO SCH (21:00)
[2018-04-15] MEDS: BACLOFEN 10 MG TAB PO SCH (21:40)
[2018-04-15] MEDS: METOPROLOL TARTRATE 12.5 MG TAB PO SCH (21:40)
[2018-04-16 00:03] LABS: Creatine Kinase MB 0.7 ng/mL (0.0-2.4)
[2018-04-16] MEDS: methylPREDNISolone SOD SUCCI 125 MG/2 ML VIAL IV SCH ×3 (00:39→17:51)
[2018-04-16 05:41] LABS: Basophils % (A) 0 %; Eosinophils % (A) 2 %; HCT 38.4 % (34.0-46.0); HGB 12.3 gm/dL (11.4-16.0); Hypochromasia Slight; Lymphocytes # (A) 0.6 k/uL (1.0-4.8); Lymphocytes % (A) 21 %; MCH 37.1 pg (25.0-35.0); MCHC 32.1 g/dL (31.0-37.0); MCV 115.4 fL (80.0-100.0); Mean Platelet Volume 10.3; Monocytes # (A) 0.1 k/uL (0-1.0); Monocytes % (A) 3 %; Neutrophils % (A) 73 %; RBC 3.33 m/uL (3.80-5.40); RDW 15.3 % (11.5-15.5); WBC 2.7 k/uL (3.8-10.6)
[2018-04-16 05:53] LABS: Anion Gap 4 mmol/L; Blood Urea Nitrogen 21 mg/dL (7-17); Calcium 9.2 mg/dL (8.4-10.2); Carbon Dioxide 34 mmol/L (22-30); Chloride 99 mmol/L (98-107); Glucose 217 mg/dL (74-99); Potassium 5.4 mmol/L (3.5-5.1); Sodium 137 mmol/L (137-145)
[2018-04-16 05:56] LABS: Macrocytosis Marked; Platelet Count 88 k/uL (150-450)
[2018-04-16 06:10] LABS: Creatine Kinase MB 0.8 ng/mL (0.0-2.4)
[2018-04-16 06:54] LABS: Glucose,Whole Blood 312 mg/dL (75-99)
[2018-04-16] MEDS ORDERED: SODIUM POLYSTYRENE SULFONATE 15 GM/60 ML BOTTLE PO STA (08:28)
[2018-04-16] MEDS: FUROSEMIDE 40 MG TAB PO SCH ×2 (08:29→17:50)
[2018-04-16] MEDS: ASPIRIN 81 MG PO SCH (08:29)
[2018-04-16] MEDS: ATORVASTATIN 40 MG TAB PO SCH (08:29)
[2018-04-16] MEDS: PANTOPRAZOLE 40 MG TABLET PO SCH (08:29)
[2018-04-16] MEDS: DIVALPROEX 250 MG TABLET.DR PO SCH ×3 (08:29→21:48)
[2018-04-16] MEDS: BACLOFEN 10 MG TAB PO SCH ×2 (08:29→20:34)
[2018-04-16] MEDS: FERROUS SULFATE 325 MG TAB PO SCH (08:29)
[2018-04-16] MEDS: metFORMIN 500 MG TAB PO SCH ×2 (08:29→17:50)
[2018-04-16] MEDS: HYDROcodone/APAP 7.5-325MG 1 EACH TAB PO SCH ×2 (08:30→17:50)
[2018-04-16] MEDS: GABAPENTIN 300 MG CAP PO SCH ×3 (08:30→21:49)
[2018-04-16] MEDS: LINAGLIPTIN 5 MG TABLET PO SCH (08:31)
[2018-04-16] MEDS: NICOTINE 14MG/24HR PATCH TRANSDERM SCH (08:32)
[2018-04-16] MEDS: METOPROLOL TARTRATE 12.5 MG TAB PO SCH ×2 (08:32→20:34)
[2018-04-16] MEDS: VORTIOXETINE HYDROBROMIDE 10 MG TABLET PO SCH (08:32)
[2018-04-16] MEDS: INSULIN ASPART (NovoLOG) 100 UNIT/ML VIAL SQ SCH ×4 (08:33→20:34)
[2018-04-16] MEDS ORDERED: POTASSIUM CHLORIDE ER 10 MEQ TAB.ER.PRT PO SCH (09:00)
[2018-04-16] MEDS ORDERED: SPIRONOLACTONE 25 MG TAB PO SCH (09:00)
[2018-04-16] MEDS: BUDESONIDE 1 MG/2 ML NEBU INHALATION SCH ×2 (09:23→20:55)
[2018-04-16] MEDS: IPRATROPIUM-ALBUTEROL 3 ML NEB INHALATION SCH ×4 (09:23→20:55)
[2018-04-16 10:27] VITALS: BMI 46.2
[2018-04-16 11:41] LABS: Glucose,Whole Blood 161 mg/dL (75-99)
--- NOTE | 2018-04-16 12:21 | P.CRDCN ---
History of Present Illness History of present illness: This is a pleasant 57-year-old female past medical history significant for hypertension, dyslipidemia, COPD, chronic nicotine dependence, diabetes mellitus, pulmonary hypertension and coronary artery disease s/p stent placement to the mid LAD. She follows in the office with Dr. Barrios. She recently underwent a right and left heart cath 04/01/2018 revealing a patent stent in the LAD with no progression of coronary artery disease, elevated LVEDP , right atrial pressure of 8-10 mmHg, pulmonary artery pressure 60-65 mmHg and wedge pressure of 12-15 mmHg. We have been asked to see her in consultation for chest pain. She presented to the hospital with symptoms of shortness of breath at home over the last 2 weeks. She states she has been increasing her oxygen to 5 litres and is still short of breath. She also describes tightness in her chest when she takes a deep breath or coughs. There is no pain in the arm, back , neck or jaw. She denies palpitations, dizziness, nausea, vomiting or diaphoresis. She has been started on IV steroids since admission per primary. EKG reveals sinus mechanism right bundle branch block with T-wave inversions in the lateral leads. This is consistent with previous EKG there is no acute changes noted. Chest x-ray is negative for an acute cardiopulmonary process. Laboratory data reviewed, WBC 2.7, hemoglobin 12.3, platelets 88, sodium 137, potassium 5.4, creatinine 0.69, cardiac enzymes negative 1, NT proBNP 1960, pO2 54, pCO2 56, bicarb 31. Current cardiac medications include aspirin 81 mg daily, atorvastatin 40 mg daily, Lasix 80 mg twice a day, lopressor 12.5 mg BID, potassium supplementation , Aldactone 25 mg daily. Most recent echocardiogram obtained January 2018 reveals preserved left ventricular systolic function with ejection fraction 55% with severe pulmonary hypertension with RVSP of 108 mmHg. At the time of my exam: CONSTITUTIONAL: Denies fever. Denies chills. EYES: Denies blurred vision. Denies vision changes. Denies eye pain. EARS, NOSE, MOUTH & THROAT: Denies headache. Denies sore throat. Denies ear pain. CARDIOVASCULAR: Complains of pleuritic chest pain. Complains of shortness of breath. Denies orthopnea. Denies PND. Denies palpitations. RESPIRATORY: Complains of cough. GASTROINTESTINAL: Denies abdominal pain. Denies diarrhea. Denies constipation. Denies nausea. Denies vomiting. MUSCULOSKELETAL: Denies myalgias. INTEGUMENTARY: Denies pruitis. Denies rash. NEUROLOGIC: Denies numbness. Denies tingling. Denies weakness. PSYCHIATRIC: Denies anxiety. Denies depression. ENDOCRINE: Denies fatigue. Denies weight change. Denies polydipsia. Denies polyurina. GENITOURINARY: Denies burning, hematuria or urgency with micturation. HEMATOLOGIC: Denies history of anemia. Denies bleeding. GENERAL: This is a 57-year-old female in no apparent distress at the time of my examination. HEENT: Head is atraumatic, normocephalic. Pupils are equal, round. Sclerae anicteric. Conjunctivae are clear. Mucous membranes of the mouth are moist. Neck is supple. There is no jugular venous distention. No carotid bruit is heard. LUNGS: Course rhonchi and expiratory wheezing noted throughout. No rales. No chest wall tenderness is noted on palpation or with deep breathing. HEART: Regular rate and rhythm without murmurs, rubs or gallops. S1 and S2 heard. ABDOMEN: Soft, nontender. Bowel sounds are heard. No organomegaly noted. EXTREMITIES: No evidence of peripheral edema and no calf tenderness noted. VASCULAR: Radial and dorsalis pedis pulses palpated, no evidence of clubbing. NEUROLOGIC: Patient is awake, alert and oriented x3. ASSESSMENT Pleuritic chest pain. Recent normal catheterization. Chronic respiratory failure secondary to COPD and ongoing nicotine dependence with pulmonary hypertension Hyperkalemia Acute exacerbation of COPD Severe pulmonary hypertension, RVSP 108 mmHg Hypertension Dyslipidemia History of coronary artery disease status post stent placement to the mid LAD. Most recent cardiac catheterization March 2018 shows patent stent with no progression of CAD. Diabetes mellitus Chronic nicotine dependence PLAN Repeat 2D echocardiogram and doppler study. She is scheduled for this in the office next week for a follow up, we will complete while she is here and cancel her appointment in the office. Hold potassium supplementation and continue aldactone. Ongoing medical management of acute exacerbation of COPD. Chest pain is not indicative of an acute coronary syndrome or angina. Smoking cessation recommended. Follow-up upon discharge with Dr. Barrios. We will continue to follow as needed. Thank you kindly for this consultation. Nurse Practitioner note has been reviewed, I agree with a documented findings and plan of care. Patient was seen and examined. 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 Last Myocardial Infarction Date:: 1998 History of Any Multi-Drug Resistant Organisms: MRSA Date of last positivie culture/infection: 2001 MDRO Source:: PORT IN CHEST Past Surgical History: Bowel Resection, Section, Heart Catheterization With Stent, Hernia Repair, Orthopedic Surgery Additional Past Surgical History / Comment(s): 04/01/18 Cardiac cath, 04/2017 Removal R ear tube/tympanoplasty and bilateral tubes placed, prior ear surgeries , umbilical hernia repair with bowel paris/bowel resections then done along with L ovary removed, PICC lines/now out, mediport-now out (MRSA infection), PCI/ stents, R eye surgeries/lens implant/lasered for retinal detachment, EGD, colonoscopies, L breast benign biopsy, D&C, R vulva excision, R wrist ORIF with plate/pins, deviated septal surgery. Past Anesthesia/Blood Transfusion Reactions: Blood Transfusion Reaction Additional Past Anesthesia/Blood Transfusion Reaction / Comment(s): 2001-had some kind of transfusion reaction Date of Last Stent Placement:: 2001 Smoking Status: Current every day smoker - Past Family History Mother Additional Family Medical History / Comment(s): @ AGE 53 WITH ANEURYSM Father Family Medical History: Myocardial Infarction (NE) Additional Family Medical History / Comment(s): HAD CABG- COMMITTED SUICIDE A YEAR AFTER - PT'S GRANDFATHER(P) ALSO COMMITED SUICIDE Brother(s) Family Medical History: Coronary Artery Disease (CAD) Additional Family Medical History / Comment(s): COMMITTED SUICIDE Medications and Allergies Home Medications Medication Instructions Recorded Confirmed Type Atorvastatin [Lipitor] 40 mg PO DAILY 01/02/15 04/15/18 History Nitroglycerin Sl Tabs [Nitrostat] 0.4 mg SUBLINGUAL Q5M PRN 01/02/15 04/15/18 History Ranitidine HCl [Zantac] 150 mg PO BID 01/02/15 04/15/18 History Vortioxetine Hydrobromide 10 mg PO DAILY 12/12/16 04/15/18 History [Trintellix] Budesonide [Pulmicort Flexhaler] 1 puff INHALATION RT-BID 12/17/17 04/15/18 History Ferrous Sulfate [Iron (65 MG 325 mg PO DAILY 12/17/17 04/15/18 History Elemental)] Metoprolol Tartrate [Lopressor] 12.5 mg PO BID 12/17/17 04/15/18 History Spironolactone [Aldactone] 25 mg PO DAILY 12/17/17 04/15/18 History Tamsulosin [Flomax] 0.4 mg PO DAILY 12/17/17 04/15/18 History Aspirin EC [Ecotrin Low Dose] 81 mg PO DAILY 02/08/18 04/15/18 History Sennosides-Docusate Sodium 2 each PO BID #30 tab 02/11/18 04/15/18 Rx [Senokot-S] metFORMIN HCL [Glucophage] 500 mg PO BID-W/MEALS #60 tab 02/11/18 04/15/18 Rx Furosemide [Lasix] 80 mg PO BID@0900,1600 03/30/18 04/15/18 History Albuterol Nebulized (Conc) 2.5 mg INHALATION RT-QID 04/15/18 04/15/18 History [Ventolin Nebulized (Conc)] Baclofen [Lioresal] 20 mg PO BID 04/15/18 04/15/18 History Budesonide [Pulmicort] 1 mg INHALATION RT-BID 04/15/18 04/15/18 History Divalproex [Depakote] 250 mg PO TID 04/15/18 04/15/18 History Gabapentin [Neurontin] 600 mg PO TID 04/15/18 04/15/18 History HYDROcodone/APAP 7.5-325MG [Lititz 1 tab PO TID 04/15/18 04/15/18 History 7.5-325] Ipratropium Nebulized [Atrovent 0.5 mcg INHALATION BID 04/15/18 04/15/18 History Nebulized 0.2 MG/ML] Ipratropium Nebulized [Atrovent 0.5 mg INHALATION RT-QID 04/15/18 04/15/18 History Nebulized 0.2 MG/ML] Mirtazapine [Remeron] 30 mg PO HS 04/15/18 04/15/18 History Potassium Chloride ER [K-Dur 10] 10 meq PO DAILY 04/15/18 04/15/18 History sitaGLIPtin [Januvia] 100 mg PO DAILY 04/15/18 04/15/18 History Allergies Allergy/AdvReac Type Severity Reaction Status Date / Time amoxicillin Allergy SOB- RED Verified 04/15/18 11:11 [place] capsaicin Allergy SOB- RED Verified 04/15/18 11:11 [place] cephalexin monohydrate Allergy SOB- RED Verified 04/15/18 11:11 [From Keflex] [place] Cephalosporins Allergy SOB-RED Verified 04/15/18 11:11 [place] ciprofloxacin Allergy Unknown Verified 04/15/18 11:11 clindamycin Allergy SOB-RED Verified 04/15/18 11:11 [place] fluticasone propionate Allergy SOB- RED Verified 04/15/18 11:11 [From Flonase] [place] Penicillins Allergy SOB- RED Verified 04/15/18 11:11 [place] Sulfa (Sulfonamide Allergy SOB- RED Verified 04/15/18 11:11 Antibiotics) [place] mirtazapine [From Remeron] AdvReac Hallucinati Verified 04/15/18 21:43 ons BROWN DYES Allergy SOB- RED Uncoded 03/30/18 14:42 [place] Physical Exam Vitals: Vital Signs Temp Pulse Pulse Resp BP BP Pulse Ox 04/16/18 09:14 97.6 F 96 20 145/84 04/16/18 05:00 97.5 F L 61 18 100/58 94 L 04/15/18 21:15 82 04/15/18 21:00 97.8 F 59 L 20 110/63 92 L 04/15/18 20:59 80 04/15/18 15:27 80 02/13/19 15:14 78 94 L 04/15/18 15:05 97.5 F L 84 20 114/64 90 L 04/15/18 13:00 97.3 F L 98 26 H 123/76 91 L 04/15/18 12:00 84 21 123/92 91 L 04/15/18 11:50 82 21 109/98 95 04/15/18 10:18 98.2 F 89 22 109/98 90 L Intake and Output 04/15/18 04/16/18 04/16/18 22:59 06:59 14:59 Intake Total 700 1220 Balance 700 1220 Intake: IV 100 Magnesium Sulfate-D5w Pmx 100 1 gm In Dextrose/Water 1 100ml.bag @ 100 mls/hr IVPB ONCE STA Rx#: [id number] Oral 600 1220 Other: Voiding Method Toilet # Voids 1 3 Results 04/16/18 05:28 04/16/18 05:28 Cardiac Enzymes 04/15/18 04/15/18 04/15/18 Range/Units 10:30 10:30 16:59 AST 21 (14-36) U/L CK-MB (CK-2) 0.8 (0.0-2.4) ng/mL Troponin I <0.012 (0.000-0.034) ng/mL 04/15/18 04/16/18 Range/Units 23:12 05:28 AST (14-36) U/L CK-MB (CK-2) 0.7 0.8 (0.0-2.4) ng/mL Troponin I (0.000-0.034) ng/mL Coagulation 04/15/18 Range/Units 10:30 PT 9.5 (9.0-12.0) sec APTT 25.6 (22.0-30.0) sec CBC 04/15/18 04/16/18 Range/Units 10:30 05:28 WBC 4.0 2.7 L (3.8-10.6) k/uL RBC 3.43 L 3.33 L (3.80-5.40) m/uL Hgb 12.3 12.3 (11.4-16.0) gm/dL Hct 39.1 38.4 (34.0-46.0) % Plt Count 89 L 88 L (150-450) k/uL Comprehensive Metabolic Panel 02/13/19 02/14/19 Range/Units 10:30 05:28 Sodium 139 137 (137-145) mmol/L Potassium 4.3 5.4 H (3.5-5.1) mmol/L Chloride 103 99 (98-107) mmol/L Carbon Dioxide 30 34 H (22-30) mmol/L BUN 15 21 H (7-17) mg/dL Creatinine 0.65 0.69 (0.52-1.04) mg/dL Glucose 121 H 217 H (74-99) mg/dL Calcium 8.7 9.2 (8.4-10.2) mg/dL AST 21 (14-36) U/L ALT 35 (9-52) U/L Alkaline Phosphatase 57 (38-126) U/L Total Protein 6.0 L (6.3-8.2) g/dL Albumin 3.7 (3.5-5.0) g/dL Current Medications Generic Name Dose Route Start Last Admin Trade Name Freq PRN Reason Stop Dose Admin Hydrocodone Bitart/Acetaminophen 1 each 04/15/18 16:00 04/16/18 08:30 Lititz 7.5-325 PO 1 each TID HASMUKH Administration Albuterol/Ipratropium 3 ml 04/15/18 16:00 04/16/18 09:23 Duoneb 0.5 Mg-3 Mg/3 Ml Soln INHALATION 3 ml RT-QID HASMUKH Administration Aspirin 81 mg 04/16/18 09:00 04/16/18 08:29 Aspirin PO 81 mg DAILY HASMUKH Administration Atorvastatin Calcium 40 mg 04/16/18 09:00 04/16/18 08:29 Lipitor PO 40 mg DAILY HASMUKH Administration Baclofen 20 mg 04/15/18 21:00 04/16/18 08:29 Lioresal PO 20 mg BID HASMUKH Administration Budesonide 1 mg 04/15/18 20:00 04/16/18 09:23 Pulmicort INHALATION 1 mg RT-BID HASMUKH Administration Divalproex Sodium 250 mg 04/15/18 16:00 04/16/18 08:29 Depakote PO 250 mg TID HASMUKH Administration Ferrous Sulfate 325 mg 04/16/18 09:00 04/16/18 08:29 Feosol PO 325 mg DAILY HASMUKH Administration Furosemide 80 mg 04/15/18 16:00 04/16/18 08:29 Lasix PO 80 mg BID@0900,1600 HASMUKH Administration Gabapentin 600 mg 04/15/18 16:00 04/16/18 08:30 Neurontin PO 600 mg TID HASMUKH Administration Insulin Aspart 0 unit 04/15/18 17:30 04/16/18 08:33 Novolog SQ 8 unit ACHS HASMUKH Administration Protocol Linagliptin 5 mg 04/16/18 09:00 04/16/18 08:31 Tradjenta PO 5 mg DAILY HASMUKH Administration Metformin HCl 500 mg 04/15/18 17:30 04/16/18 08:29 Glucophage PO 500 mg BID-W/MEALS [facility] Administration Methylprednisolone Sodium Succinate 60 mg 04/15/18 16:00 04/16/18 00:39 Solu-Medrol IV 60 mg Q8HR [facility] Administration Metoprolol Tartrate 12.5 mg 04/15/18 21:00 04/16/18 08:32 Lopressor PO 12.5 mg BID [facility] Administration Mirtazapine 30 mg 04/15/18 21:00 04/15/18 21:39 Remeron PO Not Given HS [facility] Naloxone HCl 0.2 mg 04/15/18 12:00 Narcan IV Q2M PRN Opioid Reversal Nicotine 1 patch 04/16/18 09:00 04/16/18 08:32 Habitrol 14mg/24hr Patch TRANSDERM 1 patch DAILY [facility] Administration Nitroglycerin 0.4 mg 04/15/18 12:02 Nitrostat SUBLINGUAL Q5M PRN Chest Pain Pantoprazole Sodium 40 mg 04/16/18 07:30 04/16/18 08:29 Protonix PO 40 mg AC-[id number] [facility] Administration Vortioxetine 10 mg 04/16/18 09:00 04/16/18 08:32 Trintellix PO 10 mg DAILY [facility] Administration Intake and Output 04/15/18 04/16/18 04/16/18 22:59 06:59 14:59 Intake Total 700 1220 Balance 700 1220 Intake: IV 100 Magnesium Sulfate-D5w Pmx 100 1 gm In Dextrose/Water 1 100ml.bag @ 100 mls/hr IVPB ONCE STA Rx#: [id number] Oral 600 1220 Other: Voiding Method Toilet # Voids 1 3 04/16/18 05:28 04/16/18 05:28
--- NOTE | 2018-04-16 13:31 | P.PN ---
Subjective Progress Note Date: 04/16/18 This is a 57-year-old female patient of Dr. Ksesler. Patient presented to the ER with complaints of shortness of breath. Patient has a known past history of COPD in which she wears 4 L of home O2. Patient reports she's been requiring 5 L over the past 2 days. Patient's additional medical history includes brain aneurysm in which she follows with [facility] and has a follow-up appointment in 6 months, CVA, CAD, diabetes mellitus, fibromyalgia, GERD, AML with previous chemo, heart failure, hypertension, deafness, myocardial infarction, renal disease, osteoarthritis, sleep apnea. Patient recently underwent heart On 04/01 which showed patent stent in the mid LAD and mildly elevated left ventricular end-diastolic pressure patient was to be medically managed per cardiology. EKG completed showing normal sinus rhythm with sinus arrhythmia right bundle branch block with T-wave abnormality, consider lateral ischemia. Chest x-ray completed showing no evidence for acute pulmonary disease. Patient also reports that she is a current every day smoker. Patient states she has cut down to 5 cigarettes per day. Patient also reports he follows with Dr. Christine for pulmonary services. Patient also complaining of urinary burning. Will order urinary analysis with urine culture at this time. At this time patient is complaining of some chest discomfort related to breathing. Patient denies nausea vomiting or diarrhea. Patient is complaining of urinary burning with frequency. 04/16/2018 patient complaining of productive cough and shortness of breath. She 's been treated for COPD exacerbation. Also was evaluated by cardiology for chest pain which was likely pull pleuritic from her cough. Patient's potassium today is 5.4. Aldactone and potassium supplement has been held. She's been given Kayexalate that also help with her constipation. She is also being followed by hematology due to her history of AML white count 2.7 and platelets 88. Patient denies any nausea or vomiting. Denies any burning with urination. She is complaining of some right-sided neck discomfort. Objective - Vital Signs Vital signs: Vital Signs Temp 96.1 F L 04/16/18 12:37 Pulse 84 04/16/18 13:18 Resp 18 04/16/18 12:37 BP 118/58 04/16/18 12:37 Pulse Ox 94 L 04/16/18 05:00 Intake & Output 04/15/18 04/16/18 04/16/18 18:59 06:59 18:59 Intake Total 100 1820 Balance 100 1820 Weight 133.81 kg 133.81 kg Intake: IV 100 Magnesium Sulfate-D5w Pmx 100 1 gm In Dextrose/Water 1 100ml.bag @ 100 mls/hr IVPB ONCE STA Rx#: [id number] Oral 1820 Other: Voiding Method Toilet Toilet # Voids 3 - Exam Head normocephalic Neck supple Lungs diminished with a few scattered wheezes bilaterally Heart regular rate and rhythm S1-S2, no rub or gallop Abdomen is soft nontender nondistended positive bowel sounds no hepatosplenomegaly. Positive abdominal hernia Extremities no edema Neuro alert and orientated to 3 - Labs CBC & Chem 7: 04/16/18 05:28 04/16/18 05:28 Labs: Abnormal Lab Results - Last 24 Hours (Table) 04/15/18 04/15/18 04/15/18 Range/Units 10:30 17:06 20:30 WBC (3.8-10.6) k/uL RBC (3.80-5.40) m/uL MCV (80.0-100.0) fL MCH (25.0-35.0) pg Plt Count (150-450) k/uL Lymphocytes # (1.0-4.8) k/uL Pathologist Review See comment A Potassium (3.5-5.1) mmol/L Carbon Dioxide (22-30) mmol/L BUN (7-17) mg/dL Glucose (74-99) mg/dL POC Glucose (mg/dL) 241 H (75-99) mg/dL Urine Protein Trace H (Negative) Urine Ketones Trace H (Negative) 04/15/18 04/16/18 04/16/18 Range/Units 20:36 05:28 05:28 WBC 2.7 L (3.8-10.6) k/uL RBC 3.33 L (3.80-5.40) m/uL MCV 115.4 H (80.0-100.0) fL MCH 37.1 H (25.0-35.0) pg Plt Count 88 L (150-450) k/uL Lymphocytes # 0.6 L (1.0-4.8) k/uL Pathologist Review Potassium 5.4 H (3.5-5.1) mmol/L Carbon Dioxide 34 H (22-30) mmol/L BUN 21 H (7-17) mg/dL Glucose 217 H (74-99) mg/dL POC Glucose (mg/dL) 242 H (75-99) mg/dL Urine Protein (Negative) Urine Ketones (Negative) 04/16/18 04/16/18 Range/Units 06:52 11:40 WBC (3.8-10.6) k/uL RBC (3.80-5.40) m/uL MCV (80.0-100.0) fL MCH (25.0-35.0) pg Plt Count (150-450) k/uL Lymphocytes # (1.0-4.8) k/uL Pathologist Review Potassium (3.5-5.1) mmol/L Carbon Dioxide (22-30) mmol/L BUN (7-17) mg/dL Glucose (74-99) mg/dL POC Glucose (mg/dL) 312 H 161 H (75-99) mg/dL Urine Protein (Negative) Urine Ketones (Negative) Microbiology - Last 24 Hours (Table) 04/15/18 20:30 Urine Culture - Preliminary Urine,Voided Assessment and Plan Assessment: 1. Shortness of breath related to COPD exacerbation. Patient started on IV Solu-Medrol and nebulizer treatments. chest x-ray completed showing no acute pulmonary process. Dr. Christine consulted for pulmonary services. 2. Pleuritic Chest discomfort likely related to COPD exacerbation. EKG completed normal sinus rhythm with sinus arrhythmia right bundle branch block. Troponin negative. Patient seen evaluated by cardiology. Recent normal catheterization 3. Chronic hypoxic respiratory failure. Patient is maintained on 4 L nasal cannula at home 4. Sleep apnea. Patient's home CPAP machine at bedside 5. History of Pulmonary hypertension 6. Chronic diastolic heart failure. Patient maintained on Lasix 7. Pancytopenia Hematology following 8. History of acute leukemia currently in remission. Patient does follow with oncology services 9. Diabetes mellitus. Home medications resumed. Hemoglobin A1c ordered 10. History of brain aneurysm patient reports she follows with [facility] every 6 months 11. Nicotine dependence. Patient educated greater than 3 minutes on smoking cessation 12. History of GERD 13. History of fibromyalgia 14. History of osteoarthritis 15. History of coronary artery disease with previous myocardial infarction. Patient recently underwent cardiac cath which was found to have patent stent patient was to be medically managed 16. History of AML with previous chemo therapy treatment in 2001 . Consult hematology. continue monitor CBC DVT prophylaxis SCDs due to low platelets. GI prophylaxis Protonix I performed an examination of the patient and discussed their management with the physician Insulating Machine Operator. I have reviewed the Physician Insulating Machine Operator's notes and agree with the documented findings and plan of care
[2018-04-16] MEDS: FLUTICASONE 50MCG/SPRAY NASAL 16GM EA NOSTRIL SCH (14:10)
[2018-04-16] MEDS: guaiFENesin 600 MG TABLET.ER PO SCH (14:25)
[2018-04-16 16:58] LABS: Glucose,Whole Blood 278 mg/dL (75-99)
[2018-04-16 18:22] LABS: Hemoglobin A1C 6.1 % (4.0-6.0)
[2018-04-16 20:21] LABS: Glucose,Whole Blood 231 mg/dL (75-99)
[2018-04-16] MEDS: DOXYCYCLINE 100 MG CAP PO SCH (20:34)
--- NOTE | 2018-04-16 20:37 | P.CONS ---
History of Present Illness - Reason for Consult Consult date: 04/16/18 HX: Leukemia Requesting physician: Mindi Ascencio - Chief Complaint SOB - History of Present Illness he patient had AML diagnosed in .Had had induction and consolidation.she has been in remission since then. 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 She had a stroke on 02/10/2015. She was found to have iron deficiency anemia in ,she had a normal colonoscopy on 04/10/2016,she started oral iron in and her anemia significantly improved. She was admitted to [facility] in January/2018 because she had syncope,fell and had ruptured her large abdominal hernia,then was readmitted to [facility] in 2017 for another syncopal episode,had extensive work up,icluding CT scan of chest/abdomen/pelvis,she suffered large brusies from her fall,was found to be pancytopenic during her admission,she also had shingles. She was seen in office by Dr. Ferrer in January At this time,I don't see evidence of recurrent AML,her initial diagnosis was in 2002. Her thrombocytopenia is improving,it is likely secondary to acute events while in hospital and peripheral consumption,she has had macrocytosis for several years,however,it is possibly related to underlying liver disorders and peripheral sequestration,she has many other co-morbidities. She now presents to hospital with complaints of increased shortness of breath and cough. Patient has a known past history of COPD in which she wears 4 L of home O2. Requiring increased over the past 2 days. Patient's additional medical history includes brain aneurysm in which she follows with [facility] and has a follow-up appointment in 6 months, CVA, CAD, diabetes mellitus, fibromyalgia, GERD, AML with previous chemo, heart failure, hypertension, deafness, myocardial infarction, renal disease, osteoarthritis, sleep apnea. Patient recently underwent heart On 04/01/2018 which showed patent stent in the mid LAD and mildly elevated left ventricular end-diastolic pressure patient was to be medically managed per cardiology. EKG completed showing normal sinus rhythm with sinus arrhythmia right bundle branch block with T-wave abnormality, consider lateral ischemia. Chest x-ray completed showing no evidence for acute pulmonary disease. Patient also reports that she is a current every day smoker and continues to smoke. Review of Systems A 14 point review of system assessed and completed and all neg except HPI Past Medical History Past Medical History: Coronary Artery Disease (CAD), Cancer, Heart Failure, COPD , Diabetes Mellitus, Eye Disorder, Fibromyalgia, GERD/Reflux, Hearing Disorder / Deafness, Hyperlipidemia, Hypertension, Myocardial Infarction ([place]), Osteoarthritis (OA), Renal Disease, Sleep Apnea/CPAP/BIPAP, Syncope Additional Past Medical History / Comment(s): Brain aneurysm, rapid heart rate, 2001 acute myeloid leukemia with chemotherapy, vulvar cancer with surgery, NIDDM type II, neuropathy bilateral legs/feet, RLS, arthritis multiple joints and especially in her feet, back pain/scoliosis, osteoporosis, large abdominal hernia, anemia, R eye detached retina with surgery, [place] bilaterally, LOVE wit bipap and O2 4L at HS. Last Myocardial Infarction Date:: 1998 History of Any Multi-Drug Resistant Organisms: MRSA Year Discovered:: 2001 MDRO Source:: PORT IN CHEST Past Surgical History: Bowel Resection, Section, Heart Catheterization With Stent, Hernia Repair, Orthopedic Surgery Additional Past Surgical History / Comment(s): 04/01/18 Cardiac cath, 04/2017 Removal R ear tube/tympanoplasty and bilateral tubes placed, prior ear surgeries , umbilical hernia repair with bowel paris/bowel resections then done along with L ovary removed, PICC lines/now out, mediport-now out (MRSA infection), PCI/ stents, R eye surgeries/lens implant/lasered for retinal detachment, EGD, colonoscopies, L breast benign biopsy, D&C, R vulva excision, R wrist ORIF with plate/pins, deviated septal surgery. Past Anesthesia/Blood Transfusion Reactions: Blood Transfusion Reaction Additional Past Anesthesia/Blood Transfusion Reaction / Comm: 2001-had some kind of transfusion reaction Date of Last Stent Placement:: 2001 Smoking Status: Current every day smoker - Past Family History Mother Additional Family Medical History / Comment(s): @ AGE 53 WITH ANEURYSM Father Family Medical History: Myocardial Infarction ([place]) Additional Family Medical History / Comment(s): HAD CABG- COMMITTED SUICIDE A YEAR AFTER - PT'S GRANDFATHER(P) ALSO COMMITED SUICIDE Brother(s) Family Medical History: Coronary Artery Disease (CAD) Additional Family Medical History / Comment(s): COMMITTED SUICIDE Medications and Allergies Home Medications Medication Instructions Recorded Confirmed Type Atorvastatin [Lipitor] 40 mg PO DAILY 01/02/15 04/15/18 History Nitroglycerin Sl Tabs [Nitrostat] 0.4 mg SUBLINGUAL Q5M PRN 01/02/15 04/15/18 History Ranitidine HCl [Zantac] 150 mg PO BID 01/02/15 04/15/18 History Vortioxetine Hydrobromide 10 mg PO DAILY 12/12/16 04/15/18 History [Trintellix] Budesonide [Pulmicort Flexhaler] 1 puff INHALATION RT-BID 12/17/17 04/15/18 History Ferrous Sulfate [Iron (65 MG 325 mg PO DAILY 12/17/17 04/15/18 History Elemental)] Metoprolol Tartrate [Lopressor] 12.5 mg PO BID 12/17/17 04/15/18 History Spironolactone [Aldactone] 25 mg PO DAILY 12/17/17 04/15/18 History Tamsulosin [Flomax] 0.4 mg PO DAILY 12/17/17 04/15/18 History Aspirin EC [Ecotrin Low Dose] 81 mg PO DAILY 02/08/18 04/15/18 History Sennosides-Docusate Sodium 2 each PO BID #30 tab 02/11/18 04/15/18 Rx [Senokot-S] metFORMIN HCL [Glucophage] 500 mg PO BID-W/MEALS #60 tab 02/11/18 04/15/18 Rx Furosemide [Lasix] 80 mg PO BID@0900,1600 03/30/18 04/15/18 History Albuterol Nebulized (Conc) 2.5 mg INHALATION RT-QID 04/15/18 04/15/18 History [Ventolin Nebulized (Conc)] Baclofen [Lioresal] 20 mg PO BID 04/15/18 04/15/18 History Budesonide [Pulmicort] 1 mg INHALATION RT-BID 04/15/18 04/15/18 History Divalproex [Depakote] 250 mg PO TID 04/15/18 04/15/18 History Gabapentin [Neurontin] 600 mg PO TID 04/15/18 04/15/18 History HYDROcodone/APAP 7.5-325MG [[place] 1 tab PO TID 04/15/18 04/15/18 History 7.5-325] Ipratropium Nebulized [Atrovent 0.5 mcg INHALATION BID 04/15/18 04/15/18 History Nebulized 0.2 MG/ML] Ipratropium Nebulized [Atrovent 0.5 mg INHALATION RT-QID 04/15/18 04/15/18 History Nebulized 0.2 MG/ML] Mirtazapine [Remeron] 30 mg PO HS 04/15/18 04/15/18 History Potassium Chloride ER [K-Dur 10] 10 meq PO DAILY 04/15/18 04/15/18 History sitaGLIPtin [Januvia] 100 mg PO DAILY 04/15/18 04/15/18 History Allergies Allergy/AdvReac Type Severity Reaction Status Date / Time amoxicillin Allergy SOB- RED Verified 04/15/18 11:11 [place] capsaicin Allergy SOB- RED Verified 04/15/18 11:11 [place] cephalexin monohydrate Allergy SOB- RED Verified 04/15/18 11:11 [From Keflex] BLOT[place]Y SK[place] Cephalosporins Allergy SOB-RED Verified 04/15/18 11:11 [place] ciprofloxacin Allergy Unknown Verified 04/15/18 11:11 clindamycin Allergy SOB-RED Verified 04/15/18 11:11 [place] fluticasone propionate Allergy SOB- RED Verified 04/15/18 11:11 [From Flonase] [place] Penicillins Allergy SOB- RED Verified 04/15/18 11:11 [place] Sulfa (Sulfonamide Allergy SOB- RED Verified 04/15/18 11:11 Antibiotics) BLOT[place]Y [place] mirtazapine [From Remeron] AdvReac Hallucinati Verified 04/15/18 21:43 ons BROWN DYES Allergy SOB- RED Uncoded 03/30/18 14:42 BLOTCHY SK[place] Physical Exam Vitals: Vital Signs Temp Pulse Pulse Resp BP Pulse Ox 04/16/18 20:08 98 F 87 18 110/64 04/16/18 17:13 84 04/16/18 17:04 81 04/16/18 16:00 60 18 04/16/18 13:29 84 04/16/18 13:18 84 04/16/18 12:37 96.1 F L 60 18 118/58 04/16/18 09:40 88 04/16/18 09:24 84 04/16/18 09:14 97.6 F 96 20 145/84 04/16/18 08:00 96 20 04/16/18 05:00 97.5 F L 61 18 100/58 94 L 04/15/18 21:15 82 04/15/18 21:00 97.8 F 59 L 20 110/63 92 L 04/15/18 20:59 80 Intake and Output 04/16/18 04/16/18 04/16/18 06:59 14:59 22:59 Intake Total 1220 Output Total 200 200 Balance 1220 -200 -200 Intake: Oral 1220 Output: Urine 200 200 Other: Voiding Method Toilet Toilet Toilet # Voids 3 3 Weight 133.81 kg Gen: Alert and Oriented No Acute Distress Lungs: Crackles and Rhonchi, DIminished Bases Heart: RRR, S1s2 ABdomen: Soft, ND Extremity No edema Results CBC & Chem 7: 04/16/18 05:28 04/16/18 05:28 Labs: Abnormal Lab Results - Last 24 Hours (Table) 04/15/18 04/15/18 04/16/18 Range/Units 20:30 20:36 05:28 WBC (3.8-10.6) k/uL RBC (3.80-5.40) m/uL MCV (80.0-100.0) fL MCH (25.0-35.0) pg Plt Count (150-450) k/uL Lymphocytes # (1.0-4.8) k/uL Potassium (3.5-5.1) mmol/L Carbon Dioxide (22-30) mmol/L BUN (7-17) mg/dL Glucose (74-99) mg/dL POC Glucose (mg/dL) 242 H (75-99) mg/dL Hemoglobin A1c 6.1 H (4.0-6.0) % Urine Protein Trace H (Negative) Urine Ketones Trace H (Negative) 04/16/18 04/16/18 04/16/18 Range/Units 05:28 05:28 06:52 WBC 2.7 L (3.8-10.6) k/uL RBC 3.33 L (3.80-5.40) m/uL MCV 115.4 H (80.0-100.0) fL MCH 37.1 H (25.0-35.0) pg Plt Count 88 L (150-450) k/uL Lymphocytes # 0.6 L (1.0-4.8) k/uL Potassium 5.4 H (3.5-5.1) mmol/L Carbon Dioxide 34 H (22-30) mmol/L BUN 21 H (7-17) mg/dL Glucose 217 H (74-99) mg/dL POC Glucose (mg/dL) 312 H (75-99) mg/dL Hemoglobin A1c (4.0-6.0) % Urine Protein (Negative) Urine Ketones (Negative) 04/16/18 04/16/18 04/16/18 Range/Units 11:40 16:57 20:19 WBC (3.8-10.6) k/uL RBC (3.80-5.40) m/uL MCV (80.0-100.0) fL MCH (25.0-35.0) pg Plt Count (150-450) k/uL Lymphocytes # (1.0-4.8) k/uL Potassium (3.5-5.1) mmol/L Carbon Dioxide (22-30) mmol/L BUN (7-17) mg/dL Glucose (74-99) mg/dL POC Glucose (mg/dL) 161 H 278 H 231 H (75-99) mg/dL Hemoglobin A1c (4.0-6.0) % Urine Protein (Negative) Urine Ketones (Negative) Microbiology - Last 24 Hours (Table) 04/15/18 11:47 Blood Culture - Preliminary Blood No Growth after 24 hours 04/15/18 20:30 Urine Culture - Preliminary Urine,Voided Assessment and Plan Plan: Assessment and Recommendations: 1. COPD Exacerbation: PEr Primary and Pulmonary 2. Leukopenia and THrombocytopenia: - MOnitor CBC Daily - She does jave history of leukemia, although has had chronic cytopenias since treatment. Chronic yet stable 2012 - Currently stable and continue to monitor 3. Hx: Acute Leukemia. Physician Attest: I have completed the full history and physical and created the impression and plan above. Dictated as a scribe
[2018-04-17] MEDS: HYDROcodone/APAP 7.5-325MG 1 EACH TAB PO SCH ×3 (00:30→15:58)
[2018-04-17] MEDS: methylPREDNISolone SOD SUCCI 125 MG/2 ML VIAL IV SCH ×4 (00:30→23:49)
[2018-04-17 07:02] LABS: Glucose,Whole Blood 210 mg/dL (75-99)
--- NOTE | 2018-04-17 08:05 | P.CNPUL ---
History of Present Illness Consult date: 04/16/18 (Late entry note) Reason for consult: dyspnea, cough, COPD, hypoxemia, obstructive sleep apnea Chief complaint: Shortness of breath History of present illness: 57-year-old morbidly obese female who was seen evaluated examined on the third floor, patient presented into the emergency department with increasing shortness of breath patient has end-stage lung disease in his severe COPD emphysema, patient is a 24 7 O2 dependent lately she has been on 4 L oxygen, patient has a complex past medical history a as well as significant for sleep disorder breathing and sleep apnea has been on CPAP machine she is however due for a repeat CPAP titration study she continued to smoke however on a regular basis, Patient recently underwent heart On 04/01/2018 which showed patent stent in the mid LAD and mildly elevated left ventricular end-diastolic pressure patient was to be medically managed per cardiology. EKG completed showing normal sinus rhythm with sinus arrhythmia right bundle branch block with T-wave abnormality, consider lateral ischemia. Chest x-ray completed showing no evidence for acute pulmonary disease. Review of Systems All systems: negative Past Medical History Past Medical History: Coronary Artery Disease (CAD), Cancer, Heart Failure, COPD , Diabetes Mellitus, Eye Disorder, Fibromyalgia, GERD/Reflux, Hearing Disorder / Deafness, Hyperlipidemia, Hypertension, Myocardial Infarction ([place]), Osteoarthritis (OA), Renal Disease, Sleep Apnea/CPAP/BIPAP, Syncope Additional Past Medical History / Comment(s): Brain aneurysm, rapid heart rate, 2001 acute myeloid leukemia with chemotherapy, vulvar cancer with surgery, NIDDM type II, neuropathy bilateral legs/feet, RLS, arthritis multiple joints and especially in her feet, back pain/scoliosis, osteoporosis, large abdominal hernia, anemia, R eye detached retina with surgery, [place] bilaterally, LOVE wit bipap and O2 4L at HS. Last Myocardial Infarction Date:: 1998 History of Any Multi-Drug Resistant Organisms: MRSA Date of last positivie culture/infection: 2001 MDRO Source:: PORT IN CHEST Past Surgical History: Bowel Resection, Section, Heart Catheterization With Stent, Hernia Repair, Orthopedic Surgery Additional Past Surgical History / Comment(s): 04/01/18 Cardiac cath, 04/2017 Removal R ear tube/tympanoplasty and bilateral tubes placed, prior ear surgeries , umbilical hernia repair with bowel paris/bowel resections then done along with L ovary removed, PICC lines/now out, mediport-now out (MRSA infection), PCI/ stents, R eye surgeries/lens implant/lasered for retinal detachment, EGD, colonoscopies, L breast benign biopsy, D&C, R vulva excision, R wrist ORIF with plate/pins, deviated septal surgery. Past Anesthesia/Blood Transfusion Reactions: Blood Transfusion Reaction Additional Past Anesthesia/Blood Transfusion Reaction / Comment(s): 2001-had some kind of transfusion reaction Date of Last Stent Placement:: 2001 Smoking Status: Current every day smoker - Past Family History Mother Additional Family Medical History / Comment(s): @ AGE 53 WITH ANEURYSM Father Family Medical History: Myocardial Infarction ([place]) Additional Family Medical History / Comment(s): HAD CABG- COMMITTED SUICIDE A YEAR AFTER - PT'S GRANDFATHER(P) ALSO COMMITED SUICIDE Brother(s) Family Medical History: Coronary Artery Disease (CAD) Additional Family Medical History / Comment(s): COMMITTED SUICIDE Medications and Allergies Home Medications Medication Instructions Recorded Confirmed Type Atorvastatin [Lipitor] 40 mg PO DAILY 01/02/15 04/15/18 History Nitroglycerin Sl Tabs [Nitrostat] 0.4 mg SUBLINGUAL Q5M PRN 01/02/15 04/15/18 History Ranitidine HCl [Zantac] 150 mg PO BID 01/02/15 04/15/18 History Vortioxetine Hydrobromide 10 mg PO DAILY 12/12/16 04/15/18 History [Trintellix] Budesonide [Pulmicort Flexhaler] 1 puff INHALATION RT-BID 12/17/17 04/15/18 History Ferrous Sulfate [Iron (65 MG 325 mg PO DAILY 12/17/17 04/15/18 History Elemental)] Metoprolol Tartrate [Lopressor] 12.5 mg PO BID 12/17/17 04/15/18 History Spironolactone [Aldactone] 25 mg PO DAILY 12/17/17 04/15/18 History Tamsulosin [Flomax] 0.4 mg PO DAILY 12/17/17 04/15/18 History Aspirin EC [Ecotrin Low Dose] 81 mg PO DAILY 02/08/18 04/15/18 History Sennosides-Docusate Sodium 2 each PO BID #30 tab 02/11/18 04/15/18 Rx [Senokot-S] metFORMIN HCL [Glucophage] 500 mg PO BID-W/MEALS #60 tab 02/11/18 04/15/18 Rx Furosemide [Lasix] 80 mg PO BID@0900,1600 03/30/18 04/15/18 History Albuterol Nebulized (Conc) 2.5 mg INHALATION RT-QID 04/15/18 04/15/18 History [Ventolin Nebulized (Conc)] Baclofen [Lioresal] 20 mg PO BID 04/15/18 04/15/18 History Budesonide [Pulmicort] 1 mg INHALATION RT-BID 04/15/18 04/15/18 History Divalproex [Depakote] 250 mg PO TID 04/15/18 04/15/18 History Gabapentin [Neurontin] 600 mg PO TID 04/15/18 04/15/18 History HYDROcodone/APAP 7.5-325MG [[place] 1 tab PO TID 04/15/18 04/15/18 History 7.5-325] Ipratropium Nebulized [Atrovent 0.5 mcg INHALATION BID 04/15/18 04/15/18 History Nebulized 0.2 MG/ML] Ipratropium Nebulized [Atrovent 0.5 mg INHALATION RT-QID 04/15/18 04/15/18 History Nebulized 0.2 MG/ML] Mirtazapine [Remeron] 30 mg PO HS 04/15/18 04/15/18 History Potassium Chloride ER [K-Dur 10] 10 meq PO DAILY 04/15/18 04/15/18 History sitaGLIPtin [Januvia] 100 mg PO DAILY 04/15/18 04/15/18 History Allergies Allergy/AdvReac Type Severity Reaction Status Date / Time amoxicillin Allergy SOB- RED Verified 04/15/18 11:11 [place] SK[place] capsaicin Allergy SOB- RED Verified 04/15/18 11:11 [place] cephalexin monohydrate Allergy SOB- RED Verified 04/15/18 11:11 [From Keflex] [place] Cephalosporins Allergy SOB-RED Verified 04/15/18 11:11 [place] ciprofloxacin Allergy Unknown Verified 04/15/18 11:11 clindamycin Allergy SOB-RED Verified 04/15/18 11:11 [place] fluticasone propionate Allergy SOB- RED Verified 04/15/18 11:11 [From Flonase] [place] Penicillins Allergy SOB- RED Verified 04/15/18 11:11 [place] Sulfa (Sulfonamide Allergy SOB- RED Verified 04/15/18 11:11 Antibiotics) BLOT[place] mirtazapine [From Remeron] AdvReac Hallucinati Verified 04/15/18 21:43 ons BROWN DYES Allergy SOB- RED Uncoded 03/30/18 14:42 BLOTCHY SKIN Physical Exam Vitals: Vital Signs Temp Pulse Pulse Resp BP Pulse Ox 04/17/18 07:50 97.4 F L 96 18 101/56 04/17/18 05:00 97.4 F L 54 L 18 106/70 99 04/16/18 21:27 68 04/16/18 20:57 65 95 04/16/18 20:08 98 F 87 18 110/64 04/16/18 17:13 84 04/16/18 17:04 81 04/16/18 16:00 60 18 04/16/18 13:29 84 04/16/18 13:18 84 04/16/18 12:37 96.1 F L 60 18 118/58 04/16/18 09:40 88 04/16/18 09:24 84 04/16/18 09:14 97.6 F 96 20 145/84 04/16/18 08:00 96 20 Intake and Output 04/16/18 04/17/18 04/17/18 22:59 06:59 14:59 Intake Total 480 Output Total 200 Balance -200 480 Intake: Oral 480 Output: Urine 200 Other: Voiding Method Toilet Toilet # Voids 1 1 - Constitutional General appearance: cooperative, disheveled, mild distress, morbidly obese - EENT Eyes: EOMI, PERRLA, poor dentition Ears: bilateral: normal - Neck Neck: normal ROM Carotids: bilateral: upstroke normal Thyroid: bilateral: normal size - Respiratory Respiratory: bilateral: diminished, negative: dullness, rales, rhonchi, wheezing , prolonged expiration, prolonged inspiration - Cardiovascular Rhythm: regular Heart sounds: normal: S1, S2 - Gastrointestinal General gastrointestinal: decreased bowel sounds, soft - Integumentary Integumentary: normal turgor - Neurologic Neurologic: CNII-XII intact - Musculoskeletal Musculoskeletal: gait normal, generalized weakness, strength equal bilaterally - Psychiatric Psychiatric: A&O x's 3, appropriate affect, intact judgment & insight Results - Laboratory Findings CBC and BMP: 04/16/18 05:28 04/16/18 05:28 ABG ABG pH 7.35 (7.35-7.45) 04/15/18 11:38 ABG pCO2 56 mmHg (35-45) H 04/15/18 11:38 ABG pO2 54 mmHg (83-108) L* 04/15/18 11:38 ABG O2 Saturation 87.4 % (94-97) L 04/15/18 11:38 PT/INR, D-dimer PT 9.5 sec (9.0-12.0) 04/15/18 10:30 INR 0.9 (<1.2) 04/15/18 10:30 Abnormal lab findings: Abnormal Labs 04/15/18 04/15/18 04/15/18 10:30 10:30 11:38 WBC RBC 3.43 L MCV 114.1 H MCH 36.0 H RDW 15.6 H Plt Count 89 L Blast Cells % 1 H* Lymphocytes # Lymphocytes # (Manual) 0.72 L Metamyelocytes # (Man) 0.04 H Blast Cells # (Man) 0.04 H Pathologist Review See comment A ABG pCO2 56 H ABG pO2 54 L* ABG HCO3 31 H ABG Total CO2 33 H ABG O2 Saturation 87.4 L Potassium Carbon Dioxide BUN Glucose 121 H POC Glucose (mg/dL) Hemoglobin A1c Total Protein 6.0 L Urine Protein Urine Ketones 04/15/18 04/15/18 04/15/18 17:06 20:30 20:36 WBC RBC MCV MCH RDW Plt Count Blast Cells % Lymphocytes # Lymphocytes # (Manual) Metamyelocytes # (Man) Blast Cells # (Man) Pathologist Review ABG pCO2 ABG pO2 ABG HCO3 ABG Total CO2 ABG O2 Saturation Potassium Carbon Dioxide BUN Glucose POC Glucose (mg/dL) 241 H 242 H Hemoglobin A1c Total Protein Urine Protein Trace H Urine Ketones Trace H 04/16/18 04/16/18 04/16/18 05:28 05:28 05:28 WBC 2.7 L RBC 3.33 L MCV 115.4 H MCH 37.1 H RDW Plt Count 88 L Blast Cells % Lymphocytes # 0.6 L Lymphocytes # (Manual) Metamyelocytes # (Man) Blast Cells # (Man) Pathologist Review ABG pCO2 ABG pO2 ABG HCO3 ABG Total CO2 ABG O2 Saturation Potassium 5.4 H Carbon Dioxide 34 H BUN 21 H Glucose 217 H POC Glucose (mg/dL) Hemoglobin A1c 6.1 H Total Protein Urine Protein Urine Ketones 04/16/18 04/16/18 04/16/18 06:52 11:40 16:57 WBC RBC MCV MCH RDW Plt Count Blast Cells % Lymphocytes # Lymphocytes # (Manual) Metamyelocytes # (Man) Blast Cells # (Man) Pathologist Review ABG pCO2 ABG pO2 ABG HCO3 ABG Total CO2 ABG O2 Saturation Potassium Carbon Dioxide BUN Glucose POC Glucose (mg/dL) 312 H 161 H 278 H Hemoglobin A1c Total Protein Urine Protein Urine Ketones 04/16/18 04/17/18 20:19 07:00 WBC RBC MCV MCH RDW Plt Count Blast Cells % Lymphocytes # Lymphocytes # (Manual) Metamyelocytes # (Man) Blast Cells # (Man) Pathologist Review ABG pCO2 ABG pO2 ABG HCO3 ABG Total CO2 ABG O2 Saturation Potassium Carbon Dioxide BUN Glucose POC Glucose (mg/dL) 231 H 210 H Hemoglobin A1c Total Protein Urine Protein Urine Ketones - Diagnostic Findings Chest x-ray: report reviewed (Finding as noted above), image reviewed Assessment and Plan Assessment: Acute COPD exacerbation Coronary artery disease Chronic hypoxic respiratory failure on home oxygen 4 L nasal cannula Sleep disorder breathing and sleep apnea on CPAP however patient is due for repeat CPAP titration study to be scheduled on outpatient setting Pulmonary hypertension likely multifactorial Chronic diastolic heart failure History of leukemia which is in remission patient being monitor observe by oncology on outpatient basis Smoking and nicotine use Degenerative joint disease osteoarthritis and fibromyalgia History of brain aneurysm, patient gets follow-up at [facility] neurosurgery Severe morbid obesity Plan: Bronchodilators Supplemental oxygen IV steroids DVT and peptic ulcer disease prophylaxis Broad-spectrum oral antibiotics Continue current supportive care and monitor clinical course closely remains stable possible discharge from pulmonary standpoint 4-48 hours Time with Patient: Greater than 30
--- NOTE | 2018-04-17 08:08 | P.PN ---
Subjective Progress Note Date: 04/17/18 Principal diagnosis: Acute COPD exacerbation, acute on chronic hypoxic respiratory failure, coronary artery disease, and diastolic heart failure chronic in nature, pulmonary hypertension likely multifactorial, sleep disorder breathing and sleep apnea 04/17/2018, patient seen and evaluated examined earlier this morning patient is arousable follow simple command has been using CPAP machine from home, respiratory status is slightly improved compared to yesterday denies any cough or sputum production denies chest tightness 57-year-old morbidly obese female who was seen evaluated examined on the third floor, patient presented into the emergency department with increasing shortness of breath patient has end-stage lung disease in his severe COPD emphysema, patient is a 24 7 O2 dependent lately she has been on 4 L oxygen, patient has a complex past medical history a as well as significant for sleep disorder breathing and sleep apnea has been on CPAP machine she is however due for a repeat CPAP titration study she continued to smoke however on a regular basis, Patient recently underwent heart On 04/01/2018 which showed patent stent in the mid LAD and mildly elevated left ventricular end-diastolic pressure patient was to be medically managed per cardiology. EKG completed showing normal sinus rhythm with sinus arrhythmia right bundle branch block with T-wave abnormality, consider lateral ischemia. Chest x-ray completed showing no evidence for acute pulmonary disease. Objective - Vital Signs Vital signs: Vital Signs Temp 97.4 F L 04/17/18 07:50 Pulse 96 04/17/18 07:50 Resp 18 04/17/18 07:50 BP 101/56 04/17/18 07:50 Pulse Ox 99 04/17/18 05:00 Intake & Output 04/16/18 04/17/18 04/17/18 18:59 06:59 18:59 Intake Total 480 Output Total 400 Balance -400 480 Weight 133.81 kg Intake: Oral 480 Output: Urine 400 Other: Voiding Method Toilet Toilet # Voids 3 1 - Exam - Constitutional General appearance: cooperative, disheveled, mild distress, morbidly obese - EENT Eyes: EOMI, PERRLA, poor dentition Ears: bilateral: normal - Neck Neck: normal ROM Carotids: bilateral: upstroke normal Thyroid: bilateral: normal size - Respiratory Respiratory: bilateral: diminished, negative: dullness, rales, rhonchi, wheezing , prolonged expiration, prolonged inspiration - Cardiovascular Rhythm: regular Heart sounds: normal: S1, S2 - Gastrointestinal General gastrointestinal: decreased bowel sounds, soft - Integumentary Integumentary: normal turgor - Neurologic Neurologic: CNII-XII intact - Musculoskeletal Musculoskeletal: gait normal, generalized weakness, strength equal bilaterally - Psychiatric Psychiatric: A&O x's 3, appropriate affect, intact judgment & insight - Labs CBC & Chem 7: 04/16/18 05:28 04/16/18 05:28 Labs: Abnormal Lab Results - Last 24 Hours (Table) 04/16/18 04/16/18 04/16/18 Range/Units 05:28 11:40 16:57 POC Glucose (mg/dL) 161 H 278 H (75-99) mg/dL Hemoglobin A1c 6.1 H (4.0-6.0) % 04/16/18 04/17/18 Range/Units 20:19 07:00 POC Glucose (mg/dL) 231 H 210 H (75-99) mg/dL Hemoglobin A1c (4.0-6.0) % Microbiology - Last 24 Hours (Table) 04/15/18 20:30 Urine Culture - Final Urine,Voided 04/15/18 11:47 Blood Culture - Preliminary Blood No Growth after 24 hours Assessment and Plan Assessment: Acute COPD exacerbation Coronary artery disease Chronic hypoxic respiratory failure on home oxygen 4 L nasal cannula Sleep disorder breathing and sleep apnea on CPAP however patient is due for repeat CPAP titration study to be scheduled on outpatient setting Pulmonary hypertension likely multifactorial Chronic diastolic heart failure History of leukemia which is in remission patient being monitor observe by oncology on outpatient basis Smoking and nicotine use Degenerative joint disease osteoarthritis and fibromyalgia History of brain aneurysm, patient gets follow-up at [facility] neurosurgery Severe morbid obesity Plan: Bronchodilators Supplemental oxygen IV steroids DVT and peptic ulcer disease prophylaxis Broad-spectrum oral antibiotics Continue current supportive care and monitor clinical course closely remains stable possible discharge from pulmonary standpoint Time with Patient: Greater than 30
[2018-04-17] MEDS: BUDESONIDE 1 MG/2 ML NEBU INHALATION SCH ×2 (08:15→20:08)
[2018-04-17] MEDS: IPRATROPIUM-ALBUTEROL 3 ML NEB INHALATION SCH ×4 (08:15→20:08)
[2018-04-17] MEDS: INSULIN ASPART (NovoLOG) 100 UNIT/ML VIAL SQ SCH ×4 (08:53→21:07)
[2018-04-17] MEDS: NICOTINE 14MG/24HR PATCH TRANSDERM SCH (08:54)
[2018-04-17] MEDS: metFORMIN 500 MG TAB PO SCH ×2 (08:54→17:40)
[2018-04-17] MEDS: DIVALPROEX 250 MG TABLET.DR PO SCH ×3 (08:54→23:49)
[2018-04-17] MEDS: PANTOPRAZOLE 40 MG TABLET PO SCH (08:54)
[2018-04-17] MEDS: FERROUS SULFATE 325 MG TAB PO SCH (08:54)
[2018-04-17] MEDS: ATORVASTATIN 40 MG TAB PO SCH (08:54)
[2018-04-17] MEDS: BACLOFEN 10 MG TAB PO SCH ×2 (08:54→21:06)
[2018-04-17] MEDS: ASPIRIN 81 MG PO SCH (08:54)
[2018-04-17] MEDS: FUROSEMIDE 40 MG TAB PO SCH ×2 (08:55→15:58)
[2018-04-17] MEDS: GABAPENTIN 300 MG CAP PO SCH ×3 (08:55→23:48)
[2018-04-17] MEDS: LINAGLIPTIN 5 MG TABLET PO SCH (08:56)
[2018-04-17] MEDS: METOPROLOL TARTRATE 12.5 MG TAB PO SCH ×2 (08:57→21:06)
[2018-04-17] MEDS: VORTIOXETINE HYDROBROMIDE 10 MG TABLET PO SCH (08:57)
[2018-04-17] MEDS: DOXYCYCLINE 100 MG CAP PO SCH ×2 (08:57→21:06)
[2018-04-17 09:16] LABS: Calcium 9.1 mg/dL (8.4-10.2); Potassium 4.3 mmol/L (3.5-5.1)
[2018-04-17 09:18] LABS: Basophils % (A) 0 %; Eosinophils % (A) 1 %; HCT 37.1 % (34.0-46.0); Hypochromasia Moderate; Lymphocytes # (A) 0.8 k/uL (1.0-4.8); Lymphocytes % (A) 18 %; MCH 37.3 pg (25.0-35.0); MCHC 32.2 g/dL (31.0-37.0); MCV 115.7 fL (80.0-100.0); Macrocytosis Marked; Mean Platelet Volume 10.6; Monocytes # (A) 0.2 k/uL (0-1.0); Monocytes % (A) 4 %; Neutrophils # (A) 3.2 k/uL (1.3-7.7); Neutrophils % (A) 75 %; Platelet Count 104 k/uL (150-450); RBC 3.21 m/uL (3.80-5.40); RDW 15.3 % (11.5-15.5); WBC 4.2 k/uL (3.8-10.6)
[2018-04-17 10:59] LABS: Glucose,Whole Blood 278 mg/dL (75-99)
--- NOTE | 2018-04-17 11:21 | P.PN ---
Subjective Progress Note Date: 04/17/18 This is a 57-year-old female patient of Dr. Kessler. Patient presented to the ER with complaints of shortness of breath. Patient has a known past history of COPD in which she wears 4 L of home O2. Patient reports she's been requiring 5 L over the past 2 days. Patient's additional medical history includes brain aneurysm in which she follows with [facility] and has a follow-up appointment in 6 months, CVA, CAD, diabetes mellitus, fibromyalgia, GERD, AML with previous chemo, heart failure, hypertension, deafness, myocardial infarction, renal disease, osteoarthritis, sleep apnea. Patient recently underwent heart On 04/01 which showed patent stent in the mid LAD and mildly elevated left ventricular end-diastolic pressure patient was to be medically managed per cardiology. EKG completed showing normal sinus rhythm with sinus arrhythmia right bundle branch block with T-wave abnormality, consider lateral ischemia. Chest x-ray completed showing no evidence for acute pulmonary disease. Patient also reports that she is a current every day smoker. Patient states she has cut down to 5 cigarettes per day. Patient also reports he follows with Dr. Christine for pulmonary services. Patient also complaining of urinary burning. Will order urinary analysis with urine culture at this time. At this time patient is complaining of some chest discomfort related to breathing. Patient denies nausea vomiting or diarrhea. Patient is complaining of urinary burning with frequency. 04/16/2018 patient complaining of productive cough and shortness of breath. She 's been treated for COPD exacerbation. Also was evaluated by cardiology for chest pain which was likely pull pleuritic from her cough. Patient's potassium today is 5.4. Aldactone and potassium supplement has been held. She's been given Kayexalate that also help with her constipation. She is also being followed by hematology due to her history of AML white count 2.7 and platelets 88. Patient denies any nausea or vomiting. Denies any burning with urination. She is complaining of some right-sided neck discomfort. On 04/17/2018 patient is alert and oriented 3. Patient still having significant wheezing with sputum production. Patient remains on IV Solu-Medrol along with doxycycline. Pulmonary and oncology services are following. Patient also complaining of neck pain in which she takes [place] for pain control at this time. Patient denies any chest pain. Patient denies nausea vomiting or diarrhea. Patient denies any urinary burning or frequency. Potassium has improved to 4.3. Objective - Vital Signs Vital signs: Vital Signs Temp 97.4 F L 04/17/18 07:50 Pulse 63 04/17/18 10:26 Resp 18 04/17/18 10:26 BP 101/56 04/17/18 07:50 Pulse Ox 99 04/17/18 05:00 Intake & Output 04/16/18 04/17/18 04/17/18 18:59 06:59 18:59 Intake Total 480 Output Total 400 Balance -400 480 Weight 133.81 kg Intake: Oral 480 Output: Urine 400 Other: Voiding Method Toilet Toilet Toilet # Voids 3 1 - Exam Head normocephalic Neck supple Lungs diminished with a few scattered wheezes bilaterally Heart regular rate and rhythm S1-S2, no rub or gallop Abdomen is soft nontender nondistended positive bowel sounds no hepatosplenomegaly. Positive abdominal hernia Extremities no edema Neuro alert and orientated to 3 - Labs CBC & Chem 7: 04/17/18 07:41 04/17/18 07:41 Labs: Abnormal Lab Results - Last 24 Hours (Table) 04/16/18 04/16/18 04/16/18 Range/Units 05:28 11:40 16:57 RBC (3.80-5.40) m/uL MCV (80.0-100.0) fL MCH (25.0-35.0) pg Plt Count (150-450) k/uL Lymphocytes # (1.0-4.8) k/uL Carbon Dioxide (22-30) mmol/L BUN (7-17) mg/dL Glucose (74-99) mg/dL POC Glucose (mg/dL) 161 H 278 H (75-99) mg/dL Hemoglobin A1c 6.1 H (4.0-6.0) % 04/16/18 04/17/18 04/17/18 Range/Units 20:19 07:00 07:41 RBC 3.21 L (3.80-5.40) m/uL MCV 115.7 H (80.0-100.0) fL MCH 37.3 H (25.0-35.0) pg Plt Count 104 L (150-450) k/uL Lymphocytes # 0.8 L (1.0-4.8) k/uL Carbon Dioxide (22-30) mmol/L BUN (7-17) mg/dL Glucose (74-99) mg/dL POC Glucose (mg/dL) 231 H 210 H (75-99) mg/dL Hemoglobin A1c (4.0-6.0) % 04/17/18 04/17/18 Range/Units 07:41 10:56 RBC (3.80-5.40) m/uL MCV (80.0-100.0) fL MCH (25.0-35.0) pg Plt Count (150-450) k/uL Lymphocytes # (1.0-4.8) k/uL Carbon Dioxide 33 H (22-30) mmol/L BUN 40 H (7-17) mg/dL Glucose 200 H (74-99) mg/dL POC Glucose (mg/dL) 278 H (75-99) mg/dL Hemoglobin A1c (4.0-6.0) % Microbiology - Last 24 Hours (Table) 04/15/18 20:30 Urine Culture - Final Urine,Voided 04/15/18 11:47 Blood Culture - Preliminary Blood No Growth after 24 hours Assessment and Plan Assessment: 1. Shortness of breath related to COPD exacerbation. Patient started on IV Solu-Medrol and nebulizer treatments. chest x-ray completed showing no acute pulmonary process. Patient also started on doxycycline for antibiotic. [facility]ares services are following. Patient still having significant wheezing at this time will remain on IV Solu-Medrol 2. Pleuritic Chest discomfort likely related to COPD exacerbation. EKG completed normal sinus rhythm with sinus arrhythmia right bundle branch block. Troponin negative. Patient seen evaluated by cardiology. Recent normal catheterization 3. Chronic hypoxic respiratory failure. Patient is maintained on 4 L nasal cannula at home 4. Sleep apnea. Patient's home CPAP machine at bedside 5. History of Pulmonary hypertension 6. Chronic diastolic heart failure. Patient maintained on Lasix 7. Pancytopenia Hematology following. Platelets improving to 104 8. History of acute leukemia currently in remission. Patient does follow with oncology services 9. Diabetes mellitus. Home medications resumed. Hemoglobin A1c ordered 10. History of brain aneurysm patient reports she follows with [facility] every 6 months 11. Nicotine dependence. Patient educated greater than 3 minutes on smoking cessation 12. History of GERD 13. History of fibromyalgia 14. History of osteoarthritis 15. History of coronary artery disease with previous myocardial infarction. Patient recently underwent cardiac cath which was found to have patent stent patient was to be medically managed 16. History of AML with previous chemo therapy treatment in 2001 . Consult hematology. continue monitor CBC DVT prophylaxis SCDs due to low platelets. GI prophylaxis Protonix. I performed an examination of the patient and discussed their management with the Nurse Practitioner. I have reviewed the Nurse Practitioner's notes and agree with the documented findings and plan of care
[2018-04-17 17:26] LABS: Glucose,Whole Blood 277 mg/dL (75-99)
[2018-04-17 20:06] LABS: Glucose,Whole Blood 300 mg/dL (75-99)
[2018-04-18] MEDS: HYDROcodone/APAP 7.5-325MG 1 EACH TAB PO SCH ×4 (02:58→23:49)
[2018-04-18] MEDS: IPRATROPIUM-ALBUTEROL 3 ML NEB INHALATION SCH ×4 (03:08→20:37)
[2018-04-18 07:03] LABS: Glucose,Whole Blood 312 mg/dL (75-99)
[2018-04-18 07:41] LABS: Basophils % (A) 0 %; Eosinophils % (A) 1 %; HCT 38.3 % (34.0-46.0); HGB 11.8 gm/dL (11.4-16.0); Hypochromasia Moderate; Lymphocytes # (A) 0.6 k/uL (1.0-4.8); Lymphocytes % (A) 18 %; MCH 35.6 pg (25.0-35.0); MCHC 30.7 g/dL (31.0-37.0); MCV 115.9 fL (80.0-100.0); Macrocytosis Marked; Mean Platelet Volume 10.6; Monocytes # (A) 0.2 k/uL (0-1.0); Monocytes % (A) 6 %; Neutrophils # (A) 2.5 k/uL (1.3-7.7); Neutrophils % (A) 75 %; RBC 3.31 m/uL (3.80-5.40); RDW 15.1 % (11.5-15.5); WBC 3.3 k/uL (3.8-10.6)
[2018-04-18 07:43] LABS: Platelet Count 94 k/uL (150-450)
[2018-04-18 07:59] LABS: Calcium 9.4 mg/dL (8.4-10.2); Potassium 4.2 mmol/L (3.5-5.1)
[2018-04-18 08:15] LABS: Large Platelets Present
[2018-04-18] MEDS: GABAPENTIN 300 MG CAP PO SCH ×3 (08:45→22:17)
[2018-04-18] MEDS: FERROUS SULFATE 325 MG TAB PO SCH (08:45)
[2018-04-18] MEDS: metFORMIN 500 MG TAB PO SCH ×2 (08:45→16:47)
[2018-04-18] MEDS: BACLOFEN 10 MG TAB PO SCH ×2 (08:45→20:30)
[2018-04-18] MEDS: ASPIRIN 81 MG PO SCH (08:45)
[2018-04-18] MEDS: METOPROLOL TARTRATE 12.5 MG TAB PO SCH ×2 (08:45→23:48)
[2018-04-18] MEDS: PANTOPRAZOLE 40 MG TABLET PO SCH (08:46)
[2018-04-18] MEDS: methylPREDNISolone SOD SUCCI 125 MG/2 ML VIAL IV SCH ×3 (08:46→23:48)
[2018-04-18] MEDS: ATORVASTATIN 40 MG TAB PO SCH (08:46)
[2018-04-18] MEDS: FUROSEMIDE 40 MG TAB PO SCH ×2 (08:47→16:48)
[2018-04-18] MEDS: NICOTINE 14MG/24HR PATCH TRANSDERM SCH (08:47)
[2018-04-18] MEDS: VORTIOXETINE HYDROBROMIDE 10 MG TABLET PO SCH (08:48)
[2018-04-18] MEDS: LINAGLIPTIN 5 MG TABLET PO SCH (08:48)
[2018-04-18] MEDS: DIVALPROEX 250 MG TABLET.DR PO SCH ×3 (08:48→22:17)
[2018-04-18] MEDS: INSULIN ASPART (NovoLOG) 100 UNIT/ML VIAL SQ SCH ×4 (08:55→20:31)
[2018-04-18] MEDS: BUDESONIDE 1 MG/2 ML NEBU INHALATION SCH ×2 (09:53→20:37)
[2018-04-18 11:22] LABS: Glucose,Whole Blood 306 mg/dL (75-99)
[2018-04-18] MEDS: DOXYCYCLINE 100 MG CAP PO SCH ×2 (11:42→20:30)
--- NOTE | 2018-04-18 12:01 | P.PN ---
Subjective Progress Note Date: 04/18/18 This is a 57-year-old female patient of Dr. Kessler. Patient presented to the ER with complaints of shortness of breath. Patient has a known past history of COPD in which she wears 4 L of home O2. Patient reports she's been requiring 5 L over the past 2 days. Patient's additional medical history includes brain aneurysm in which she follows with [facility] and has a follow-up appointment in 6 months, CVA, CAD, diabetes mellitus, fibromyalgia, GERD, AML with previous chemo, heart failure, hypertension, deafness, myocardial infarction, renal disease, osteoarthritis, sleep apnea. Patient recently underwent heart On 04/01 which showed patent stent in the mid LAD and mildly elevated left ventricular end-diastolic pressure patient was to be medically managed per cardiology. EKG completed showing normal sinus rhythm with sinus arrhythmia right bundle branch block with T-wave abnormality, consider lateral ischemia. Chest x-ray completed showing no evidence for acute pulmonary disease. Patient also reports that she is a current every day smoker. Patient states she has cut down to 5 cigarettes per day. Patient also reports he follows with Dr. Christine for pulmonary services. Patient also complaining of urinary burning. Will order urinary analysis with urine culture at this time. At this time patient is complaining of some chest discomfort related to breathing. Patient denies nausea vomiting or diarrhea. Patient is complaining of urinary burning with frequency. 04/16/2018 patient complaining of productive cough and shortness of breath. She 's been treated for COPD exacerbation. Also was evaluated by cardiology for chest pain which was likely pull pleuritic from her cough. Patient's potassium today is 5.4. Aldactone and potassium supplement has been held. She's been given Kayexalate that also help with her constipation. She is also being followed by hematology due to her history of AML white count 2.7 and platelets 88. Patient denies any nausea or vomiting. Denies any burning with urination. She is complaining of some right-sided neck discomfort. On 04/17/2018 patient is alert and oriented 3. Patient still having significant wheezing with sputum production. Patient remains on IV Solu-Medrol along with doxycycline. Pulmonary and oncology services are following. Patient also complaining of neck pain in which she takes [place] for pain control at this time. Patient denies any chest pain. Patient denies nausea vomiting or diarrhea. Patient denies any urinary burning or frequency. Potassium has improved to 4.3. On 04/18/2018 patient is alert and oriented 3. Patient's breathing has improved. Patient is still wheezy. Patient remains on IV steroids at this time. Patient is being followed by pulmonary services. Patient denies any chest pain or shortness of breath. Patient is complaining of neck discomfort which she reports is chronic for her. Patient denies any urinary burning or frequency. Patient denies nausea vomiting or diarrhea. Objective - Vital Signs Vital signs: Vital Signs Temp 97.5 F L 04/18/18 11:46 Pulse 58 L 04/18/18 11:46 Resp 18 04/18/18 11:46 BP 108/52 04/18/18 11:46 Pulse Ox 92 L 04/18/18 11:46 Intake & Output 04/17/18 04/18/18 04/18/18 18:59 06:59 18:59 Intake Total 1180 315 Output Total 200 Balance 980 315 Intake: Oral 1180 315 Output: Urine 200 Other: Voiding Method Toilet Toilet Toilet # Voids 2 2 - Exam Head normocephalic Neck supple Lungs diminished with a few scattered wheezes bilaterally Heart regular rate and rhythm S1-S2, no rub or gallop Abdomen is soft nontender nondistended positive bowel sounds no hepatosplenomegaly. Positive abdominal hernia Extremities no edema Neuro alert and orientated to 3 - Labs CBC & Chem 7: 04/18/18 07:04 04/18/18 07:04 Labs: Abnormal Lab Results - Last 24 Hours (Table) 04/17/18 04/17/18 04/18/18 Range/Units 17:25 20:05 07:02 WBC (3.8-10.6) k/uL RBC (3.80-5.40) m/uL MCV (80.0-100.0) fL MCH (25.0-35.0) pg MCHC (31.0-37.0) g/dL Plt Count (150-450) k/uL Lymphocytes # (1.0-4.8) k/uL Chloride (98-107) mmol/L Carbon Dioxide (22-30) mmol/L BUN (7-17) mg/dL Glucose (74-99) mg/dL POC Glucose (mg/dL) 277 H 300 H 312 H (75-99) mg/dL 04/18/18 04/18/18 04/18/18 Range/Units 07:04 07:04 11:21 WBC 3.3 L (3.8-10.6) k/uL RBC 3.31 L (3.80-5.40) m/uL MCV 115.9 H (80.0-100.0) fL MCH 35.6 H (25.0-35.0) pg MCHC 30.7 L (31.0-37.0) g/dL Plt Count 94 L (150-450) k/uL Lymphocytes # 0.6 L (1.0-4.8) k/uL Chloride 97 L (98-107) mmol/L Carbon Dioxide 38 H (22-30) mmol/L BUN 44 H (7-17) mg/dL Glucose 309 H (74-99) mg/dL POC Glucose (mg/dL) 306 H (75-99) mg/dL Microbiology - Last 24 Hours (Table) 04/17/18 08:15 Gram Stain - Preliminary Sputum 04/15/18 11:47 Blood Culture - Preliminary Blood No Growth after 48 hours Assessment and Plan Assessment: 1. Shortness of breath related to COPD exacerbation. Patient started on IV Solu-Medrol and nebulizer treatments. chest x-ray completed showing no acute pulmonary process. Patient also started on doxycycline for antibiotic. Nares services are following. Patient still having significant wheezing at this time will remain on IV Solu-Medrol 2. Pleuritic Chest discomfort likely related to COPD exacerbation. EKG completed normal sinus rhythm with sinus arrhythmia right bundle branch block. Troponin negative. Patient seen evaluated by cardiology. Recent normal catheterization 3. Chronic hypoxic respiratory failure. Patient is maintained on 4 L nasal cannula at home 4. Sleep apnea. Patient's home CPAP machine at bedside 5. History of Pulmonary hypertension 6. Chronic diastolic heart failure. Patient maintained on Lasix 7. Pancytopenia Hematology following. Platelets improving to 104 8. History of acute leukemia currently in remission. Patient does follow with oncology services 9. Diabetes mellitus. Home medications resumed. Hemoglobin A1c ordered 10. History of brain aneurysm patient reports she follows with [facility] every 6 months 11. Nicotine dependence. Patient educated greater than 3 minutes on smoking cessation 12. History of GERD 13. History of fibromyalgia 14. History of osteoarthritis 15. History of coronary artery disease with previous myocardial infarction. Patient recently underwent cardiac cath which was found to have patent stent patient was to be medically managed 16. History of AML with previous chemo therapy treatment in 2001 . Consult hematology. continue monitor CBC DVT prophylaxis SCDs due to low platelets. GI prophylaxis Protonix. I performed an examination of the patient and discussed their management with the Nurse Practitioner. I have reviewed the Nurse Practitioner's notes and agree with the documented findings and plan of care
--- NOTE | 2018-04-18 13:37 | P.PN ---
Subjective Progress Note Date: 04/18/18 Acute COPD exacerbation, acute on chronic hypoxic respiratory failure, coronary artery disease, and diastolic heart failure chronic in nature, pulmonary hypertension likely multifactorial, sleep disorder breathing and sleep apnea 04/17/2018, patient seen and evaluated examined earlier this morning patient is arousable follow simple command has been using CPAP machine from home, respiratory status is slightly improved compared to yesterday denies any cough or sputum production denies chest tightness 57-year-old morbidly obese female who was seen evaluated examined on the third floor, patient presented into the emergency department with increasing shortness of breath patient has end-stage lung disease in his severe COPD emphysema, patient is a 24 7 O2 dependent lately she has been on 4 L oxygen, patient has a complex past medical history a as well as significant for sleep disorder breathing and sleep apnea has been on CPAP machine she is however due for a repeat CPAP titration study she continued to smoke however on a regular basis, Patient recently underwent heart On 04/01/2018 which showed patent stent in the mid LAD and mildly elevated left ventricular end-diastolic pressure patient was to be medically managed per cardiology. EKG completed showing normal sinus rhythm with sinus arrhythmia right bundle branch block with T-wave abnormality, consider lateral ischemia. Chest x-ray completed showing no evidence for acute pulmonary disease. 04/18/2017: Patient seen and examined covering for Dr. Christine. The patient states that she is still wheezing and short of breath. She has multiple complaints including head and neck pain, abdominal pain. She states that she also has nasal congestion and would like a nasal spray. Patient has been afebrile and hemodynamically stable. She is currently on 5 L nasal cannula with O2 saturation 92%. Objective - Vital Signs Vital signs: Vital Signs Temp 97.5 F L 04/18/18 11:46 Pulse 78 04/18/18 12:22 Resp 18 04/18/18 11:46 BP 108/52 04/18/18 11:46 Pulse Ox 92 L 04/18/18 11:46 Intake & Output 04/17/18 04/18/18 04/18/18 18:59 06:59 18:59 Intake Total 1180 315 Output Total 200 Balance 980 315 Intake: Oral 1180 315 Output: Urine 200 Other: Voiding Method Toilet Toilet Toilet # Voids 2 2 - Exam Gen.: Patient is alert and oriented 3, no acute distress, morbidly obese Cardiovascular: Regular rate and rhythm, S1/S2 Lungs: Coarse breath sounds bilaterally with expiratory wheezing Abdomen: Soft nontender nondistended positive bowel sounds Extremities: Trace edema - Labs CBC & Chem 7: 04/18/18 07:04 04/18/18 07:04 Labs: Abnormal Lab Results - Last 24 Hours (Table) 04/17/18 04/17/18 04/18/18 Range/Units 17:25 20:05 07:02 WBC (3.8-10.6) k/uL RBC (3.80-5.40) m/uL MCV (80.0-100.0) fL MCH (25.0-35.0) pg MCHC (31.0-37.0) g/dL Plt Count (150-450) k/uL Lymphocytes # (1.0-4.8) k/uL Chloride (98-107) mmol/L Carbon Dioxide (22-30) mmol/L BUN (7-17) mg/dL Glucose (74-99) mg/dL POC Glucose (mg/dL) 277 H 300 H 312 H (75-99) mg/dL 04/18/18 04/18/18 04/18/18 Range/Units 07:04 07:04 11:21 WBC 3.3 L (3.8-10.6) k/uL RBC 3.31 L (3.80-5.40) m/uL MCV 115.9 H (80.0-100.0) fL MCH 35.6 H (25.0-35.0) pg MCHC 30.7 L (31.0-37.0) g/dL Plt Count 94 L (150-450) k/uL Lymphocytes # 0.6 L (1.0-4.8) k/uL Chloride 97 L (98-107) mmol/L Carbon Dioxide 38 H (22-30) mmol/L BUN 44 H (7-17) mg/dL Glucose 309 H (74-99) mg/dL POC Glucose (mg/dL) 306 H (75-99) mg/dL Microbiology - Last 24 Hours (Table) 04/17/18 08:15 Gram Stain - Preliminary Sputum 04/15/18 11:47 Blood Culture - Preliminary Blood No Growth after 48 hours Assessment and Plan Assessment: Acute COPD exacerbation Tracheobronchitis Coronary artery disease Chronic hypoxic respiratory failure on home oxygen 4 L nasal cannula Sleep disorder breathing and sleep apnea on CPAP however patient is due for repeat CPAP titration study to be scheduled on outpatient setting Pulmonary hypertension likely multifactorial Chronic diastolic heart failure History of leukemia which is in remission patient being monitor observe by oncology on outpatient basis Smoking and nicotine use Degenerative joint disease osteoarthritis and fibromyalgia History of brain aneurysm, patient gets follow-up at [facility] neurosurgery Severe morbid obesity Plan: Bronchodilators Supplemental oxygen IV steroids DVT and peptic ulcer disease prophylaxis Doxycycline Add Perforomist, Mucinex, Flutter, Singulair, Flonase, Saline nasal spray
--- NOTE | 2018-04-18 15:14 | P.PN ---
Subjective Progress Note Date: 04/18/18 Principal diagnosis: COPD Exacerbation Her Cytopenias have continued to remain in safe range and stable Objective - Vital Signs Vital signs: Vital Signs Temp 97.5 F L 04/18/18 11:46 Pulse 78 04/18/18 12:22 Resp 18 04/18/18 11:46 BP 108/52 04/18/18 11:46 Pulse Ox 92 L 04/18/18 11:46 Intake & Output 04/17/18 04/18/18 04/18/18 18:59 06:59 18:59 Intake Total 1180 315 360 Output Total 200 Balance 980 315 360 Intake: Oral 1180 315 360 Output: Urine 200 Other: Voiding Method Toilet Toilet Toilet # Voids 2 2 3 # Bowel Movements 1 - Exam Gen: Alert and Oriented No Acute Distress Lungs: Crackles and Rhonchi, DIminished Bases Heart: RRR, S1s2 ABdomen: Soft, ND Extremity No edema - Labs CBC & Chem 7: 04/18/18 07:04 04/18/18 07:04 Labs: Abnormal Lab Results - Last 24 Hours (Table) 04/17/18 04/17/18 04/18/18 Range/Units 17:25 20:05 07:02 WBC (3.8-10.6) k/uL RBC (3.80-5.40) m/uL MCV (80.0-100.0) fL MCH (25.0-35.0) pg MCHC (31.0-37.0) g/dL Plt Count (150-450) k/uL Lymphocytes # (1.0-4.8) k/uL Chloride (98-107) mmol/L Carbon Dioxide (22-30) mmol/L BUN (7-17) mg/dL Glucose (74-99) mg/dL POC Glucose (mg/dL) 277 H 300 H 312 H (75-99) mg/dL 04/18/18 04/18/18 04/18/18 Range/Units 07:04 07:04 11:21 WBC 3.3 L (3.8-10.6) k/uL RBC 3.31 L (3.80-5.40) m/uL MCV 115.9 H (80.0-100.0) fL MCH 35.6 H (25.0-35.0) pg MCHC 30.7 L (31.0-37.0) g/dL Plt Count 94 L (150-450) k/uL Lymphocytes # 0.6 L (1.0-4.8) k/uL Chloride 97 L (98-107) mmol/L Carbon Dioxide 38 H (22-30) mmol/L BUN 44 H (7-17) mg/dL Glucose 309 H (74-99) mg/dL POC Glucose (mg/dL) 306 H (75-99) mg/dL Microbiology - Last 24 Hours (Table) 04/15/18 11:47 Blood Culture - Preliminary Blood No Growth after 72 hours 04/17/18 08:15 Gram Stain - Preliminary Sputum Sputum Culture - Preliminary Assessment and Plan Plan: Assessment and Recommendations: 1. COPD Exacerbation: PEr Primary and Pulmonary 2. Leukopenia and THrombocytopenia: Acute on Chronic - MOnitor CBC Daily - She does have history of leukemia, although has had chronic cytopenias since treatment. Chronic yet stable 2013 - Currently stable and continue to monitor - With her slow improvement will check Immunoglobulins if low would be room for additional immune support with IVIG - No other hematologic intervention needed at this time. 3. Hx: Acute Leukemia. Remission Physician Attest: I have discussed this case in relation to the completed full history and physical and created the impression and plan above. Dictated as a scribe
[2018-04-18 17:12] LABS: Glucose,Whole Blood 177 mg/dL (75-99)
[2018-04-18 20:26] LABS: Glucose,Whole Blood 218 mg/dL (75-99)
[2018-04-18] MEDS: guaiFENesin 600 MG TABLET.ER PO SCH (20:30)
[2018-04-18] MEDS: MONTELUKAST 10 MG TAB PO SCH (20:30)
[2018-04-18] MEDS: FORMOTEROL FUMARATE 20 MCG/2 ML NEBU INHALATION SCH (20:37)
[2018-04-19] MEDS: SODIUM CHLORIDE 0.65% NASAL SPRAY 44 ML BTL NASAL PRN (00:31)
[2018-04-19] MEDS: BUDESONIDE 1 MG/2 ML NEBU INHALATION SCH ×2 (05:48→19:46)
[2018-04-19] MEDS: FORMOTEROL FUMARATE 20 MCG/2 ML NEBU INHALATION SCH ×2 (05:48→19:46)
[2018-04-19] MEDS: IPRATROPIUM-ALBUTEROL 3 ML NEB INHALATION SCH ×4 (05:48→19:46)
[2018-04-19 07:08] LABS: Glucose,Whole Blood 261 mg/dL (75-99)
[2018-04-19] MEDS: NICOTINE 14MG/24HR PATCH TRANSDERM SCH ×2 (07:27→07:36)
[2018-04-19] MEDS: guaiFENesin 600 MG TABLET.ER PO SCH ×2 (07:27→20:50)
[2018-04-19] MEDS: FERROUS SULFATE 325 MG TAB PO SCH (07:28)
[2018-04-19] MEDS: HYDROcodone/APAP 7.5-325MG 1 EACH TAB PO SCH ×3 (07:28→21:46)
[2018-04-19] MEDS: BACLOFEN 10 MG TAB PO SCH ×2 (07:29→20:50)
[2018-04-19] MEDS: FUROSEMIDE 40 MG TAB PO SCH ×2 (07:29→18:45)
[2018-04-19] MEDS: metFORMIN 500 MG TAB PO SCH ×2 (07:29→18:45)
[2018-04-19] MEDS: ATORVASTATIN 40 MG TAB PO SCH (07:29)
[2018-04-19] MEDS: ASPIRIN 81 MG PO SCH (07:30)
[2018-04-19] MEDS: METOPROLOL TARTRATE 12.5 MG TAB PO SCH ×2 (07:30→20:50)
[2018-04-19] MEDS: PANTOPRAZOLE 40 MG TABLET PO SCH (07:30)
[2018-04-19] MEDS: GABAPENTIN 300 MG CAP PO SCH ×3 (07:30→21:45)
[2018-04-19] MEDS: FLUTICASONE 50MCG/SPRAY NASAL 16GM EA NOSTRIL SCH (07:35)
[2018-04-19] MEDS: VORTIOXETINE HYDROBROMIDE 10 MG TABLET PO SCH (07:35)
[2018-04-19] MEDS: LINAGLIPTIN 5 MG TABLET PO SCH (07:35)
[2018-04-19] MEDS: INSULIN ASPART (NovoLOG) 100 UNIT/ML VIAL SQ SCH ×4 (07:36→20:50)
[2018-04-19] MEDS: methylPREDNISolone SOD SUCCI 125 MG/2 ML VIAL IV SCH ×2 (07:37→18:46)
[2018-04-19] MEDS: DIVALPROEX 250 MG TABLET.DR PO SCH ×3 (07:38→21:46)
[2018-04-19] MEDS: DOXYCYCLINE 100 MG CAP PO SCH ×2 (07:39→20:50)
[2018-04-19 07:56] LABS: Basophils % (A) 0 %; Eosinophils # (A) 0.1 k/uL (0-0.7); Eosinophils % (A) 1 %; Hypochromasia Slight; Lymphocytes % (A) 18 %; MCH 35.1 pg (25.0-35.0); MCHC 30.7 g/dL (31.0-37.0); MCV 114.2 fL (80.0-100.0); Macrocytosis Marked; Mean Platelet Volume 10.1; Monocytes # (A) 0.2 k/uL (0-1.0); Monocytes % (A) 4 %; Neutrophils # (A) 4.1 k/uL (1.3-7.7); Neutrophils % (A) 76 %; Platelet Count 115 k/uL (150-450); RBC 3.42 m/uL (3.80-5.40); RDW 15.2 % (11.5-15.5); WBC 5.3 k/uL (3.8-10.6)
[2018-04-19 08:10] LABS: Calcium 9.3 mg/dL (8.4-10.2); Potassium 4.4 mmol/L (3.5-5.1); Total Bilirubin 0.4 mg/dL (0.2-1.3); Total Protein 6.1 g/dL (6.3-8.2)
[2018-04-19 09:52] LABS: Large Platelets Present
[2018-04-19 09:54] LABS: Poikilocytosis (M) Present
[2018-04-19 11:12] LABS: Glucose,Whole Blood 243 mg/dL (75-99)
--- NOTE | 2018-04-19 13:55 | P.PN ---
Subjective Progress Note Date: 04/19/18 This is a 57-year-old female patient of Dr. Kessler. Patient presented to the ER with complaints of shortness of breath. Patient has a known past history of COPD in which she wears 4 L of home O2. Patient reports she's been requiring 5 L over the past 2 days. Patient's additional medical history includes brain aneurysm in which she follows with [facility] and has a follow-up appointment in 6 months, CVA, CAD, diabetes mellitus, fibromyalgia, GERD, AML with previous chemo, heart failure, hypertension, deafness, myocardial infarction, renal disease, osteoarthritis, sleep apnea. Patient recently underwent heart On 04/01 which showed patent stent in the mid LAD and mildly elevated left ventricular end-diastolic pressure patient was to be medically managed per cardiology. EKG completed showing normal sinus rhythm with sinus arrhythmia right bundle branch block with T-wave abnormality, consider lateral ischemia. Chest x-ray completed showing no evidence for acute pulmonary disease. Patient also reports that she is a current every day smoker. Patient states she has cut down to 5 cigarettes per day. Patient also reports he follows with Dr. Christine for pulmonary services. Patient also complaining of urinary burning. Will order urinary analysis with urine culture at this time. At this time patient is complaining of some chest discomfort related to breathing. Patient denies nausea vomiting or diarrhea. Patient is complaining of urinary burning with frequency. 04/16/2018 patient complaining of productive cough and shortness of breath. She 's been treated for COPD exacerbation. Also was evaluated by cardiology for chest pain which was likely pull pleuritic from her cough. Patient's potassium today is 5.4. Aldactone and potassium supplement has been held. She's been given Kayexalate that also help with her constipation. She is also being followed by hematology due to her history of AML white count 2.7 and platelets 88. Patient denies any nausea or vomiting. Denies any burning with urination. She is complaining of some right-sided neck discomfort. On 04/17/2018 patient is alert and oriented 3. Patient still having significant wheezing with sputum production. Patient remains on IV Solu-Medrol along with doxycycline. Pulmonary and oncology services are following. Patient also complaining of neck pain in which she takes [place] for pain control at this time. Patient denies any chest pain. Patient denies nausea vomiting or diarrhea. Patient denies any urinary burning or frequency. Potassium has improved to 4.3. On 04/18/2018 patient is alert and oriented 3. Patient's breathing has improved. Patient is still wheezy. Patient remains on IV steroids at this time. Patient is being followed by pulmonary services. Patient denies any chest pain or shortness of breath. Patient is complaining of neck discomfort which she reports is chronic for her. Patient denies any urinary burning or frequency. Patient denies nausea vomiting or diarrhea. On 04/19/2018 patient was seen and examined on the medical floor she is alert and oriented 3 in no apparent distress she is still complaining of some cough and shortness of breath otherwise no complaints at this time there is no fever or chills take which is chronic and followed as outpatient with neurology Dr. Dennison there is no dizziness no chest pain no nausea or vomiting no abdominal pain no diarrhea and no urinary symptoms Objective - Vital Signs Vital signs: Vital Signs Temp 97.5 F L 04/19/18 05:00 Pulse 64 04/19/18 11:09 Resp 18 04/19/18 08:25 BP 107/60 04/19/18 05:00 Pulse Ox 96 04/19/18 05:50 Intake & Output 04/18/18 04/19/18 04/19/18 18:59 06:59 18:59 Intake Total 360 Balance 360 Intake: Oral 360 Other: Voiding Method Toilet Toilet Toilet # Voids 3 2 # Bowel Movements 1 - Exam Head normocephalic and atraumatic Neck supple no JVD no goiter Lungs diminished with a few scattered wheezes bilaterally Heart regular rate and rhythm S1-S2, no rub or gallop Abdomen is soft nontender nondistended positive bowel sounds no hepatosplenomegaly. Positive abdominal hernia Extremities no edema no cyanosis or clubbing Neuro alert and orientated to 3 - Labs CBC & Chem 7: 04/19/18 06:48 04/19/18 06:48 Labs: Abnormal Lab Results - Last 24 Hours (Table) 04/18/18 04/18/18 04/19/18 Range/Units 17:11 20:25 06:48 RBC 3.42 L (3.80-5.40) m/uL MCV 114.2 H (80.0-100.0) fL MCH 35.1 H (25.0-35.0) pg MCHC 30.7 L (31.0-37.0) g/dL Plt Count 115 L (150-450) k/uL Chloride (98-107) mmol/L Carbon Dioxide (22-30) mmol/L BUN (7-17) mg/dL Glucose (74-99) mg/dL POC Glucose (mg/dL) 177 H 218 H (75-99) mg/dL Total Protein (6.3-8.2) g/dL 04/19/18 04/19/18 04/19/18 Range/Units 06:48 07:07 11:11 RBC (3.80-5.40) m/uL MCV (80.0-100.0) fL MCH (25.0-35.0) pg MCHC (31.0-37.0) g/dL Plt Count (150-450) k/uL Chloride 92 L (98-107) mmol/L Carbon Dioxide 37 H (22-30) mmol/L BUN 41 H (7-17) mg/dL Glucose 256 H (74-99) mg/dL POC Glucose (mg/dL) 261 H 243 H (75-99) mg/dL Total Protein 6.1 L (6.3-8.2) g/dL Microbiology - Last 24 Hours (Table) 04/17/18 08:15 Gram Stain - Final Sputum Sputum Culture - Final Moraxella(branhamella) catarra 04/15/18 11:47 Blood Culture - Preliminary Blood No Growth after 72 hours Assessment and Plan Plan: 1. Shortness of breath related to COPD exacerbation. Patient started on IV Solu-Medrol and nebulizer treatments. chest x-ray completed showing no acute pulmonary process. Patient also started on doxycycline for antibiotic. [facility]ares services are following. Patient still having significant wheezing at this time will remain on IV Solu-Medrol 2. Pleuritic Chest discomfort likely related to COPD exacerbation. EKG completed normal sinus rhythm with sinus arrhythmia right bundle branch block. Troponin negative. Patient seen evaluated by cardiology. Recent normal catheterization 3. Chronic hypoxic respiratory failure. Patient is maintained on 4 L nasal cannula at home 4. Sleep apnea. Patient's home CPAP machine at bedside 5. History of Pulmonary hypertension 6. Chronic diastolic heart failure. Patient maintained on Lasix 7. Pancytopenia Hematology following. Platelets improving to 104 8. History of acute leukemia currently in remission. Patient does follow with oncology services 9. Diabetes mellitus. Home medications resumed. Hemoglobin A1c ordered 10. History of brain aneurysm patient reports she follows with [facility] every 6 months 11. Nicotine dependence. Patient educated greater than 3 minutes on smoking cessation 12. History of GERD 13. History of fibromyalgia 14. History of osteoarthritis 15. History of coronary artery disease with previous myocardial infarction. Patient recently underwent cardiac cath which was found to have patent stent patient was to be medically managed 16. History of AML with previous chemo therapy treatment in 2001 . Consult hematology. continue monitor CBC DVT prophylaxis SCDs due to low platelets. GI prophylaxis Protonix.
--- NOTE | 2018-04-19 16:26 | P.PN ---
Subjective Progress Note Date: 04/19/18 Acute COPD exacerbation, acute on chronic hypoxic respiratory failure, coronary artery disease, and diastolic heart failure chronic in nature, pulmonary hypertension likely multifactorial, sleep disorder breathing and sleep apnea 04/17/2018, patient seen and evaluated examined earlier this morning patient is arousable follow simple command has been using CPAP machine from home, respiratory status is slightly improved compared to yesterday denies any cough or sputum production denies chest tightness 57-year-old morbidly obese female who was seen evaluated examined on the third floor, patient presented into the emergency department with increasing shortness of breath patient has end-stage lung disease in his severe COPD emphysema, patient is a 24 7 O2 dependent lately she has been on 4 L oxygen, patient has a complex past medical history a as well as significant for sleep disorder breathing and sleep apnea has been on CPAP machine she is however due for a repeat CPAP titration study she continued to smoke however on a regular basis, Patient recently underwent heart On 04/01/2018 which showed patent stent in the mid LAD and mildly elevated left ventricular end-diastolic pressure patient was to be medically managed per cardiology. EKG completed showing normal sinus rhythm with sinus arrhythmia right bundle branch block with T-wave abnormality, consider lateral ischemia. Chest x-ray completed showing no evidence for acute pulmonary disease. 04/18/2017: Patient seen and examined covering for Dr. Christine. The patient states that she is still wheezing and short of breath. She has multiple complaints including head and neck pain, abdominal pain. She states that she also has nasal congestion and would like a nasal spray. Patient has been afebrile and hemodynamically stable. She is currently on 5 L nasal cannula with O2 saturation 92%. 04/19/2018: Patient seen and examined covering for Dr. Christine. Patient states that she is still wheezing and short of breath. She is complaining of a cough. She states she is still short of breath today. She is on 5 L nasal cannula with O2 saturation 99%. Sputum culture is positive for Moraxella catarrhalis Objective - Vital Signs Vital signs: Vital Signs Temp 97.9 F 04/19/18 13:14 Pulse 83 04/19/18 13:14 Resp 17 04/19/18 13:14 BP 104/59 04/19/18 13:14 Pulse Ox 99 04/19/18 13:14 Intake & Output 04/18/18 04/19/1819 18:59 06:59 18:59 Intake Total 360 Balance 360 Intake: Oral 360 Other: Voiding Method Toilet Toilet Toilet # Voids 3 2 3 # Bowel Movements 1 - Exam Gen.: Patient is alert and oriented 3, no acute distress, morbidly obese Cardiovascular: Regular rate and rhythm, S1/S2 Lungs: Coarse breath sounds bilaterally with expiratory wheezing Abdomen: Soft nontender nondistended positive bowel sounds Extremities: Trace edema - Labs CBC & Chem 7: 04/19/18 06:48 04/19/18 06:48 Labs: Abnormal Lab Results - Last 24 Hours (Table) 04/18/18 04/18/18 04/19/18 Range/Units 17:11 20:25 06:48 RBC 3.42 L (3.80-5.40) m/uL MCV 114.2 H (80.0-100.0) fL MCH 35.1 H (25.0-35.0) pg MCHC 30.7 L (31.0-37.0) g/dL Plt Count 115 L (150-450) k/uL Chloride (98-107) mmol/L Carbon Dioxide (22-30) mmol/L BUN (7-17) mg/dL Glucose (74-99) mg/dL POC Glucose (mg/dL) 177 H 218 H (75-99) mg/dL Total Protein (6.3-8.2) g/dL 04/19/18 04/19/18 04/19/18 Range/Units 06:48 07:07 11:11 RBC (3.80-5.40) m/uL MCV (80.0-100.0) fL MCH (25.0-35.0) pg MCHC (31.0-37.0) g/dL Plt Count (150-450) k/uL Chloride 92 L (98-107) mmol/L Carbon Dioxide 37 H (22-30) mmol/L BUN 41 H (7-17) mg/dL Glucose 256 H (74-99) mg/dL POC Glucose (mg/dL) 261 H 243 H (75-99) mg/dL Total Protein 6.1 L (6.3-8.2) g/dL Microbiology - Last 24 Hours (Table) 04/15/18 11:47 Blood Culture - Preliminary Blood No Growth after 96 hours 04/17/18 08:15 Gram Stain - Final Sputum Sputum Culture - Final Moraxella(branhamella) catarra Assessment and Plan Assessment: Acute COPD exacerbation Tracheobronchitis Coronary artery disease Chronic hypoxic and hypercapnic respiratory failure on home oxygen 4 L nasal cannula Sleep disorder breathing and sleep apnea on CPAP however patient is due for repeat CPAP titration study to be scheduled on outpatient setting Pulmonary hypertension likely multifactorial Chronic diastolic heart failure History of leukemia which is in remission patient being monitor observe by oncology on outpatient basis Smoking and nicotine use Degenerative joint disease osteoarthritis and fibromyalgia History of brain aneurysm, patient gets follow-up at [facility] neurosurgery Severe morbid obesity Plan: Bronchodilators Supplemental oxygen IV steroids DVT and peptic ulcer disease prophylaxis Doxycycline Continue Perforomist, Mucinex, Flutter, Singulair, Flonase, Saline nasal spray Check IgE/HP panel
[2018-04-19 16:59] LABS: Glucose,Whole Blood 222 mg/dL (75-99)
[2018-04-19 20:40] LABS: Glucose,Whole Blood 290 mg/dL (75-99)
[2018-04-19] MEDS: MONTELUKAST 10 MG TAB PO SCH (20:50)
[2018-04-20] MEDS: methylPREDNISolone SOD SUCCI 125 MG/2 ML VIAL IV SCH ×3 (00:20→15:47)
[2018-04-20] MEDS: SODIUM CHLORIDE 0.65% NASAL SPRAY 44 ML BTL NASAL PRN ×2 (05:40→08:58)
[2018-04-20 07:01] LABS: Glucose,Whole Blood 291 mg/dL (75-99)
[2018-04-20] MEDS: BUDESONIDE 1 MG/2 ML NEBU INHALATION SCH ×2 (07:52→20:05)
[2018-04-20] MEDS: FORMOTEROL FUMARATE 20 MCG/2 ML NEBU INHALATION SCH ×2 (07:53→20:05)
[2018-04-20] MEDS: IPRATROPIUM-ALBUTEROL 3 ML NEB INHALATION SCH ×4 (07:53→20:06)
[2018-04-20 08:37] LABS: ALT 47 U/L (9-52); AST 25 U/L (14-36); Albumin 3.6 g/dL (3.5-5.0); Alkaline Phosphatase 50 U/L (38-126); Anion Gap 6 mmol/L; Blood Urea Nitrogen 40 mg/dL (7-17); Calcium 9.1 mg/dL (8.4-10.2); Carbon Dioxide 40 mmol/L (22-30); Chloride 92 mmol/L (98-107); Glucose 281 mg/dL (74-99); Potassium 4.4 mmol/L (3.5-5.1); Sodium 138 mmol/L (137-145); Total Bilirubin 0.6 mg/dL (0.2-1.3); Total Protein 5.8 g/dL (6.3-8.2)
[2018-04-20] MEDS: INSULIN ASPART (NovoLOG) 100 UNIT/ML VIAL SQ SCH ×4 (08:59→20:42)
[2018-04-20] MEDS: ASPIRIN 81 MG PO SCH (09:00)
[2018-04-20] MEDS: GABAPENTIN 300 MG CAP PO SCH ×3 (09:00→22:04)
[2018-04-20] MEDS: ATORVASTATIN 40 MG TAB PO SCH (09:00)
[2018-04-20] MEDS: BACLOFEN 10 MG TAB PO SCH ×2 (09:00→20:41)
[2018-04-20] MEDS: PANTOPRAZOLE 40 MG TABLET PO SCH (09:00)
[2018-04-20] MEDS: HYDROcodone/APAP 7.5-325MG 1 EACH TAB PO SCH ×3 (09:00→22:04)
[2018-04-20] MEDS: DOXYCYCLINE 100 MG CAP PO SCH ×2 (09:00→20:42)
[2018-04-20] MEDS: METOPROLOL TARTRATE 12.5 MG TAB PO SCH ×2 (09:00→20:41)
[2018-04-20] MEDS: metFORMIN 500 MG TAB PO SCH ×2 (09:00→15:49)
[2018-04-20] MEDS: FERROUS SULFATE 325 MG TAB PO SCH (09:00)
[2018-04-20] MEDS: DIVALPROEX 250 MG TABLET.DR PO SCH ×3 (09:00→22:04)
[2018-04-20] MEDS: FUROSEMIDE 40 MG TAB PO SCH ×2 (09:00→15:48)
[2018-04-20] MEDS: guaiFENesin 600 MG TABLET.ER PO SCH ×2 (09:01→20:41)
[2018-04-20] MEDS: LINAGLIPTIN 5 MG TABLET PO SCH (09:01)
--- NOTE | 2018-04-20 09:58 | P.PN ---
Subjective Progress Note Date: 04/20/18 Acute COPD exacerbation, acute on chronic hypoxic respiratory failure, coronary artery disease, and diastolic heart failure chronic in nature, pulmonary hypertension likely multifactorial, sleep disorder breathing and sleep apnea 04/17/2018, patient seen and evaluated examined earlier this morning patient is arousable follow simple command has been using CPAP machine from home, respiratory status is slightly improved compared to yesterday denies any cough or sputum production denies chest tightness 57-year-old morbidly obese female who was seen evaluated examined on the third floor, patient presented into the emergency department with increasing shortness of breath patient has end-stage lung disease in his severe COPD emphysema, patient is a 24 7 O2 dependent lately she has been on 4 L oxygen, patient has a complex past medical history a as well as significant for sleep disorder breathing and sleep apnea has been on CPAP machine she is however due for a repeat CPAP titration study she continued to smoke however on a regular basis, Patient recently underwent heart On 04/01/2018 which showed patent stent in the mid LAD and mildly elevated left ventricular end-diastolic pressure patient was to be medically managed per cardiology. EKG completed showing normal sinus rhythm with sinus arrhythmia right bundle branch block with T-wave abnormality, consider lateral ischemia. Chest x-ray completed showing no evidence for acute pulmonary disease. 04/18/2017: Patient seen and examined covering for Dr. Christine. The patient states that she is still wheezing and short of breath. She has multiple complaints including head and neck pain, abdominal pain. She states that she also has nasal congestion and would like a nasal spray. Patient has been afebrile and hemodynamically stable. She is currently on 5 L nasal cannula with O2 saturation 92%. 04/19/2018: Patient seen and examined covering for Dr. Christine. Patient states that she is still wheezing and short of breath. She is complaining of a cough. She states she is still short of breath today. She is on 5 L nasal cannula with O2 saturation 99%. Sputum culture is positive for Moraxella catarrhalis 04/20/2018: Patient seen and examined covering for Dr. Christine The patientStates she is still not feeling well. She does think her breathing is close to baseline. She does have expiratory wheezing but she states she always has this. She states she feels tired today. Objective - Vital Signs Vital signs: Vital Signs Temp 99.2 F 04/20/18 05:00 Pulse 54 L 04/20/18 08:00 Resp 16 04/20/18 05:00 BP 121/72 04/20/18 05:00 Pulse Ox 97 04/20/18 05:00 Intake & Output 04/19/18 04/20/18 04/20/18 18:59 06:59 18:59 Intake Total 1500 Output Total 200 Balance -200 1500 Intake: Oral 1500 Output: Urine 200 Other: Voiding Method Toilet Toilet # Voids 3 1 - Exam Gen.: Patient is alert and oriented 3, no acute distress, morbidly obese Cardiovascular: Regular rate and rhythm, S1/S2 Lungs: Coarse breath sounds bilaterally with expiratory wheezing Abdomen: Soft nontender nondistended positive bowel sounds Extremities: Trace edema - Labs CBC & Chem 7: 04/19/18 06:48 04/20/18 07:34 Labs: Abnormal Lab Results - Last 24 Hours (Table) 04/19/18 04/19/18 04/19/18 Range/Units 11:11 16:57 20:15 Chloride (98-107) mmol/L Carbon Dioxide (22-30) mmol/L BUN (7-17) mg/dL Glucose (74-99) mg/dL POC Glucose (mg/dL) 243 H 222 H 290 H (75-99) mg/dL Total Protein (6.3-8.2) g/dL 04/20/18 04/20/18 Range/Units 06:59 07:34 Chloride 92 L (98-107) mmol/L Carbon Dioxide 40 H (22-30) mmol/L BUN 40 H (7-17) mg/dL Glucose 281 H (74-99) mg/dL POC Glucose (mg/dL) 291 H (75-99) mg/dL Total Protein 5.8 L (6.3-8.2) g/dL Microbiology - Last 24 Hours (Table) 04/15/18 11:47 Blood Culture - Preliminary Blood No Growth after 96 hours 04/17/18 08:15 Gram Stain - Final Sputum Sputum Culture - Final Moraxella(branhamella) catarra Assessment and Plan Assessment: Acute COPD exacerbation Tracheobronchitis Coronary artery disease Chronic hypoxic and hypercapnic respiratory failure on home oxygen 4 L nasal cannula Sleep disorder breathing and sleep apnea on CPAP however patient is due for repeat CPAP titration study to be scheduled on outpatient setting Pulmonary hypertension likely multifactorial Chronic diastolic heart failure History of leukemia which is in remission patient being monitor observe by oncology on outpatient basis Smoking and nicotine use Degenerative joint disease osteoarthritis and fibromyalgia History of brain aneurysm, patient gets follow-up at [facility] neurosurgery Severe morbid obesity Plan: Bronchodilators Supplemental oxygen IV steroids DVT and peptic ulcer disease prophylaxis Doxycycline Continue Perforomist, Mucinex, Flutter, Singulair, Flonase, Saline nasal spray Pending IgE/HP panel
[2018-04-20] MEDS: FLUTICASONE 50MCG/SPRAY NASAL 16GM EA NOSTRIL SCH (11:04)
[2018-04-20] MEDS: VORTIOXETINE HYDROBROMIDE 10 MG TABLET PO SCH (11:04)
[2018-04-20 11:26] LABS: Immunoglobulin M 39.4 mg/dL (40.0-280.0)
[2018-04-20 11:39] LABS: Glucose,Whole Blood 232 mg/dL (75-99)
--- NOTE | 2018-04-20 14:13 | P.PN ---
Subjective Progress Note Date: 04/20/18 This is a 57-year-old female patient of Dr. Kessler. Patient presented to the ER with complaints of shortness of breath. Patient has a known past history of COPD in which she wears 4 L of home O2. Patient reports she's been requiring 5 L over the past 2 days. Patient's additional medical history includes brain aneurysm in which she follows with [facility] and has a follow-up appointment in 6 months, CVA, CAD, diabetes mellitus, fibromyalgia, GERD, AML with previous chemo, heart failure, hypertension, deafness, myocardial infarction, renal disease, osteoarthritis, sleep apnea. Patient recently underwent heart On 04/01 which showed patent stent in the mid LAD and mildly elevated left ventricular end-diastolic pressure patient was to be medically managed per cardiology. EKG completed showing normal sinus rhythm with sinus arrhythmia right bundle branch block with T-wave abnormality, consider lateral ischemia. Chest x-ray completed showing no evidence for acute pulmonary disease. Patient also reports that she is a current every day smoker. Patient states she has cut down to 5 cigarettes per day. Patient also reports he follows with Dr. Christine for pulmonary services. Patient also complaining of urinary burning. Will order urinary analysis with urine culture at this time. At this time patient is complaining of some chest discomfort related to breathing. Patient denies nausea vomiting or diarrhea. Patient is complaining of urinary burning with frequency. 04/16/2018 patient complaining of productive cough and shortness of breath. She 's been treated for COPD exacerbation. Also was evaluated by cardiology for chest pain which was likely pull pleuritic from her cough. Patient's potassium today is 5.4. Aldactone and potassium supplement has been held. She's been given Kayexalate that also help with her constipation. She is also being followed by hematology due to her history of AML white count 2.7 and platelets 88. Patient denies any nausea or vomiting. Denies any burning with urination. She is complaining of some right-sided neck discomfort. On 04/17/2018 patient is alert and oriented 3. Patient still having significant wheezing with sputum production. Patient remains on IV Solu-Medrol along with doxycycline. Pulmonary and oncology services are following. Patient also complaining of neck pain in which she takes [employer] for pain control at this time. Patient denies any chest pain. Patient denies nausea vomiting or diarrhea. Patient denies any urinary burning or frequency. Potassium has improved to 4.3. On 04/18/2018 patient is alert and oriented 3. Patient's breathing has improved. Patient is still wheezy. Patient remains on IV steroids at this time. Patient is being followed by pulmonary services. Patient denies any chest pain or shortness of breath. Patient is complaining of neck discomfort which she reports is chronic for her. Patient denies any urinary burning or frequency. Patient denies nausea vomiting or diarrhea. On 04/19/2018 patient was seen and examined on the medical floor she is alert and oriented 3 in no apparent distress she is still complaining of some cough and shortness of breath otherwise no complaints at this time there is no fever or chills take which is chronic and followed as outpatient with neurology Dr. Dennison there is no dizziness no chest pain no nausea or vomiting no abdominal pain no diarrhea and no urinary symptoms On 04/20/2017 patient alert and oriented 3. Patient is still having some coughing with congestion. Patient remains on IV Solu-Medrol and doxycycline. At this time patient denies chest pain. Patient denies nausea vomiting or diarrhea. Patient denies any urinary burning or frequency. Patient requesting to be evaluated for possible discharge to [facility] with home health care Objective - Vital Signs Vital signs: Vital Signs Temp 98.2 F 04/20/18 12:07 Pulse 76 04/20/18 12:07 Resp 18 04/20/18 12:07 BP 98/64 04/20/18 12:07 Pulse Ox 95 04/20/18 12:07 Intake & Output 04/19/18 04/20/18 04/20/18 18:59 06:59 18:59 Intake Total 1500 Output Total 200 Balance -200 1500 Intake: Oral 1500 Output: Urine 200 Other: Voiding Method Toilet Toilet # Voids 3 1 - Exam Head normocephalic Neck supple Lungs diminished with a few scattered wheezes bilaterally Heart regular rate and rhythm S1-S2, no rub or gallop Abdomen is soft nontender nondistended positive bowel sounds no hepatosplenomegaly. Positive abdominal hernia Extremities no edema Neuro alert and orientated to 3 - Labs CBC & Chem 7: 04/19/18 06:48 04/20/18 07:34 Labs: Abnormal Lab Results - Last 24 Hours (Table) 04/18/18 04/19/18 04/19/18 Range/Units 07:04 16:57 20:15 Chloride (98-107) mmol/L Carbon Dioxide (22-30) mmol/L BUN (7-17) mg/dL Glucose (74-99) mg/dL POC Glucose (mg/dL) 222 H 290 H (75-99) mg/dL Total Protein (6.3-8.2) g/dL IgG 405.0 L (700.0-1600.0) mg/dL IgM 39.4 L (40.0-280.0) mg/dL 04/20/18 04/20/18 04/20/18 Range/Units 06:59 07:34 11:33 Chloride 92 L (98-107) mmol/L Carbon Dioxide 40 H (22-30) mmol/L BUN 40 H (7-17) mg/dL Glucose 281 H (74-99) mg/dL POC Glucose (mg/dL) 291 H 232 H (75-99) mg/dL Total Protein 5.8 L (6.3-8.2) g/dL IgG (700.0-1600.0) mg/dL IgM (40.0-280.0) mg/dL Microbiology - Last 24 Hours (Table) 04/15/18 11:47 Blood Culture - Preliminary Blood No Growth after 120 hours 04/17/18 08:15 Gram Stain - Final Sputum Sputum Culture - Final Moraxella(branhamella) catarra Assessment and Plan Assessment: 1. Shortness of breath related to COPD exacerbation. Patient started on IV Solu-Medrol and nebulizer treatments. chest x-ray completed showing no acute pulmonary process. Patient also started on doxycycline for antibiotic. [facility]ares services are following. Patient still having significant wheezing at this time will remain on IV Solu-Medrol. Sputum culture growing moraxella catarra. Patient maintained on doxycycline per pulmonary services 2. Pleuritic Chest discomfort likely related to COPD exacerbation. EKG completed normal sinus rhythm with sinus arrhythmia right bundle branch block. Troponin negative. Patient seen evaluated by cardiology. Recent normal catheterization 3. Chronic hypoxic respiratory failure. Patient is maintained on 4 L nasal cannula at home 4. Sleep apnea. Patient's home CPAP machine at bedside 5. History of Pulmonary hypertension 6. Chronic diastolic heart failure. Patient maintained on Lasix 7. Pancytopenia Hematology following. Platelets improving to 104 8. History of acute leukemia currently in remission. Patient does follow with oncology services 9. Diabetes mellitus. Home medications resumed. Hemoglobin A1c ordered 10. History of brain aneurysm patient reports she follows with [facility] every 6 months 11. Nicotine dependence. Patient educated greater than 3 minutes on smoking cessation 12. History of GERD 13. History of fibromyalgia 14. History of osteoarthritis 15. History of coronary artery disease with previous myocardial infarction. Patient recently underwent cardiac cath which was found to have patent stent patient was to be medically managed 16. History of AML with previous chemo therapy treatment in 2001 . Consult hematology. continue monitor CBC DVT prophylaxis SCDs due to low platelets. GI prophylaxis Protonix. Patient to be evaluated by PT to evaluate possible DC placement at [facility] per patient request I performed an examination of the patient and discussed their management with the Nurse Practitioner. I have reviewed the Nurse Practitioner's notes and agree with the documented findings and plan of care
[2018-04-20 17:15] LABS: Glucose,Whole Blood 348 mg/dL (75-99)
[2018-04-20 20:17] LABS: Glucose,Whole Blood 359 mg/dL (75-99)
[2018-04-20] MEDS: MONTELUKAST 10 MG TAB PO SCH (20:41)
[2018-04-21] MEDS: methylPREDNISolone SOD SUCCI 125 MG/2 ML VIAL IV SCH ×2 (00:25→10:02)
[2018-04-21 07:04] LABS: Glucose,Whole Blood 218 mg/dL (75-99)
[2018-04-21 07:34] VITALS: TEMP 97.6
[2018-04-21] MEDS: INSULIN ASPART (NovoLOG) 100 UNIT/ML VIAL SQ SCH ×2 (08:20→12:45)
[2018-04-21] MEDS: PANTOPRAZOLE 40 MG TABLET PO SCH (08:21)
[2018-04-21] MEDS: ATORVASTATIN 40 MG TAB PO SCH (08:21)
[2018-04-21] MEDS: ASPIRIN 81 MG PO SCH (08:21)
[2018-04-21] MEDS: metFORMIN 500 MG TAB PO SCH (08:21)
[2018-04-21] MEDS: BACLOFEN 10 MG TAB PO SCH (08:21)
[2018-04-21] MEDS: FLUTICASONE 50MCG/SPRAY NASAL 16GM EA NOSTRIL SCH (08:22)
[2018-04-21] MEDS: FUROSEMIDE 40 MG TAB PO SCH (08:22)
[2018-04-21] MEDS: DIVALPROEX 250 MG TABLET.DR PO SCH (08:22)
[2018-04-21] MEDS: DOXYCYCLINE 100 MG CAP PO SCH (08:22)
[2018-04-21] MEDS: FERROUS SULFATE 325 MG TAB PO SCH (08:22)
[2018-04-21] MEDS: HYDROcodone/APAP 7.5-325MG 1 EACH TAB PO SCH (08:23)
[2018-04-21] MEDS: guaiFENesin 600 MG TABLET.ER PO SCH (08:23)
[2018-04-21] MEDS: GABAPENTIN 300 MG CAP PO SCH (08:23)
[2018-04-21] MEDS: LINAGLIPTIN 5 MG TABLET PO SCH (08:25)
[2018-04-21] MEDS: METOPROLOL TARTRATE 12.5 MG TAB PO SCH (08:25)
[2018-04-21] MEDS: VORTIOXETINE HYDROBROMIDE 10 MG TABLET PO SCH (08:26)
[2018-04-21] MEDS: NICOTINE 14MG/24HR PATCH TRANSDERM SCH (08:26)
[2018-04-21] MEDS ORDERED: NYSTATIN 100,000 UNIT/GM POWD 15 GM TOPICAL SCH (09:00)
[2018-04-21 09:04] LABS: ABG PO2 54 mmHg (83-108)
[2018-04-21 09:06] LABS: ALT 37 U/L (9-52); AST 18 U/L (14-36); Albumin 3.7 g/dL (3.5-5.0); Alkaline Phosphatase 53 U/L (38-126); Basophils % (A) 0 %; Blood Urea Nitrogen 36 mg/dL (7-17); Calcium 9.1 mg/dL (8.4-10.2); Chloride 89 mmol/L (98-107); Eosinophils # (A) 0.1 k/uL (0-0.7); Eosinophils % (A) 1 %; Glucose 254 mg/dL (74-99); HCT 35.7 % (34.0-46.0); HGB 11.4 gm/dL (11.4-16.0); Hypochromasia Slight; Lymphocytes # (A) 1.5 k/uL (1.0-4.8); Lymphocytes % (A) 23 %; MCH 36.6 pg (25.0-35.0); MCV 114.2 fL (80.0-100.0); Macrocytosis Marked; Mean Platelet Volume 10.3; Monocytes # (A) 0.3 k/uL (0-1.0); Monocytes % (A) 5 %; Neutrophils # (A) 4.6 k/uL (1.3-7.7); Neutrophils % (A) 69 %; Platelet Count 105 k/uL (150-450); Potassium 3.9 mmol/L (3.5-5.1); RBC 3.12 m/uL (3.80-5.40); RDW 15.1 % (11.5-15.5); Sodium 138 mmol/L (137-145); Total Bilirubin 0.5 mg/dL (0.2-1.3); Total Protein 5.9 g/dL (6.3-8.2); WBC 6.7 k/uL (3.8-10.6)
[2018-04-21] MEDS: IPRATROPIUM-ALBUTEROL 3 ML NEB INHALATION SCH ×2 (09:09→13:29)
[2018-04-21] MEDS: BUDESONIDE 1 MG/2 ML NEBU INHALATION SCH (09:09)
[2018-04-21] MEDS: FORMOTEROL FUMARATE 20 MCG/2 ML NEBU INHALATION SCH (09:09)
[2018-04-21 09:13] LABS: Anion Gap 6 mmol/L
[2018-04-21 09:23] LABS: Carbon Dioxide 43 mmol/L (22-30)
[2018-04-21 10:54] VITALS: BP 94/58
--- NOTE | 2018-04-21 11:39 | P.PN ---
Subjective Progress Note Date: 04/21/18 Acute COPD exacerbation, acute on chronic hypoxic respiratory failure, coronary artery disease, and diastolic heart failure chronic in nature, pulmonary hypertension likely multifactorial, sleep disorder breathing and sleep apnea 04/17/2018, patient seen and evaluated examined earlier this morning patient is arousable follow simple command has been using CPAP machine from home, respiratory status is slightly improved compared to yesterday denies any cough or sputum production denies chest tightness 57-year-old morbidly obese female who was seen evaluated examined on the third floor, patient presented into the emergency department with increasing shortness of breath patient has end-stage lung disease in his severe COPD emphysema, patient is a 24 7 O2 dependent lately she has been on 4 L oxygen, patient has a complex past medical history a as well as significant for sleep disorder breathing and sleep apnea has been on CPAP machine she is however due for a repeat CPAP titration study she continued to smoke however on a regular basis, Patient recently underwent heart On 04/01/2018 which showed patent stent in the mid LAD and mildly elevated left ventricular end-diastolic pressure patient was to be medically managed per cardiology. EKG completed showing normal sinus rhythm with sinus arrhythmia right bundle branch block with T-wave abnormality, consider lateral ischemia. Chest x-ray completed showing no evidence for acute pulmonary disease. 04/18/2017: Patient seen and examined covering for Dr. Christine. The patient states that she is still wheezing and short of breath. She has multiple complaints including head and neck pain, abdominal pain. She states that she also has nasal congestion and would like a nasal spray. Patient has been afebrile and hemodynamically stable. She is currently on 5 L nasal cannula with O2 saturation 92%. 04/19/2018: Patient seen and examined covering for Dr. Christine. Patient states that she is still wheezing and short of breath. She is complaining of a cough. She states she is still short of breath today. She is on 5 L nasal cannula with O2 saturation 99%. Sputum culture is positive for Moraxella catarrhalis 04/20/2018: Patient seen and examined covering for Dr. Christine The patientStates she is still not feeling well. She does think her breathing is close to baseline. She does have expiratory wheezing but she states she always has this. She states she feels tired today. 04/21/2018: Patient seen and examined covering for Dr. Christine. The patient states that her breathing is a little bit better today. She is complaining of headache and neck pain. She does note that this is chronic for her about sleeping in hospital bed makes it a little bit worse. She is currently on 5 L nasal cannula. At baseline the patient is on 5 L nasal cannula around the clock. Per the patient's nurse she was found to be vaping in her room. Objective - Vital Signs Vital signs: Vital Signs Temp 97.6 F 04/21/18 10:52 Pulse 79 04/21/18 10:52 Resp 14 04/21/18 10:52 BP 94/58 04/21/18 10:52 Pulse Ox 77 L 04/21/18 10:52 Intake & Output 04/20/18 04/21/18 04/21/18 18:59 06:59 18:59 Intake Total 1700 Balance 1700 Intake: Oral 1700 Other: Voiding Method Toilet # Voids 2 - Exam Gen.: Patient is alert and oriented 3, no acute distress, morbidly obese Cardiovascular: Regular rate and rhythm, S1/S2 Lungs: Coarse breath sounds bilaterally with expiratory wheezing Abdomen: Soft nontender nondistended positive bowel sounds Extremities: Trace edema - Labs CBC & Chem 7: 04/21/18 08:17 04/21/18 08:17 Labs: Abnormal Lab Results - Last 24 Hours (Table) 04/15/18 04/20/18 04/20/18 Range/Units 11:38 11:33 17:14 RBC (3.80-5.40) m/uL MCV (80.0-100.0) fL MCH (25.0-35.0) pg Plt Count (150-450) k/uL ABG pO2 54 L* (83-108) mmHg Chloride (98-107) mmol/L Carbon Dioxide (22-30) mmol/L BUN (7-17) mg/dL Glucose (74-99) mg/dL POC Glucose (mg/dL) 232 H 348 H (75-99) mg/dL Total Protein (6.3-8.2) g/dL 04/20/18 04/21/18 04/21/18 Range/Units 20:15 07:02 08:17 RBC (3.80-5.40) m/uL MCV (80.0-100.0) fL MCH (25.0-35.0) pg Plt Count (150-450) k/uL ABG pO2 (83-108) mmHg Chloride 89 L (98-107) mmol/L Carbon Dioxide 43 H* (22-30) mmol/L BUN 36 H (7-17) mg/dL Glucose 254 H (74-99) mg/dL POC Glucose (mg/dL) 359 H 218 H (75-99) mg/dL Total Protein 5.9 L (6.3-8.2) g/dL 04/21/18 Range/Units 08:17 RBC 3.12 L (3.80-5.40) m/uL MCV 114.2 H (80.0-100.0) fL MCH 36.6 H (25.0-35.0) pg Plt Count 105 L (150-450) k/uL ABG pO2 (83-108) mmHg Chloride (98-107) mmol/L Carbon Dioxide (22-30) mmol/L BUN (7-17) mg/dL Glucose (74-99) mg/dL POC Glucose (mg/dL) (75-99) mg/dL Total Protein (6.3-8.2) g/dL Microbiology - Last 24 Hours (Table) 04/15/18 11:47 Blood Culture - Preliminary Blood No Growth after 120 hours Assessment and Plan Assessment: Acute COPD exacerbation Tracheobronchitis Coronary artery disease Chronic hypoxic and hypercapnic respiratory failure on home oxygen 5 L nasal cannula Sleep disorder breathing and sleep apnea on CPAP however patient is due for repeat CPAP titration study to be scheduled on outpatient setting Pulmonary hypertension likely multifactorial Chronic diastolic heart failure History of leukemia which is in remission patient being monitor observe by oncology on outpatient basis Smoking and nicotine use Degenerative joint disease osteoarthritis and fibromyalgia History of brain aneurysm, patient gets follow-up at [facility] neurosurgery Severe morbid obesity Plan: Bronchodilators Supplemental oxygen IV steroids DVT and peptic ulcer disease prophylaxis Doxycycline Continue Perforomist, Mucinex, Flutter, Singulair, Flonase, Saline nasal spray Pending IgE/HP panel Will give 2 doses of diamox Discharge planning
[2018-04-21 12:07] LABS: Glucose,Whole Blood 176 mg/dL (75-99)
[2018-04-21 13:03] VITALS: RESP 17
--- NOTE | 2018-04-21 13:24 | P.DS ---
Providers Date of admission: 04/17/18 11:13 Expected date of discharge: 04/21/18 Attending physician: Goyo Grove Consults: 04/15/18 14:46 Consult Physician Routine Consulting Provider: Link Christine Consult Reason/Comments: COPD exacerbation, previous patient Do you want consulting provider notified?: Yes 04/15/18 15:36 Consult Physician Routine Consulting Provider: Joby Barrios Consult Reason/Comments: Chest pain. Previous cath Do you want consulting provider notified?: Yes Consult Physician Routine Consulting Provider: Ok Fiore Consult Reason/Comments: History of acute myeloid leukemia. Pancytopenia Do you want consulting provider notified?: Yes Primary care physician: [facility] Course: Discharge diagnosis 1. Shortness of breath related to COPD exacerbation. Patient started on IV Solu-Medrol and nebulizer treatments. chest x-ray completed showing no acute pulmonary process. Patient also started on doxycycline for antibiotic. Nares services are following. Patient still having significant wheezing at this time will remain on IV Solu-Medrol. Sputum culture growing moraxella catarra. Patient maintained on doxycycline per pulmonary services. Patient has been cleared for discharge from pulmonary standpoint. Patient will be DC'd on prednisone taper and doxycycline. 2. Pleuritic Chest discomfort likely related to COPD exacerbation. EKG completed normal sinus rhythm with sinus arrhythmia right bundle branch block. Troponin negative. Patient seen evaluated by cardiology. Recent normal catheterization 3. Chronic hypoxic respiratory failure. Patient is maintained on 4 L nasal cannula at home 4. Sleep apnea. Patient's home CPAP machine at bedside 5. History of Pulmonary hypertension 6. Chronic diastolic heart failure. Patient maintained on Lasix 7. Pancytopenia Hematology following. Platelets improving to 104 8. History of acute leukemia currently in remission. Patient does follow with oncology services 9. Diabetes mellitus. Home medications resumed. Globin A1c 6.1. Patient will be DC'd on home medications plus sliding scale coverage at retirement 10. History of brain aneurysm patient reports she follows with [facility] every 6 months 11. Nicotine dependence. Patient educated greater than 3 minutes on smoking cessation. Per Nursing staff patient has been using the nicotine vapor pen in the room. Again patient educated on the importance of all nicotine cessation due to patient's chronic pulmonary conditions. Patient will be DC'd on nicotine patch. 12. History of GERD 13. History of fibromyalgia 14. History of osteoarthritis 15. History of coronary artery disease with previous myocardial infarction. Patient recently underwent cardiac cath which was found to have patent stent patient was to be medically managed 16. History of AML with previous chemo therapy treatment in 2001 . Patient was evaluated by oncology services per oncology patient has chronic cytopenias since treatment. Per oncology chronic yet stable since 2012. AML currently in remission Hospital course This is a 57-year-old female patient of Dr. Kessler. Patient presented to the ER with complaints of shortness of breath. Patient has a known past history of COPD in which she wears 4 L of home O2. Patient reports she's been requiring 5 L over the past 2 days. Patient's additional medical history includes brain aneurysm in which she follows with [facility] and has a follow-up appointment in 6 months, CVA, CAD, diabetes mellitus, fibromyalgia, GERD, AML with previous chemo, heart failure, hypertension, deafness, myocardial infarction, renal disease, osteoarthritis, sleep apnea. Patient recently underwent heart On 04/01 which showed patent stent in the mid LAD and mildly elevated left ventricular end-diastolic pressure patient was to be medically managed per cardiology. EKG completed showing normal sinus rhythm with sinus arrhythmia right bundle branch block with T-wave abnormality, consider lateral ischemia. Chest x-ray completed showing no evidence for acute pulmonary disease. Patient also reports that she is a current every day smoker. Patient states she has cut down to 5 cigarettes per day. Patient also reports he follows with Dr. Christine for pulmonary services. Patient also complaining of urinary burning. Will order urinary analysis with urine culture at this time. At this time patient is complaining of some chest discomfort related to breathing. Patient denies nausea vomiting or diarrhea. Patient is complaining of urinary burning with frequency. 04/16/2018 patient complaining of productive cough and shortness of breath. She 's been treated for COPD exacerbation. Also was evaluated by cardiology for chest pain which was likely pull pleuritic from her cough. Patient's potassium today is 5.4. Aldactone and potassium supplement has been held. She's been given Kayexalate that also help with her constipation. She is also being followed by hematology due to her history of AML white count 2.7 and platelets 88. Patient denies any nausea or vomiting. Denies any burning with urination. She is complaining of some right-sided neck discomfort. On 04/17/2018 patient is alert and oriented 3. Patient still having significant wheezing with sputum production. Patient remains on IV Solu-Medrol along with doxycycline. Pulmonary and oncology services are following. Patient also complaining of neck pain in which she takes Austin for pain control at this time. Patient denies any chest pain. Patient denies nausea vomiting or diarrhea. Patient denies any urinary burning or frequency. Potassium has improved to 4.3. On 04/18/2018 patient is alert and oriented 3. Patient's breathing has improved. Patient is still wheezy. Patient remains on IV steroids at this time. Patient is being followed by pulmonary services. Patient denies any chest pain or shortness of breath. Patient is complaining of neck discomfort which she reports is chronic for her. Patient denies any urinary burning or frequency. Patient denies nausea vomiting or diarrhea. On 04/19/2018 patient was seen and examined on the medical floor she is alert and oriented 3 in no apparent distress she is still complaining of some cough and shortness of breath otherwise no complaints at this time there is no fever or chills take which is chronic and followed as outpatient with neurology Dr. Dennison there is no dizziness no chest pain no nausea or vomiting no abdominal pain no diarrhea and no urinary symptoms On 04/20/2017 patient alert and oriented 3. Patient is still having some coughing with congestion. Patient remains on IV Solu-Medrol and doxycycline. At this time patient denies chest pain. Patient denies nausea vomiting or diarrhea. Patient denies any urinary burning or frequency. Patient requesting to be evaluated for possible discharge to [facility] with home health care On 04/21/2017 patient is alert and oriented 3. Patient's lung significantly improved patient is back to baseline. Patient has been cleared for discharge from pulmonary standpoint. Per nursing staff patient has been using nicotine vaporizing pen in room. Patient educated at length the importance of all nicotine cessation due to patient's ongoing chronic issues with multiple lung conditions. Patient. will be DC'd on doxycycline and prednisone taper. Patient to follow up with PCP and CONSULTING providers for further management of chronic conditions. I performed an examination of the patient and discussed their management with the Nurse Practitioner. I have reviewed the Nurse Practitioner's notes and agree with the documented findings and plan of care Patient Condition at Discharge: Stable Plan - Discharge Summary Discharge Rx Participant: No New Discharge Prescriptions: New Budesonide [Pulmicort] 0.5 mg INHALATION BID #60 neb Doxycycline [Vibramycin] 100 mg PO BID 7 Days #14 cap Formoterol Fumarate [Perforomist] 20 mcg INHALATION RT-BID #60 nebu guaiFENesin [Mucinex] 1,200 mg PO Q12HR #60 tablet.er Ipratropium-Albuterol Nebulize [Duoneb 0.5 mg-3 mg/3 ml Soln] 3 ml INHALATION RT-QID #120 ampul.neb Montelukast [Singulair] 10 mg PO HS #30 tab Nicotine 14Mg/24Hr Patch [Habitrol] 1 patch TRANSDERM DAILY #30 patch INSULIN ASPART (NovoLOG) [NovoLOG (formulary)] 0 unit SQ ACHS vial Nystatin 100,000 Unit/gm Powd [Mycostatin Powder] 1 applic TOPICAL BID applic Sodium Chloride 0.65% Nasal [Deep Sea (Saline)] 2 spray NASAL QID PRN spray PRN Reason: Congestion Continue Nitroglycerin Sl Tabs [Nitrostat] 0.4 mg SUBLINGUAL Q5M PRN PRN Reason: Chest Pain Atorvastatin [Lipitor] 40 mg PO DAILY Ranitidine HCl [Zantac] 150 mg PO BID Vortioxetine Hydrobromide [Trintellix] 10 mg PO DAILY Ferrous Sulfate [Iron (65 MG Elemental)] 325 mg PO DAILY Metoprolol Tartrate [Lopressor] 12.5 mg PO BID Aspirin EC [Ecotrin Low Dose] 81 mg PO DAILY Sennosides-Docusate Sodium [Senokot-S] 2 each PO BID #30 tab metFORMIN HCL [Glucophage] 500 mg PO BID-W/MEALS #60 tab Furosemide [Lasix] 80 mg PO BID@0900,1600 sitaGLIPtin [Januvia] 100 mg PO DAILY Divalproex [Depakote] 250 mg PO TID HYDROcodone/APAP 7.5-325MG [Austin 7.5-325] 1 tab PO TID Baclofen [Lioresal] 20 mg PO BID Gabapentin [Neurontin] 600 mg PO TID Discontinued Budesonide [Pulmicort Flexhaler] 1 puff INHALATION RT-BID Spironolactone [Aldactone] 25 mg PO DAILY Tamsulosin [Flomax] 0.4 mg PO DAILY Albuterol Nebulized (Conc) [Ventolin Nebulized (Conc)] 2.5 mg INHALATION RT- QID Potassium Chloride ER [K-Dur 10] 10 meq PO DAILY Mirtazapine [Remeron] 30 mg PO HS Ipratropium Nebulized [Atrovent Nebulized 0.2 MG/ML] 0.5 mcg INHALATION BID Budesonide [Pulmicort] 1 mg INHALATION RT-BID Ipratropium Nebulized [Atrovent Nebulized 0.2 MG/ML] 0.5 mg INHALATION RT-QID Discharge Medication List Atorvastatin [Lipitor] 40 mg PO DAILY 01/02/15 [History] Nitroglycerin Sl Tabs [Nitrostat] 0.4 mg SUBLINGUAL Q5M PRN 01/02/15 [History] Ranitidine HCl [Zantac] 150 mg PO BID 01/02/15 [History] Vortioxetine Hydrobromide [Trintellix] 10 mg PO DAILY 12/12/16 [History] Ferrous Sulfate [Iron (65 MG Elemental)] 325 mg PO DAILY 12/17/17 [History] Metoprolol Tartrate [Lopressor] 12.5 mg PO BID 12/17/17 [History] Aspirin EC [Ecotrin Low Dose] 81 mg PO DAILY 02/08/18 [History] Sennosides-Docusate Sodium [Senokot-S] 2 each PO BID #30 tab 02/11/18 [Rx] metFORMIN HCL [Glucophage] 500 mg PO BID-W/MEALS #60 tab 02/11/18 [Rx] Furosemide [Lasix] 80 mg PO BID@0900,1600 03/30/18 [History] Baclofen [Lioresal] 20 mg PO BID 04/15/18 [History] Divalproex [Depakote] 250 mg PO TID 04/15/18 [History] Gabapentin [Neurontin] 600 mg PO TID 04/15/18 [History] HYDROcodone/APAP 7.5-325MG [Austin 7.5-325] 1 tab PO TID 04/15/18 [History] sitaGLIPtin [Januvia] 100 mg PO DAILY 04/15/18 [History] Budesonide [Pulmicort] 0.5 mg INHALATION BID #60 neb 04/19/18 [Rx] Doxycycline [Vibramycin] 100 mg PO BID 7 Days #14 cap 04/19/18 [Rx] Formoterol Fumarate [Perforomist] 20 mcg INHALATION RT-BID #60 nebu 04/19/18 [Rx ] Ipratropium-Albuterol Nebulize [Duoneb 0.5 mg-3 mg/3 ml Soln] 3 ml INHALATION RT -QID #120 ampul.neb 04/19/18 [Rx] Montelukast [Singulair] 10 mg PO HS #30 tab 04/19/18 [Rx] Nicotine 14Mg/24Hr Patch [Habitrol] 1 patch TRANSDERM DAILY #30 patch 04/19/18 [ Rx] guaiFENesin [Mucinex] 1,200 mg PO Q12HR #60 tablet.er 04/19/18 [Rx] INSULIN ASPART (NovoLOG) [NovoLOG (formulary)] 0 unit SQ ACHS vial 04/21/18 [Rx ] Nystatin 100,000 Unit/gm Powd [Mycostatin Powder] 1 applic TOPICAL BID applic 04/21/18 [Rx] Sodium Chloride 0.65% Nasal [Deep Sea (Saline)] 2 spray NASAL QID PRN spray [Rx] Follow up Appointment(s)/Referral(s): Jennifer Kessler DO [Primary Care Provider] - 1-2 days Link Christine MD [STAFF PHYSICIAN] - 1 Week Joby Barrios MD [STAFF PHYSICIAN] - 2 Weeks Activity/Diet/Wound Care/Special Instructions: Activity as tolerated Diet heart healthy Discharge Disposition: TRANSFER TO SNF/ECF
[2018-04-21 13:38] VITALS: PULSE 80
[2018-04-22 13:32] LABS: Alt. alternata IgE Class CLASS 0; Alternaria alternata IgE <0.35 kU/L (<0.35); Asperg. fumagatus IgE <0.35 kU/L (<0.35); Asperg. fumagatus IgE Class CLASS 0; Bermuda Grass IgE <0.35 kU/L (<0.35); Birch(Com.Silvr) IgE <0.35 kU/L (<0.35); Birch(Com.Silvr) IgE Class CLASS 0; Cat Epith & Dander IgE <0.35 kU/L (<0.35); Cat Epith & Dander IgE Class CLASS 0; Clad herbarum IgE <0.35 kU/L (<0.35); Cockroach IgE <0.35 kU/L (<0.35); Cottonwood IgE <0.35 kU/L (<0.35); Dermato. Pteronyssinus IgE <0.35 kU/L (<0.35); Dermato. farinae IgE <0.35 kU/L (<0.35); Dermato. farinae IgE Class CLASS 0; Dog Dander IgE <0.35 kU/L (<0.35); Elm IgE <0.35 kU/L (<0.35); Maple (Box Elder) IgE <0.35 kU/L (<0.35); Maple (Box Elder) IgE Class CLASS 0; Mountain Cedar IgE <0.35 kU/L (<0.35); Mountain Cedar IgE Class CLASS 0; Mouse Urine IgE Class CLASS 0; Nettle IgE <0.35 kU/L (<0.35); Nettle IgE Class CLASS 0; Oak IgE <0.35 kU/L (<0.35); Penicillium notatum IgE Class CLASS 0; Rough Marshelder IgE <0.35 kU/L (<0.35); Rough Marshelder IgE Class CLASS 0; Timothy Grass IgE <0.35 kU/L (<0.35); White Ash IgE Class CLASS 0
[2018-04-22 14:06] LABS: Alpha 1 Anti-Trypsin 172 mg/dL (90 - 200)
--- NOTE | 2018-04-22 16:19 | ECHOF ---
Referral Reason: MEASUREMENTS -------- HEIGHT: 170.2 cm WEIGHT: 133.8 kg BP: 145/84 RVIDd: 5.2 cm (< 3.3) IVSd: 1.3 cm (0.6 - 1.1) LVIDd: 5.0 cm (3.9 - 5.3) LVPWd: 1.3 cm (0.6 - 1.1) IVSs: 1.8 cm LVIDs: 3.9 cm LVPWs: 1.8 cm LA Diam: 4.7 cm (2.7 - 3.8) LAESV Index (A-L): 25.73 ml/m Ao Diam: 3.4 cm (2.0 - 3.7) AV Cusp: 2.2 cm (1.5 - 2.6) MV EXCURSION: 18.959 mm (> 18.000) MV EF SLOPE: 157 mm/s (70 - 150) EPSS: 1.1 cm MV E Kevan: 0.81 m/s MV DecT: 203 ms MV A Kevan: 1.01 m/s MV E/A Ratio: 0.80 AV maxP.10 mmHg AV meanP.46 mmHg RAP: 15.00 mmHg RVSP: 60.37 mmHg FINDINGS -------- Sinus rhythm. This was a technically adequate study. The left ventricular size is normal. There is mild concentric left ventricular hypertrophy. Overa ll left ventricular systolic function is mildly impaired with, an EF between 45 - 50 %. There is se ptal flattening in diastole and systole which is consistent with right ventricular pressure and volum e overload. The right ventricle is severely enlarged. Normal LA size by volume 22+/-6 ml/m2. The right atrium is normal in size. Aortic valve is trileaflet and is mildly thickened. Mild mitral annular calcification present. There is trace to mild mitral regurgitation. Severe tricuspid regurgitation present. There is severe pulmonary hypertension. The right ventric ular systolic pressure, as measured by Doppler, is 60.37mmHg. The pulmonic valve was not well visualized. The aortic root size is normal. The inferior vena cava is dilated with no significant inspiratory collapse which is consistent estima lilliam right atrial pressure of >15 mmHg. There is no pericardial effusion. CONCLUSIONS -------- 1. Sinus rhythm. 2. This was a technically adequate study. 3. The left ventricular size is normal. 4. There is mild concentric left ventricular hypertrophy. 5. Overall left ventricular systolic function is mildly impaired with, an EF between 45 - 50 %. 6. There is septal flattening in diastole and systole which is consistent with right ventricular pres sure and volume overload. 7. The right ventricle is severely enlarged. 8. Normal LA size by volume 22+/-6 ml/m2. 9. The right atrium is normal in size. 10. Aortic valve is trileaflet and is mildly thickened. 11. Mild mitral annular calcification present. 12. There is trace to mild mitral regurgitation. 13. Severe tricuspid regurgitation present. 14. There is severe pulmonary hypertension. 15. The right ventricular systolic pressure, as measured by Doppler, is 60.37mmHg. 16. The pulmonic valve was not well visualized. 17. The aortic root size is normal. 18. The inferior vena cava is dilated with no significant inspiratory collapse which is consistent es timated right atrial pressure of >15 mmHg. 19. There is no pericardial effusion. FIELD CROP II FARMWORKER: India Garcia RDCS
== END 2018-04-21 15:55 | DRG 190 ==
LOC: EC 10:16 → 4MS4W 12:01 → 3NMEDONC 16:29 → OBSVTOIN 04-17 11:13
PROVIDERS: ADMIT Internal Medicine; ATTEND Internal Medicine
PROC: 5A09557 Assistance with Respiratory Ventilation, Greater than 96 Consecutive Hours, Continuous Positive Airway Pressure (ICD-10-PCS; principal; 2018-04-17)
DX: J44.1 Chronic obstructive pulmonary disease with (acute) exacerbation (principal); J96.21 Acute and chronic respiratory failure with hypoxia; J96.22 Acute and chronic respiratory failure with hypercapnia; D61.818 Other pancytopenia; C92.01 Acute myeloblastic leukemia, in remission; I50.32 Chronic diastolic (congestive) heart failure; Z68.42 Body mass index [BMI] 45.0-49.9, adult; I67.1 Cerebral aneurysm, nonruptured; I27.20 Pulmonary hypertension, unspecified; E11.42 Type 2 diabetes mellitus with diabetic polyneuropathy; Z99.81 Dependence on supplemental oxygen; I11.0 Hypertensive heart disease with heart failure; B02.9 Zoster without complications; E66.01 Morbid (severe) obesity due to excess calories; E87.5 Hyperkalemia; K76.0 Fatty (change of) liver, not elsewhere classified; M79.7 Fibromyalgia; M19.90 Unspecified osteoarthritis, unspecified site; K21.9 Gastro-esophageal reflux disease without esophagitis; I25.2 Old myocardial infarction; I25.10 Atherosclerotic heart disease of native coronary artery without angina pectoris; H91.90 Unspecified hearing loss, unspecified ear; G47.33 Obstructive sleep apnea (adult) (pediatric); E78.5 Hyperlipidemia, unspecified; M81.0 Age-related osteoporosis without current pathological fracture; K46.9 Unspecified abdominal hernia without obstruction or gangrene; F32.9 Major depressive disorder, single episode, unspecified; D50.9 Iron deficiency anemia, unspecified; F17.210 Nicotine dependence, cigarettes, uncomplicated; I45.10 Unspecified right bundle-branch block; J44.0 Chronic obstructive pulmonary disease with (acute) lower respiratory infection; M54.2 Cervicalgia; G25.81 Restless legs syndrome; N28.9 Disorder of kidney and ureter, unspecified; J20.9 Acute bronchitis, unspecified; K59.00 Constipation, unspecified; Z79.899 Other long term (current) drug therapy; Z79.82 Long term (current) use of aspirin; Z79.84 Long term (current) use of oral hypoglycemic drugs; Z92.21 Personal history of antineoplastic chemotherapy; Z86.73 Personal history of transient ischemic attack (TIA), and cerebral infarction without residual deficits; Z86.14 Personal history of Methicillin resistant Staphylococcus aureus infection; Z85.44 Personal history of malignant neoplasm of other female genital organs; Z90.49 Acquired absence of other specified parts of digestive tract; Z95.5 Presence of coronary angioplasty implant and graft; Z96.1 Presence of intraocular lens; Z90.721 Acquired absence of ovaries, unilateral; Z88.9 Allergy status to unspecified drugs, medicaments and biological substances; Z82.49 Family history of ischemic heart disease and other diseases of the circulatory system; Z81.8 Family history of other mental and behavioral disorders
CPT/HCPCS: 36415; 36600; 71046; 80048; 80053; 81003; 82103; 82104; 82550; 82553; 82784; 82785; 82805; 83036; 83605; 83735; 83880; 84484; 85025; 85610; 85730; 86001; 86003; 86606; 86609; 87040; 87070; 87086; 87205; 93005; 93306; 94640; 94667; 94760; 96365; 96375; 99291

== ENCOUNTER 2018-05-04 10:39 | Emergency (ER) | payer MEDICARE, OTHER ==
[2018-05-04] MEDS ORDERED: IPRATROPIUM-ALBUTEROL 3 ML NEB INHALATION STA (10:59)
--- NOTE | 2018-05-04 11:04 | ED ---
Fall HPI - General Chief Complaint: Fall Stated Complaint: Fall Time Seen by Provider: 05/04/18 10:50 Source: patient, EMS Mode of arrival: EMS Limitations: no limitations - History of Present Illness Initial Comments: 57-year-old female presents emergency Department with chief complaint of slip and fall. Patient states she currently resides at [facility] on the [place]. Patient 's issues there for rehab after COPD exacerbation. Patient reportedly wants it down states that she had her mood states that she fell striking her head. There is no loss conscious denies any blood thinners. Patient went of head and neck pain. Patient denies any pain in her buttocks, low back region. Patient is drowsy but states that she is just tired. - Related Data Home Medications Medication Instructions Recorded Confirmed Atorvastatin [Lipitor] 40 mg PO HS@209901/02/15 05/04/18 Nitroglycerin Sl Tabs [Nitrostat] 0.4 mg SUBLINGUAL Q5M PRN 01/02/15 05/04/18 Ranitidine HCl [Zantac] 150 mg PO BID@0900,209901/02/15 05/04/18 Vortioxetine Hydrobromide 10 mg PO DAILY@0900 12/12/16 05/04/18 [Trintellix] Ferrous Sulfate [Iron (65 MG 325 mg PO DAILY@1300 12/17/17 05/04/18 Elemental)] Metoprolol Tartrate [Lopressor] 12.5 mg PO BID@0900,2100 12/17/17 05/04/18 Baclofen [Lioresal] 20 mg PO BID@0900,209904/15/18 05/04/18 Divalproex [Depakote] 250 mg PO TID@0600,1400,2200 04/15/18 05/04/18 HYDROcodone/APAP 7.5-325MG [Wharton 1 tab PO TID@0600,1300,209904/15/18 05/04/18 7.5-325] Acetaminophen [Tylenol] 650 mg PO Q4H PRN 05/04/18 05/04/18 Budesonide [Pulmicort] 1 mg INHALATION BID@0900,2100 05/04/18 05/04/18 Formoterol Fumarate [Perforomist] 40 mcg INHALATION BID@0900,209905/04/1805/04 Furosemide [Lasix] 80 mg PO BID@0600,1400 05/04/18 05/04/18 Gabapentin 600 mg PO TID@0600,1300,2100 05/04/18 05/04/18 INSULIN LISPRO (humaLOG) [humaLOG] See Protocol SQ QID@08,12,,05/04/1806/19 Linagliptin [Tradjenta] 5 mg PO DAILY@0900 05/04/18 05/04/18 Montelukast [Singulair] 10 mg PO HS@2100 05/04/18 05/04/18 Sennosides-Docusate Sodium 2 tab PO BID@0900,1700 05/04/18 05/04/18 [Senokot-S] guaiFENesin [Mucinex] 1,200 mg PO BID@0900,2100 05/04/18 05/04/18 metFORMIN HCL [Glucophage] 500 mg PO BID@0800,1700 05/04/18 05/04/18 Previous Rx's Medication Instructions Recorded Ipratropium-Albuterol Nebulize 3 ml INHALATION RT-QID #120 04/19/18 [Duoneb 0.5 mg-3 mg/3 ml Soln] ampul.neb Sodium Chloride 0.65% Nasal [Deep 2 spray NASAL QID PRN spray 04/21/18 Sea (Saline)] Allergies Allergy/AdvReac Type Severity Reaction Status Date / Time amoxicillin Allergy SOB- RED Verified 05/04/18 11:18 BLOTCHY SKIN capsaicin Allergy SOB- RED Verified 05/04/18 11:18 BLOTCHY SKIN cephalexin monohydrate Allergy SOB- RED Verified 05/04/18 11:18 [From Keflex] BLOTCHY SKIN Cephalosporins Allergy SOB-RED Verified 05/04/18 11:18 BLOTCHY SKIN ciprofloxacin Allergy Unknown Verified 05/04/18 11:18 clindamycin Allergy SOB-RED Verified 05/04/18 11:18 BLOTCHY SKIN fluticasone propionate Allergy SOB- RED Verified 05/04/18 11:18 [From Flonase] BLOTCHY SKIN Penicillins Allergy SOB- RED Verified 05/04/18 11:18 BLOTCHY SKIN Sulfa (Sulfonamide Allergy SOB- RED Verified 05/04/18 11:18 Antibiotics) BLOTCHY SKIN mirtazapine [From Remeron] AdvReac Hallucinati Verified 05/04/18 11:18 ons BROWN DYES Allergy SOB- RED Uncoded 05/04/18 10:42 BLOTCHY SKIN Review of Systems ROS Statement: Those systems with pertinent positive or pertinent negative responses have been documented in the HPI. ROS Other: All systems not noted in ROS Statement are negative. Past Medical History Past Medical History: Coronary Artery Disease (CAD), Cancer, Heart Failure, COPD , Diabetes Mellitus, Eye Disorder, Fibromyalgia, GERD/Reflux, Hearing Disorder / Deafness, Hyperlipidemia, Hypertension, Myocardial Infarction (DC), Osteoarthritis (OA), Renal Disease, Sleep Apnea/CPAP/BIPAP, Syncope Additional Past Medical History / Comment(s): Brain aneurysm, rapid heart rate, 2001 acute myeloid leukemia with chemotherapy, vulvar cancer with surgery, NIDDM type II, neuropathy bilateral legs/feet, RLS, arthritis multiple joints and especially in her feet, back pain/scoliosis, osteoporosis, large abdominal hernia, anemia, R eye detached retina with surgery, SELDOVIA bilaterally, LOVE wit bipap and O2 4L at HS. Last Myocardial Infarction Date:: 1998 History of Any Multi-Drug Resistant Organisms: MRSA Date of last positivie culture/infection: 2001 MDRO Source:: PORT IN CHEST Past Surgical History: Bowel Resection, Section, Heart Catheterization With Stent, Hernia Repair, Orthopedic Surgery Additional Past Surgical History / Comment(s): 04/01/18 Cardiac cath, 04/2017 Removal R ear tube/tympanoplasty and bilateral tubes placed, prior ear surgeries , umbilical hernia repair with bowel paris/bowel resections then done along with L ovary removed, PICC lines/now out, mediport-now out (MRSA infection), PCI/ stents, R eye surgeries/lens implant/lasered for retinal detachment, EGD, colonoscopies, L breast benign biopsy, D&C, R vulva excision, R wrist ORIF with plate/pins, deviated septal surgery. Past Anesthesia/Blood Transfusion Reactions: Blood Transfusion Reaction Additional Past Anesthesia/Blood Transfusion Reaction / Comment(s): 2001-had some kind of transfusion reaction Date of Last Stent Placement:: 2001 Past Psychological History: Depression Smoking Status: Current every day smoker - Past Family History Mother Additional Family Medical History / Comment(s): @ AGE 53 WITH ANEURYSM Father Family Medical History: Myocardial Infarction (DC) Additional Family Medical History / Comment(s): HAD CABG- COMMITTED SUICIDE A YEAR AFTER - PT'S GRANDFATHER(P) ALSO COMMITED SUICIDE Brother(s) Family Medical History: Coronary Artery Disease (CAD) Additional Family Medical History / Comment(s): COMMITTED SUICIDE General Exam Limitations: no limitations General appearance: alert, in no apparent distress Head exam: Present: atraumatic, normocephalic, normal inspection Eye exam: Present: normal appearance, PERRL, EOMI. Absent: scleral icterus, conjunctival injection, periorbital swelling ENT exam: Present: normal exam, normal oropharynx, mucous membranes moist Neck exam: Present: normal inspection, tenderness (Mild cervical). Absent: meningismus, full ROM (Patient in c-collar), lymphadenopathy Respiratory exam: Present: normal lung sounds bilaterally. Absent: respiratory distress, wheezes, rales, rhonchi, stridor Cardiovascular Exam: Present: regular rate, normal rhythm, normal heart sounds. Absent: systolic murmur, diastolic murmur, rubs, gallop, clicks Neurological exam: Present: alert, oriented X3, CN II-XII intact, reflexes normal, other (Finger to nose intact bilaterally without over shooting). Absent : motor sensory deficit Skin exam: Present: warm, dry, intact, normal color. Absent: rash Course Vital Signs 05/04/18 05/04/18 05/04/18 10:42 11:27 11:36 Temperature 97.9 F Pulse Rate 68 59 L 60 Respiratory 20 Rate Blood Pressure 96/56 O2 Sat by Pulse 98 Oximetry 05/04/18 12:09 Temperature Pulse Rate 62 Respiratory 18 Rate Blood Pressure 125/69 O2 Sat by Pulse 100 Oximetry - Reevaluation(s) Reevaluation #1: 05/04/18 12:36 Patient reevaluated is more awake and alert at this time. We discussed the use of narcotic medication causing her to be drowsy. Medical Decision Making - Medical Decision Making 49-year-old female presented for fall, head injury neck pain CT is obtained no acute fracture dislocation upon updating patient chief complaint of left foot pain and x-ray was obtain, no acute fracture. Patient will be sent back to [facility] on the [place] Disposition Clinical Impression: Fall, Head injury, Neck pain Disposition: HOME SELF-CARE Condition: Stable Instructions (If sedation given, give patient instructions): Fall Prevention for Older Adults (ED) Additional Instructions: Please return to the Emergency Department if symptoms worsen or any other concerns. Is patient prescribed a controlled substance at d/c from ED?: No Referrals: Jennifer Kessler DO [Primary Care Provider] - 1-2 days Time of Disposition: 12:38
--- NOTE | 2018-05-04 11:46 | CT ---
EXAMINATION TYPE: CT brain silvia wells con DATE OF EXAM: 05/04/2018 COMPARISON: Prior exam 02/10/2015 HISTORY: Pain post fall today with blow to head CT DLP: 1740 mGycm Automated exposure control for dose reduction was used. TECHNIQUE: CT scan of the head and cervical spine are performed without contrast. FINDINGS: There is no acute intracranial hemorrhage, mass effect, or midline shift identified. The ventricles and sulci are within normal limits in size. The globes are intact and the visualized sin uses are clear. Cervical spine is visualized in its entirety from C1 through upper thoracic levels and demonstrates s atisfactory alignment without evidence of acute fracture or dislocation. Prevertebral soft tissue ap pears within normal limits. The C1-C2 articulation is unremarkable. Spondylosis is noted at C5-6 wit h loss of disc height, there is some associated foraminal encroachment greater on the left. Accentuat ed lordosis is present IMPRESSION: 1. There is no acute fracture or dislocation evident in the cervical spine. 2. No acute intracranial hemorrhage, mass effect, or midline shift is seen.
[2018-05-04 12:09] VITALS: RESP 18
--- NOTE | 2018-05-04 12:35 | XR ---
EXAMINATION TYPE: XR foot complete LT DATE OF EXAM: 05/04/2018 CLINICAL HISTORY: Left foot pain after fall with twisting injury TECHNIQUE: Frontal, lateral, and oblique images of the left foot are obtained. COMPARISON: None FINDINGS: There is no acute fracture/dislocation evident in the left foot. There is advanced degener ative change of the first metatarsal phalangeal joint and distal interphalangeal joints as well as th e first tarsometatarsal joint. Hallux valgus deformity is seen in addition to the degenerative change s. There is a moderate plantar enthesophyte and a small Achilles enthesophyte. Well-circumscribed int ramedullary lesion of the distal tibia has a serpiginous border and narrow zone of transition and may relate to either a bone infarct or enchondroma. There is soft tissue swelling seen over the hindfoot and ankle. There is also soft tissue swelling of the dorsal midfoot. IMPRESSION: Soft tissue swelling over the left hindfoot and ankle as well as the dorsal midfoot with no fracture or dislocation in the left foot.
[2018-05-04 13:16] VITALS: BP 139/72; PULSE 80; TEMP 98.3
== END 2018-05-04 13:49 | disposition home or self-care (01) ==
LOC: EC 10:39
DX: S09.90XA Unspecified injury of head, initial encounter (principal); M54.2 Cervicalgia; M79.672 Pain in left foot; J44.9 Chronic obstructive pulmonary disease, unspecified; I25.10 Atherosclerotic heart disease of native coronary artery without angina pectoris; I11.0 Hypertensive heart disease with heart failure; I50.9 Heart failure, unspecified; M79.7 Fibromyalgia; K21.9 Gastro-esophageal reflux disease without esophagitis; E78.5 Hyperlipidemia, unspecified; I25.2 Old myocardial infarction; E11.40 Type 2 diabetes mellitus with diabetic neuropathy, unspecified; G25.81 Restless legs syndrome; F32.9 Major depressive disorder, single episode, unspecified; F17.200 Nicotine dependence, unspecified, uncomplicated; G47.33 Obstructive sleep apnea (adult) (pediatric); Z99.89 Dependence on other enabling machines and devices; Z85.6 Personal history of leukemia; Z85.44 Personal history of malignant neoplasm of other female genital organs; Z86.14 Personal history of Methicillin resistant Staphylococcus aureus infection; Z95.5 Presence of coronary angioplasty implant and graft; Z95.818 Presence of other cardiac implants and grafts; Z79.51 Long term (current) use of inhaled steroids; Z79.4 Long term (current) use of insulin; Z79.899 Other long term (current) drug therapy; Z88.0 Allergy status to penicillin; Z91.018 Allergy to other foods; Z88.1 Allergy status to other antibiotic agents; Z88.8 Allergy status to other drugs, medicaments and biological substances; Z88.2 Allergy status to sulfonamides; Z91.048 Other nonmedicinal substance allergy status; W01.190A Fall on same level from slipping, tripping and stumbling with subsequent striking against furniture, initial encounter
CPT/HCPCS: 70450; 72125; 94640; 99284

== ENCOUNTER 2018-06-05 01:54 | Inpatient (IN) | payer MEDICARE, OTHER ==
[2018-06-05] MEDS ORDERED: IPRATROPIUM-ALBUTEROL 3 ML NEB INHALATION STA (02:06)
[2018-06-05] MEDS ORDERED: methylPREDNISolone SOD SUCCI 125 MG/2 ML VIAL IV STA (02:06)
[2018-06-05 02:18] LABS: ABG Base Excess 12.8 mmol/L; ABG HCO3 37 mmol/L (21-25); ABG Oxygen Saturation 96.4 % (94-97); ABG PCO2 57 mmHg (35-45); ABG PH 7.43 (7.35-7.45); ABG PO2 81 mmHg (83-108); ABG TCO2 39 mmol/L (19-24)
--- NOTE | 2018-06-05 02:22 | ED ---
SOB HPI - General Stated Complaint: JAYDON Time Seen by Provider: 06/05/18 02:05 Source: patient, EMS Mode of arrival: EMS Limitations: altered mental status - History of Present Illness Initial Comments: Karen is a chronically ill 57-year-old female presenting to the emergency [facility] for evaluation of altered mental status and hypoxia. History is provided primarily by EMS as the patient is altered upon arrival. EMS reports that they were called to the facility for evaluation of altered mental status upon their arrival they were advised that the patient had been mildly hypoxic throughout the day with oxygen saturations in the mid 80s. They report that the patient had been placed on nasal BiPAP with improvement to the high 80s. Patient seems somewhat confused upon their initial arrival and they were advised by staff at that is essentially the patient's baseline. They placed the patient on BiPAP and proceeded transfer the patient during their transport they reported patient seemed to be becoming more lethargic but oxygen saturation's did improve. Upon arrival the patient can state her name she denies complaints she repeatedly asks for Mountain Dew to drink spite being on BiPAP. - Related Data Home Medications Medication Instructions Recorded Confirmed Atorvastatin [Lipitor] 40 mg PO HS@209901/02/15 06/05/18 Ranitidine HCl [Zantac] 150 mg PO BID@0600,1700 01/02/15 06/05/18 Ferrous Sulfate [Iron (65 MG 325 mg PO DAILY@0900 12/17/17 06/05/18 Elemental)] Metoprolol Tartrate [Lopressor] 12.5 mg PO BID@0900,209912/17/17 06/05/18 Baclofen [Lioresal] 20 mg PO BID@0900,209904/15/18 06/05/18 Divalproex [Depakote] 250 mg PO TID@0900,1300,209904/15/18 06/05/18 HYDROcodone/APAP 7.5-325MG [Alba 1 tab PO Q8H PRN 04/15/18 06/05/18 7.5-325] Acetaminophen [Tylenol] 650 mg PO Q4H PRN 05/04/18 06/05/18 Budesonide [Pulmicort] 1 mg INHALATION BID@0900,209905/04/18 06/05/18 Formoterol Fumarate [Perforomist] 20 mcg INHALATION BID@0900,2100 05/04/18 06/05/18 Furosemide [Lasix] 80 mg PO BID@0600,1400 05/04/18 06/05/18 Gabapentin 600 mg PO TID@0600,1300,209905/04/18 06/05/18 INSULIN LISPRO (humaLOG) [humaLOG] See Protocol SQ QID@08,12,,05/04/18 0407/19 Linagliptin [Tradjenta] 5 mg PO DAILY@0900 05/04/18 06/05/18 Montelukast [Singulair] 10 mg PO HS@209905/04/18 06/05/18 Sennosides-Docusate Sodium 2 tab PO BID@0900,1700 05/04/18 06/05/18 [Senokot-S] guaiFENesin [Mucinex] 1,200 mg PO BID@0900,2100 05/04/18 06/05/18 metFORMIN HCL [Glucophage] 500 mg PO BID@0800,1700 05/04/18 06/05/18 DULoxetine HCL [Cymbalta] 30 mg PO BID@0900,209906/05/18 06/05/18 Loperamide [Imodium] 2 mg PO QID PRN 06/05/18 06/05/18 Metolazone [Zaroxolyn] 2.5 mg PO MOWEFR@0900 06/05/18 06/05/18 Nicotine 14Mg/24Hr Patch [Habitrol 1 patch TRANSDERM HS@209906/05/18 06/05/18 14Mg/24Hr Patch] Nitroglycerin Sl Tabs [Nitrostat] 0.4 mg SUBLINGUAL Q5M PRN 06/05/18 06/05/18 Potassium Chloride [Klor-Con 20] 20 meq PO MOWEFR@0900 06/05/18 06/05/18 Vitamins A and D [Vitamin A and D] 1 applic TOPICAL HS 06/05/18 06/05/18 Vortioxetine Hydrobromide 5 mg PO DAILY@0900 06/05/18 06/05/18 [Trintellix] rOPINIRole HCL [Requip] 0.5 mg PO BID@0900,209906/05/18 06/05/18 Previous Rx's Medication Instructions Recorded Ipratropium-Albuterol Nebulize 3 ml INHALATION RT-QID #120 04/19/18 [Duoneb 0.5 mg-3 mg/3 ml Soln] ampul.neb Sodium Chloride 0.65% Nasal [Deep 2 spray NASAL QID PRN spray 04/21/18 Sea (Saline)] Allergies Allergy/AdvReac Type Severity Reaction Status Date / Time amoxicillin Allergy SOB- RED Verified 06/05/18 07:12 [place] SK[place] capsaicin Allergy SOB- RED Verified 06/05/18 07:12 [place] cephalexin monohydrate Allergy SOB- RED Verified 06/05/18 07:12 [From Keflex] [place]OT[place] Cephalosporins Allergy SOB-RED Verified 06/05/18 07:12 [place] ciprofloxacin Allergy Unknown Verified 06/05/18 07:12 clindamycin Allergy SOB-RED Verified 06/05/18 07:12 [place] fluticasone propionate Allergy SOB- RED Verified 06/05/18 07:12 [From Flonase] [place]OT[place] Penicillins Allergy SOB- RED Verified 06/05/18 07:12 [place] Sulfa (Sulfonamide Allergy SOB- RED Verified 06/05/18 07:12 Antibiotics) BLOT[place]Y [place] mirtazapine [From Remeron] AdvReac Hallucinati Verified 06/05/18 07:12 ons BROWN DYES Allergy SOB- RED Uncoded 05/04/18 10:42 [place]OT[place]Y SK[place] Review of Systems ROS Statement: Those systems with pertinent positive or pertinent negative responses have been documented in the HPI. ROS Other: All systems not noted in ROS Statement are negative. 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 Last Myocardial Infarction Date:: 1998 History of Any Multi-Drug Resistant Organisms: MRSA Date of last positivie culture/infection: 2001 MDRO Source:: PORT IN CHEST Past Surgical History: Bowel Resection, Section, Heart Catheterization With Stent, Hernia Repair, Orthopedic Surgery Additional Past Surgical History / Comment(s): 04/01/18 Cardiac cath, 04/2017 Removal R ear tube/tympanoplasty and bilateral tubes placed, prior ear surgeries, umbilical hernia repair with bowel paris/bowel resections then done along with L ovary removed, PICC lines/now out, mediport-now out (MRSA infection), PCI/stents, R eye surgeries/lens implant/lasered for retinal detachment, EGD, colonoscopies, L breast benign biopsy, D&C, R vulva excision, R wrist ORIF with plate/pins, deviated septal surgery. Past Anesthesia/Blood Transfusion Reactions: Blood Transfusion Reaction Additional Past Anesthesia/Blood Transfusion Reaction / Comment(s): 2001-had some kind of transfusion reaction Date of Last Stent Placement:: 2001 Past Psychological History: Depression Smoking Status: Current every day smoker - Past Family History Mother Additional Family Medical History / Comment(s): @ AGE 53 WITH ANEURYSM Father Family Medical History: Myocardial Infarction (NM) Additional Family Medical History / Comment(s): HAD CABG- COMMITTED SUICIDE A YEAR AFTER - PT'S GRANDFATHER(P) ALSO COMMITED SUICIDE Brother(s) Family Medical History: Coronary Artery Disease (CAD) Additional Family Medical History / Comment(s): COMMITTED SUICIDE General Exam - General Exam Comments Initial Comments: Physical Exam GENERAL: Chronically ill appearing debilitated female appears fatigued, slumping over but is arousable and speaks HENT: Previous surgical scars EYES: Pupils round reactive to light, left pupil approximately 1mm larger than the right PULMONARY: Tachypnea with wheezing CARDIOVASCULAR: RRR ABDOMEN: Very large midline abdominal wall hernia nontender to palpation SKIN: Skin is clear with no lesions or rashes and otherwise unremarkable. : Deferred NEUROLOGIC: Oriented to self Nodding off during evaluation MUSCULOSKELETAL: Lower extremity edema PSYCHIATRIC: Normal psychiatric evaluation. Limitations: no limitations Limitations: altered mental status Course Vital Signs 06/05/18 06/05/18 06/05/18 02:00 02:16 02:21 Temperature 98.9 F Pulse Rate 98 93 93 Respiratory 20 21 Rate Blood Pressure 102/64 116/62 O2 Sat by Pulse 98 97 Oximetry 06/05/18 06/05/18 06/05/18 02:28 03:37 05:37 Temperature 98.4 F Pulse Rate 92 81 93 Respiratory 19 19 Rate Blood Pressure 121/69 124/77 O2 Sat by Pulse 99 94 L Oximetry 06/05/18 05:38 Temperature Pulse Rate Respiratory Rate Blood Pressure O2 Sat by Pulse 100 Oximetry Medical Decision Making - Medical Decision Making She came to the ER primary one via EMS for hypoxic respiratory failure and altered mental status Upon arrival patient was immediately transitioned from EMS CPAP to BiPAP, as and imaging were ordered as a high suspicion for hypercarbic respiratory failure causing altered mental status ABG was not consistent with hypercarbic respiratory failure, patient was very well compensated Patient remained on BiPAP, labs and imaging were reviewed no significant changes from baseline Decision made to computed tomography scan the patient's head to evaluate for altered mental status patient was removed from bypass for transport to [place], patient mental status seems to be improving. She is able to state that she usually uses 4 L nasal cannula. She continues to ask Mountain Dew and has no acute complaints. She care was discussed with who requests that a PE study be obtained prior to admission. A study with no signs of pulmonary embolism, she does have emphysema noted the radiologist was concerned for possible free air in the abdomen however patient's physical exam is not consistent with this she does have a very large midline hernia and I suspect that her atypical abdominal anatomy is causing the findings. Return to the patient's room she had removed her nasal cannula from her nose and it was by her eyes she was slumped forward her oxygen saturation was 72% her lips were cyanotic but she was still awake and talking. She was again placed on the BiPAP for oxygenation improved. Patient will be admitted for hypoxic respiratory failure. - Lab Data Result diagrams: 06/05/18 02:03 06/05/18 02:03 Lab Results 06/05/18 06/05/18 06/05/18 Range/Units 02:03 02:03 02:03 WBC 3.0 L (3.8-10.6) k/uL RBC 2.79 L (3.80-5.40) m/uL Hgb 10.2 L (11.4-16.0) gm/dL Hct 30.7 L (34.0-46.0) % MCV 110.2 H (80.0-100.0) fL MCH 36.7 H (25.0-35.0) pg MCHC 33.3 (31.0-37.0) g/dL RDW 17.1 H (11.5-15.5) % Plt Count (150-450) k/uL Neutrophils % 65 % Lymphocytes % 21 % Monocytes % 8 % Eosinophils % 3 % Basophils % 1 % Neutrophils # 1.9 (1.3-7.7) k/uL Lymphocytes # 0.6 L (1.0-4.8) k/uL Monocytes # 0.3 (0-1.0) k/uL Eosinophils # 0.1 (0-0.7) k/uL Basophils # 0.0 (0-0.2) k/uL Manual Slide Review Performed Large Platelets Present Hypochromasia Slight Poikilocytosis Slight Anisocytosis Slight Macrocytosis Marked PT (9.0-12.0) sec INR (<1.2) APTT (22.0-30.0) sec Sample Site ABG pH (7.35-7.45) ABG pCO2 (35-45) mmHg ABG pO2 (83-108) mmHg ABG HCO3 (21-25) mmol/L ABG Total CO2 (19-24) mmol/L ABG O2 Saturation (94-97) % ABG Base Excess mmol/L Delano Test VBG pH 7.43 H (7.31-7.41) VBG pCO2 53 H (37-51) mmHg VBG HCO3 34 H (24-28) mmol/L FiO2 % Sodium 135 L (137-145) mmol/L Potassium 6.0 H (3.5-5.1) mmol/L Chloride 97 L (98-107) mmol/L Carbon Dioxide 33 H (22-30) mmol/L Anion Gap 5 mmol/L BUN 37 H (7-17) mg/dL Creatinine 0.80 (0.52-1.04) mg/dL Est GFR (CKD-EPI)AfAm >90 (>60 ml/min/1.73 sqM) Est GFR (CKD-EPI)NonAf 82 (>60 ml/min/1.73 sqM) Glucose 111 H (74-99) mg/dL Calcium 8.3 L (8.4-10.2) mg/dL Magnesium 2.1 (1.6-2.3) mg/dL Total Bilirubin 1.4 H (0.2-1.3) mg/dL AST 82 H (14-36) U/L ALT 19 (9-52) U/L Alkaline Phosphatase 30 L (38-126) U/L Troponin I (0.000-0.034) ng/mL NT-Pro-B Natriuret Pep pg/mL Total Protein 6.3 (6.3-8.2) g/dL Albumin 3.7 (3.5-5.0) g/dL 06/05/18 06/05/18 06/05/18 Range/Units 02:03 02:03 02:03 WBC (3.8-10.6) k/uL RBC (3.80-5.40) m/uL Hgb (11.4-16.0) gm/dL Hct (34.0-46.0) % MCV (80.0-100.0) fL MCH (25.0-35.0) pg MCHC (31.0-37.0) g/dL RDW (11.5-15.5) % Plt Count (150-450) k/uL Neutrophils % % Lymphocytes % % Monocytes % % Eosinophils % % Basophils % % Neutrophils # (1.3-7.7) k/uL Lymphocytes # (1.0-4.8) k/uL Monocytes # (0-1.0) k/uL Eosinophils # (0-0.7) k/uL Basophils # (0-0.2) k/uL Manual Slide Review Large Platelets Hypochromasia Poikilocytosis Anisocytosis Macrocytosis PT 10.2 (9.0-12.0) sec INR 0.9 (<1.2) APTT 27.1 (22.0-30.0) sec Sample Site ABG pH (7.35-7.45) ABG pCO2 (35-45) mmHg ABG pO2 (83-108) mmHg ABG HCO3 (21-25) mmol/L ABG Total CO2 (19-24) mmol/L ABG O2 Saturation (94-97) % ABG Base Excess mmol/L Delano Test VBG pH (7.31-7.41) VBG pCO2 (37-51) mmHg VBG HCO3 (24-28) mmol/L FiO2 % Sodium (137-145) mmol/L Potassium (3.5-5.1) mmol/L Chloride (98-107) mmol/L Carbon Dioxide (22-30) mmol/L Anion Gap mmol/L BUN (7-17) mg/dL Creatinine (0.52-1.04) mg/dL Est GFR (CKD-EPI)AfAm (>60 ml/min/1.73 sqM) Est GFR (CKD-EPI)NonAf (>60 ml/min/1.73 sqM) Glucose (74-99) mg/dL Calcium (8.4-10.2) mg/dL Magnesium (1.6-2.3) mg/dL Total Bilirubin (0.2-1.3) mg/dL AST (14-36) U/L ALT (9-52) U/L Alkaline Phosphatase (38-126) U/L Troponin I 0.070 H* (0.000-0.034) ng/mL NT-Pro-B Natriuret Pep 4560 pg/mL Total Protein (6.3-8.2) g/dL Albumin (3.5-5.0) g/dL 06/05/18 Range/Units 02:15 WBC (3.8-10.6) k/uL RBC (3.80-5.40) m/uL Hgb (11.4-16.0) gm/dL Hct (34.0-46.0) % MCV (80.0-100.0) fL MCH (25.0-35.0) pg MCHC (31.0-37.0) g/dL RDW (11.5-15.5) % Plt Count (150-450) k/uL Neutrophils % % Lymphocytes % % Monocytes % % Eosinophils % % Basophils % % Neutrophils # (1.3-7.7) k/uL Lymphocytes # (1.0-4.8) k/uL Monocytes # (0-1.0) k/uL Eosinophils # (0-0.7) k/uL Basophils # (0-0.2) k/uL Manual Slide Review Large Platelets Hypochromasia Poikilocytosis Anisocytosis Macrocytosis PT (9.0-12.0) sec INR (<1.2) APTT (22.0-30.0) sec Sample Site RRA ABG pH 7.43 (7.35-7.45) ABG pCO2 57 H (35-45) mmHg ABG pO2 81 L (83-108) mmHg ABG HCO3 37 H (21-25) mmol/L ABG Total CO2 39 H (19-24) mmol/L ABG O2 Saturation 96.4 (94-97) % ABG Base Excess 12.8 mmol/L Delano Test Yes VBG pH (7.31-7.41) VBG pCO2 (37-51) mmHg VBG HCO3 (24-28) mmol/L FiO2 60 % Sodium (137-145) mmol/L Potassium (3.5-5.1) mmol/L Chloride (98-107) mmol/L Carbon Dioxide (22-30) mmol/L Anion Gap mmol/L BUN (7-17) mg/dL Creatinine (0.52-1.04) mg/dL Est GFR (CKD-EPI)AfAm (>60 ml/min/1.73 sqM) Est GFR (CKD-EPI)NonAf (>60 ml/min/1.73 sqM) Glucose (74-99) mg/dL Calcium (8.4-10.2) mg/dL Magnesium (1.6-2.3) mg/dL Total Bilirubin (0.2-1.3) mg/dL AST (14-36) U/L ALT (9-52) U/L Alkaline Phosphatase (38-126) U/L Troponin I (0.000-0.034) ng/mL NT-Pro-B Natriuret Pep pg/mL Total Protein (6.3-8.2) g/dL Albumin (3.5-5.0) g/dL - EKG Data -: EKG Interpreted by Me EKG Comments: EKG was obtained at 2:12 AM, rate is 95 rhythm is sinus there is a right bundle branch block, there are normal intervals, FL 124, QRS 142, QTc 515 there are T- wave inversions in V1 through V5. No acute ST elevations or depressions no evid ence of acute infarction. Critical Care Time Critical Care Time: Yes Total Critical Care Time: 45 Critical Care Time: Critical Care Critical care time was exclusive of separately billable procedures and treating other patients Critical care was necessary to treat or prevent imminent or life-threatening deterioration. Critical care was time spent personally by me on the following activities: development of treatment plan with patient or surrogate, discussions with consultants, discussions with primary provider, evaluation of patient's response to treatment, examination of patient, obtaining history from patient or surrogate, ordering and performing treatments and interventions, ordering and review of laboratory studies, ordering and review of radiographic studies, pulse oximetry, re-evaluation of patient's condition and review of old charts. Disposition Clinical Impression: Congestive heart failure, COPD (chronic obstructive pulmonary disease), Hypoxia Disposition: ADMITTED IP TO THIS [facility] Condition: Serious
[2018-06-05 02:32] LABS: Anisocytosis Slight; Basophils % (A) 1 %; Eosinophils # (A) 0.1 k/uL (0-0.7); Eosinophils % (A) 3 %; HCT 30.7 % (34.0-46.0); HGB 10.2 gm/dL (11.4-16.0); Hypochromasia Slight; Lymphocytes # (A) 0.6 k/uL (1.0-4.8); Lymphocytes % (A) 21 %; MCH 36.7 pg (25.0-35.0); MCHC 33.3 g/dL (31.0-37.0); MCV 110.2 fL (80.0-100.0); Macrocytosis Marked; Mean Platelet Volume 11.2; Monocytes # (A) 0.3 k/uL (0-1.0); Monocytes % (A) 8 %; Neutrophils # (A) 1.9 k/uL (1.3-7.7); Neutrophils % (A) 65 %; Poikilocytosis Slight; RBC 2.79 m/uL (3.80-5.40); RDW 17.1 % (11.5-15.5)
[2018-06-05 02:33] LABS: VBG PH 7.43 (7.31-7.41)
[2018-06-05 02:43] LABS: ALT 19 U/L (9-52); AST 82 U/L (14-36); Albumin 3.7 g/dL (3.5-5.0); Alkaline Phosphatase 30 U/L (38-126); Anion Gap 5 mmol/L; Blood Urea Nitrogen 37 mg/dL (7-17); Calcium 8.3 mg/dL (8.4-10.2); Carbon Dioxide 33 mmol/L (22-30); Chloride 97 mmol/L (98-107); Glucose 111 mg/dL (74-99); Magnesium 2.1 mg/dL (1.6-2.3); Sodium 135 mmol/L (137-145); Total Bilirubin 1.4 mg/dL (0.2-1.3); Total Protein 6.3 g/dL (6.3-8.2)
--- NOTE | 2018-06-05 02:56 | XR ---
EXAM: XR Chest, 1 View CLINICAL HISTORY: ITS.REASON XR Reason: difficulty breathing TECHNIQUE: Frontal view of the chest. COMPARISON: Chest x-ray dated 04/15/2018. FINDINGS: Limitations: Exam is limited by poor patient positioning. Lungs: Reidentified mild opacity in the left lung base may represent atelectasis and possibly a small effusion. Pleural space: Unremarkable. No pneumothorax. Heart: Mild cardiomegaly. Mediastinum: Unremarkable. Bones/joints: Unremarkable. IMPRESSION: 1. Exam is limited by poor patient positioning. 2. Reidentified mild opacity in the left lung base may represent atelectasis and possibly a small effusion.
[2018-06-05 03:10] LABS: INR 0.9 (<1.2); Partial Thromboplastin Time 27.1 sec (22.0-30.0); Prothrombin Time 10.2 sec (9.0-12.0)
--- NOTE | 2018-06-05 05:20 | CT ---
EXAM: CT Head Without Intravenous Contrast CLINICAL HISTORY: ITS.REASON CT Reason: altered TECHNIQUE: Axial computed tomography images of the head/brain without intravenous contrast. DLP is 1161.4 mGy-cm. This CT exam was performed using one or more of the following dose reduction techniques: automated exposure control, adjustment of the mA and/or kV according to patient size, and/or use of iterative reconstruction technique. COMPARISON: CT head dated 05/04/2018. FINDINGS: Brain: Unchanged mild presumed small vessel ischemic disease. No mass effect or herniation. Ventricles: Unremarkable. No ventriculomegaly. Bones/joints: No acute fracture. Soft tissues: Unremarkable. Vasculature: There is calcification of the distal internal carotid arteries. Sinuses: Mucosal thickening throughout the left maxillary antrum and anterior left ethmoid air cells. Mastoid air cells: Unremarkable as visualized. Orbits: Right-sided scleral band. Other findings: No evidence of acute intra-hemorrhage. IMPRESSION: 1. No evidence of acute intra-hemorrhage. 2. Unchanged mild presumed small vessel ischemic disease.
[2018-06-05 05:22] LABS: Large Platelets Present
--- NOTE | 2018-06-05 06:30 | CT ---
EXAM: CT Angiography Chest With Intravenous Contrast CLINICAL HISTORY: ITS.REASON CT Reason: hypoxia TECHNIQUE: Axial computed tomographic angiography images of the chest with intravenous contrast using pulmonary embolism protocol. CTDI is 24.1 mGy and DLP is 1025.5 mGy-cm. This CT exam was performed using one or more of the following dose reduction techniques: automated exposure control, adjustment of the mA and/or kV according to patient size, and/or use of iterative reconstruction technique. MIP reconstructed images were created and reviewed. COMPARISON: Chest dated 02/08/2018. FINDINGS: Pulmonary arteries: Unremarkable. No evidence of pulmonary embolism. Aorta: No acute findings. No thoracic aortic aneurysm. Lungs: Centrilobular emphysema. No mass. Pleural space: Unremarkable. No significant effusion. No pneumothorax. Heart: Unremarkable. No cardiomegaly. No significant pericardial effusion. No evidence of RV dysfunction. Bones/joints: No acute fracture. No dislocation. Soft tissues: Unremarkable. Lymph nodes: Unchanged mildly prominent mediastinal lymph nodes of uncertain etiology or significance. For example, a pretracheal. 1.7 cm. Kidneys and ureters: Partially imaged left renal cyst measuring up to 1.8 cm. Intraperitoneal space: Findings highly suspicious for free intraperitoneal air, otherwise not well characterized on this exam. IMPRESSION: 1. No evidence of pulmonary embolism. 2. Unchanged mildly prominent mediastinal lymph nodes of uncertain etiology or significance. For example, a pretracheal. 1.7 cm. 3. Findings highly suspicious for free intraperitoneal air, otherwise not well characterized on this exam. 4. Centrilobular emphysema. <MYCVCSECTION> Critical Value Communications 06/05/18 06:43 Call Doctor Regarding Bowel Perforation with Free Air, called Dr. Salmon on 06/05 06:42 (-04:00)
[2018-06-05] MEDS ORDERED: FUROSEMIDE 10 MG/ML 4 ML VIAL IV STA (06:44)
[2018-06-05] MEDS ORDERED: NALOXONE 0.4 MG/ML 1 ML VIAL IV PRN (06:46)
[2018-06-05 09:07] LABS: Glucose,Whole Blood 248 mg/dL (75-99)
[2018-06-05] MEDS ORDERED: NITROGLYCERIN SL TABS 0.4 MG TAB SUBLINGUAL PRN (10:56)
[2018-06-05] MEDS ORDERED: SODIUM CHLORIDE 0.65% NASAL SPRAY 44 ML BTL NASAL PRN (11:03)
[2018-06-05] MEDS ORDERED: ACETAMINOPHEN TAB 325 MG TAB PO PRN (11:03)
[2018-06-05] MEDS ORDERED: MEROPENEM 1 GM in SODIUM CHLORIDE 0.9% 100 ML IVPB SCH (11:15)
[2018-06-05] MEDS: IPRATROPIUM-ALBUTEROL 3 ML NEB INHALATION SCH ×3 (11:40→20:17)
[2018-06-05 12:18] VITALS: BMI 40.7
[2018-06-05 12:58] LABS: Glucose,Whole Blood 220 mg/dL (75-99)
[2018-06-05] MEDS: INSULIN ASPART (NovoLOG) 100 UNIT/ML VIAL SQ SCH ×3 (13:01→21:27)
[2018-06-05] MEDS ORDERED: SODIUM POLYSTYRENE SULFONATE 15 GM/60 ML BOTTLE PO STA (13:40)
--- NOTE | 2018-06-05 13:57 | P.HPIM ---
History of Present Illness H&P Date: 06/05/18 Chief Complaint: Acute hypoxemic respiratory failure This is a 57-year-old female one of Dr. Pedro with a previous medical history significant for coronary artery disease status post PCI and 2 stents placement, hypertension and hypertensive cardiovascular disease with Lipitor hypertrophy, hyperlipidemia, history of fibromyalgia, diabetes mellitus type 2 with diabetic polyneuropathy, history of chronic diastolic heart failure, COPD, history of retinal detachment status post sclera buckling on the right side, history of the osteoarthritis, history of sleep apnea currently on a CPAP, patient was sent from [facility] on the [place] due to increased fatigue generalized weakness and hypoxemia according to the staff at [facility] her oxygenation was in the low 70s and the patient on oxygen and she barely made it to the low 80s, the ended up sending her to the ER for evaluation patient was started on BiPAP in the ER, and she had a computed tomography scan of the brain that did not show any evidence of acute of normalities but chronic small vessel disease, however s he had a CTA of the chest was negative for pulmonary embolism, showed mediastinal lymph node without evidence of infiltrate, there was questionable free air in the abdomen however patient had a chest x-ray ordered that did not show any evidence of any free air, her abdomen exam patient is soft nevertheless we will consult surgery for further evaluation, patient will be seen in consultation by pulmonary medicine, should be admitted to the hospital for further evaluation and treatment, patient does appear to be quite demented especially in the lower extremities she will be placed on Lasix for possible acute diastolic heart failure we'll continue the BiPAP for now and reevaluate the patient the next 24 hours, her potassium level was quite elevated at 6 she will be given Kayexalate 30 g orally 1 discontinue potassium supplement, repeat her potassium level. Review of Systems Constitutional: Reports chronic pain, Reports fatigue, Reports lethargy, Reports malaise, Reports weakness, Reports weight gain, Denies anorexia, Denies chronic headaches Eyes: bilateral blurred vision, bilateral decreased vision, denies bulging eye Ears: deny: decreased hearing Ears, nose, mouth and throat: Denies dysphagia, Denies neck lump, Denies sore throat, Denies vertigo Cardiovascular: Reports decreased exercise tolerance, Reports dyspnea on exertion, Reports leg edema, Reports lightheadedness, Reports shortness of breath, Denies chest pain, Denies rapid heart beat, Denies syncope Respiratory: Reports congestion, Reports home oxygen, Reports sleep apnea, Reports snoring, Reports wheezing, Denies cough, Denies cough with sputum, Denie s respiratory infections Gastrointestinal: Denies abdominal pain, Denies bloating, Denies BRBPR, Denies heartburn, Denies melena, Denies nausea, Denies vomiting Genitourinary: Denies dysuria, Denies nocturia Menstruation: Reports postmenopausal Musculoskeletal: Reports gait dysfunction Musculoskeletal: bilateral: ankle swelling, foot swelling, absent: ankle pain, ankle stiffness, elbow pain, elbow stiffness, elbow swelling, foot pain, foot stiffness, hand pain, hand stiffness, hand swelling, hip pain, hip stiffness, hip swelling, knee pain, knee stiffness, knee swelling, shoulder pain, shoulder stiffness, shoulder swelling, wrist pain, wrist stiffness, wrist swelling Integumentary: Denies pruritus, Denies rash Neurological: Reports gait dysfunction, Reports weakness Psychiatric: Reports anxiety, Denies paranoia, Denies sadness/tearfulness, Denies sleep disturbances, Denies suicidal ideation Endocrine: Denies fatigue, Denies weight change Past Medical History Past Medical History: Coronary Artery Disease (CAD), Cancer, Heart Failure, COPD, Diabetes Mellitus, Eye Disorder, Fibromyalgia, GERD/Reflux, Hearing Disorder / Deafness, Hyperlipidemia, Hypertension, Myocardial Infarction (IA), Osteoarthritis (OA), Renal Disease, Sleep Apnea/CPAP/BIPAP, Syncope Additional Past Medical History / Comment(s): Brain aneurysm, rapid heart rate, 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 Last Myocardial Infarction Date:: 1998 History of Any Multi-Drug Resistant Organisms: MRSA Date of last positivie culture/infection: 2001 MDRO Source:: PORT IN CHEST Past Surgical History: Bowel Resection, Section, Heart Catheterization With Stent, Hernia Repair, Orthopedic Surgery Additional Past Surgical History / Comment(s): 04/01/18 Cardiac cath, 04/2017 Removal R ear tube/tympanoplasty and bilateral tubes placed, prior ear surgeries, umbilical hernia repair with bowel paris/bowel resections then done along with L ovary removed, PICC lines/now out, mediport-now out (MRSA infection), PCI/stents, R eye surgeries/lens implant/lasered for retinal detachment, EGD, colonoscopies, L breast benign biopsy, D&C, R vulva excision, R wrist ORIF with plate/pins, deviated septal surgery. Past Anesthesia/Blood Transfusion Reactions: Blood Transfusion Reaction Additional Past Anesthesia/Blood Transfusion Reaction / Comment(s): 2001-had some kind of transfusion reaction Date of Last Stent Placement:: 2001 Past Psychological History: Depression Additional Psychological History / Comment(s): Pt resides alone. She is independent. She has a bipap/oxygen and a glucometer and nebulizer. She can drive when her health permits. She had some help thru [employer] (her son but he is no longer able to assist pt d/t his own health issues) and states she is trying to arrange for someone else to help her thru [employer]. Smoking Status: Current every day smoker Past Alcohol Use History: None Reported Additional Past Alcohol Use History / Comment(s): SMOKER SINCE 1972-5 CIG/DAY Past Drug Use History: None Reported - Past Family History Mother Additional Family Medical History / Comment(s): @ AGE 53 WITH ANEURYSM Father Family Medical History: Myocardial Infarction (IA) Additional Family Medical History / Comment(s): HAD CABG- COMMITTED SUICIDE A YEAR AFTER - PT'S GRANDFATHER(P) ALSO COMMITED SUICIDE Brother(s) Family Medical History: Coronary Artery Disease (CAD) Additional Family Medical History / Comment(s): COMMITTED SUICIDE Medications and Allergies Home Medications Medication Instructions Recorded Confirmed Type Atorvastatin [Lipitor] 40 mg PO HS@2100 01/02/15 06/05/18 History Ranitidine HCl [Zantac] 150 mg PO BID@0600,1700 01/02/15 06/05/18 History Ferrous Sulfate [Iron (65 MG 325 mg PO DAILY@0900 12/17/17 06/05/18 History Elemental)] Metoprolol Tartrate [Lopressor] 12.5 mg PO BID@0900,2100 12/17/17 06/05/18 History Baclofen [Lioresal] 20 mg PO BID@0900,2100 04/15/18 06/05/18 History Divalproex [Depakote] 250 mg PO TID@0900,1300,2100 04/15/18 06/05/18 History HYDROcodone/APAP 7.5-325MG [Murray 1 tab PO Q8H PRN 04/15/18 06/05/18 History 7.5-325] Ipratropium-Albuterol Nebulize 3 ml INHALATION RT-QID #120 04/19/18 06/05/18 Rx [Duoneb 0.5 mg-3 mg/3 ml Soln] ampul.neb Sodium Chloride 0.65% Nasal [Deep 2 spray NASAL QID PRN spray 04/21/18 06/05/18 Rx Sea (Saline)] Acetaminophen [Tylenol] 650 mg PO Q4H PRN 05/04/18 06/05/18 History Budesonide [Pulmicort] 1 mg INHALATION BID@0900,209905/04/18 06/05/18 History Formoterol Fumarate [Perforomist] 20 mcg INHALATION BID@0900,2100 05/04/18 06/05/18 History Furosemide [Lasix] 80 mg PO BID@0600,1400 05/04/18 06/05/18 History Gabapentin 600 mg PO TID@0600,1300,2100 05/04/18 06/05/18 History INSULIN LISPRO (humaLOG) [humaLOG] See Protocol SQ QID@08,,,05/04/18 06/05/18 History Linagliptin [Tradjenta] 5 mg PO DAILY@0900 05/04/18 06/05/18 History Montelukast [Singulair] 10 mg PO HS@209905/04/18 06/05/18 History Sennosides-Docusate Sodium 2 tab PO BID@0900,1700 05/04/18 06/05/18 History [Senokot-S] guaiFENesin [Mucinex] 1,200 mg PO BID@0900,2100 05/04/18 06/05/18 History metFORMIN HCL [Glucophage] 500 mg PO BID@0800,1700 05/04/18 06/05/18 History DULoxetine HCL [Cymbalta] 30 mg PO BID@0900,2100 06/05/18 06/05/18 History Loperamide [Imodium] 2 mg PO QID PRN 06/05/18 06/05/18 History Metolazone [Zaroxolyn] 2.5 mg PO MOWEFR@0900 06/05/18 06/05/18 History Nicotine 14Mg/24Hr Patch [Habitrol 1 patch TRANSDERM HS@2100 06/05/18 06/05/18 History 14Mg/24Hr Patch] Nitroglycerin Sl Tabs [Nitrostat] 0.4 mg SUBLINGUAL Q5M PRN 06/05/18 06/05/18 History Potassium Chloride [Klor-Con 20] 20 meq PO MOWEFR@0900 06/05/18 06/05/18 History Vitamins A and D [Vitamin A and D] 1 applic TOPICAL HS 06/05/18 06/05/18 History Vortioxetine Hydrobromide 5 mg PO DAILY@0900 06/05/18 06/05/18 History [Trintellix] rOPINIRole HCL [Requip] 0.5 mg PO BID@0900,2100 06/05/18 06/05/18 History Allergies Allergy/AdvReac Type Severity Reaction Status Date / Time amoxicillin Allergy SOB- RED Verified 06/05/18 07:12 BLOTCHY SKIN capsaicin Allergy SOB- RED Verified 06/05/18 07:12 [place] cephalexin monohydrate Allergy SOB- RED Verified 06/05/18 07:12 [From Keflex] BLOT[place]Y SKIN Cephalosporins Allergy SOB-RED Verified 06/05/18 07:12 [place] ciprofloxacin Allergy Unknown Verified 06/05/18 07:12 clindamycin Allergy SOB-RED Verified 06/05/18 07:12 [place] fluticasone propionate Allergy SOB- RED Verified 06/05/18 07:12 [From Flonase] BLOT[place]Y [place] Penicillins Allergy SOB- RED Verified 06/05/18 07:12 [place] Sulfa (Sulfonamide Allergy SOB- RED Verified 06/05/18 07:12 Antibiotics) BLOTCHY SKIN mirtazapine [From Remeron] AdvReac Hallucinati Verified 06/05/18 07:12 ons BROWN DYES Allergy SOB- RED Uncoded 05/04/18 10:42 BLOT[place]Y SK[place] Physical Exam Vitals: Vital Signs Temp Pulse Pulse Resp BP BP Pulse Ox 06/05/18 12:03 96.8 F L 73 24 99/54 91 L 06/05/18 12:00 96.7 F L 73 24 99/54 92 L 06/05/18 11:50 55 L 17 06/05/18 11:40 61 17 06/05/18 11:30 57 L 15 100/60 96 06/05/18 10:30 57 L 13 94/60 97 06/05/18 10:00 60 14 105/50 98 06/05/18 09:30 57 L 13 90/57 95 06/05/18 09:00 60 17 99/61 92 L 06/05/18 08:30 58 L 107/53 98 06/05/18 08:00 61 106/63 06/05/18 05:38 100 06/05/18 05:37 98.4 F 93 19 124/77 94 L 06/05/18 03:37 81 19 121/69 99 06/05/18 02:28 92 06/05/18 02:21 93 06/05/18 02:16 93 21 116/62 97 06/05/18 02:00 98.9 F 98 20 102/64 98 Intake and Output 06/04/18 06/05/18 06/05/18 22:59 06:59 14:59 Output Total 1100 Balance -1100 Output: Urine 1100 Other: Voiding Method Bedside Commode Weight 117.934 kg 126 kg - Constitutional General appearance: mild distress, obese - EENT Eyes: anicteric sclerae, EOMI, PERRLA, no ptosis, no scleral icterus, normal appearance ENT: hard of hearing, NA/AT, normal oropharynx, no thrush Ears: bilateral: normal - Neck Neck: no lymphadenopathy, normal ROM, no rigidity, no stridor, no thyromegaly Carotids: bilateral: upstroke delayed Thyroid: bilateral: normal size - Respiratory Respiratory: bilateral: diminished, rales, rhonchi, negative: dullness, wheezing - Cardiovascular Rhythm: regular Heart sounds: normal: S1, S2 Abnormal Heart Sounds: systolic murmur, no S3 Gallop, no S4 Gallop - Gastrointestinal General gastrointestinal: normal bowel sounds, soft, no splenomegaly, no tenderness, no umbilical hernia, no ventral hernia - Integumentary Integumentary: normal, normal turgor - Neurologic Neurologic: CNII-XII intact - Musculoskeletal Musculoskeletal: generalized weakness, strength equal bilaterally - Psychiatric Psychiatric: A&O x's 3, appropriate affect, intact judgment & insight Results CBC & Chem 7: 06/05/18 02:03 06/05/18 02:03 Labs: Abnormal Lab Results - Last 24 Hours (Table) 06/05/18 06/05/18 06/05/18 Range/Units 02:03 02:03 02:03 WBC 3.0 L (3.8-10.6) k/uL RBC 2.79 L (3.80-5.40) m/uL Hgb 10.2 L (11.4-16.0) gm/dL Hct 30.7 L (34.0-46.0) % MCV 110.2 H (80.0-100.0) fL MCH 36.7 H (25.0-35.0) pg RDW 17.1 H (11.5-15.5) % Lymphocytes # 0.6 L (1.0-4.8) k/uL ABG pCO2 (35-45) mmHg ABG pO2 (83-108) mmHg ABG HCO3 (21-25) mmol/L ABG Total CO2 (19-24) mmol/L VBG pH 7.43 H (7.31-7.41) VBG pCO2 53 H (37-51) mmHg VBG HCO3 34 H (24-28) mmol/L Sodium 135 L (137-145) mmol/L Potassium 6.0 H (3.5-5.1) mmol/L Chloride 97 L (98-107) mmol/L Carbon Dioxide 33 H (22-30) mmol/L BUN 37 H (7-17) mg/dL Glucose 111 H (74-99) mg/dL POC Glucose (mg/dL) (75-99) mg/dL Calcium 8.3 L (8.4-10.2) mg/dL Total Bilirubin 1.4 H (0.2-1.3) mg/dL AST 82 H (14-36) U/L Alkaline Phosphatase 30 L (38-126) U/L Troponin I (0.000-0.034) ng/mL 06/05/18 06/05/18 06/05/18 Range/Units 02:03 02:15 09:06 WBC (3.8-10.6) k/uL RBC (3.80-5.40) m/uL Hgb (11.4-16.0) gm/dL Hct (34.0-46.0) % MCV (80.0-100.0) fL MCH (25.0-35.0) pg RDW (11.5-15.5) % Lymphocytes # (1.0-4.8) k/uL ABG pCO2 57 H (35-45) mmHg ABG pO2 81 L (83-108) mmHg ABG HCO3 37 H (21-25) mmol/L ABG Total CO2 39 H (19-24) mmol/L VBG pH (7.31-7.41) VBG pCO2 (37-51) mmHg VBG HCO3 (24-28) mmol/L Sodium (137-145) mmol/L Potassium (3.5-5.1) mmol/L Chloride (98-107) mmol/L Carbon Dioxide (22-30) mmol/L BUN (7-17) mg/dL Glucose (74-99) mg/dL POC Glucose (mg/dL) 248 H (75-99) mg/dL Calcium (8.4-10.2) mg/dL Total Bilirubin (0.2-1.3) mg/dL AST (14-36) U/L Alkaline Phosphatase (38-126) U/L Troponin I 0.070 H* (0.000-0.034) ng/mL 06/05/18 Range/Units 12:57 WBC (3.8-10.6) k/uL RBC (3.80-5.40) m/uL Hgb (11.4-16.0) gm/dL Hct (34.0-46.0) % MCV (80.0-100.0) fL MCH (25.0-35.0) pg RDW (11.5-15.5) % Lymphocytes # (1.0-4.8) k/uL ABG pCO2 (35-45) mmHg ABG pO2 (83-108) mmHg ABG HCO3 (21-25) mmol/L ABG Total CO2 (19-24) mmol/L VBG pH (7.31-7.41) VBG pCO2 (37-51) mmHg VBG HCO3 (24-28) mmol/L Sodium (137-145) mmol/L Potassium (3.5-5.1) mmol/L Chloride (98-107) mmol/L Carbon Dioxide (22-30) mmol/L BUN (7-17) mg/dL Glucose (74-99) mg/dL POC Glucose (mg/dL) 220 H (75-99) mg/dL Calcium (8.4-10.2) mg/dL Total Bilirubin (0.2-1.3) mg/dL AST (14-36) U/L Alkaline Phosphatase (38-126) U/L Troponin I (0.000-0.034) ng/mL Thrombosis Risk Factor Assmnt - DVT/VTE Prophylaxis DVT/VTE Prophylaxis: Pharmacologic Prophylaxis ordered, Mechanical Prophylaxis ordered - Choose All That Apply Each Factor Represents 1 point: Abnormal pulmonary function (COPD), Age 41-60 years, Heart failure (<1month), Obesity (BMI >25), Swollen legs (current) Thrombosis Risk Factor Assessment Total Risk Factor Score: 5 Thrombosis Risk Factor Assessment Level: High Risk Assessment and Plan Assessment: Assessment and plan: 1. Acute hypoxemic respiratory failure likely due to combination of COPD as well as acute diastolic heart failure. Continue patient on DuoNeb treatment n ebulization 4 times every day, continue oxygen support with the BiPAP, keep oxygen saturation greater than 93%, pulmonary consultation from Dr. Wilburn, continue patient also on Lasix 40 mg IV push every 12 hours, discontinue potassium supplement, monitor the patient input and output and daily weight, echocardiogram was done about 2 months ago. 2. Hyperkalemia. Discontinue potassium supplement. Give the patient Kayexalate 30 g orally 1 and repeat the potassium level. 3. CAD post-PCI and 2 stents placement. Continue patient on Lopressor 12.5 mg orally twice every day, continue patient on a baby aspirin 81 mg once every day, continue Lipitor 40 mg orally once every day. 4. Hypertension and hypertensive cardio vascular disease. Continue Lopressor 12.5 mg orally twice every day. 5. Diabetes mellitus type 2. Currently the patient on Linaglipin 5 mg orally once every day, discontinue metformin as the patient did receive contrast for CTA of the chest, continue sliding scale insulin. 6. Diabetic polyneuropathy and fibromyalgia. Continue patient on gabapentin 300 mg orally twice every day. 7. Hyperlipidemia. Continue Lipitor 40 mg orally once every day. 8. Obesity with obstructive sleep apnea. Continue BiPAP. 9. Depression. Continue Cymbalta 30 mg orally twice every day. 10. GERD. Continue patient on PPI. 11. Questionable free air in the abdomen however the patient physical examination does not support any acute abdomen at this time after treating the patient hyperkalemia then we'll consider computed tomography scan of the abdomen without contrast for further evaluation. 12. Restless leg syndrome. Continue patient on Requip 0.5 mg orally twice every day. 13. Depressive disorder. Continue Trentellix 5 mg orally once every day. 14. History of intracranial bleed . Resolved. Computed tomography scan of the brain did not show evidence of acute abnormalities continue with Depakote 250 mg orally 3 times every day. 15. Pancytopenia with macrocytosis. Prior history of AML. may need hematology consultation. 16. DVT prophylaxis. We will start bilateral knee-high LLOYD hose, hold off heparin due to thrombocytopenia. 17. GI prophylaxis . Continue PPI. 18. Medical debility. Physical therapy evaluation. 19. Admitted to inpatient. Estimate length of stay 2 midnights. 20. Patient is no code.
--- NOTE | 2018-06-05 13:59 | US ---
EXAMINATION TYPE: US venous doppler duplex LE BI DATE OF EXAM: 06/05/2018 1:46 PM COMPARISON: None CLINICAL HISTORY: edema, pain. Pain and edema bilateral legs, worse on the right SIDE PERFORMED: Right TECHNIQUE: The lower extremity deep venous system is examined utilizing real time linear array sonog afbi with graded compression, doppler sonography and color-flow sonography. VESSELS IMAGED: External Iliac Vein (EIV) Common Femoral Vein Deep Femoral Vein Greater Saphenous Vein * Femoral Vein Popliteal Vein Small Saphenous Vein * Proximal Calf Veins (* superficial vessels) There is normal flow, compressibility, vascular waveforms. Right Leg: No evidence of DVT as visualized Left Leg: No evidence of DVT as visualized IMPRESSION: No evident deep venous thrombosis at or above the knees.
[2018-06-05] MEDS: GABAPENTIN 300 MG CAP PO SCH ×2 (14:02→21:05)
[2018-06-05 15:22] LABS: Anisocytosis Slight; Basophils % (A) 0 %; Eosinophils # (A) 0.1 k/uL (0-0.7); Eosinophils % (A) 3 %; HCT 30.2 % (34.0-46.0); Hypochromasia Slight; Lymphocytes # (A) 0.5 k/uL (1.0-4.8); Lymphocytes % (A) 19 %; MCH 37.2 pg (25.0-35.0); MCHC 33.1 g/dL (31.0-37.0); MCV 112.4 fL (80.0-100.0); Macrocytosis Marked; Mean Platelet Volume 10.4; Monocytes # (A) 0.2 k/uL (0-1.0); Monocytes % (A) 8 %; Neutrophils # (A) 1.9 k/uL (1.3-7.7); Neutrophils % (A) 67 %; Platelet Count 87 k/uL (150-450); Poikilocytosis Slight; RBC 2.68 m/uL (3.80-5.40); RDW 16.8 % (11.5-15.5); WBC 2.8 k/uL (3.8-10.6)
[2018-06-05 15:35] LABS: ALT 29 U/L (9-52); AST 29 U/L (14-36); Albumin 3.1 g/dL (3.5-5.0); Alkaline Phosphatase 49 U/L (38-126); Anion Gap 6 mmol/L; Blood Urea Nitrogen 31 mg/dL (7-17); Calcium 8.4 mg/dL (8.4-10.2); Carbon Dioxide 36 mmol/L (22-30); Chloride 98 mmol/L (98-107); Glucose 189 mg/dL (74-99); Potassium 3.9 mmol/L (3.5-5.1); Sodium 140 mmol/L (137-145); Total Bilirubin 0.4 mg/dL (0.2-1.3); Total Protein 5.4 g/dL (6.3-8.2)
[2018-06-05 15:41] LABS: Valproic Acid (Depakene) 22.6 ug/mL
--- NOTE | 2018-06-05 16:07 | CONS ---
CONSULTATION PULMONARY/CRITICAL CARE CONSULTATION: DATE OF CONSULTATION: 06/05/2018 This is a chronically ill 57-year-old female who resides at [facility] on the [facility]. She apparently presented to the emergency room today via EMS for changes in mental status and low blood oxygen level. The patient apparently was evaluated by EMS on the scene. The patient was apparently confused and was quite hypoxic. Her saturations were in the low to mid 80s. The patient was placed on BiPAP and transferred here to the emergency room. She apparently does use BiPAP at [facility] but apparently either it does not function as well as our BiPAP device or maybe it is nonfunctional or dysfunctional to begin with. Anyway, she did seem to improve while on BiPAP. I did get a chance to speak to her primary care physician, Dr. Nieto, about what was going on. I saw him in the physicians' lounge. Anyway, the patient states that she is feeling better. She has the BiPAP device in place. Her IPAP is 12. Her EPAP is 5 and she is on an FiO2 of 60%. The patient is difficult to get history from. She is not a particularly good historian, but it appears that she has not been doing well for at least a couple days prior to admission. MEDICATIONS: Her medications at the long-term include: 1. Lipitor. 2. Zantac. 3. Iron. 4. Metoprolol. 5. Baclofen. 6. Depakote. 7. [place]. 8. Tylenol. 9. Pulmicort. 10.Formoterol. 11.Lasix. 12.Gabapentin. 13.Humalog insulin. 14.Tradjenta. 15.Singulair. 16.Senokot S. 17.Mucinex. 18.Metformin. 19.Cymbalta. 20.Imodium. 21.Zaroxolyn. 22.Nicotine patch. 23.Sublingual nitroglycerin p.r.n. 24.Potassium chloride. 25.Vitamins. 26.Trintellix. 27.Requip. ALLERGIES: MULTIPLE, includin. AMOXICILLIN. 2. CAPSAICIN. 3. KEFLEX. 4. CEPHALOSPORINS. 5. CIPROFLOXACIN. 6. CLINDAMYCIN. 7. FLONASE NASAL SPRAY. 8. PENICILLIN. 9. SULFA ANTIBIOTICS. 10.REMERON. 11.BROWN DYES. PAST MEDICAL HISTORY: Her past medical history is significant and includes: 1. CAD. 2. Heart failure. 3. COPD. 4. Diabetes mellitus. 5. Fibromyalgia. 6. GERD. 7. Deafness. 8. Hyperlipidemia. 9. Hypertension. 10.Previous myocardial infarction. 11.DJD. 12.Sleep apnea syndrome. 13.As mentioned, she did have a BiPAP device at the long-term. 14.She also apparently has a previous history of syncope. 15.Brain aneurysm. 16.Racing heart rate. 17.History of acute myeloid leukemia with chemotherapy treatment. 18.History of vulvar carcinoma. 19.Restless legs syndrome. 20.Detached retina in the right eye. 21.Scoliosis. SURGICAL HISTORY: Includes: 1. Bowel resection. 2. . 3. Heart catheterization with stent. 4. Hernia repair. 5. Orthopedic procedures. 6. A number of other surgical procedures listed in the H&P provided by the ER doctor. SOCIAL HISTORY: Positive for ongoing tobacco use. She denies any alcohol or illicit drug use. FAMILY HISTORY: Positive for aneurysm and subsequent . Bypass grafting. There is also a family history of CAD. There is a strong family history of suicide amongst family members. REVIEW OF SYSTEMS: CONSTITUTIONAL: Confusion, altered mental status. NEUROLOGIC: Confusion, altered mental status. HEENT: Negative. CARDIOVASCULAR: Negative. PULMONARY: Shortness of breath, low oxygen levels, occasional cough and occasional wheezing. GI: Negative. : Negative. RHEUMATOLOGIC: Negative. IMMUNOLOGIC: Negative. ENDOCRINOLOGIC: Negative. DERMATOLOGIC: Negative. PHYSICAL EXAMINATION: Current vital signs include temperature 96.8, heart rate 73, respiratory rate 24, blood pressure 99/54, mean 69 and saturations between 91% and 93%. Appears in no acute distress. HEENT examination is grossly unremarkable. BiPAP mask in place. NECK: Supple. Full range of motion. No adenopathy or thyromegaly. Neck veins are flat. Cardiovascular examination reveals regular rhythm and rate. S1, S2 normal. No S3, S4, murmur. Heart sounds are distant. LUNGS: Occasional coarse rhonchi. No wheezes. No crackles. Breath sounds are diminished throughout. ABDOMEN: Soft but obese. Bowel sounds are heard. Extremities are intact. Mild edema noted. Skin without rash. Neurologic examination is difficult to assess, given her current neurologic status. LABS: Reviewed. White count 3, hemoglobin 10.2, hematocrit 30.7. Platelet count is still pending. Blood gases show PO2 of 81, pCO2 of 57, pH 7.43. It is consistent with well- compensated chronic hypercapnic respiratory failure. Sodium 135, potassium 6, chloride 97, CO2 33. Anion gap is 5. BUN and creatinine were 37 and 0.8. The rest of the labs are reviewed. N-terminal proBNP 4560. Calcium 8.3, total bilirubin 1.4. Chest x-ray shows poor inspiratory effort. There may be some basilar atelectasis and small effusions. Follow-up chest x-ray is similar. She did have a CT scan of the chest which suggested no evidence of pulmonary embolism. She had evidence of centrilobular emphysema. Pleural spaces were clear. The rest of the scan was not too remarkable, particularly as it relates to the lung. Medications are reviewed. ASSESSMENT: 1. Shortness of breath, likely multifactorial, in part related to underlying chronic obstructive pulmonary disease exacerbation and possibly a component of mild fluid overload. 2. Morbid obesity. 3. History of coronary artery disease. 4. History of heart failure. 5. History of chronic obstructive pulmonary disease. 6. Diabetes mellitus by history. 7. Fibromyalgia. 8. Gastroesophageal reflux disease. 9. Deafness. 10.Hyperlipidemia. 11.Hypertension. 12.Myocardial infarction. 13.Degenerative joint disease. 14.History of sleep apnea syndrome. 15.History of vulvar cancer, status post surgery. 16.Restless leg syndrome. 17.Multiple other medical problems and comorbidities. PLAN: Please see my orders. The patient's medications will be adjusted accordingly. We will make sure she is on a good regimen for COPD. We should also restrict the fluid that she gets via IV infusion. Additional recommendations and suggestions are forthcoming. I would keep her on the BiPAP for now. She is a chronic CO2 retainer. We should be happy with saturations in the 88 to 92% range. I will pass that along to the nurses. No additional recommendations are made. MMODL / IJN: [id number] / [id number]
--- NOTE | 2018-06-05 16:18 | P.GSCN ---
History of Present Illness Consult date: 06/05/18 History of present illness: This is a 57-year-old female with a previous medical history significant for coronary artery disease status post PCI and 2 stent placement, hypertension and hypertensive cardiovascular disease with hypertrophy, hyperlipidemia, history of fibromyalgia, diabetes mellitus type 2 with diabetic polyneuropathy, history of chronic diastolic heart failure, COPD, history of retinal detachment status post sclera buckling on the right side, history of the osteoarthritis, history of sleep apnea currently on a CPAP. The patient resides at a nursing facility and was sent to the hospital secondary to generalized weakness, altered mental status and hypoxemia. The patient was then evaluated in the emergency department and a CT of the brain and the chest were performed. The CT of the chest did find some pneumoperitoneum on the portion of the abdomen that was captured on the CT imaging. The chest x-ray did not reveal any of this pneumoperitoneum. The patient denies any abdominal pain. She denies any nausea. She denies any vomiting. The patient states that she has a surgical history that is positive for multiple bowel resections and a chronic ventral hernia. She denies any significant abdominal pain over the last few weeks. She denies any change in bowel function. She denies any blood in her stool or any emesis. She was noted to be hyperkalemic and that is being treated by the medical team. She is also currently on BiPAP. The patient is a DO NOT RESUSCITATE that was ordered by herself. 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 Last Myocardial Infarction Date:: 1998 History of Any Multi-Drug Resistant Organisms: MRSA Year Discovered:: 2001 MDRO Source:: PORT IN CHEST Past Surgical History: Bowel Resection, Section, Heart Catheterization With Stent, Hernia Repair, Orthopedic Surgery Additional Past Surgical History / Comment(s): 04/01/18 Cardiac cath, 04/2017 Removal R ear tube/tympanoplasty and bilateral tubes placed, prior ear surgeries, umbilical hernia repair with bowel paris/bowel resections then done along with L ovary removed, PICC lines/now out, mediport-now out (MRSA infection), PCI/stents, R eye surgeries/lens implant/lasered for retinal detachment, EGD, colonoscopies, L breast benign biopsy, D&C, R vulva excision, R wrist ORIF with plate/pins, deviated septal surgery. Past Anesthesia/Blood Transfusion Reactions: Blood Transfusion Reaction Additional Past Anesthesia/Blood Transfusion Reaction / Comm: 2001-had some kind of transfusion reaction Date of Last Stent Placement:: 2001 Past Psychological History: Depression Additional Psychological History / Comment(s): Pt resides alone. She is independent. She has a bipap/oxygen and a glucometer and nebulizer. She can drive when her health permits. She had some help thru [employer] (her son but he is no longer able to assist pt d/t his own health issues) and states she is trying to arrange for someone else to help her thru [employer]. Smoking Status: Current every day smoker Past Alcohol Use History: None Reported Additional Past Alcohol Use History / Comment(s): SMOKER SINCE 1972-5 CIG/DAY Past Drug Use History: None Reported - Past Family History Mother Additional Family Medical History / Comment(s): @ AGE 53 WITH ANEURYSM Father Family Medical History: Myocardial Infarction ([place]) Additional Family Medical History / Comment(s): HAD CABG- COMMITTED SUICIDE A YEAR AFTER - PT'S GRANDFATHER(P) ALSO COMMITED SUICIDE Brother(s) Family Medical History: Coronary Artery Disease (CAD) Additional Family Medical History / Comment(s): COMMITTED SUICIDE Medications and Allergies Home Medications Medication Instructions Recorded Confirmed Type Atorvastatin [Lipitor] 40 mg PO HS@2100 01/02/15 06/05/18 History Ranitidine HCl [Zantac] 150 mg PO BID@0600,1700 01/02/15 06/05/18 History Ferrous Sulfate [Iron (65 MG 325 mg PO DAILY@0900 12/17/17 06/05/18 History Elemental)] Metoprolol Tartrate [Lopressor] 12.5 mg PO BID@0900,2100 12/17/17 06/05/18 History Baclofen [Lioresal] 20 mg PO BID@0900,2100 04/15/18 06/05/18 History Divalproex [Depakote] 250 mg PO TID@0900,1300,2100 04/15/18 06/05/18 History HYDROcodone/APAP 7.5-325MG [Geraldine 1 tab PO Q8H PRN 04/15/18 06/05/18 History 7.5-325] Ipratropium-Albuterol Nebulize 3 ml INHALATION RT-QID #120 04/19/18 06/05/18 Rx [Duoneb 0.5 mg-3 mg/3 ml Soln] ampul.neb Sodium Chloride 0.65% Nasal [Deep 2 spray NASAL QID PRN spray 04/21/18 06/05/18 Rx Sea (Saline)] Acetaminophen [Tylenol] 650 mg PO Q4H PRN 05/04/18 06/05/18 History Budesonide [Pulmicort] 1 mg INHALATION BID@0900,209905/04/18 06/05/18 History Formoterol Fumarate [Perforomist] 20 mcg INHALATION BID@0900,2100 05/04/18 06/05/18 History Furosemide [Lasix] 80 mg PO BID@0600,1400 05/04/18 06/05/18 History Gabapentin 600 mg PO TID@0600,1300,2100 05/04/18 06/05/18 History INSULIN LISPRO (humaLOG) [humaLOG] See Protocol SQ QID@08,,,05/04/18 06/05/18 History Linagliptin [Tradjenta] 5 mg PO DAILY@0900 05/04/18 06/05/18 History Montelukast [Singulair] 10 mg PO HS@209905/04/18 06/05/18 History Sennosides-Docusate Sodium 2 tab PO BID@0900,1700 05/04/18 06/05/18 History [Senokot-S] guaiFENesin [Mucinex] 1,200 mg PO BID@0900,2100 05/04/18 06/05/18 History metFORMIN HCL [Glucophage] 500 mg PO BID@0800,1700 05/04/18 06/05/18 History DULoxetine HCL [Cymbalta] 30 mg PO BID@0900,2100 06/05/18 06/05/18 History Loperamide [Imodium] 2 mg PO QID PRN 06/05/18 06/05/18 History Metolazone [Zaroxolyn] 2.5 mg PO MOWEFR@0900 06/05/18 06/05/18 History Nicotine 14Mg/24Hr Patch [Habitrol 1 patch TRANSDERM HS@2100 06/05/18 06/05/18 History 14Mg/24Hr Patch] Nitroglycerin Sl Tabs [Nitrostat] 0.4 mg SUBLINGUAL Q5M PRN 06/05/18 06/05/18 History Potassium Chloride [Klor-Con 20] 20 meq PO MOWEFR@0900 06/05/18 06/05/18 History Vitamins A and D [Vitamin A and D] 1 applic TOPICAL HS 06/05/18 06/05/18 History Vortioxetine Hydrobromide 5 mg PO DAILY@0900 06/05/18 06/05/18 History [Trintellix] rOPINIRole HCL [Requip] 0.5 mg PO BID@0900,2100 06/05/18 06/05/18 History Allergies Allergy/AdvReac Type Severity Reaction Status Date / Time amoxicillin Allergy SOB- RED Verified 06/05/18 07:12 [place] capsaicin Allergy SOB- RED Verified 06/05/18 07:12 [place] cephalexin monohydrate Allergy SOB- RED Verified 06/05/18 07:12 [From Keflex] [place] Cephalosporins Allergy SOB-RED Verified 06/05/18 07:12 [place] ciprofloxacin Allergy Unknown Verified 06/05/18 07:12 clindamycin Allergy SOB-RED Verified 06/05/18 07:12 [place] fluticasone propionate Allergy SOB- RED Verified 06/05/18 07:12 [From Flonase] [place] Penicillins Allergy SOB- RED Verified 06/05/18 07:12 [place] Sulfa (Sulfonamide Allergy SOB- RED Verified 06/05/18 07:12 Antibiotics) [place] mirtazapine [From Remeron] AdvReac Hallucinati Verified 06/05/18 07:12 ons BROWN DYES Allergy SOB- RED Uncoded 05/04/18 10:42 [place] Surgical - Exam Osteopathic Statement: *. No significant issues noted on an osteopathic structural exam other than those noted in the History and Physical/Consult. Vital Signs Temp Pulse Resp BP Pulse Ox 98.9 F 98 20 102/64 98 06/05/18 02:00 06/05/18 02:00 06/05/18 02:00 06/05/18 02:00 06/05/18 02:00 - General no distress - Eyes normal ocular movement - ENT no hearing loss - Neck trachea midline - Respiratory Currently on BiPAP, tolerating well - Abdomen Soft, nontender, nondistended, no rebound, no guarding, ventral hernia noted that is large and reducible - Psychiatric oriented to time, oriented to person, oriented to place Results - Labs 06/05/18 14:44 06/05/18 14:44 Abnormal Lab Results - Last 24 Hours (Table) 06/05/18 06/05/18 06/05/18 Range/Units 02:03 02:03 02:03 WBC 3.0 L (3.8-10.6) k/uL RBC 2.79 L (3.80-5.40) m/uL Hgb 10.2 L (11.4-16.0) gm/dL Hct 30.7 L (34.0-46.0) % MCV 110.2 H (80.0-100.0) fL MCH 36.7 H (25.0-35.0) pg RDW 17.1 H (11.5-15.5) % Lymphocytes # 0.6 L (1.0-4.8) k/uL ABG pCO2 (35-45) mmHg ABG pO2 (83-108) mmHg ABG HCO3 (21-25) mmol/L ABG Total CO2 (19-24) mmol/L VBG pH 7.43 H (7.31-7.41) VBG pCO2 53 H (37-51) mmHg VBG HCO3 34 H (24-28) mmol/L Sodium 135 L (137-145) mmol/L Potassium 6.0 H (3.5-5.1) mmol/L Chloride 97 L (98-107) mmol/L Carbon Dioxide 33 H (22-30) mmol/L BUN 37 H (7-17) mg/dL Glucose 111 H (74-99) mg/dL POC Glucose (mg/dL) (75-99) mg/dL Calcium 8.3 L (8.4-10.2) mg/dL Total Bilirubin 1.4 H (0.2-1.3) mg/dL AST 82 H (14-36) U/L Alkaline Phosphatase 30 L (38-126) U/L Troponin I (0.000-0.034) ng/mL Total Protein (6.3-8.2) g/dL Albumin (3.5-5.0) g/dL 06/05/18 06/05/18 06/05/18 Range/Units 02:03 02:15 09:06 WBC (3.8-10.6) k/uL RBC (3.80-5.40) m/uL Hgb (11.4-16.0) gm/dL Hct (34.0-46.0) % MCV (80.0-100.0) fL MCH (25.0-35.0) pg RDW (11.5-15.5) % Lymphocytes # (1.0-4.8) k/uL ABG pCO2 57 H (35-45) mmHg ABG pO2 81 L (83-108) mmHg ABG HCO3 37 H (21-25) mmol/L ABG Total CO2 39 H (19-24) mmol/L VBG pH (7.31-7.41) VBG pCO2 (37-51) mmHg VBG HCO3 (24-28) mmol/L Sodium (137-145) mmol/L Potassium (3.5-5.1) mmol/L Chloride (98-107) mmol/L Carbon Dioxide (22-30) mmol/L BUN (7-17) mg/dL Glucose (74-99) mg/dL POC Glucose (mg/dL) 248 H (75-99) mg/dL Calcium (8.4-10.2) mg/dL Total Bilirubin (0.2-1.3) mg/dL AST (14-36) U/L Alkaline Phosphatase (38-126) U/L Troponin I 0.070 H* (0.000-0.034) ng/mL Total Protein (6.3-8.2) g/dL Albumin (3.5-5.0) g/dL 06/05/18 06/05/18 06/05/18 Range/Units 12:57 14:44 14:44 WBC 2.8 L (3.8-10.6) k/uL RBC 2.68 L (3.80-5.40) m/uL Hgb 10.0 L (11.4-16.0) gm/dL Hct 30.2 L (34.0-46.0) % MCV 112.4 H (80.0-100.0) fL MCH 37.2 H (25.0-35.0) pg RDW 16.8 H (11.5-15.5) % Lymphocytes # (1.0-4.8) k/uL ABG pCO2 (35-45) mmHg ABG pO2 (83-108) mmHg ABG HCO3 (21-25) mmol/L ABG Total CO2 (19-24) mmol/L VBG pH (7.31-7.41) VBG pCO2 (37-51) mmHg VBG HCO3 (24-28) mmol/L Sodium (137-145) mmol/L Potassium (3.5-5.1) mmol/L Chloride (98-107) mmol/L Carbon Dioxide 36 H (22-30) mmol/L BUN 31 H (7-17) mg/dL Glucose 189 H (74-99) mg/dL POC Glucose (mg/dL) 220 H (75-99) mg/dL Calcium (8.4-10.2) mg/dL Total Bilirubin (0.2-1.3) mg/dL AST (14-36) U/L Alkaline Phosphatase (38-126) U/L Troponin I (0.000-0.034) ng/mL Total Protein 5.4 L (6.3-8.2) g/dL Albumin 3.1 L (3.5-5.0) g/dL Diabetes panel 06/05/18 06/05/18 Range/Units 02:03 14:44 Sodium 135 L 140 (137-145) mmol/L Potassium 6.0 H 3.9 (3.5-5.1) mmol/L Chloride 97 L 98 (98-107) mmol/L Carbon Dioxide 33 H 36 H (22-30) mmol/L BUN 37 H 31 H (7-17) mg/dL Creatinine 0.80 0.67 (0.52-1.04) mg/dL Glucose 111 H 189 H (74-99) mg/dL Calcium 8.3 L 8.4 (8.4-10.2) mg/dL AST 82 H 29 (14-36) U/L ALT 19 29 (9-52) U/L Alkaline Phosphatase 30 L 49 (38-126) U/L Total Protein 6.3 5.4 L (6.3-8.2) g/dL Albumin 3.7 3.1 L (3.5-5.0) g/dL Calcium panel 06/05/18 06/05/18 Range/Units 02:03 14:44 Calcium 8.3 L 8.4 (8.4-10.2) mg/dL Albumin 3.7 3.1 L (3.5-5.0) g/dL Pituitary panel 06/05/18 06/05/18 Range/Units 02:03 14:44 Sodium 135 L 140 (137-145) mmol/L Potassium 6.0 H 3.9 (3.5-5.1) mmol/L Chloride 97 L 98 (98-107) mmol/L Carbon Dioxide 33 H 36 H (22-30) mmol/L BUN 37 H 31 H (7-17) mg/dL Creatinine 0.80 0.67 (0.52-1.04) mg/dL Glucose 111 H 189 H (74-99) mg/dL Calcium 8.3 L 8.4 (8.4-10.2) mg/dL Adrenal panel 06/05/18 06/05/18 Range/Units 02:03 14:44 Sodium 135 L 140 (137-145) mmol/L Potassium 6.0 H 3.9 (3.5-5.1) mmol/L Chloride 97 L 98 (98-107) mmol/L Carbon Dioxide 33 H 36 H (22-30) mmol/L BUN 37 H 31 H (7-17) mg/dL Creatinine 0.80 0.67 (0.52-1.04) mg/dL Glucose 111 H 189 H (74-99) mg/dL Calcium 8.3 L 8.4 (8.4-10.2) mg/dL Total Bilirubin 1.4 H 0.4 (0.2-1.3) mg/dL AST 82 H 29 (14-36) U/L ALT 19 29 (9-52) U/L Alkaline Phosphatase 30 L 49 (38-126) U/L Total Protein 6.3 5.4 L (6.3-8.2) g/dL Albumin 3.7 3.1 L (3.5-5.0) g/dL - Imaging CT scan - chest: report reviewed, image reviewed (I did review the image with the current radiologist on service. There is some suspicion of free air with no table pneumoperitoneum above the liver.) Assessment and Plan (1) Abdominal pain Narrative/Plan: 57-year-old female with pneumoperitoneum - I had a long discussion with the patient about the current CT findings. The patient continues to deny any abdominal pain and there is no abdominal pain elicited from physical exam. The patient states that she is DO NOT RESUSCITATE and does not want to proceed with any surgical intervention at this time. She states to me that she prefers expiration rather than any surgical procedure. At this time, due to the patient's wishes, we will not plan for any surgical intervention. Current Visit: No Status: Acute Code(s): R10.9 - UNSPECIFIED ABDOMINAL PAIN SNOMED Code(s): 21445515
[2018-06-05 16:34] LABS: Glucose,Whole Blood 180 mg/dL (75-99)
[2018-06-05 16:58] LABS: Polychromasia Present
[2018-06-05] MEDS: FAMOTIDINE 20 MG TAB PO SCH (17:30)
[2018-06-05] MEDS: SENNOSIDES-DOCUSATE SODIUM 1 EACH TAB PO SCH (17:30)
[2018-06-05] MEDS: DIVALPROEX 250 MG TABLET.DR PO SCH ×2 (18:46→21:03)
[2018-06-05] MEDS: methylPREDNISolone SOD SUCCI 40 MG/ML 1 ML VIAL IV SCH (18:59)
[2018-06-05] MEDS: FORMOTEROL FUMARATE 20 MCG/2 ML NEBU INHALATION SCH (20:17)
[2018-06-05] MEDS: BUDESONIDE 1 MG/2 ML NEBU INHALATION SCH (20:17)
[2018-06-05 20:56] LABS: Glucose,Whole Blood 160 mg/dL (75-99)
[2018-06-05] MEDS: ATORVASTATIN 40 MG TAB PO SCH (21:02)
[2018-06-05] MEDS: FUROSEMIDE 10 MG/ML 4 ML VIAL IV SCH (21:04)
[2018-06-05] MEDS: DULoxetine HCL 30 MG CAPSULE.DR PO SCH (21:04)
[2018-06-05] MEDS: guaiFENesin 600 MG TABLET.ER PO SCH (21:05)
[2018-06-05] MEDS: MONTELUKAST 10 MG TAB PO SCH (21:05)
[2018-06-05] MEDS: METOPROLOL TARTRATE 12.5 MG TAB PO SCH (21:05)
[2018-06-05] MEDS: BACLOFEN 10 MG TAB PO SCH (21:27)
[2018-06-05] MEDS: NICOTINE 14MG/24HR PATCH TRANSDERM SCH (21:58)
--- NOTE | 2018-06-05 23:30 | P.CONS ---
History of Present Illness - Reason for Consult Consult date: 06/05/18 Pancytopenia Requesting physician: Shayne Nieto - Chief Complaint Shortness of Breath - History of Present Illness The patient had AML diagnosed in .Had had induction and consolidation.she has been in remission since then. 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 She had a stroke on 02/10/2015. She was found to have iron deficiency anemia in ,she had a normal colonoscopy on 04/10/2016,she started oral iron in and her anemia significantly improved. She was admitted to [facility] in January/2018 because she had syncope,fell and had ruptured her large abdominal hernia,then was readmitted to [facility] in January/2018 for another syncopal episode,had extensive work up,icluding CT scan of chest/abdomen/pelvis,she suffered large brusies from her fall,was found to be pancytopenic during her admission,she also had shingles. She was seen in office by Dr. Ferrer in January At this time,I don't see evidence of recurrent AML,her initial diagnosis was in 2002. Her thrombocytopenia is improving,it is likely secondary to acute events while in hospital and peripheral consumption,she has had macrocytosis for several years,however,it is possibly related to underlying liver disorders and per ipheral sequestration,she has many other co-morbidities. Recent Hospitalization in April this year with complaints of increased shortness of breath and cough. Patient has a known past history of COPD in which she wears 4 L of home O2. Requiring increased over the past 2 days. Patient's additional medical history includes brain aneurysm in which she follows with [facility] and has a follow-up appointment in 6 months, CVA, CAD, diabetes mellitus, fibromyalgia, GERD, AML with previous chemo, heart failure, hypertension, deafness, myocardial infarction, renal disease, osteoarthritis, sleep apnea. Patient recently underwent heart On 04/01/2018 which showed patent stent in the mid LAD and mildly elevated left ventricular end-diastolic pressure patient was to be medically managed per cardiology. EKG completed showing normal sinus rhythm with sinus arrhythmia right bundle branch block with T-wave abnormality, consider lateral ischemia. 06/05/18 - Patient Now presents from [facility] for complaints of Shortness of breath, findings of hypoxemia (Oxygen saturations in the 70s only recovering to mid 80s after increased supplemental Oxygen per EMR from staff at [facility]). She was placed on Bipap. CTA and CT Brain without acute Process or PUlm Embolus. There was question of free air in abdomen on CTA, surgery was consulted for further evaluation. On Clinical Assessment abdomen appeared non-acute and soft without tenderness. Pulmonary is also following. Evidence significant for BLE Edema, Diuresis ordered per primary team. Hyperkalemia - k = 6, Kayexalate given, Potassium supp discontinued. SHe is pancytopenic although her baseline. Her Hemoglobin, WBC, and PLatlets are within safe ranges not requiring immediate intervention, Hematology has been consulted to evaluate further and monitor pancytopenia. Review of Systems A 14 point review of systems assessed and completed and all negative except HPI Past Medical History Past Medical History: Coronary Artery Disease (CAD), Cancer, Heart Failure, COPD, Diabetes Mellitus, Eye Disorder, Fibromyalgia, GERD/Reflux, Hearing Disorder / Deafness, Hyperlipidemia, Hypertension, Myocardial Infarction (NM), Osteoarthritis (OA), Renal Disease, Sleep Apnea/CPAP/BIPAP, Syncope Additional Past Medical History / Comment(s): Brain aneurysm, rapid heart rate, 2001 acute myeloid leukemia with chemotherapy, vulvar cancer with surgery, NIDDM type II, neuropathy bilateral legs/feet, RLS, arthritis multiple joints and especially in her feet, back pain/scoliosis, osteoporosis, large abdominal hernia, anemia, R eye detached retina with surgery, [place] bilaterally, LOVE wit bipap and O2 4L at HS. Last Myocardial Infarction Date:: 1998 History of Any Multi-Drug Resistant Organisms: MRSA Year Discovered:: 2001 MDRO Source:: PORT IN CHEST Past Surgical History: Bowel Resection, Section, Heart Catheterization With Stent, Hernia Repair, Orthopedic Surgery Additional Past Surgical History / Comment(s): 04/01/18 Cardiac cath, 04/2017 Removal R ear tube/tympanoplasty and bilateral tubes placed, prior ear surgeries, umbilical hernia repair with bowel paris/bowel resections then done along with L ovary removed, PICC lines/now out, mediport-now out (MRSA infection), PCI/stents, R eye surgeries/lens implant/lasered for retinal detachment, EGD, colonoscopies, L breast benign biopsy, D&C, R vulva excision, R wrist ORIF with plate/pins, deviated septal surgery. Past Anesthesia/Blood Transfusion Reactions: Blood Transfusion Reaction Additional Past Anesthesia/Blood Transfusion Reaction / Comm: 2001-had some kind of transfusion reaction Date of Last Stent Placement:: 2001 Past Psychological History: Depression Additional Psychological History / Comment(s): Pt resides alone. She is independent. She has a bipap/oxygen and a glucometer and nebulizer. She can d rive when her health permits. She had some help thru [employer] (her son but he is no longer able to assist pt d/t his own health issues) and states she is trying to arrange for someone else to help her thru [employer]. Smoking Status: Current every day smoker Past Alcohol Use History: None Reported Additional Past Alcohol Use History / Comment(s): SMOKER SINCE 1972-5 CIG/DAY Past Drug Use History: None Reported - Past Family History Mother Additional Family Medical History / Comment(s): @ AGE 53 WITH ANEURYSM Father Family Medical History: Myocardial Infarction (NM) Additional Family Medical History / Comment(s): HAD CABG- COMMITTED SUICIDE A YEAR AFTER - PT'S GRANDFATHER(P) ALSO COMMITED SUICIDE Brother(s) Family Medical History: Coronary Artery Disease (CAD) Additional Family Medical History / Comment(s): COMMITTED SUICIDE Medications and Allergies Home Medications Medication Instructions Recorded Confirmed Type Atorvastatin [Lipitor] 40 mg PO HS@209901/02/15 06/05/18 History Ranitidine HCl [Zantac] 150 mg PO BID@0600,1700 01/02/15 06/05/18 History Ferrous Sulfate [Iron (65 MG 325 mg PO DAILY@0900 12/17/17 06/05/18 History Elemental)] Metoprolol Tartrate [Lopressor] 12.5 mg PO BID@0900,209912/17/17 06/05/18 History Baclofen [Lioresal] 20 mg PO BID@0900,2100 04/15/18 06/05/18 History Divalproex [Depakote] 250 mg PO TID@0900,1300,209904/15/18 06/05/18 History HYDROcodone/APAP 7.5-325MG [[place] 1 tab PO Q8H PRN 04/15/18 06/05/18 History 7.5-325] Ipratropium-Albuterol Nebulize 3 ml INHALATION RT-QID #120 04/19/18 06/05/18 Rx [Duoneb 0.5 mg-3 mg/3 ml Soln] ampul.neb Sodium Chloride 0.65% Nasal [Deep 2 spray NASAL QID PRN spray 04/21/18 06/05/18 Rx Sea (Saline)] Acetaminophen [Tylenol] 650 mg PO Q4H PRN 05/04/18 06/05/18 History Budesonide [Pulmicort] 1 mg INHALATION BID@0900,209905/04/18 06/05/18 History Formoterol Fumarate [Perforomist] 20 mcg INHALATION BID@0900,209905/04/18 06/05/18 History Furosemide [Lasix] 80 mg PO BID@0600,1400 05/04/18 06/05/18 History Gabapentin 600 mg PO TID@0600,1300,209905/04/18 06/05/18 History INSULIN LISPRO (humaLOG) [humaLOG] See Protocol SQ QID@08,12,,05/04/18 06/05/18 History Linagliptin [Tradjenta] 5 mg PO DAILY@0900 05/04/18 06/05/18 History Montelukast [Singulair] 10 mg PO HS@209905/04/18 06/05/18 History Sennosides-Docusate Sodium 2 tab PO BID@0900,1700 05/04/18 06/05/18 History [Senokot-S] guaiFENesin [Mucinex] 1,200 mg PO BID@0900,2100 05/04/18 06/05/18 History metFORMIN HCL [Glucophage] 500 mg PO BID@0800,1700 05/04/18 06/05/18 History DULoxetine HCL [Cymbalta] 30 mg PO BID@0900,2100 06/05/18 06/05/18 History Loperamide [Imodium] 2 mg PO QID PRN 06/05/18 06/05/18 History Metolazone [Zaroxolyn] 2.5 mg PO MOWEFR@0900 06/05/18 06/05/18 History Nicotine 14Mg/24Hr Patch [Habitrol 1 patch TRANSDERM HS@209906/05/18 06/05/18 History 14Mg/24Hr Patch] Nitroglycerin Sl Tabs [Nitrostat] 0.4 mg SUBLINGUAL Q5M PRN 06/05/18 06/05/18 History Potassium Chloride [Klor-Con 20] 20 meq PO MOWEFR@0900 06/05/18 06/05/18 History Vitamins A and D [Vitamin A and D] 1 applic TOPICAL HS 06/05/18 06/05/18 History Vortioxetine Hydrobromide 5 mg PO DAILY@0900 06/05/18 06/05/18 History [Trintellix] rOPINIRole HCL [Requip] 0.5 mg PO BID@0900,2100 06/05/18 06/05/18 History Allergies Allergy/AdvReac Type Severity Reaction Status Date / Time amoxicillin Allergy SOB- RED Verified 06/05/18 07:12 [place] capsaicin Allergy SOB- RED Verified 06/05/18 07:12 [place] cephalexin monohydrate Allergy SOB- RED Verified 06/05/18 07:12 [From Keflex] [place] Cephalosporins Allergy SOB-RED Verified 06/05/18 07:12 [place] ciprofloxacin Allergy Unknown Verified 06/05/18 07:12 clindamycin Allergy SOB-RED Verified 06/05/18 07:12 [place] fluticasone propionate Allergy SOB- RED Verified 06/05/18 07:12 [From Flonase] [place] Penicillins Allergy SOB- RED Verified 06/05/18 07:12 [place] Sulfa (Sulfonamide Allergy SOB- RED Verified 06/05/18 07:12 Antibiotics) [place]OT[place] mirtazapine [From Remeron] AdvReac Hallucinati Verified 06/05/18 07:12 ons BROWN DYES Allergy SOB- RED Uncoded 05/04/18 10:42 [place]OT[place] Physical Exam Vitals: Vital Signs Temp Pulse Pulse Resp BP BP Pulse Ox 06/05/18 16:20 64 06/05/18 16:01 62 14 06/05/18 16:00 97.7 F 87 18 103/53 88 L 06/05/18 15:58 98 06/05/18 12:03 96.8 F L 73 24 99/54 91 L 06/05/18 12:00 96.7 F L 73 24 99/54 92 L 06/05/18 11:50 55 L 17 06/05/18 11:40 61 17 06/05/18 11:30 57 L 15 100/60 96 06/05/18 10:30 57 L 13 94/60 97 06/05/18 10:00 60 14 105/50 98 06/05/18 09:30 57 L 13 90/57 95 06/05/18 09:00 60 17 99/61 92 L 06/05/18 08:30 58 L 107/53 98 06/05/18 08:00 61 106/63 06/05/18 05:38 100 06/05/18 05:37 98.4 F 93 19 124/77 94 L 06/05/18 03:37 81 19 121/69 99 06/05/18 02:28 92 06/05/18 02:21 93 06/05/18 02:16 93 21 116/62 97 06/05/18 02:00 98.9 F 98 20 102/64 98 Intake and Output 06/05/18 06/05/18 06/05/18 06:59 14:59 22:59 Output Total 1100 Balance -1100 Output: Urine 1100 Other: Voiding Method Bedside Commode Bedside Commode Weight 117.934 kg 126 kg Gen: Alert, Mild distress Head NCNT Neck Supple No palpable adenopathy cervical supraclavicular or axillary Lungs: Diminished with mild increased respiratory effort Heart: Tachy, Re Abdomen: Soft, nontender Ext: No Rashes, edema No sensory or motor deficits Results CBC & Chem 7: 06/05/18 14:44 06/05/18 14:44 Labs: Abnormal Lab Results - Last 24 Hours (Table) 06/05/18 06/05/18 06/05/18 Range/Units 02:03 02:03 02:03 WBC 3.0 L (3.8-10.6) k/uL RBC 2.79 L (3.80-5.40) m/uL Hgb 10.2 L (11.4-16.0) gm/dL Hct 30.7 L (34.0-46.0) % MCV 110.2 H (80.0-100.0) fL MCH 36.7 H (25.0-35.0) pg RDW 17.1 H (11.5-15.5) % Plt Count (150-450) k/uL Lymphocytes # 0.6 L (1.0-4.8) k/uL ABG pCO2 (35-45) mmHg ABG pO2 (83-108) mmHg ABG HCO3 (21-25) mmol/L ABG Total CO2 (19-24) mmol/L VBG pH 7.43 H (7.31-7.41) VBG pCO2 53 H (37-51) mmHg VBG HCO3 34 H (24-28) mmol/L Sodium 135 L (137-145) mmol/L Potassium 6.0 H (3.5-5.1) mmol/L Chloride 97 L (98-107) mmol/L Carbon Dioxide 33 H (22-30) mmol/L BUN 37 H (7-17) mg/dL Glucose 111 H (74-99) mg/dL POC Glucose (mg/dL) (75-99) mg/dL Calcium 8.3 L (8.4-10.2) mg/dL Total Bilirubin 1.4 H (0.2-1.3) mg/dL AST 82 H (14-36) U/L Alkaline Phosphatase 30 L (38-126) U/L Troponin I (0.000-0.034) ng/mL Total Protein (6.3-8.2) g/dL Albumin (3.5-5.0) g/dL 06/05/18 06/05/18 06/05/18 Range/Units 02:03 02:15 09:06 WBC (3.8-10.6) k/uL RBC (3.80-5.40) m/uL Hgb (11.4-16.0) gm/dL Hct (34.0-46.0) % MCV (80.0-100.0) fL MCH (25.0-35.0) pg RDW (11.5-15.5) % Plt Count (150-450) k/uL Lymphocytes # (1.0-4.8) k/uL ABG pCO2 57 H (35-45) mmHg ABG pO2 81 L (83-108) mmHg ABG HCO3 37 H (21-25) mmol/L ABG Total CO2 39 H (19-24) mmol/L VBG pH (7.31-7.41) VBG pCO2 (37-51) mmHg VBG HCO3 (24-28) mmol/L Sodium (137-145) mmol/L Potassium (3.5-5.1) mmol/L Chloride (98-107) mmol/L Carbon Dioxide (22-30) mmol/L BUN (7-17) mg/dL Glucose (74-99) mg/dL POC Glucose (mg/dL) 248 H (75-99) mg/dL Calcium (8.4-10.2) mg/dL Total Bilirubin (0.2-1.3) mg/dL AST (14-36) U/L Alkaline Phosphatase (38-126) U/L Troponin I 0.070 H* (0.000-0.034) ng/mL Total Protein (6.3-8.2) g/dL Albumin (3.5-5.0) g/dL 06/05/18 06/05/18 06/05/18 Range/Units 12:57 14:44 14:44 WBC 2.8 L (3.8-10.6) k/uL RBC 2.68 L (3.80-5.40) m/uL Hgb 10.0 L (11.4-16.0) gm/dL Hct 30.2 L (34.0-46.0) % MCV 112.4 H (80.0-100.0) fL MCH 37.2 H (25.0-35.0) pg RDW 16.8 H (11.5-15.5) % Plt Count 87 L (150-450) k/uL Lymphocytes # 0.5 L (1.0-4.8) k/uL ABG pCO2 (35-45) mmHg ABG pO2 (83-108) mmHg ABG HCO3 (21-25) mmol/L ABG Total CO2 (19-24) mmol/L VBG pH (7.31-7.41) VBG pCO2 (37-51) mmHg VBG HCO3 (24-28) mmol/L Sodium (137-145) mmol/L Potassium (3.5-5.1) mmol/L Chloride (98-107) mmol/L Carbon Dioxide 36 H (22-30) mmol/L BUN 31 H (7-17) mg/dL Glucose 189 H (74-99) mg/dL POC Glucose (mg/dL) 220 H (75-99) mg/dL Calcium (8.4-10.2) mg/dL Total Bilirubin (0.2-1.3) mg/dL AST (14-36) U/L Alkaline Phosphatase (38-126) U/L Troponin I (0.000-0.034) ng/mL Total Protein 5.4 L (6.3-8.2) g/dL Albumin 3.1 L (3.5-5.0) g/dL 06/05/18 Range/Units 16:32 WBC (3.8-10.6) k/uL RBC (3.80-5.40) m/uL Hgb (11.4-16.0) gm/dL Hct (34.0-46.0) % MCV (80.0-100.0) fL MCH (25.0-35.0) pg RDW (11.5-15.5) % Plt Count (150-450) k/uL Lymphocytes # (1.0-4.8) k/uL ABG pCO2 (35-45) mmHg ABG pO2 (83-108) mmHg ABG HCO3 (21-25) mmol/L ABG Total CO2 (19-24) mmol/L VBG pH (7.31-7.41) VBG pCO2 (37-51) mmHg VBG HCO3 (24-28) mmol/L Sodium (137-145) mmol/L Potassium (3.5-5.1) mmol/L Chloride (98-107) mmol/L Carbon Dioxide (22-30) mmol/L BUN (7-17) mg/dL Glucose (74-99) mg/dL POC Glucose (mg/dL) 180 H (75-99) mg/dL Calcium (8.4-10.2) mg/dL Total Bilirubin (0.2-1.3) mg/dL AST (14-36) U/L Alkaline Phosphatase (38-126) U/L Troponin I (0.000-0.034) ng/mL Total Protein (6.3-8.2) g/dL Albumin (3.5-5.0) g/dL Assessment and Plan Plan: Assessment and Plan 1. Acute Hypoxic Respiratory Failure Secondary to COPD and CHF Exacerbation: - Management Per Primary and Pulmonary Teams 2. Pancytopenia - Acute on Chronic and current blood counts withing safe ranges and not dras tically decreased from her baseline - NO acute intervention required; Transfusion Support if Hgn less 7 or plt less than 10 - Monitor CBC Daily - She does have history of leukemia, although has had chronic cytopenias since treatment. Chronic yet stable 2012 - Currently stable and continue to monitor 3. Hx: Acute Leukemia. Physician Attest: I have completed the full history and physical and created the impression and plan above. Dictated as a scribe
[2018-06-06] MEDS: methylPREDNISolone SOD SUCCI 40 MG/ML 1 ML VIAL IV SCH ×4 (00:51→17:45)
[2018-06-06] MEDS: HYDROcodone/APAP 7.5-325MG 1 EACH TAB PO PRN ×3 (03:30→22:09)
[2018-06-06 05:50] LABS: Glucose,Whole Blood 283 mg/dL (75-99)
[2018-06-06] MEDS: FAMOTIDINE 20 MG TAB PO SCH ×2 (06:29→17:45)
[2018-06-06] MEDS: GABAPENTIN 300 MG CAP PO SCH ×3 (06:29→22:08)
[2018-06-06] MEDS: INSULIN ASPART (NovoLOG) 100 UNIT/ML VIAL SQ SCH ×4 (06:29→22:01)
--- NOTE | 2018-06-06 07:17 | XR ---
EXAMINATION TYPE: XR abdomen 1V , 2 VIEWS DATE OF EXAM ORDERED: 06/06/2018 HISTORY: free air? . COMPARISON: None. FINDINGS: The lung bases are clear. Note is made of a small amount of free air under both hemidiaphragms. This was noted previously on a CT scan of the chest dated 06/05/2018. The abdominal gas pattern is normal. There is no evidence of obs truction or free air. The bladder is mildly distended. No unusual calcifications are seen. IMPRESSION: SMALL AMOUNT OF CONTINUING FREE AIR WITHIN THE ABDOMEN.
[2018-06-06] MEDS: IPRATROPIUM-ALBUTEROL 3 ML NEB INHALATION SCH ×4 (07:32→19:43)
[2018-06-06] MEDS: BUDESONIDE 1 MG/2 ML NEBU INHALATION SCH ×2 (07:32→19:43)
[2018-06-06] MEDS: FORMOTEROL FUMARATE 20 MCG/2 ML NEBU INHALATION SCH ×2 (07:45→19:43)
--- NOTE | 2018-06-06 08:58 | P.CRDCN ---
<Helena Pimentel A - Last Filed: 06/06/18 08:57> History of Present Illness Consult date: 06/06/18 Consult reason: congestive heart failure History of present illness: IMPRESSION / ASSESSMENT: Acute hypoxic respiratory failure secondary to COPD and acute diastolic heart failure. Hyperkalemia Coronary artery disease status post PCI and 2 stents Hypertension hypertensive cardiovascular disease Diabetes mellitus type 2 Pancytopenia History of acute leukemia Acute abdomen ruled out by surgery PLAN: Continue Lasix 40 mg IV every 12 hours. Continue Lopressor 12.5 mg twice daily, atorvastatin 40 mg at bedtime. Hold Zaroxolyn for now. HPI This is a 57-year-old female past medical history significant for hypertension, dyslipidemia, COPD, chronic nicotine dependence, diabetes mellitus, pulmonary hypertension and coronary artery disease s/p stent placement to the mid LAD. She follows in the office with Dr. Barrios. She recently underwent a right and left heart cath 04/01/2018 revealing a patent stent in the LAD with no progression of coronary artery disease, elevated LVEDP, right atrial pressure of 8-10 mmHg, pulmonary artery pressure 60-65 mmHg and wedge pressure of 12-15 mmHg. We have been asked to see her in consultation for heart failure. She has history that she had diarrhea and her PCP decrease Lasix from 80 mg twice daily to 40 mg twice daily for 2 days and then she developed shortness of breath for about 4 days prior to arrival. She presented to the hospital with symptoms of shortness of breath with increased fatigue and generalized weakness and hypoxia. She underwent a CAT scan of the brain that did not show any acute abnormalities but chronic small vessel disease. CT of the chest was negative for pulmonary embolism, showed mediastinal lymph node without evidence of infiltrate, questionable free air in the abdomen. Chest x-ray did not show any evidence of free air. Patient was placed on BiPAP and started on IV Lasix. She was given Kayexalate for potassium of 6. This morning, patient states her breathing is much improved. She was on BiPAP through the night and is currently on high flow nasal cannula. Lower extremity edema is improved. ROS: No fever chills or rigors, no cough, phlegm or expectoration, no nausea, vomiting or diarrhea, no hematuria, dysuria, no musculoskeletal complaints, no strokes or seizures, no skin lesions. EXAMINATION: Gen: This is a 57-year-old obese female patient Vital signs: Patient has been afebrile, heart rate in the 50s and 60s, blood pressure 104/51, pulse ox 91% on 6 L high flow oxygen. HEENT: Head is atraumatic, normocephalic. Pupils equal, round. Sclerae is anicteric. NECK: Supple. No JVD. No lymphadenopathy. No thyromegaly. LUNGS: Diminished No wheezes or rhonchi. No intercostal retractions. HEART: Regular rate and rhythm. Systolic murmur. ABDOMEN: Soft. Bowel sounds are present. No masses. No tenderness. EXTREMITIES: No pedal edema. No calf tenderness. NEUROLOGICAL: Patient is awake, alert and oriented x3. Cranial nerves 2 through 12 are grossly intact. Generalized weakness REVIEW OF LABS, ECG & MEDICAL DATA Echocardiogram in April 2018 revealed EF 45-50%, trace to mild mitral regurgitation, severe tricuspid regurgitation, severe pulmonary hypertension, right atrial pressure greater than 15 mmHg. EKG is a sinus rhythm with a right bundle branch block. Ultrasound venous Doppler lower extremity is negative for DVT. Thank you kindly for this consultation. Nurse practitioner note has been reviewed, I agree with documented findings and plan of care. Patient was seen and examined. 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 Last Myocardial Infarction Date:: 1998 History of Any Multi-Drug Resistant Organisms: MRSA Date of last positivie culture/infection: 2001 MDRO Source:: PORT IN CHEST Past Surgical History: Bowel Resection, Section, Heart Catheterization With Stent, Hernia Repair, Orthopedic Surgery Additional Past Surgical History / Comment(s): 04/01/18 Cardiac cath, 04/2017 Removal R ear tube/tympanoplasty and bilateral tubes placed, prior ear surgeries, umbilical hernia repair with bowel paris/bowel resections then done along with L ovary removed, PICC lines/now out, mediport-now out (MRSA infection), PCI/stents, R eye surgeries/lens implant/lasered for retinal detachment, EGD, colonoscopies, L breast benign biopsy, D&C, R vulva excision, R wrist ORIF with plate/pins, deviated septal surgery. Past Anesthesia/Blood Transfusion Reactions: Blood Transfusion Reaction Additional Past Anesthesia/Blood Transfusion Reaction / Comment(s): 2001-had some kind of transfusion reaction Date of Last Stent Placement:: 2001 Past Psychological History: Depression Additional Psychological History / Comment(s): Pt resides alone. She is independent. She has a bipap/oxygen and a glucometer and nebulizer. She can drive when her health permits. She had some help thru [employer] (her son but he is no longer able to assist pt d/t his own health issues) and states she is trying to arrange for someone else to help her thru [employer]. Smoking Status: Current every day smoker Past Alcohol Use History: None Reported Additional Past Alcohol Use History / Comment(s): SMOKER SINCE 1972-5 CIG/DAY Past Drug Use History: None Reported - Past Family History Mother Additional Family Medical History / Comment(s): @ AGE 53 WITH ANEURYSM Father Family Medical History: Myocardial Infarction ([place]) Additional Family Medical History / Comment(s): HAD CABG- COMMITTED SUICIDE A YEAR AFTER - PT'S GRANDFATHER(P) ALSO COMMITED SUICIDE Brother(s) Family Medical History: Coronary Artery Disease (CAD) Additional Family Medical History / Comment(s): COMMITTED SUICIDE Medications and Allergies Home Medications Medication Instructions Recorded Confirmed Type RX: Atorvastatin [Lipitor] 40 mg PO HS@2100 01/02/15 06/05/18 History RX: Ranitidine HCl [Zantac] 150 mg PO BID@0600,1700 01/02/15 06/05/18 History RX: Ferrous Sulfate [Iron (65 MG 325 mg PO DAILY@0900 12/17/17 06/05/18 History Elemental)] RX: Metoprolol Tartrate [Lopressor] 12.5 mg PO BID@0900,2100 12/17/17 06/05/18 History RX: Baclofen [Lioresal] 20 mg PO BID@0900,2100 04/15/18 06/05/18 History RX: Divalproex [Depakote] 250 mg PO TID@0900,1300,209904/15/18 06/05/18 History RX: HYDROcodone/APAP 7.5-325MG 1 tab PO Q8H PRN 04/15/18 06/05/18 History [Lowpoint 7.5-325] RX: Ipratropium-Albuterol Nebulize 3 ml INHALATION RT-QID #120 04/19/18 06/05/18 Rx [Duoneb 0.5 mg-3 mg/3 ml Soln] ampul.neb RX: Sodium Chloride 0.65% Nasal 2 spray NASAL QID PRN spray 04/21/18 06/05/18 Rx [Deep Sea (Saline)] Acetaminophen [Tylenol] 650 mg PO Q4H PRN 05/04/18 06/05/18 History Budesonide [Pulmicort] 1 mg INHALATION BID@0900,209905/04/18 06/05/18 History Formoterol Fumarate [Perforomist] 20 mcg INHALATION BID@0900,209905/04/18 06/05/18 History Furosemide [Lasix] 80 mg PO BID@0600,1400 05/04/18 06/05/18 History INSULIN LISPRO (humaLOG) [humaLOG] See Protocol SQ QID@08,12,,05/04/18 06/05/18 History Linagliptin [Tradjenta] 5 mg PO DAILY@0900 05/04/18 06/05/18 History RX: Gabapentin 600 mg PO TID@0600,1300,209905/04/18 06/05/18 History RX: Montelukast [Singulair] 10 mg PO HS@209905/04/18 06/05/18 History RX: Sennosides-Docusate Sodium 2 tab PO BID@0900,1700 05/04/18 06/05/18 History [Senokot-S] RX: guaiFENesin [Mucinex] 1,200 mg PO BID@0900,2100 05/04/18 06/05/18 History RX: metFORMIN HCL [Glucophage] 500 mg PO BID@0800,1700 05/04/18 06/05/18 History DULoxetine HCL [Cymbalta] 30 mg PO BID@0900,2100 06/05/18 06/05/18 History Loperamide [Imodium] 2 mg PO QID PRN 06/05/18 06/05/18 History Metolazone [Zaroxolyn] 2.5 mg PO MOWEFR@0900 06/05/18 06/05/18 History Nicotine 14Mg/24Hr Patch [Habitrol 1 patch TRANSDERM HS@2100 06/05/18 06/05/18 History 14Mg/24Hr Patch] Nitroglycerin Sl Tabs [Nitrostat] 0.4 mg SUBLINGUAL Q5M PRN 06/05/18 06/05/18 History Potassium Chloride [Klor-Con 20] 20 meq PO MOWEFR@0900 06/05/18 06/05/18 History Vitamins A and D [Vitamin A and D] 1 applic TOPICAL HS 06/05/18 06/05/18 History Vortioxetine Hydrobromide 5 mg PO DAILY@0900 06/05/18 06/05/18 History [Trintellix] rOPINIRole HCL [Requip] 0.5 mg PO BID@0900,2100 06/05/18 06/05/18 History Allergies Allergy/AdvReac Type Severity Reaction Status Date / Time amoxicillin Allergy SOB- RED Verified 06/05/18 07:12 BLOTCHY SKIN capsaicin Allergy SOB- RED Verified 06/05/18 07:12 [place]OT[place] SK[place] cephalexin monohydrate Allergy SOB- RED Verified 06/05/18 07:12 [From Keflex] BLOTCHY SKIN Cephalosporins Allergy SOB-RED Verified 06/05/18 07:12 BLOTCHY SKIN ciprofloxacin Allergy Unknown Verified 06/05/18 07:12 clindamycin Allergy SOB-RED Verified 06/05/18 07:12 [place]OT[place] fluticasone propionate Allergy SOB- RED Verified 06/05/18 07:12 [From Flonase] BLOTCHY SKIN Penicillins Allergy SOB- RED Verified 06/05/18 07:12 BLOT[place]Y SK[place] Sulfa (Sulfonamide Allergy SOB- RED Verified 06/05/18 07:12 Antibiotics) BLOTCHY SKIN mirtazapine [From Remeron] AdvReac Hallucinati Verified 06/05/18 07:12 ons BROWN DYES Allergy SOB- RED Uncoded 05/04/18 10:42 BLOTCHY SKIN Physical Exam Vitals: Vital Signs Temp Pulse Pulse Resp BP BP Pulse Ox 06/06/18 07:45 64 89 L 06/06/18 07:23 69 06/06/18 03:37 19 06/06/18 03:32 56 L 91 L 06/06/18 03:21 59 L 19 104/51 96 06/06/18 00:48 55 L 15 97/59 99 06/05/18 21:23 91 L 06/05/18 20:33 68 06/05/18 20:27 68 06/05/18 20:22 63 13 107/56 96 06/05/18 20:17 66 06/05/18 20:00 13 06/05/18 16:20 64 06/05/18 16:01 62 14 06/05/18 16:00 97.7 F 87 18 103/53 88 L 06/05/18 15:58 98 06/05/18 12:03 96.8 F L 73 24 99/54 91 L 06/05/18 12:00 96.7 F L 73 24 99/54 92 L 06/05/18 11:50 55 L 17 06/05/18 11:40 61 17 06/05/18 11:30 57 L 15 100/60 96 06/05/18 10:30 57 L 13 94/60 97 06/05/18 10:00 60 14 105/50 98 06/05/18 09:30 57 L 13 90/57 95 06/05/18 09:00 60 17 99/61 92 L 06/05/18 08:30 58 L 107/53 98 Intake and Output 06/05/18 06/06/18 06/06/18 22:59 06:59 14:59 Other: Voiding Method Bedside Commode Bedside Commode # Voids 1 Weight 112.9 kg Results 06/05/18 14:44 06/05/18 14:44 Cardiac Enzymes 06/05/18 Range/Units 14:44 AST 29 (14-36) U/L CBC 06/05/18 Range/Units 14:44 WBC 2.8 L (3.8-10.6) k/uL RBC 2.68 L (3.80-5.40) m/uL Hgb 10.0 L (11.4-16.0) gm/dL Hct 30.2 L (34.0-46.0) % Plt Count 87 L (150-450) k/uL Comprehensive Metabolic Panel 06/05/18 Range/Units 14:44 Sodium 140 (137-145) mmol/L Potassium 3.9 (3.5-5.1) mmol/L Chloride 98 (98-107) mmol/L Carbon Dioxide 36 H (22-30) mmol/L BUN 31 H (7-17) mg/dL Creatinine 0.67 (0.52-1.04) mg/dL Glucose 189 H (74-99) mg/dL Calcium 8.4 (8.4-10.2) mg/dL AST 29 (14-36) U/L ALT 29 (9-52) U/L Alkaline Phosphatase 49 (38-126) U/L Total Protein 5.4 L (6.3-8.2) g/dL Albumin 3.1 L (3.5-5.0) g/dL Current Medications Generic Name Dose Route Start Last Admin Trade Name Freq PRN Reason Stop Dose Admin Acetaminophen 650 mg 06/05/18 11:03 Tylenol Tab PO Q4H PRN MILD Pain or Fever > 100.5 Hydrocodone Bitart/Acetaminophen 1 each 06/05/18 11:03 06/06/18 03:30 Lowpoint 7.5-325 PO 1 each Q8H PRN Administration Pain Albuterol/Ipratropium 3 ml 06/05/18 12:00 06/06/18 07:32 Duoneb 0.5 Mg-3 Mg/3 Ml Soln INHALATION 3 ml RT-QID HASMUKH Administration Atorvastatin Calcium 40 mg 06/05/18 21:00 06/05/18 21:02 Lipitor PO 40 mg HS@2100 HASMUKH Administration Baclofen 20 mg 06/05/18 21:00 06/05/18 21:27 Lioresal PO 20 mg BID@0900,2100 HASMUKH Administration Budesonide 1 mg 06/05/18 21:00 06/06/18 07:32 Pulmicort INHALATION 1 mg RT-BID@0900,2100 HASMUKH Administration Divalproex Sodium 250 mg 06/05/18 13:00 06/05/18 21:03 Depakote PO 250 mg TID@0900,1300,2100 HASMUKH Administration Duloxetine HCl 30 mg 06/05/18 21:00 06/05/18 21:04 Cymbalta PO 30 mg BID@0900,2100 HASMUKH Administration Famotidine 20 mg 06/05/18 17:00 06/06/18 06:29 Pepcid PO 20 mg BID@0600,1700 HASMUKH Administration Ferrous Sulfate 325 mg 06/06/18 09:00 Feosol PO DAILY@0900 [facility] Formoterol Fumarate 20 mcg 06/05/18 21:00 06/06/18 07:45 Perforomist INHALATION 20 mcg RT-BID@0900,2100 HASMUKH Administration Furosemide 40 mg 06/05/18 21:00 06/05/18 21:04 Lasix IV 40 mg Q12HR HASMUKH Administration Gabapentin 600 mg 06/05/18 13:00 06/06/18 06:29 Neurontin PO 600 mg TID@0600,1300,2100 [facility] Administration Guaifenesin 1,200 mg 06/05/18 21:00 06/05/18 21:05 Mucinex PO 1,200 mg BID@0900,2100 [facility] Administration Insulin Aspart 0 unit 06/05/18 12:30 06/06/18 06:29 Novolog SQ 7 unit ACHS HASMUKH Administration Protocol Linagliptin 5 mg 06/06/18 09:00 Tradjenta PO DAILY@0900 [facility] Methylprednisolone Sodium Succinate 40 mg 06/05/18 18:00 06/06/18 06:29 Solu-Medrol IV 40 mg Q6HR HASMUKH Administration Metoprolol Tartrate 12.5 mg 06/05/18 21:00 06/05/18 21:05 Lopressor PO 12.5 mg BID@0900,2100 [facility] Administration Montelukast Sodium 10 mg 06/05/18 21:00 06/05/18 21:05 Singulair PO 10 mg HS@2100 HASMUKH Administration Naloxone HCl 0.2 mg 06/05/18 06:46 Narcan IV Q2M PRN Opioid Reversal Nicotine 1 patch 06/05/18 21:00 06/05/18 21:58 Habitrol 14mg/24hr Patch TRANSDERM 1 patch HS@2100 HASMUKH Administration Nitroglycerin 0.4 mg 06/05/18 10:56 Nitrostat SUBLINGUAL Q5M PRN Angina Ropinirole HCl 0.5 mg 06/05/18 21:00 06/05/18 21:05 Requip PO 0.5 mg BID@0900,2100 HASMUKH Administration Senna/Docusate Sodium 2 each 06/05/18 17:00 06/05/18 17:30 Senokot-S PO 2 each BID@0900,1700 HASMUKH Administration Sodium Chloride 2 spray 06/05/18 11:03 Deep Sea NASAL QID PRN Congestion Vortioxetine 5 mg 06/06/18 09:00 Trintellix PO DAILY@0900 HASMUKH Intake and Output 06/05/18 06/06/18 06/06/18 22:59 06:59 14:59 Other: Voiding Method Bedside Commode Bedside Commode # Voids 1 Weight 112.9 kg 06/05/18 14:44 06/05/18 14:44 <Marvin Barrera - Last Filed: 06/06/18 09:44> Physical Exam Vitals: Vital Signs Temp Pulse Pulse Resp BP BP Pulse Ox 06/06/18 07:58 66 06/06/18 07:45 64 89 L 06/06/18 07:23 69 06/06/18 03:37 19 06/06/18 03:32 56 L 91 L 06/06/18 03:21 59 L 19 104/51 96 06/06/18 00:48 55 L 15 97/59 99 06/05/18 21:23 91 L 06/05/18 20:33 68 06/05/18 20:27 68 06/05/18 20:22 63 13 107/56 96 06/05/18 20:17 66 06/05/18 20:00 13 06/05/18 16:20 64 06/05/18 16:01 62 14 06/05/18 16:00 97.7 F 87 18 103/53 88 L 06/05/18 15:58 98 06/05/18 12:03 96.8 F L 73 24 99/54 91 L 06/05/18 12:00 96.7 F L 73 24 99/54 92 L 06/05/18 11:50 55 L 17 06/05/18 11:40 61 17 06/05/18 11:30 57 L 15 100/60 96 06/05/18 10:30 57 L 13 94/60 97 06/05/18 10:00 60 14 105/50 98 Intake and Output 06/05/18 06/06/18 06/06/18 22:59 06:59 14:59 Intake Total 600 Balance 600 Intake: Oral 600 Other: Voiding Method Bedside Commode Bedside Commode # Voids 1 Weight 112.9 kg Results 06/05/18 14:44 06/05/18 14:44 Cardiac Enzymes 06/05/18 Range/Units 14:44 AST 29 (14-36) U/L CBC 06/05/18 Range/Units 14:44 WBC 2.8 L (3.8-10.6) k/uL RBC 2.68 L (3.80-5.40) m/uL Hgb 10.0 L (11.4-16.0) gm/dL Hct 30.2 L (34.0-46.0) % Plt Count 87 L (150-450) k/uL Comprehensive Metabolic Panel 06/05/18 Range/Units 14:44 Sodium 140 (137-145) mmol/L Potassium 3.9 (3.5-5.1) mmol/L Chloride 98 (98-107) mmol/L Carbon Dioxide 36 H (22-30) mmol/L BUN 31 H (7-17) mg/dL Creatinine 0.67 (0.52-1.04) mg/dL Glucose 189 H (74-99) mg/dL Calcium 8.4 (8.4-10.2) mg/dL AST 29 (14-36) U/L ALT 29 (9-52) U/L Alkaline Phosphatase 49 (38-126) U/L Total Protein 5.4 L (6.3-8.2) g/dL Albumin 3.1 L (3.5-5.0) g/dL Current Medications Generic Name Dose Route Start Last Admin Trade Name Freq PRN Reason Stop Dose Admin Acetaminophen 650 mg 06/05/18 11:03 Tylenol Tab PO Q4H PRN MILD Pain or Fever > 100.5 Hydrocodone Bitart/Acetaminophen 1 each 06/05/18 11:03 06/06/18 03:30 Lowpoint 7.5-325 PO 1 each Q8H PRN Administration Pain Albuterol/Ipratropium 3 ml 06/05/18 12:00 06/06/18 07:32 Duoneb 0.5 Mg-3 Mg/3 Ml Soln INHALATION 3 ml RT-QID HASMUKH Administration Atorvastatin Calcium 40 mg 06/05/18 21:00 06/05/18 21:02 Lipitor PO 40 mg HS@2100 HASMUKH Administration Baclofen 20 mg 06/05/18 21:00 06/05/18 21:27 Lioresal PO 20 mg BID@0900,2100 HASMUKH Administration Budesonide 1 mg 06/05/18 21:00 06/06/18 07:32 Pulmicort INHALATION 1 mg RT-BID@0900,2100 HASMUKH Administration Divalproex Sodium 250 mg 06/05/18 13:00 06/05/18 21:03 Depakote PO 250 mg TID@0900,1300,2100 HASMUKH Administration Duloxetine HCl 30 mg 06/05/18 21:00 06/05/18 21:04 Cymbalta PO 30 mg BID@0900,2100 HASMUKH Administration Famotidine 20 mg 06/05/18 17:00 06/06/18 06:29 Pepcid PO 20 mg BID@0600,1700 HASMUKH Administration Ferrous Sulfate 325 mg 06/06/18 09:00 Feosol PO DAILY@0900 [facility] Formoterol Fumarate 20 mcg 06/05/18 21:00 06/06/18 07:45 Perforomist INHALATION 20 mcg RT-BID@0900,2100 HASMUKH Administration Furosemide 40 mg 06/05/18 21:00 06/05/18 21:04 Lasix IV 40 mg Q12HR HASMUKH Administration Gabapentin 600 mg 06/05/18 13:00 06/06/18 06:29 Neurontin PO 600 mg TID@0600,1300,2100 HASMUKH Administration Guaifenesin 1,200 mg 06/05/18 21:00 06/05/18 21:05 Mucinex PO 1,200 mg BID@0900,2100 HASMUKH Administration Insulin Aspart 0 unit 06/05/18 12:30 06/06/18 06:29 Novolog SQ 7 unit ACHS HASMUKH Administration Protocol Linagliptin 5 mg 06/06/18 09:00 Tradjenta PO DAILY@0900 [facility] Methylprednisolone Sodium Succinate 40 mg 06/05/18 18:00 06/06/18 06:29 Solu-Medrol IV 40 mg Q6HR HASMUKH Administration Metoprolol Tartrate 12.5 mg 06/05/18 21:00 06/05/18 21:05 Lopressor PO 12.5 mg BID@0900,2100 HASMUKH Administration Montelukast Sodium 10 mg 06/05/18 21:00 06/05/18 21:05 Singulair PO 10 mg HS@2100 HASMUKH Administration Naloxone HCl 0.2 mg 06/05/18 06:46 Narcan IV Q2M PRN Opioid Reversal Nicotine 1 patch 06/05/18 21:00 06/05/18 21:58 Habitrol 14mg/24hr Patch TRANSDERM 1 patch HS@2100 HASMUKH Administration Nitroglycerin 0.4 mg 06/05/18 10:56 Nitrostat SUBLINGUAL Q5M PRN Angina Ropinirole HCl 0.5 mg 06/05/18 21:00 06/05/18 21:05 Requip PO 0.5 mg BID@0900,2100 HASMUKH Administration Senna/Docusate Sodium 2 each 06/05/18 17:00 06/05/18 17:30 Senokot-S PO 2 each BID@0900,1700 HASMUKH Administration Sodium Chloride 2 spray 06/05/18 11:03 Deep Sea NASAL QID PRN Congestion Vortioxetine 5 mg 06/06/18 09:00 Trintellix PO DAILY@0900 HASMUKH Intake and Output 06/05/18 06/06/18 06/06/18 22:59 06:59 14:59 Intake Total 600 Balance 600 Intake: Oral 600 Other: Voiding Method Bedside Commode Bedside Commode # Voids 1 Weight 112.9 kg 06/05/18 14:44 06/05/18 14:44
[2018-06-06] MEDS: BACLOFEN 10 MG TAB PO SCH ×2 (09:48→22:00)
[2018-06-06] MEDS: SENNOSIDES-DOCUSATE SODIUM 1 EACH TAB PO SCH (09:49)
[2018-06-06] MEDS: DIVALPROEX 250 MG TABLET.DR PO SCH ×3 (09:49→22:01)
[2018-06-06] MEDS: VORTIOXETINE HYDROBROMIDE 10 MG TABLET PO SCH (09:50)
[2018-06-06] MEDS: FUROSEMIDE 10 MG/ML 4 ML VIAL IV SCH ×2 (09:51→22:01)
[2018-06-06] MEDS: FERROUS SULFATE 325 MG TAB PO SCH (09:51)
[2018-06-06] MEDS: METOPROLOL TARTRATE 12.5 MG TAB PO SCH ×2 (09:51→22:00)
[2018-06-06] MEDS: LINAGLIPTIN 5 MG TABLET PO SCH (09:52)
[2018-06-06] MEDS: DULoxetine HCL 30 MG CAPSULE.DR PO SCH ×2 (09:52→22:00)
[2018-06-06] MEDS: guaiFENesin 600 MG TABLET.ER PO SCH ×2 (09:52→22:00)
[2018-06-06 11:49] LABS: Glucose,Whole Blood 311 mg/dL (75-99)
--- NOTE | 2018-06-06 13:34 | P.PN ---
Subjective Progress Note Date: 06/06/18 Principal diagnosis: Acute exacerbation of chronic obstructive pulmonary disease The patient is seen today 06/06/2018 in follow-up on the selective care unit. She is currently sitting up in bed. Awake and alert in no acute distress. She had been utilizing BiPAP throughout the evening and during the day while napping. She is awake and alert currently. Off the BiPAP. Continue O2 saturations in the low 90s on 5 L/m per nasal cannula. She's been afebrile. Hemodynamically stable. She remains on IV Solu-Medrol, bronchodilators, Habitrol patch. Continue Lasix 40 mg IV push every 12 hours as well. Current weight 113 kg. Objective - Vital Signs Vital signs: Vital Signs Temp 97.7 F 06/05/18 16:00 Pulse 73 06/06/18 12:02 Resp 20 06/06/18 08:00 BP 110/58 06/06/18 08:00 Pulse Ox 91 L 06/06/18 08:00 Intake & Output 06/05/18 06/06/18 06/06/18 18:59 06:59 18:59 Intake Total 600 Output Total 1100 Balance -1100 600 Weight 126 kg 112.9 kg Intake: Oral 600 Output: Urine 1100 Other: Voiding Method Bedside Commode Bedside Commode Bedside Commode # Voids 1 - Exam GENERAL EXAM: Pleasant obese 57-year-old female patient. Alert, comfortable in no apparent distress. On 6 L high flow nasal cannula HEAD: Normocephalic. EYES: Normal reaction of pupils, equal size. NOSE: Clear with pink turbinates. THROAT: No erythema or exudates. NECK: No masses, no JVD. CHEST: No chest wall deformity. LUNGS: Equal air entry with bilateral wheezing, few scattered rhonchi, diminished. CVS: S1 and S2 normal with no audible murmur, regular rhythm. ABDOMEN: No hepatosplenomegaly, normal bowel sounds, no guarding or rigidity. SPINE: No scoliosis or deformity SKIN: No rashes CENTRAL NERVOUS SYSTEM: No focal deficits, tone is normal in all 4 extremities. EXTREMITIES: There is no peripheral edema. No clubbing, no cyanosis. Peripheral pulses are intact. - Labs CBC & Chem 7: 06/05/18 14:44 06/05/18 14:44 Labs: Abnormal Lab Results - Last 24 Hours (Table) 06/05/18 06/05/18 06/05/18 Range/Units 14:44 14:44 16:32 WBC 2.8 L (3.8-10.6) k/uL RBC 2.68 L (3.80-5.40) m/uL Hgb 10.0 L (11.4-16.0) gm/dL Hct 30.2 L (34.0-46.0) % MCV 112.4 H (80.0-100.0) fL MCH 37.2 H (25.0-35.0) pg RDW 16.8 H (11.5-15.5) % Plt Count 87 L (150-450) k/uL Lymphocytes # 0.5 L (1.0-4.8) k/uL Carbon Dioxide 36 H (22-30) mmol/L BUN 31 H (7-17) mg/dL Glucose 189 H (74-99) mg/dL POC Glucose (mg/dL) 180 H (75-99) mg/dL Total Protein 5.4 L (6.3-8.2) g/dL Albumin 3.1 L (3.5-5.0) g/dL 06/05/18 06/06/18 06/06/18 Range/Units 20:53 05:48 11:45 WBC (3.8-10.6) k/uL RBC (3.80-5.40) m/uL Hgb (11.4-16.0) gm/dL Hct (34.0-46.0) % MCV (80.0-100.0) fL MCH (25.0-35.0) pg RDW (11.5-15.5) % Plt Count (150-450) k/uL Lymphocytes # (1.0-4.8) k/uL Carbon Dioxide (22-30) mmol/L BUN (7-17) mg/dL Glucose (74-99) mg/dL POC Glucose (mg/dL) 160 H 283 H 311 H (75-99) mg/dL Total Protein (6.3-8.2) g/dL Albumin (3.5-5.0) g/dL Assessment and Plan Assessment: Impression: #1 Acute exacerbation of chronic obstructive pulmonary disease. #2 Acute laceration of systolic congestive heart failure with a mildly impaired left ventricular systolic function ejection fraction 45-50. #3 Severe pulmonary hypertension with an RVSP of 60 mmHg. #4 Morbid obesity. #5 Obstructive sleep apnea retained on CPAP in the outpatient setting. #6 Coronary artery disease. #7 Fibromyalgia. #8 Diabetes mellitus. #9 Gastroesophageal reflux disease. #10 Hearing disorder. #11 hypertension. #12 Hyperlipidemia. #13 Degenerative joint disease. #14 History of vulvar cancer status post surgery. #15 Restless leg syndrome. #16 Resides at [facility]. Plan: The patient was seen and evaluated by Dr. Wilburn. She is improved today as compared to yesterday. We'll continue with the current treatment plan. We'll continue to follow make further recommendations based on her clinical status. I, the cosigning physician, performed a history & physical examination of the patient. Lungs sounds with bilateral end expiratory wheeze but diminished. Maintaining good O2 saturations in the 90s on liters high flow nasal cannula alternating with BiPAP. I discussed the assessment and plan of care with my nurse practitioner, Marie Stallworth. I attest to the above note as dictated by her.
[2018-06-06 16:39] LABS: Glucose,Whole Blood 293 mg/dL (75-99)
--- NOTE | 2018-06-06 17:05 | P.PN ---
Subjective Progress Note Date: 06/06/18 This is a 57-year-old female one of Dr. Pedro with a previous medical history significant for coronary artery disease status post PCI and 2 stents placement, hypertension and hypertensive cardiovascular disease with Lipitor hypertrophy, hyperlipidemia, history of fibromyalgia, diabetes mellitus type 2 with diabetic polyneuropathy, history of chronic diastolic heart failure, COPD, history of retinal detachment status post sclera buckling on the right side, history of the osteoarthritis, history of sleep apnea currently on a CPAP, patient was sent from [facility] on the [place] due to increased fatigue generalized weakness and hypoxemia according to the staff at [facility] her oxygenation was in the low 70s and the patient on oxygen and she barely made it to the low 80s, the ended up sending her to the ER for evaluation patient was started on BiPAP in the ER, and she had a computed tomography scan of the brain that did not show any evidence of acute of normalities but chronic small vessel disease, however she had a CTA of the chest was negative for pulmonary embolism, showed mediastinal lymph node without evidence of infiltrate, there was questionable free air in the abdomen however patient had a chest x-ray ordered that did not show any evidence of any free air, her abdomen exam patient is soft nevertheless we will consult surgery for further evaluation, patient will be seen in [facility] by pulmonary medicine, should be admitted to the hospital for further evaluation and treatment, patient does appear to be quite demented especially in the lower extremities she will be placed on Lasix for possible acute diastolic heart failure we'll continue the BiPAP for now and reevaluate the patient the next 24 hours, her potassium level was quite elevated at 6 she will be given Kayexalate 30 g orally 1 discontinue potassium supplement, repeat her potassium level. 4/6, patient has shortness of breath and cough, no abdominal pain, her CAT scan showed free air noted in the abdomen, general surgery has currently been signed out, patient has tolerated clear liquid diet, no changes in the x-rays noted except for the small amount of free air,no nausea no abdominal pain no vomiting, we'll going to increase the diet to full liquid diet, patient wants to cut down her laxatives as she has 3 bowel movements a day nursing staff mentioned that the stools are hard, no melenaIV steroids are decreased today to 40 mg every 8 hours, Review of Systems Constitutional: Reports chronic pain, Reports fatigue, Reports lethargy, Reports malaise, Reports weakness, Reports weight gain, Denies anorexia, Denies chronic headaches Eyes: bilateral blurred vision, bilateral decreased vision, denies bulging eye Ears: deny: decreased hearing Ears, nose, mouth and throat: Denies dysphagia, Denies neck lump, Denies sore throat, Denies vertigo Cardiovascular: Reports decreased exercise tolerance, Reports dyspnea on exertion, Reports leg edema, Reports lightheadedness, Reports shortness of breath, Denies chest pain, Denies rapid heart beat, Denies syncope Respiratory: Reports congestion, Reports home oxygen, Reports sleep apnea, Reports snoring, Reports wheezing, Denies cough, Denies cough with sputum, Denies respiratory infections Gastrointestinal: Denies abdominal pain, Denies bloating, Denies BRBPR, Denies heartburn, Denies melena, Denies nausea, Denies vomiting Genitourinary: Denies dysuria, Denies nocturia Menstruation: Reports postmenopausal Musculoskeletal: Reports gait dysfunction Musculoskeletal: bilateral: ankle swelling, foot swelling, absent: ankle pain, ankle stiffness, elbow pain, elbow stiffness, elbow swelling, foot pain, foot stiffness, hand pain, hand stiffness, hand swelling, hip pain, hip stiffness, hip swelling, knee pain, knee stiffness, knee swelling, shoulder pain, shoulder stiffness, shoulder swelling, wrist pain, wrist stiffness, wrist swelling Integumentary: Denies pruritus, Denies rash Neurological: Reports gait dysfunction, Reports weakness Psychiatric: Reports anxiety, Denies paranoia, Denies sadness/tearfulness, Denies sleep disturbances, Denies suicidal ideation Endocrine: Denies fatigue, Denies weight change Objective - Vital Signs Vital signs: Vital Signs Temp 97.7 F 06/05/18 16:00 Pulse 71 06/06/18 15:45 Resp 18 06/06/18 12:00 BP 115/60 06/06/18 12:00 Pulse Ox 93 L 06/06/18 12:00 Intake & Output 06/05/18 06/06/18 06/06/18 18:59 06:59 18:59 Intake Total 960 Output Total 1100 Balance -1100 960 Weight 126 kg 112.9 kg Intake: Oral 960 Output: Urine 1100 Other: Voiding Method Bedside Commode Bedside Commode Bedside Commode # Voids 1 - Labs CBC & Chem 7: 06/08/18 06:01 06/08/18 06:01 Labs: Abnormal Lab Results - Last 24 Hours (Table) 06/05/18 06/05/18 06/06/18 Range/Units 14:44 20:53 05:48 Plt Count 87 L (150-450) k/uL Lymphocytes # 0.5 L (1.0-4.8) k/uL POC Glucose (mg/dL) 160 H 283 H (75-99) mg/dL 06/06/18 06/06/18 Range/Units 11:45 16:38 Plt Count (150-450) k/uL Lymphocytes # (1.0-4.8) k/uL POC Glucose (mg/dL) 311 H 293 H (75-99) mg/dL Assessment and Plan Plan: Assessment and plan: 1. Acute hypoxemic respiratory failure likely due to combination of COPD exacerbation as well as acute diastolic heart failure. Continue patient on DuoNeb treatment nebulization 4 times every day, continue oxygen support with the BiPAP, keep oxygen saturation greater than 93%, pulmonary consultation from Dr. Wilburn, continue patient also on Lasix 40 mg IV push every 12 hours, discontinue potassium supplement, monitor the patient input and output and daily weight, echocardiogram was done about 2 months ago.decrease Solu-Medrol 40 mg every 8 hours, 2. Hyperkalemia. Discontinue potassium supplement. Give the patient Kayexalate 30 g orally 1 and repeat the potassium level. 3. CAD post-PCI and 2 stents placement. Continue patient on Lopressor 12.5 mg orally twice every day, continue patient on a baby aspirin 81 mg once every day, continue Lipitor 40 mg orally once every day. 4. Hypertension and hypertensive cardio vascular disease. Continue Lopressor 12.5 mg orally twice every day.patient is not on an Tom and arms, she is diabetic, this needs to be reevaluated 5. Diabetes mellitus type 2. Currently the patient on Linaglipin 5 mg orally once every day, discontinue metformin as the patient did receive contrast for CTA of the chest, continue sliding scale insulin. 6. Diabetic polyneuropathy and fibromyalgia. Continue patient on gabapentin 600mg orally 3 times a dayevery day. and Cymbalta 30 twice a day, patient is on chronic opiates 7. Hyperlipidemia. Continue Lipitor 40 mg orally once every day. 8. Obesity with obstructive sleep apnea. Continue BiPAP. 9. Depression. Continue Cymbalta 30 mg orally twice every day.on a tapering program for trentellix 10. GERD. Continue patient on PPI. 11. free air in the abdomen most likely has tiny perforation noted, medical management at this time, advance diet to full liquid diet, conservative management, general surgery has signed out continue to monitor, currently however the patient physical examination does not support any acute abdomen at this time might need computed tomography scan of the abdomen without contrast for further evaluation. 12. Restless leg syndrome. Continue patient on Requip 0.5 mg orally twice every day. 13. Depressive disorder. Continue Trentellix 5 mg orally once every day. 14. History of intracranial bleed . Resolved. Computed tomography scan of the brain did not show evidence of acute abnormalities continue with Depakote 250 mg orally 3 times every day. 15. Pancytopenia with macrocytosis. Prior history of AML. may need hematology consultation follows with Dr. Fowler regularly outpatient. 16. DVT prophylaxis. We will start bilateral knee-high LLOYD hose, hold off heparin due to thrombocytopenia. 17. GI prophylaxis . Continue PPI. 18. Medical debility. Physical therapy evaluation. 19. Admitted to inpatient. Estimate length of stay 2 midnights. 20. Patient is no code.
[2018-06-06 20:57] LABS: Glucose,Whole Blood 311 mg/dL (75-99)
[2018-06-06] MEDS: ATORVASTATIN 40 MG TAB PO SCH (22:00)
[2018-06-06] MEDS: MONTELUKAST 10 MG TAB PO SCH (22:00)
[2018-06-06] MEDS: NICOTINE 14MG/24HR PATCH TRANSDERM SCH (22:02)
[2018-06-07 05:57] LABS: Glucose,Whole Blood 193 mg/dL (75-99)
[2018-06-07] MEDS: GABAPENTIN 300 MG CAP PO SCH ×3 (06:46→21:40)
[2018-06-07] MEDS: FAMOTIDINE 20 MG TAB PO SCH ×2 (06:46→18:26)
[2018-06-07] MEDS: INSULIN ASPART (NovoLOG) 100 UNIT/ML VIAL SQ SCH ×4 (06:46→21:42)
[2018-06-07 07:25] LABS: Anion Gap 5 mmol/L; Blood Urea Nitrogen 27 mg/dL (7-17); Calcium 8.8 mg/dL (8.4-10.2); Carbon Dioxide 39 mmol/L (22-30); Chloride 94 mmol/L (98-107); Glucose 187 mg/dL (74-99); Potassium 3.4 mmol/L (3.5-5.1); Sodium 138 mmol/L (137-145)
[2018-06-07] MEDS: BUDESONIDE 1 MG/2 ML NEBU INHALATION SCH ×2 (08:45→20:14)
[2018-06-07] MEDS: FORMOTEROL FUMARATE 20 MCG/2 ML NEBU INHALATION SCH ×2 (08:45→20:14)
[2018-06-07] MEDS: IPRATROPIUM-ALBUTEROL 3 ML NEB INHALATION SCH ×4 (08:45→20:14)
[2018-06-07] MEDS: SENNOSIDES-DOCUSATE SODIUM 1 EACH TAB PO SCH (10:40)
[2018-06-07] MEDS: DULoxetine HCL 30 MG CAPSULE.DR PO SCH ×2 (10:40→21:39)
[2018-06-07] MEDS: LINAGLIPTIN 5 MG TABLET PO SCH (10:40)
[2018-06-07] MEDS: METOPROLOL TARTRATE 12.5 MG TAB PO SCH ×2 (10:40→21:40)
[2018-06-07] MEDS: FERROUS SULFATE 325 MG TAB PO SCH (10:40)
[2018-06-07] MEDS: BACLOFEN 10 MG TAB PO SCH ×2 (10:40→21:41)
[2018-06-07] MEDS: guaiFENesin 600 MG TABLET.ER PO SCH ×2 (10:41→21:40)
[2018-06-07] MEDS: methylPREDNISolone SOD SUCCI 40 MG/ML 1 ML VIAL IV SCH ×2 (10:41→18:26)
[2018-06-07] MEDS: FUROSEMIDE 10 MG/ML 4 ML VIAL IV SCH (10:41)
[2018-06-07] MEDS: DIVALPROEX 250 MG TABLET.DR PO SCH ×3 (10:42→21:42)
[2018-06-07] MEDS: VORTIOXETINE HYDROBROMIDE 10 MG TABLET PO SCH (10:42)
[2018-06-07] MEDS: HYDROcodone/APAP 7.5-325MG 1 EACH TAB PO PRN ×2 (10:50→18:29)
[2018-06-07 11:29] LABS: Glucose,Whole Blood 146 mg/dL (75-99)
--- NOTE | 2018-06-07 13:10 | P.PN ---
Subjective Progress Note Date: 06/07/18 IMPRESSION / ASSESSMENT: Acute hypoxic respiratory failure secondary to COPD and acute diastolic heart fa ilure. Hyperkalemia Coronary artery disease status post PCI and 2 stents Hypertension hypertensive cardiovascular disease Diabetes mellitus type 2 Pancytopenia History of acute leukemia Acute abdomen ruled out by surgery PLAN: Change Lasix IV to Lasix 80 mg oral twice daily. Resume Zaroxolyn 2.25 mg Friday. Continue Lopressor 12.5 mg twice daily, atorvastatin 40 mg at bedtime. Cardiology will sign off this case and follow on an as needed basis. Please contact for any concerns. Follow-up with Dr. Barrios as an outpatient in 1-2 weeks HPI This is a 57-year-old female past medical history significant for hypertension, dyslipidemia, COPD, chronic nicotine dependence, diabetes mellitus, pulmonary hypertension and coronary artery disease s/p stent placement to the mid LAD. She follows in the office with Dr. Barrios. She recently underwent a right and left heart cath 04/01/2018 revealing a patent stent in the LAD with no progression of coronary artery disease, elevated LVEDP, right atrial pressure of 8-10 mmHg, pulmonary artery pressure 60-65 mmHg and wedge pressure of 12-15 mmHg. We have been asked to see her in consultation for heart failure. She has history that she had diarrhea and her PCP decrease Lasix from 80 mg twice daily to 40 mg twice daily for 2 days and then she developed shortness of breath for about 4 days prior to arrival. She presented to the hospital with symptoms of shortness of breath with increased fatigue and generalized weakness and hypoxia. She underwent a CAT scan of the brain that did not show any acute abnormalities but chronic small vessel disease. CT of the chest was negative for pulmonary embolism, showed mediastinal lymph node without evidence of infiltrate, questionable free air in the abdomen. Chest x-ray did not show any evidence of free air. Patient was placed on BiPAP and started on IV Lasix. She was given Kayexalate for potassium of 6. This morning, patient states her breathing is much improved. She was on BiPAP through the night and is currently on high flow nasal cannula. Lower extremity edema is improved. 06/07: Patient states her breathing status is about back to baseline. Her lower extremity edema is improved. She is concerned that she is still on 6 L nasal cannula and is normally on 4 L. Repeat lab work reveals potassium 3.4, BUN 27 creatinine 0.66. EXAMINATION: Gen: This is a 57-year-old obese female patient Vital signs: Patient has been afebrile, heart rate 60s, blood pressure 116/61, pulse ox 90% on 6 L high flow oxygen. HEENT: Head is atraumatic, normocephalic. Pupils equal, round. Sclerae is anicteric. NECK: Supple. No JVD. No lymphadenopathy. No thyromegaly. LUNGS: Diminished with few scattered wheezes and rhonchi. No intercostal retractions. HEART: Regular rate and rhythm. Systolic murmur. ABDOMEN: Soft. Bowel sounds are present. No masses. No tenderness, large soft hernia. EXTREMITIES: 1+ pedal edema left and trace pedal edema right. NEUROLOGICAL: Patient is awake, alert and oriented x3. Cranial nerves 2 through 12 are grossly intact. Generalized weakness REVIEW OF LABS, ECG & MEDICAL DATA Echocardiogram in April 2018 revealed EF 45-50%, trace to mild mitral regurgitation, severe tricuspid regurgitation, severe pulmonary hypertension, right atrial pressure greater than 15 mmHg. EKG is a sinus rhythm with a right bundle branch block. Ultrasound venous Doppler lower extremity is negative for DVT. Thank you kindly for this consultation. Nurse practitioner note has been reviewed, I agree with documented findings and plan of care. Patient was seen and examined. Objective - Vital Signs Vital signs: Vital Signs Temp 98.4 F 06/07/18 08:00 Pulse 60 06/07/18 09:07 Resp 19 06/07/18 04:59 BP 116/61 06/07/18 08:00 Pulse Ox 90 L 06/07/18 08:00 Intake & Output 06/06/18 06/07/18 06/07/18 18:59 06:59 18:59 Intake Total 1140 240 Output Total 1300 Balance 1140 -1300 240 Weight 121.7 kg Intake: Oral 1140 240 Output: Urine 1300 Other: Voiding Method Bedside Commode Bedside Commode # Voids 1 - Labs CBC & Chem 7: 06/05/18 14:44 06/07/18 06:29 Labs: Abnormal Lab Results - Last 24 Hours (Table) 06/06/18 06/06/18 06/07/18 Range/Units 16:38 20:44 05:56 Potassium (3.5-5.1) mmol/L Chloride (98-107) mmol/L Carbon Dioxide (22-30) mmol/L BUN (7-17) mg/dL Glucose (74-99) mg/dL POC Glucose (mg/dL) 293 H 311 H 193 H (75-99) mg/dL 06/07/18 06/07/18 Range/Units 06:29 11:19 Potassium 3.4 L (3.5-5.1) mmol/L Chloride 94 L (98-107) mmol/L Carbon Dioxide 39 H (22-30) mmol/L BUN 27 H (7-17) mg/dL Glucose 187 H (74-99) mg/dL POC Glucose (mg/dL) 146 H (75-99) mg/dL
--- NOTE | 2018-06-07 14:21 | PN ---
PROGRESS NOTE DATE OF SERVICE: 06/07/2018 This is a 58-year-old female who was seen in consultation a couple days back. She was seen yesterday by our nurse practitioner. She has a history of COPD which is quite severe and systolic congestive heart failure. She also has a history of severe pulmonary hypertension, morbid obesity, sleep apnea syndrome maintained on CPAP, CAD, fibromyalgia, diabetes, GERD, deafness, hypertension, hyperlipidemia, DJD, vulvar cancer, restless legs syndrome, and permanent resident at a longterm locally. 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 Anyway, the patient is doing about the same today. She is sitting up in bed. She has a severe degree of kyphosis. The patient did verbalize that she would not want to be a full code. She wants to be DNR. She wants to be made comfort measures should she have any worsening of her respiratory status. Clinically, she is doing about the same. Very short of breath with any activity. Again, she is a permanent resident at [facility] on the [facility]. Current vital signs are reviewed. Her temperature is 98.4, heart rate 64, respiratory rate is 20, blood pressure 116/61, mean 79 and 6 L saturations about 90%. Appears in no acute distress. Mildly dyspneic. No conversational dyspnea. No audible wheezing. HEENT examination is grossly unremarkable. Nasal O2 in place. She does have a bit of a sandoval face from steroids. Neck is supple. Full range of motion. No adenopathy. Neck veins are flat. Cardiovascular examination reveals regular rhythm rate. S1, S2 normal. No S3, S4, murmur. Heart rate is 62. Heart sounds are distant. Lungs reveal coarse rhonchi. Breath sounds are diminished. There is prolongation on forced maneuver. There is some mild expiratory wheezes without crackles. Abdomen is obese. Bowel sounds are noted. Extremities are intact. Minimal edema. Skin without rash. Neurologic brief but nonfocal. LABS: Reviewed. The only thing today is an electrolyte profile showing sodium 138, potassium 3.4, chloride 94, CO2 is 39, anion gap 5, BUN and creatinine were [address] angiogram showed evidence of significant centrilobular emphysema without evidence of pulmonary embolism. Medications are reviewed. ASSESSMENT: 1. Chronic obstructive pulmonary disease exacerbation in a patient with severe oxygen- dependent chronic obstructive pulmonary disease. 2. Chronic hypoxemic respiratory failure. 3. Acute exacerbation of the patient's systolic congestive heart failure. 4. Severe pulmonary hypertension. 5. Morbid obesity. 6. Sleep apnea syndrome, maintained on CPAP. 7. Coronary artery disease. 8. Fibromyalgia. 9. Diabetes mellitus. 10.Gastroesophageal reflux disease. 11.Hypertension. 12.Hyperlipidemia. 13.Degenerative joint disease. 14.History of vulvar cancer. 15.Restless leg syndrome. PLAN: The patient verbalizes today that she does not want to be a full code. She prefers to be a do not resuscitate, do not intubate. She also states that should she start having deterioration she would like to be maintained in comfort measures. This is documented by the nurse, Bethany. The patient is doing about the same. No additional recommendations are made. She states that if she does get out of the hospital she would like to see me in followup. I told her I could see her at [facility] on the [facility] because I do go there. No additional recommendations are made. Medications are appropriate. MMODL / IJN: [id number] /
--- NOTE | 2018-06-07 14:59 | P.PN ---
Subjective Progress Note Date: 06/07/18 This is a 57-year-old female one of Dr. Pedro with a previous medical history significant for coronary artery disease status post PCI and 2 stents placement, hypertension and hypertensive cardiovascular disease with Lipitor hypertrophy, hyperlipidemia, history of fibromyalgia, diabetes mellitus type 2 with diabetic polyneuropathy, history of chronic diastolic heart failure, COPD, history of retinal detachment status post sclera buckling on the right side, history of the osteoarthritis, history of sleep apnea currently on a CPAP, patient was sent from [facility] on [place] due to increased fatigue generalized weakness and hypoxemia according to the staff at [facility] her oxygenation was in the low 70s and the patient on oxygen and she barely made it to the low 80s, the ended up sending her to the ER for evaluation patient was started on BiPAP in the ER, and she had a computed tomography scan of the brain that did not show any evidence of acute of normalities but chronic small vessel disease, however she had a CTA of the chest was negative for pulmonary embolism, showed mediastinal lymph node without evidence of infiltrate, there was questionable free air in the abdomen however patient had a chest x-ray ordered that did not show any evidence of any free air, her abdomen exam patient is soft nevertheless we will consult surgery for further evaluation, patient will be seen in [facility] by pulmonary medicine, should be admitted to the hospital for further evaluation and treatment, patient does appear to be quite demented especially in the lower extremities she will be placed on Lasix for possible acute diastolic heart failure we'll continue the BiPAP for now and reevaluate the patient the next 24 hours, her potassium level was quite elevated at 6 she will be given Kayexalate 30 g orally 1 discontinue potassium supplement, repeat her potassium level. 4/, patient has shortness of breath and cough, no abdominal pain, her CAT scan showed free air noted in the abdomen, general surgery has currently been signed out, patient has tolerated clear liquid diet, no changes in the x-rays noted except for the small amount of free air,no nausea no abdominal pain no vomiting, we'll going to increase the diet to full liquid diet, patient wants to cut down her laxatives as she has 3 bowel movements a day nursing staff mentioned that the stools are hard, no melenaIV steroids are decreased today to 40 mg every 8 hours 06/07: Patient continues to improve, no abdominal pain, no nausea, bowels are normal, patient requested to be a DO NOT RESUSCITATE, shortness of breath is i mproving, still with auscultatory wheeze no conversational dyspnea, diaper be advanced today to soft diet Consistent x-rays tomorrow to evaluate for free air, electrolytes abuse replaced, compliance to BiPAP treatments were again reviewed with the patient, maintain twice a day nebulized treatment, continue IV Solu- Medrol 40 every 8 Review of Systems Constitutional: Reports chronic pain, Reports fatigue, Reports lethargy, Reports malaise, Reports weakness, Reports weight gain, Denies anorexia, Denies chronic headaches Eyes: bilateral blurred vision, bilateral decreased vision, denies bulging eye Ears: deny: decreased hearing Ears, nose, mouth and throat: Denies dysphagia, Denies neck lump, Denies sore throat, Denies vertigo Cardiovascular: Reports decreased exercise tolerance, Reports dyspnea on exertion, Reports leg edema, Reports lightheadedness, Reports shortness of breath, Denies chest pain, Denies rapid heart beat, Denies syncope Respiratory: Reports congestion, Reports home oxygen, Reports sleep apnea, Reports snoring, Reports wheezing, Denies cough, Denies cough with sputum, Denies respiratory infections Gastrointestinal: Denies abdominal pain, Denies bloating, Denies BRBPR, Denies heartburn, Denies melena, Denies nausea, Denies vomiting Genitourinary: Denies dysuria, Denies nocturia Menstruation: Reports postmenopausal Musculoskeletal: Reports gait dysfunction Musculoskeletal: bilateral: ankle swelling, foot swelling, absent: ankle pain, ankle stiffness, elbow pain, elbow stiffness, elbow swelling, foot pain, foot stiffness, hand pain, hand stiffness, hand swelling, hip pain, hip stiffness, hip swelling, knee pain, knee stiffness, knee swelling, shoulder pain, shoulder stiffness, shoulder swelling, wrist pain, wrist stiffness, wrist swelling Integumentary: Denies pruritus, Denies rash Neurological: Reports gait dysfunction, Reports weakness Psychiatric: Reports anxiety, Denies paranoia, Denies sadness/tearfulness, Denies sleep disturbances, Denies suicidal ideation Endocrine: Denies fatigue, Denies weight change Objective - Vital Signs Vital signs: Vital Signs Temp 98.4 F 06/07/18 08:00 Pulse 65 06/07/18 13:23 Resp 19 06/07/18 04:59 BP 118/61 06/07/18 12:00 Pulse Ox 90 L 06/07/18 12:00 Intake & Output 06/06/18 06/07/18 06/07/18 18:59 06:59 18:59 Intake Total 1140 240 Output Total 1300 Balance 1140 -1300 240 Weight 121.7 kg Intake: Oral 1140 240 Output: Urine 1300 Other: Voiding Method Bedside Commode Bedside Commode # Voids 1 - Constitutional General appearance: Present: cooperative, no acute distress - EENT Eyes: Present: anicteric sclerae, EOMI, PERRLA, dentition normal, normal appearance ENT: Present: hearing grossly normal, NA/AT, normal oropharynx - Neck Neck: Present: normal ROM - Respiratory Respiratory: bilateral: wheezing, negative: CTA, diminished, dullness, rales, rhonchi - Cardiovascular Rhythm: regular Heart sounds: normal: S1, S2 Abnormal Heart Sounds: Absent: systolic murmur, diastolic murmur, rub, S3 Huffman p, S4 Gallop, click, other - Gastrointestinal General gastrointestinal: Present: normal bowel sounds, soft - Integumentary Integumentary: Present: decreased turgor, normal - Neurologic Neurologic: Present: CNII-XII intact - Musculoskeletal Musculoskeletal: Present: gait normal - Psychiatric Psychiatric: Present: A&O x's 3, appropriate affect, intact judgment & insight - Labs CBC & Chem 7: 06/08/18 06:01 06/08/18 06:01 Labs: Abnormal Lab Results - Last 24 Hours (Table) 06/06/18 06/06/18 06/07/18 Range/Units 16:38 20:44 05:56 Potassium (3.5-5.1) mmol/L Chloride (98-107) mmol/L Carbon Dioxide (22-30) mmol/L BUN (7-17) mg/dL Glucose (74-99) mg/dL POC Glucose (mg/dL) 293 H 311 H 193 H (75-99) mg/dL 06/07/18 06/07/18 Range/Units 06:29 11:19 Potassium 3.4 L (3.5-5.1) mmol/L Chloride 94 L (98-107) mmol/L Carbon Dioxide 39 H (22-30) mmol/L BUN 27 H (7-17) mg/dL Glucose 187 H (74-99) mg/dL POC Glucose (mg/dL) 146 H (75-99) mg/dL Assessment and Plan Plan: Assessment and plan: 1. Acute hypoxemic respiratory failure likely due to combination of COPD exacerbation as well as acute diastolic heart failure. Continue patient on DuoNeb treatment nebulization 4 times every day, continue oxygen support with the BiPAP, keep oxygen saturation greater than 93%, pulmonary consultation from Dr. Wilburn, continue patient also on Lasix 40 mg IV push every 12 hours, discontinue potassium supplement, monitor the patient input and output and daily weight, echocardiogram was done about 2 months ago. continueSolu-Medrol 40 mg every 8 hours times another 24 hours, oral prednisone to be started thereafter 2. Hyperkalemia resolved now hypo-kalemic Restart low-dose potassium supplement 20 meqqdaily repeat the potassium level. 3. CAD post-PCI and 2 stents placement. Continue patient on Lopressor 12.5 mg orally twice every day, continue patient on a baby aspirin 81 mg once every day, continue Lipitor 40 mg orally once every day. 4. Hypertension and hypertensive cardio vascular disease. Continue Lopressor 12.5 mg orally twice every day.patient is not on an Tom and arms, she is diabet ic, this needs to be reevaluated 5. Diabetes mellitus type 2. Currently the patient on Linaglipin 5 mg orally once every day, discontinue metformin as the patient did receive contrast for CTA of the chest, continue sliding scale insulin. 6. Diabetic polyneuropathy and fibromyalgia. Continue patient on gabapentin 600mg orally 3 times a dayevery day. and Cymbalta 30 twice a day, patient is on chronic opiates 7. Hyperlipidemia. Continue Lipitor 40 mg orally once every day. 8. Obesity with obstructive sleep apnea. Continue BiPAP. 9. Depression. Continue Cymbalta 30 mg orally twice every day.on a tapering program for trentellix 10. GERD. Continue patient on PPI. 11. free air in the abdomen most likely has tiny perforation noted, medical management at this time, advance diet to soft diet, conservative management, general surgery has seen the patient, patient declined surgery, currently however the patient physical examination does not support any acute abdomen at this time might need computed tomography scan of the abdomen without contrast for further evaluation. 12. Restless leg syndrome. Continue patient on Requip 0.5 mg orally twice every day. 13. Depressive disorder. Continue Trentellix 5 mg orally once every day. 14. History of intracranial bleed . Resolved. Computed tomography scan of the brain did not show evidence of acute abnormalities continue with Depakote 250 mg orally 3 times every day. 15. Pancytopenia with macrocytosis. Prior history of AML. may need hematology consultation follows with Dr. Fowler regularly outpatient. 16. DVT prophylaxis. We will start bilateral knee-high LLOYD hose, hold off heparin due to thrombocytopenia. 17. GI prophylaxis . Continue PPI. 18. Medical debility. Physical therapy evaluation. 19. Admitted to inpatient. Estimate length of stay 2 midnights. 20. Patient is no code.
[2018-06-07 16:22] LABS: Glucose,Whole Blood 308 mg/dL (75-99)
[2018-06-07] MEDS: FUROSEMIDE 80 MG TAB PO SCH (18:25)
[2018-06-07] MEDS: POTASSIUM CHLORIDE ER 20 MEQ TAB.ER PO SCH (18:26)
[2018-06-07 20:15] LABS: Glucose,Whole Blood 364 mg/dL (75-99)
[2018-06-07] MEDS: MONTELUKAST 10 MG TAB PO SCH (21:39)
[2018-06-07] MEDS: ATORVASTATIN 40 MG TAB PO SCH (21:39)
[2018-06-07] MEDS: NICOTINE 14MG/24HR PATCH TRANSDERM SCH (21:42)
[2018-06-08] MEDS: HYDROcodone/APAP 7.5-325MG 1 EACH TAB PO PRN ×3 (02:46→17:44)
[2018-06-08 05:44] LABS: Glucose,Whole Blood 314 mg/dL (75-99)
[2018-06-08] MEDS: INSULIN ASPART (NovoLOG) 100 UNIT/ML VIAL SQ SCH ×4 (05:52→22:49)
[2018-06-08] MEDS: FAMOTIDINE 20 MG TAB PO SCH ×2 (05:52→17:43)
[2018-06-08] MEDS: GABAPENTIN 300 MG CAP PO SCH ×3 (05:53→22:48)
[2018-06-08 06:53] LABS: Anisocytosis Slight; Basophils % (A) 1 %; Eosinophils % (A) 1 %; HCT 34.7 % (34.0-46.0); HGB 10.6 gm/dL (11.4-16.0); Hypochromasia Marked; Lymphocytes # (A) 0.7 k/uL (1.0-4.8); Lymphocytes % (A) 21 %; MCH 34.8 pg (25.0-35.0); MCHC 30.6 g/dL (31.0-37.0); MCV 113.8 fL (80.0-100.0); Macrocytosis Marked; Mean Platelet Volume 10.4; Monocytes # (A) 0.1 k/uL (0-1.0); Monocytes % (A) 4 %; Neutrophils # (A) 2.3 k/uL (1.3-7.7); Neutrophils % (A) 70 %; Platelet Count 117 k/uL (150-450); Poikilocytosis Slight; RBC 3.05 m/uL (3.80-5.40); RDW 16.1 % (11.5-15.5); WBC 3.3 k/uL (3.8-10.6)
[2018-06-08 07:02] LABS: Anion Gap 6 mmol/L; Blood Urea Nitrogen 25 mg/dL (7-17); Calcium 8.7 mg/dL (8.4-10.2); Carbon Dioxide 40 mmol/L (22-30); Chloride 93 mmol/L (98-107); Glucose 258 mg/dL (74-99); Potassium 4.1 mmol/L (3.5-5.1); Sodium 139 mmol/L (137-145)
[2018-06-08] MEDS: BUDESONIDE 1 MG/2 ML NEBU INHALATION SCH ×2 (07:03→19:28)
[2018-06-08] MEDS: IPRATROPIUM-ALBUTEROL 3 ML NEB INHALATION SCH ×4 (07:03→19:28)
[2018-06-08] MEDS: FORMOTEROL FUMARATE 20 MCG/2 ML NEBU INHALATION SCH ×2 (07:04→19:28)
[2018-06-08] MEDS ORDERED: METOLAZONE 2.5 MG TAB PO SCH ×2 (09:00)
[2018-06-08] MEDS ORDERED: POTASSIUM CHLORIDE ER 20 MEQ TAB.ER PO SCH (09:00)
[2018-06-08] MEDS: POTASSIUM CHLORIDE ER 20 MEQ TAB.ER PO SCH (09:09)
[2018-06-08] MEDS: methylPREDNISolone SOD SUCCI 40 MG/ML 1 ML VIAL IV SCH ×2 (09:09)
[2018-06-08] MEDS: BACLOFEN 10 MG TAB PO SCH ×2 (09:09→22:49)
[2018-06-08] MEDS: VORTIOXETINE HYDROBROMIDE 10 MG TABLET PO SCH (09:09)
[2018-06-08] MEDS: LINAGLIPTIN 5 MG TABLET PO SCH (09:09)
[2018-06-08] MEDS: FUROSEMIDE 80 MG TAB PO SCH ×2 (09:10→17:44)
[2018-06-08] MEDS: METOPROLOL TARTRATE 12.5 MG TAB PO SCH ×2 (09:10→22:49)
[2018-06-08] MEDS: SENNOSIDES-DOCUSATE SODIUM 1 EACH TAB PO SCH (09:10)
[2018-06-08] MEDS: DIVALPROEX 250 MG TABLET.DR PO SCH ×3 (09:10→23:09)
[2018-06-08] MEDS: DULoxetine HCL 30 MG CAPSULE.DR PO SCH ×2 (09:10→22:47)
[2018-06-08] MEDS: FERROUS SULFATE 325 MG TAB PO SCH (09:10)
[2018-06-08] MEDS: guaiFENesin 600 MG TABLET.ER PO SCH ×2 (09:10→22:47)
[2018-06-08 11:52] LABS: Glucose,Whole Blood 254 mg/dL (75-99)
[2018-06-08] MEDS: metFORMIN 500 MG TAB PO SCH ×2 (13:09→17:43)
--- NOTE | 2018-06-08 13:18 | P.PN ---
Subjective Progress Note Date: 06/08/18 This is a 57-year-old female one of Dr. Pedro with a previous medical history significant for coronary artery disease status post PCI and 2 stents placement, hypertension and hypertensive cardiovascular disease with Lipitor hypertrophy, hyperlipidemia, history of fibromyalgia, diabetes mellitus type 2 with diabetic polyneuropathy, history of chronic diastolic heart failure, COPD, history of retinal detachment status post sclera buckling on the right side, history of the osteoarthritis, history of sleep apnea currently on a CPAP, patient was sent from [facility] [place] due to increased fatigue generalized weakness and hypoxemia according to the staff at [facility] her oxygenation was in the low 70s and the patient on oxygen and she barely made it to the low 80s, the ended up sending her to the ER for evaluation patient was started on BiPAP in the ER, and she had a computed tomography scan of the brain that did not show any evidence of acute of normalities but chronic small vessel disease, however she had a CTA of the chest was negative for pulmonary embolism, showed mediastinal lymph node without evidence of infiltrate, there was questionable free air in the abdomen however patient had a chest x-ray ordered that did not show any evidence of any free air, her abdomen exam patient is soft nevertheless we will consult surgery for further evaluation, patient will be seen in [facility] by pulmonary medicine, should be admitted to the hospital for further evaluation and treatment, patient does appear to be quite demented especially in the lower extremities she will be placed on Lasix for possible acute diastolic heart failure we'll continue the BiPAP for now and reevaluate the patient the next 24 hours, her potassium level was quite elevated at 6 she will be given Kayexalate 30 g orally 1 discontinue potassium supplement, repeat her potassium level. 4/, patient has shortness of breath and cough, no abdominal pain, her CAT scan showed free air noted in the abdomen, general surgery has currently been signed out, patient has tolerated clear liquid diet, no changes in the x-rays noted except for the small amount of free air,no nausea no abdominal pain no vomiting, we'll going to increase the diet to full liquid diet, patient wants to cut down her laxatives as she has 3 bowel movements a day nursing staff mentioned that the stools are hard, no melenaIV steroids are decreased today to 40 mg every 8 hours 06/07: Patient continues to improve, no abdominal pain, no nausea, bowels are normal, patient requested to be a DO NOT RESUSCITATE, shortness of breath is im proving, still with auscultatory wheeze no conversational dyspnea, diaper be advanced today to soft diet Consistent x-rays tomorrow to evaluate for free air, electrolytes abuse replaced, compliance to BiPAP treatments were again reviewed with the patient, maintain twice a day nebulized treatment, continue IV Solu- Medrol 40 every 8 06/08: The patient states she is quite hungry today. She is encouraged to eat small meals only because of her hernia. Her blood sugars have been elevated and she has had a low hemoglobin A1c in the past. Metformin will be resumed. Solu- Medrol will be discontinued this afternoon and patient will start prednisone tomorrow at 50 mg at a 2 day taper. She states her lower extremity edema is less and she is having daily bowel movement. She is anxious to be discharged back to [facility] which will occur tomorrow. She has made arrangements for family to transport her. She is currently on 5 L of nasal cannula oxygen. We will plan to wean her down to her normal 4 L in anticipation of discharge tomorrow. Review of Systems Constitutional: Reports chronic pain, Reports fatigue, Reports lethargy, Reports malaise, Reports weakness, Reports weight gain, Denies anorexia, Denies chronic headaches Eyes: bilateral blurred vision, bilateral decreased vision, denies bulging eye Ears: deny: decreased hearing Ears, nose, mouth and throat: Denies dysphagia, Denies neck lump, Denies sore throat, Denies vertigo Cardiovascular: Reports decreased exercise tolerance, Reports dyspnea on exertion, Reports leg edema, Reports lightheadedness, Reports shortness of breath, Denies chest pain, Denies rapid heart beat, Denies syncope Respiratory: Reports congestion, Reports home oxygen, Reports sleep apnea, Rep orts snoring, Reports wheezing, Denies cough, Denies cough with sputum, Denies respiratory infections Gastrointestinal: Denies abdominal pain, Denies bloating, Denies BRBPR, Denies heartburn, Denies melena, Denies nausea, Denies vomiting, reports good appetite Genitourinary: Denies dysuria, Denies nocturia Menstruation: Reports postmenopausal Musculoskeletal: Reports gait dysfunction Musculoskeletal: bilateral: ankle swelling, foot swelling, absent: ankle pain, ankle stiffness, elbow pain, elbow stiffness, elbow swelling, foot pain, foot stiffness, hand pain, hand stiffness, hand swelling, hip pain, hip stiffness, hip swelling, knee pain, knee stiffness, knee swelling, shoulder pain, shoulder stiffness, shoulder swelling, wrist pain, wrist stiffness, wrist swelling Integumentary: Denies pruritus, Denies rash Neurological: Reports gait dysfunction, Reports weakness Psychiatric: Reports anxiety, Denies paranoia, Denies sadness/tearfulness, Denies sleep disturbances, Denies suicidal ideation Endocrine: Denies fatigue, Denies weight change Objective - Vital Signs Vital signs: Vital Signs Temp 97.2 F L 06/08/18 08:00 Pulse 76 06/08/18 11:23 Resp 13 06/08/18 03:29 BP 108/52 06/08/18 08:00 Pulse Ox 96 06/08/18 08:00 Intake & Output 06/07/18 06/08/18 06/08/18 18:59 06:59 18:59 Intake Total 600 120 Balance 600 120 Weight 111.2 kg Intake: Oral 600 120 Other: Voiding Method Bedside Commode # Voids 0 - Exam General appearance: Present: cooperative, no acute distress, patient sitting in recliner - EENT Eyes: Present: anicteric sclerae, EOMI, PERRLA, dentition normal, normal appearance ENT: Present: hearing grossly normal, NA/AT, normal oropharynx - Neck Neck: Present: normal ROM - Respiratory Respiratory: bilateral: few scattered wheezing, negative: CTA, diminished, dullness, rales, rhonchi - Cardiovascular Rhythm: regular Heart sounds: normal: S1, S2 Abnormal Heart Sounds: Absent: systolic murmur, diastolic murmur, rub, S3 Huffman p, S4 Gallop, click, other - Gastrointestinal General gastrointestinal: Present: normal bowel sounds, soft - Integumentary Integumentary: Present: decreased turgor, normal - Neurologic Neurologic: Present: CNII-XII intact - Musculoskeletal Musculoskeletal: Present: gait normal - Psychiatric Psychiatric: Present: A&O x's 3, appropriate affect, intact judgment & insight - Labs CBC & Chem 7: 06/08/18 06:01 06/08/18 06:01 Labs: Abnormal Lab Results - Last 24 Hours (Table) 06/07/18 06/07/18 06/08/18 Range/Units 16:17 20:14 05:42 WBC (3.8-10.6) k/uL RBC (3.80-5.40) m/uL Hgb (11.4-16.0) gm/dL MCV (80.0-100.0) fL MCHC (31.0-37.0) g/dL RDW (11.5-15.5) % Plt Count (150-450) k/uL Lymphocytes # (1.0-4.8) k/uL Chloride (98-107) mmol/L Carbon Dioxide (22-30) mmol/L BUN (7-17) mg/dL Glucose (74-99) mg/dL POC Glucose (mg/dL) 308 H 364 H 314 H (75-99) mg/dL 06/08/18 06/08/18 06/08/18 Range/Units 06:01 06:01 11:44 WBC 3.3 L (3.8-10.6) k/uL RBC 3.05 L (3.80-5.40) m/uL Hgb 10.6 L (11.4-16.0) gm/dL MCV 113.8 H (80.0-100.0) fL MCHC 30.6 L (31.0-37.0) g/dL RDW 16.1 H (11.5-15.5) % Plt Count 117 L (150-450) k/uL Lymphocytes # 0.7 L (1.0-4.8) k/uL Chloride 93 L (98-107) mmol/L Carbon Dioxide 40 H (22-30) mmol/L BUN 25 H (7-17) mg/dL Glucose 258 H (74-99) mg/dL POC Glucose (mg/dL) 254 H (75-99) mg/dL Assessment and Plan Plan: 1. Acute hypoxemic respiratory failure likely due to combination of COPD exacerbation as well as acute diastolic heart failure. Continue patient on DuoNeb treatment nebulization 4 times every day, continue oxygen support with the BiPAP, keep oxygen saturation greater than 93%, pulmonary consultation from Dr. Wilburn, continue patient also on Lasix 80 mg orally twice daily, monitor the patient input and output and daily weight, echocardiogram was done about 2 [place] hs ago. Solu-Medrol transitioned to oral prednisone to be started thereafter 2. Hyperkalemia resolved now hypo-kalemic Restart low-dose potassium supplement 20 meqqdaily repeat the potassium level. 3. CAD post-PCI and 2 stents placement. Continue patient on Lopressor 12.5 mg orally twice every day, continue patient on a baby aspirin 81 mg once every day, continue Lipitor 40 mg orally once every day. 4. Hypertension and hypertensive cardio vascular disease. Continue Lopressor 12.5 mg orally twice every day.patient is not on an Tom and arms, she is diabetic, this needs to be reevaluated 5. Diabetes mellitus type 2, uncontrolled with hyperglycemia secondary to steroids and metformin on hold for CAT scan. Currently the patient on Linaglipin 5 mg orally once every day, resume metformin, continue sliding scale insulin. 6. Diabetic polyneuropathy and fibromyalgia. Continue patient on gabapentin 600mg orally 3 times a dayevery day. and Cymbalta 30 twice a day, patient is on chronic opiates 7. Hyperlipidemia. Continue Lipitor 40 mg orally once every day. 8. Obesity with obstructive sleep apnea. Continue BiPAP. 9. Depression. Continue Cymbalta 30 mg orally twice every day.on a tapering program for trentellix 10. GERD. Continue patient on PPI. 11. free air in the abdomen most likely has tiny perforation noted, medical management at this time, advance diet to soft diet, conservative management, general surgery has seen the patient, patient declined surgery, currently however the patient physical examination does not support any acute abdomen at this time might need computed tomography scan of the abdomen without contrast for further evaluation. 12. Restless leg syndrome. Continue patient on Requip 0.5 mg orally twice every day. 13. Depressive disorder. Continue Trentellix 5 mg orally once every day. 14. History of intracranial bleed . Resolved. Computed tomography scan of the brain did not show evidence of acute abnormalities continue with Depakote 250 mg orally 3 times every day. 15. Pancytopenia with macrocytosis. Prior history of AML. may need hematology consultation follows with Dr. Fowler regularly outpatient. 16. DVT prophylaxis. We will start bilateral knee-high LLOYD hose, hold off heparin due to thrombocytopenia. 17. GI prophylaxis . Continue PPI. 18. Medical debility. Physical therapy evaluation. 19. Patient is no code. Discharge plan: Return to [facility] on Friday Impression and plan of care have been directed as dictated by the signing physician. Helena Convery nurse practitioner acting as scribe for signing physician.
--- NOTE | 2018-06-08 14:58 | P.PN ---
Subjective Progress Note Date: 06/08/18 Today's evaluation of 06/08/2018, the patient is awake and alert and she has no specific complaints. She is using the BiPAP overnight. She has been treated with accommodation bronchodilators and systemic steroids pages also diabetes IV Lasix. No major edema lower extremities. No nausea. No vomiting. No abdominal pain. No chest pain. The patient resides at [facility] on the [address] and she wants to ultimately go back there. In terms of her blood work, all of the blood work essentially within normal limits and the patient is currently on oral diuretics and IV Solu-Medrol still. Objective - Vital Signs Vital signs: Vital Signs Temp 97.2 F L 06/08/18 08:00 Pulse 76 06/08/18 11:23 Resp 13 06/08/18 03:29 BP 108/52 06/08/18 08:00 Pulse Ox 96 06/08/18 08:00 Intake & Output 06/07/18 06/08/18 06/08/18 18:59 06:59 18:59 Intake Total 600 240 Output Total 500 Balance 600 -260 Weight 111.2 kg Intake: Oral 600 240 Output: Urine 500 Other: Voiding Method Bedside Commode # Voids 0 # Bowel Movements 0 - Exam GENERAL EXAM: Pleasant obese 57-year-old female patient. Alert, comfortable in no apparent distress. On 6 L high flow nasal cannula HEAD: Normocephalic. EYES: Normal reaction of pupils, equal size. NOSE: Clear with pink turbinates. THROAT: No erythema or exudates. NECK: No masses, no JVD. CHEST: No chest wall deformity. LUNGS: Equal air entry with bilateral wheezing, few scattered rhonchi, diminished. CVS: S1 and S2 normal with no audible murmur, regular rhythm. ABDOMEN: No hepatosplenomegaly, normal bowel sounds, no guarding or rigidity. SPINE: No scoliosis or deformity SKIN: No rashes CENTRAL NERVOUS SYSTEM: No focal deficits, tone is normal in all 4 extremities. EXTREMITIES: There is no peripheral edema. No clubbing, no cyanosis. Peripheral pulses are intact. - Labs CBC & Chem 7: 06/08/18 06:01 06/08/18 06:01 Labs: Abnormal Lab Results - Last 24 Hours (Table) 06/07/18 06/07/18 06/08/18 Range/Units 16:17 20:14 05:42 WBC (3.8-10.6) k/uL RBC (3.80-5.40) m/uL Hgb (11.4-16.0) gm/dL MCV (80.0-100.0) fL MCHC (31.0-37.0) g/dL RDW (11.5-15.5) % Plt Count (150-450) k/uL Lymphocytes # (1.0-4.8) k/uL Chloride (98-107) mmol/L Carbon Dioxide (22-30) mmol/L BUN (7-17) mg/dL Glucose (74-99) mg/dL POC Glucose (mg/dL) 308 H 364 H 314 H (75-99) mg/dL 06/08/18 06/08/18 06/08/18 Range/Units 06:01 06:01 11:44 WBC 3.3 L (3.8-10.6) k/uL RBC 3.05 L (3.80-5.40) m/uL Hgb 10.6 L (11.4-16.0) gm/dL MCV 113.8 H (80.0-100.0) fL MCHC 30.6 L (31.0-37.0) g/dL RDW 16.1 H (11.5-15.5) % Plt Count 117 L (150-450) k/uL Lymphocytes # 0.7 L (1.0-4.8) k/uL Chloride 93 L (98-107) mmol/L Carbon Dioxide 40 H (22-30) mmol/L BUN 25 H (7-17) mg/dL Glucose 258 H (74-99) mg/dL POC Glucose (mg/dL) 254 H (75-99) mg/dL Assessment and Plan Plan: #1 Acute exacerbation of chronic obstructive pulmonary disease. Patient is improved considerably. She is on assist bronchus spastic and wheezy and less short of breath still on IV Solu-Medrol. #2 Acute exacerbation of systolic congestive heart failure with a mildly impaired left ventricular systolic function ejection fraction 45-50. The patient got diuresed IV Lasix and currently the patient on oral Lasix. #3 Severe pulmonary hypertension with an RVSP of 60 mmHg. #4 Morbid obesity. #5 Obstructive sleep apnea retained on CPAP in the outpatient setting. #6 Coronary artery disease. #7 Fibromyalgia. #8 Diabetes mellitus. #9 Gastroesophageal reflux disease. #10 Hearing disorder. #11 hypertension. #12 Hyperlipidemia. #13 Degenerative joint disease. #14 History of vulvar cancer status post surgery. #15 Restless leg syndrome. #16 Resides at [facility] in the [place]. Plan Discontinue the IV Solu-Medrol and put the patient on prednisone burst taper. Continue oral Lasix. Smoking cessation counseling was done and the patient is on a nicotine patch. Charge planning is in progress. The patient has a BiPAP machine that she utilizes at [facility] on the [address]. Her bank note designer is been Dr. Christine. Possible discharge in a.m. Her condition is stable for now.
[2018-06-08 16:33] LABS: Glucose,Whole Blood 371 mg/dL (75-99)
[2018-06-08] MEDS: predniSONE 20 MG TAB PO SCH (17:43)
[2018-06-08 21:20] LABS: Glucose,Whole Blood 292 mg/dL (75-99)
[2018-06-08] MEDS: ATORVASTATIN 40 MG TAB PO SCH (22:47)
[2018-06-08] MEDS: NICOTINE 14MG/24HR PATCH TRANSDERM SCH (22:47)
[2018-06-08] MEDS: MONTELUKAST 10 MG TAB PO SCH (22:49)
[2018-06-09 00:45] VITALS: RESP 18
[2018-06-09] MEDS: HYDROcodone/APAP 7.5-325MG 1 EACH TAB PO PRN ×2 (04:19→12:04)
[2018-06-09 06:29] LABS: Glucose,Whole Blood 231 mg/dL (75-99)
[2018-06-09] MEDS: FAMOTIDINE 20 MG TAB PO SCH (06:31)
[2018-06-09] MEDS: GABAPENTIN 300 MG CAP PO SCH ×2 (06:31→12:04)
[2018-06-09] MEDS: INSULIN ASPART (NovoLOG) 100 UNIT/ML VIAL SQ SCH ×2 (06:32→12:04)
[2018-06-09] MEDS: metFORMIN 500 MG TAB PO SCH (06:52)
[2018-06-09] MEDS: IPRATROPIUM-ALBUTEROL 3 ML NEB INHALATION SCH ×2 (08:43→12:01)
[2018-06-09] MEDS: BUDESONIDE 1 MG/2 ML NEBU INHALATION SCH (08:44)
[2018-06-09] MEDS: FORMOTEROL FUMARATE 20 MCG/2 ML NEBU INHALATION SCH (08:55)
[2018-06-09] MEDS ORDERED: predniSONE 50 MG TAB PO SCH (09:00)
[2018-06-09] MEDS: VORTIOXETINE HYDROBROMIDE 10 MG TABLET PO SCH (09:05)
[2018-06-09] MEDS: POTASSIUM CHLORIDE ER 20 MEQ TAB.ER PO SCH (09:05)
[2018-06-09] MEDS: DULoxetine HCL 30 MG CAPSULE.DR PO SCH (09:05)
[2018-06-09] MEDS: SENNOSIDES-DOCUSATE SODIUM 1 EACH TAB PO SCH (09:06)
[2018-06-09] MEDS: guaiFENesin 600 MG TABLET.ER PO SCH (09:06)
[2018-06-09] MEDS: BACLOFEN 10 MG TAB PO SCH (09:07)
[2018-06-09] MEDS: predniSONE 20 MG TAB PO SCH (09:07)
[2018-06-09] MEDS: LINAGLIPTIN 5 MG TABLET PO SCH (09:07)
[2018-06-09] MEDS: FUROSEMIDE 80 MG TAB PO SCH (09:07)
[2018-06-09] MEDS: METOPROLOL TARTRATE 12.5 MG TAB PO SCH (09:07)
[2018-06-09] MEDS: DIVALPROEX 250 MG TABLET.DR PO SCH ×2 (09:08→12:04)
[2018-06-09] MEDS: FERROUS SULFATE 325 MG TAB PO SCH (09:13)
[2018-06-09 09:45] LABS: HCT 36.7 % (34.0-46.0); HGB 11.4 gm/dL (11.4-16.0); Hypochromasia Moderate; MCH 34.6 pg (25.0-35.0); MCHC 31.1 g/dL (31.0-37.0); MCV 111.1 fL (80.0-100.0); Macrocytosis Marked; Mean Platelet Volume 10.4; Poikilocytosis Slight; RDW 15.8 % (11.5-15.5); WBC 4.8 k/uL (3.8-10.6)
[2018-06-09 10:34] VITALS: TEMP 97
[2018-06-09 12:03] LABS: Glucose,Whole Blood 186 mg/dL (75-99)
[2018-06-09 12:28] VITALS: BP 101/55; PULSE 74
--- NOTE | 2018-06-09 12:52 | P.DS ---
Providers Date of admission: 06/05/18 06:46 Expected date of discharge: 06/09/18 Attending physician: Shayne Nieto Consults: 06/05/18 10:31 Consult Physician Stat Consulting Provider: Yash Wilburn Consult Reason/Comments: Difficulty Breathing Do you want consulting provider notified?: Yes 06/05/18 10:54 Consult Physician Urgent Consulting Provider: Elvis Jaeger Consult Reason/Comments: free air under diaphragm Do you want consulting provider notified?: Yes 06/05/18 10:57 Consult Physician Routine Consulting Provider: Marvin Barrera Consult Reason/Comments: HF Do you want consulting provider notified?: Yes 06/05/18 14:07 Consult Physician Routine Consulting Provider: Ok Fiore Consult Reason/Comments: MDS Do you want consulting provider notified?: Yes Primary care physician: Shelly Pedro [place] [facility] Course: This is a 57-year-old female one of Dr. Pedro with a previous medical history significant for coronary artery disease status post PCI and 2 stents placement, hypertension and hypertensive cardiovascular disease with Lipitor hypertrophy, hyperlipidemia, history of fibromyalgia, diabetes mellitus type 2 with diabetic polyneuropathy, history of chronic diastolic heart failure, COPD, history of retinal detachment status post sclera buckling on the right side, history of the osteoarthritis, history of sleep apnea currently on a CPAP, vel lópez was sent from [facility] on the [place] due to increased fatigue generalized weakness and hypoxemia according to the staff at [facility] her oxygenation was in the low 70s and the patient on oxygen and she barely made it to the low 80s, the ended up sending her to the ER for evaluation patient was started on BiPAP in the ER, and she had a computed tomography scan of the brain that did not show any evidence of acute of normalities but chronic small vessel disease, however she had a CTA of the chest was negative for pulmonary embolism, showed mediastinal lymph node without evidence of infiltrate, there was questionable free air in the abdomen however patient had a chest x-ray ordered that did not show any evidence of any free air, her abdomen exam patient is soft nevertheless we will consult surgery for further evaluation, patient will be seen in consultation by pulmonary medicine, should be admitted to the hospital for further evaluation and treatment, patient does appear to be quite demented especially in the lower extremities she will be placed on Lasix for possible acute diastolic heart failure we'll continue the BiPAP for now and reevaluate the patient the next 24 hours, her potassium level was quite elevated at 6 she will be given Kayexalate 30 g orally 1 discontinue potassium supplement, repeat her potassium level. 06/06, patient has shortness of breath and cough, no abdominal pain, her CAT scan showed free air noted in the abdomen, general surgery has currently been signed out, patient has tolerated clear liquid diet, no changes in the x-rays noted except for the small amount of free air,no nausea no abdominal pain no vomiting, we'll going to increase the diet to full liquid diet, patient wants to cut down her laxatives as she has 3 bowel movements a day nursing staff mentioned that the stools are hard, no melenaIV steroids are decreased today to 40 mg every 8 hours 06/07: Patient continues to improve, no abdominal pain, no nausea, bowels are normal, patient requested to be a DO NOT RESUSCITATE, shortness of breath is improving, still with auscultatory wheeze no conversational dyspnea, diaper be advanced today to soft diet Consistent x-rays tomorrow to evaluate for free air, electrolytes abuse replaced, compliance to BiPAP treatments were again reviewed with the patient, maintain twice a day nebulized treatment, continue IV Solu- Medrol 40 every 8 06/08: The patient states she is quite hungry today. She is encouraged to eat small meals only because of her hernia. Her blood sugars have been elevated and she has had a low hemoglobin A1c in the past. Metformin will be resumed. Solu- Medrol will be discontinued this afternoon and patient will start prednisone tomorrow at 50 mg at a 2 day taper. She states her lower extremity edema is less and she is having daily bowel movement. She is anxious to be discharged back to [facility] which will occur tomorrow. She has made arrangements for family to transport her. She is currently on 5 L of nasal cannula oxygen. We will plan to wean her down to her normal 4 L in anticipation of discharge tomorrow. 06/09: Patient has been afebrile, heart rate 74, blood pressure 101/55, pulse ox 93% on 4 L nasal cannula. Patient denies any shortness of breath, lower extremity edema is improved. She is very anxious to be discharged to [facility]. She does have a ride arranged at 2 PM. Blood sugars remain elevated and patient will be started on Levemir 8 units at bedtime tonight at the long-term. Patient to be discharged today in stable condition. Discharge diagnoses: 1. Acute on chronic hypoxemic respiratory failure likely due to combination of COPD exacerbation as well as acute diastolic heart failure. 2. Hyperkalemia resolved 3. CAD post-PCI and 2 stents placement. 4. Hypertension and hypertensive cardio vascular disease. 5. Diabetes mellitus type 2, uncontrolled with hyperglycemia secondary to steroids and metformin on hold for CAT scan. 6. Diabetic polyneuropathy and fibromyalgia. 7. Hyperlipidemia. 8. Obesity with obstructive sleep apnea. 9. Recurrent depression. 10. GERD. 11. Free air in the abdomen most likely has tiny perforation noted, medical management at this time. 12. Restless leg syndrome. 13. History of intracranial bleed. 14. Pancytopenia with macrocytosis. Discharge plan: Return to [facility] on Friday Impression and plan of care have been directed as dictated by the signing physician. Helena Pimentel nurse practitioner acting as scribe for signing physician. Patient Condition at Discharge: Good Plan - Discharge Summary Discharge Rx Participant: No New Discharge Prescriptions: New predniSONE 0 mg PO DIRECTED #30 tab Potassium Chloride ER [K-Dur 20] 20 meq PO DAILY tab.er.prt Continue Atorvastatin [Lipitor] 40 mg PO HS@2100 Ranitidine HCl [Zantac] 150 mg PO BID@0600,1700 Ferrous Sulfate [Iron (65 MG Elemental)] 325 mg PO DAILY@0900 Metoprolol Tartrate [Lopressor] 12.5 mg PO BID@0900,2100 Divalproex [Depakote] 250 mg PO TID@0900,1300,2100 Baclofen [Lioresal] 20 mg PO BID@0900,2100 Ipratropium-Albuterol Nebulize [Duoneb 0.5 mg-3 mg/3 ml Soln] 3 ml INHALATION RT-QID #120 ampul.neb Sodium Chloride 0.65% Nasal [Deep Sea (Saline)] 2 spray NASAL QID PRN spray PRN Reason: Congestion Acetaminophen [Tylenol] 650 mg PO Q4H PRN PRN Reason: Pain Or Fever > 100.5 INSULIN LISPRO (humaLOG) [humaLOG] See Protocol SQ QID@08,12,17,20 Gabapentin 600 mg PO TID@0600,1300,2100 Sennosides-Docusate Sodium [Senokot-S] 2 tab PO BID@0900,1700 Budesonide [Pulmicort] 1 mg INHALATION BID@0900,2099 Formoterol Fumarate [Perforomist] 20 mcg INHALATION BID@0900,2099 metFORMIN HCL [Glucophage] 500 mg PO BID@0800,1700 guaiFENesin [Mucinex] 1,200 mg PO BID@0900,2099 Furosemide [Lasix] 80 mg PO BID@0600,1400 Linagliptin [Tradjenta] 5 mg PO DAILY@0900 Montelukast [Singulair] 10 mg PO HS@2099 Nitroglycerin Sl Tabs [Nitrostat] 0.4 mg SUBLINGUAL Q5M PRN PRN Reason: Angina Loperamide [Imodium] 2 mg PO QID PRN PRN Reason: Diarrhea rOPINIRole HCL [Requip] 0.5 mg PO BID@0900,2099 DULoxetine HCL [Cymbalta] 30 mg PO BID@0900,2099 Vortioxetine Hydrobromide [Trintellix] 5 mg PO DAILY@0900 Nicotine 14Mg/24Hr Patch [Habitrol] 1 patch TRANSDERM HS@2099 Metolazone [Zaroxolyn] 2.5 mg PO MOWEFR@0900 Vitamins A and D [Vitamin A and D] 1 applic TOPICAL HS HYDROcodone/APAP 7.5-325MG [B[place]vue 7.5-325] 1 tab PO Q8H PRN #9 tab PRN Reason: Pain Discontinued Potassium Chloride [Klor-Con 20] 20 meq PO MOWEFR@0900 Discharge Medication List Atorvastatin [Lipitor] 40 mg PO HS@209901/02/15 [History] Ranitidine HCl [Zantac] 150 mg PO BID@0600,1700 01/02/15 [History] Ferrous Sulfate [Iron (65 MG Elemental)] 325 mg PO DAILY@0900 12/17/17 [History] Metoprolol Tartrate [Lopressor] 12.5 mg PO BID@0900,209912/17/17 [History] Baclofen [Lioresal] 20 mg PO BID@0900,209904/15/18 [History] Divalproex [Depakote] 250 mg PO TID@0900,1300,209904/15/18 [History] Ipratropium-Albuterol Nebulize [Duoneb 0.5 mg-3 mg/3 ml Soln] 3 ml INHALATION RT-QID #120 ampul.neb 04/19/18 [Rx] Sodium Chloride 0.65% Nasal [Deep Sea (Saline)] 2 spray NASAL QID PRN spray 0 04/21/18 [Rx] Acetaminophen [Tylenol] 650 mg PO Q4H PRN 05/04/18 [History] Budesonide [Pulmicort] 1 mg INHALATION BID@0900,209905/04/18 [History] Formoterol Fumarate [Perforomist] 20 mcg INHALATION BID@0900,209905/04/18 [History] Furosemide [Lasix] 80 mg PO BID@0600,1400 05/04/18 [History] Gabapentin 600 mg PO TID@0600,1300,209905/04/18 [History] INSULIN LISPRO (humaLOG) [humaLOG] See Protocol SQ QID@08,,,05/04/18 [History] Linagliptin [Tradjenta] 5 mg PO DAILY@0900 05/04/18 [History] Montelukast [Singulair] 10 mg PO HS@209905/04/18 [History] Sennosides-Docusate Sodium [Senokot-S] 2 tab PO BID@0900,1700 05/04/18 [History] guaiFENesin [Mucinex] 1,200 mg PO BID@0900,209905/04/18 [History] metFORMIN HCL [Glucophage] 500 mg PO BID@0800,1700 05/04/18 [History] DULoxetine HCL [Cymbalta] 30 mg PO BID@0900,209906/05/18 [History] Loperamide [Imodium] 2 mg PO QID PRN 06/05/18 [History] Metolazone [Zaroxolyn] 2.5 mg PO MOWEFR@0906/05/18 [History] Nicotine 14Mg/24Hr Patch [Habitrol] 1 patch TRANSDERM HS@209906/05/18 [History] Nitroglycerin Sl Tabs [Nitrostat] 0.4 mg SUBLINGUAL Q5M PRN 06/05/18 [History] Vitamins A and D [Vitamin A and D] 1 applic TOPICAL HS 06/05/18 [History] Vortioxetine Hydrobromide [Trintellix] 5 mg PO DAILY@0900 06/05/18 [History] rOPINIRole HCL [Requip] 0.5 mg PO BID@0900,2100 06/05/18 [History] predniSONE 0 mg PO DIRECTED #30 tab 06/08/18 [Rx] HYDROcodone/APAP 7.5-325MG [B[place]vue 7.5-325] 1 tab PO Q8H PRN #9 tab 06/09/18 [Rx] Potassium Chloride ER [K-Dur 20] 20 meq PO DAILY tab.er.prt 06/09/18 [Rx] Follow up Appointment(s)/Referral(s): Shelly Pedro MD [Primary Care Provider] - 1 Week (At [facility]) Yash Wilburn DO [Doctor of Osteopathic Medicine] - 1 Week (At [facility]) Activity/Diet/Wound Care/Special Instructions: [facility] Discharge Disposition: TRANSFER TO SNF/ECF
--- NOTE | 2018-06-09 13:11 | P.PN ---
Subjective Progress Note Date: 06/09/18 Principal diagnosis: Acute exacerbation of chronic obstructive pulmonary disease Patient is seen again today 06/19/2018 in follow-up on the selective care unit. She is awake and alert in no acute distress. Feeling back to her baseline. Currently afebrile. Maintaining O2 saturations in the 90s on 4 L/m per nasal cannula. White count 4.8. Hemoglobin 11.4. She remains on bronchodilators, steroids, diuretics. NicoDerm patches in place. Objective - Vital Signs Vital signs: Vital Signs Temp 97.0 F L 06/09/18 12:00 Pulse 74 06/09/18 12:00 Resp 18 06/09/18 12:00 BP 101/55 06/09/18 12:00 Pulse Ox 93 L 06/09/18 12:00 Intake & Output 06/08/18 06/09/18 06/09/18 18:59 06:59 18:59 Intake Total 360 480 Output Total 500 1400 Balance -140 -1400 480 Weight 107.3 kg Intake: Oral 360 480 Output: Urine 500 1400 Other: Voiding Method Bedside Commode Bedside Commode # Voids 1 1 # Bowel Movements 0 - Exam GENERAL EXAM: Pleasant obese 58-year-old female patient. Alert, comfortable in no apparent distress. On 4 L high flow nasal cannula HEAD: Normocephalic. EYES: Normal reaction of pupils, equal size. NOSE: Clear with pink turbinates. THROAT: No erythema or exudates. NECK: No masses, no JVD. CHEST: No chest wall deformity. LUNGS: Equal air entry with bilateral wheezing, few scattered rhonchi, diminished. CVS: S1 and S2 normal with no audible murmur, regular rhythm. ABDOMEN: No hepatosplenomegaly, normal bowel sounds, no guarding or rigidity. SPINE: No scoliosis or deformity SKIN: No rashes CENTRAL NERVOUS SYSTEM: No focal deficits, tone is normal in all 4 extremities. EXTREMITIES: There is no peripheral edema. No clubbing, no cyanosis. Peripheral pulses are intact. - Labs CBC & Chem 7: 06/09/18 06:10 06/08/18 06:01 Labs: Abnormal Lab Results - Last 24 Hours (Table) 06/08/18 06/08/18 06/09/18 Range/Units 16:13 21:18 06:10 RBC 3.30 L (3.80-5.40) m/uL MCV 111.1 H (80.0-100.0) fL RDW 15.8 H (11.5-15.5) % POC Glucose (mg/dL) 371 H 292 H (75-99) mg/dL 06/09/18 06/09/18 Range/Units 06:28 11:57 RBC (3.80-5.40) m/uL MCV (80.0-100.0) fL RDW (11.5-15.5) % POC Glucose (mg/dL) 231 H 186 H (75-99) mg/dL Assessment and Plan Assessment: Impression: #1 Acute exacerbation of chronic obstructive pulmonary disease. #2 Acute laceration of systolic congestive heart failure with a mildly impaired left ventricular systolic function ejection fraction 45-50. #3 Severe pulmonary hypertension with an RVSP of 60 mmHg. #4 Morbid obesity. #5 Obstructive sleep apnea retained on CPAP in the outpatient setting. #6 Coronary artery disease. #7 Fibromyalgia. #8 Diabetes mellitus. #9 Gastroesophageal reflux disease. #10 Hearing disorder. #11 hypertension. #12 Hyperlipidemia. #13 Degenerative joint disease. #14 History of vulvar cancer status post surgery. #15 Restless leg syndrome. #16 Resides at [facility] in [facility]. Plan: The patient was seen and evaluated by Dr. Walker. She is for discharge from the pulmonary standpoint. Continue prednisone burst and taper. She is again educated regarding the importance of complete smoking cessation. She could follow with Dr. Wilburn at [facility] on the [address] if needed. I, the cosigning physician, performed a history & physical examination of the patient. Lungs sounds with bilateral end expiratory wheeze but diminished. Maintaining good O2 saturations in the 90s on 4 L/m per nasal cannula. I discussed the assessment and plan of care with my nurse practitioner, Marie Stallworth. I attest to the above note as dictated by her.
[2018-06-09 13:46] LABS: Band Neutrophils % 1 %; Monocytes # (M) 0.34 k/uL (0-1.0); Neutrophils % (M) 69 %; Nucleated Red Blood Cells 0 /100 WBC (0-0); Total Cells Counted 100
[2018-06-09 13:48] LABS: Anisocytosis (M) Present
[2018-06-09 13:54] LABS: Platelet Count 157 k/uL (150-450)
[2018-06-09] MEDS ORDERED: INSULIN DETEMIR (LEVEMIR) 100 UNIT/ML SYR SQ SCH (21:00)
[2018-06-10 05:01] LABS: Hemoglobin A1C 7.1 % (4.0-6.0)
== END 2018-06-09 13:59 | DRG 291 ==
LOC: EC 01:54 → 3SCARD 06:46
PROVIDERS: ADMIT Internal Medicine; ATTEND Internal Medicine
PROC: 5A09457 Assistance with Respiratory Ventilation, 24-96 Consecutive Hours, Continuous Positive Airway Pressure (ICD-10-PCS; principal; 2018-06-05)
DX: I11.0 Hypertensive heart disease with heart failure (principal); J96.21 Acute and chronic respiratory failure with hypoxia; K63.1 Perforation of intestine (nontraumatic); D61.818 Other pancytopenia; J44.1 Chronic obstructive pulmonary disease with (acute) exacerbation; F33.9 Major depressive disorder, recurrent, unspecified; C92.01 Acute myeloblastic leukemia, in remission; E11.42 Type 2 diabetes mellitus with diabetic polyneuropathy; E11.51 Type 2 diabetes mellitus with diabetic peripheral angiopathy without gangrene; I27.20 Pulmonary hypertension, unspecified; E87.5 Hyperkalemia; M41.9 Scoliosis, unspecified; E11.65 Type 2 diabetes mellitus with hyperglycemia; E66.01 Morbid (severe) obesity due to excess calories; B02.9 Zoster without complications; F03.90 Unspecified dementia, unspecified severity, without behavioral disturbance, psychotic disturbance, mood disturbance, and anxiety; M79.7 Fibromyalgia; M19.90 Unspecified osteoarthritis, unspecified site; I50.33 Acute on chronic diastolic (congestive) heart failure; G47.33 Obstructive sleep apnea (adult) (pediatric); E78.5 Hyperlipidemia, unspecified; I25.10 Atherosclerotic heart disease of native coronary artery without angina pectoris; F17.210 Nicotine dependence, cigarettes, uncomplicated; K21.9 Gastro-esophageal reflux disease without esophagitis; G25.81 Restless legs syndrome; Z86.73 Personal history of transient ischemic attack (TIA), and cerebral infarction without residual deficits; D75.89 Other specified diseases of blood and blood-forming organs; H91.90 Unspecified hearing loss, unspecified ear; I25.2 Old myocardial infarction; K43.9 Ventral hernia without obstruction or gangrene; M81.0 Age-related osteoporosis without current pathological fracture; Z68.37 Body mass index [BMI] 37.0-37.9, adult; T38.0X5A Adverse effect of glucocorticoids and synthetic analogues, initial encounter; D50.9 Iron deficiency anemia, unspecified; I45.10 Unspecified right bundle-branch block; Z66 Do not resuscitate; Z79.899 Other long term (current) drug therapy; Z79.4 Long term (current) use of insulin; Z79.891 Long term (current) use of opiate analgesic; Z92.21 Personal history of antineoplastic chemotherapy; Z85.44 Personal history of malignant neoplasm of other female genital organs; Z90.49 Acquired absence of other specified parts of digestive tract; Z95.5 Presence of coronary angioplasty implant and graft; Z96.1 Presence of intraocular lens; Z86.14 Personal history of Methicillin resistant Staphylococcus aureus infection; Z90.721 Acquired absence of ovaries, unilateral; Z88.1 Allergy status to other antibiotic agents; Z88.0 Allergy status to penicillin; Z88.2 Allergy status to sulfonamides; Z88.8 Allergy status to other drugs, medicaments and biological substances; Z82.49 Family history of ischemic heart disease and other diseases of the circulatory system; Z81.8 Family history of other mental and behavioral disorders
CPT/HCPCS: 36415; 36600; 70450; 71045; 71275; 74018; 80048; 80053; 80164; 82803; 82805; 83036; 83605; 83735; 83880; 84484; 85025; 85610; 85730; 93005; 93970; 94640; 94660; 94760; 96374; 96375; 99291